=== PATIENT | female | born 1935 | race Caucasian/White ===

== ENCOUNTER 2016-10-21 12:40 | Emergency (ER) | payer MEDICARE, BC ==
--- NOTE | 2016-10-21 13:40 | EDM.PDOC ---
ED HPI GENERAL MEDICAL PROBLEM - General Chief Complaint: Back Pain or Injury Stated Complaint: BACK PAIN [phone] Time Seen by Provider: 10/21/16 13:25 Source of Information: Reports: Patient History Limitations: Reports: No Limitations - History of Present Illness INITIAL COMMENTS - FREE TEXT/NARRATIVE: This 81 yo female patient reports to the ED with back pain. The patient reports her pain started 2 days ago and has been getting worse. The patient reports she has been taking Tylenol for her pain, but did not take any today. The patient reports she contacted the [facility], but was advised to come to the ED for assessment and treatment due to no appointments available. Onset Date: 10/19/16 Duration: Constant Location: Reports: Back Quality: Reports: Ache, Dull Severity: Moderate Improves with: Reports: None Worsens with: Reports: None Associated Symptoms: Reports: Other (difficulties walking due to back pain.) Middle Back Pain Score (Numeric/FACES): 7 - Related Data Allergies Allergy/AdvReac Type Severity Reaction Status Date / Time amoxicillin [Amoxicillin] Allergy Nausea Verified 10/21/16 12:54 azithromycin Allergy Nausea Verified 10/21/16 12:54 cefazolin sodium [From Ancef] Allergy Vomiting Verified 10/21/16 12:54 latex Allergy Nausea Verified 10/21/16 12:54 Home Meds: Home Meds Acetylcysteine [W-Phhjnx-g-Cysteine] 600 mg PO ASDIRECTED 10/21/16 [History] Albuterol Sulfate 2.5 mg IH ASDIRECTED 10/21/16 [History] Albuterol [IJD: Ventolin HFA] 1 gm PO ASDIRECTED 10/21/16 [History] Alendronate [Fosamax] 70 mg PO Q7D@0600 10/21/16 [History] Aspirin 81 mg PO BRK 10/21/16 [History] Budesonide [Pulmicort] 0.5 mg IH ASDIRECTED 10/21/16 [History] Calcitriol [Rocaltrol] 0.25 mcg PO DAILY 10/21/16 [History] Calcium Carbonate/Vitamin D3 [Calcium 500 mg Chewable Tablet] 1 tab PO ASDIRECTED 10/21/16 [History] Formoterol Fumarate [Perforomist] 2 ml PO ASDIRECTED 10/21/16 [History] Furosemide [Lasix] 60 mg PO DAILY 10/21/16 [History] Levothyroxine [Synthroid] 50 mcg PO ACBREAKFAST 10/21/16 [History] Loratadine [Claritin] 10 mg PO ASDIRECTED 10/21/16 [History] Magnesium 400 mg PO DAILY 10/21/16 [History] Metoprolol Succinate [Toprol Xl] 50 mg PO DAILY 10/21/16 [History] Multivitamin/Iron/Folic Acid [Centrum Adults Tablet] 1 tab PO DAILY 10/21/16 [ History] Omeprazole Magnesium [Prilosec Otc] 20 mg PO ASDIRECTED 10/21/16 [History] Polyethylene Glycol 3350 [MiraLAX] 17 gm PO ASDIRECTED 10/21/16 [History] Potassium Chloride 20 meq PO ASDIRECTED 10/21/16 [History] Psyllium Husk (With Sugar) [Metamucil Powder] 861 gm PO ASDIRECTED 10/21/16 [ History] atorvaSTATin [Lipitor] 10 mg PO BEDTIME 10/21/16 [History] guaiFENesin [Mucinex] 1 tab PO ASDIRECTED 10/21/16 [History] guaiFENesin [Tussin] 5 ml PO ATDISCHARGE 10/21/16 [History] Past Medical History HEENT History: Reports: Other (See Below) Other HEENT History: Trouble swallowing Cardiovascular History: Reports: Heart Failure, High Cholesterol, Hypertension, SOB on Exertion Respiratory History: Reports: Asthma, COPD, Interstitial Lung Disease, Pneumonia , Recurrent, Pulmonary Fibrosis, SOB, Other (See Below) Other Respiratory History: chronic cough, lung surgery, emphysema Gastrointestinal History: Reports: Hiatal Hernia Genitourinary History: Reports: Chronic Renal Insuffiency Psychiatric History: Reports: Anxiety Endocrine/Metabolic History: Reports: Hyperthyroidism, Osteopenia Oncologic (Cancer) History: Reports: Basal Cell Carcinoma - Past Surgical History HEENT Surgical History: Reports: Cataract Surgery Cardiovascular Surgical History: Reports: Other (See Below) Female Surgical History: Reports: Breast Biopsy, Hysterectomy, Other (See Below) Other Female Surgeries/Procedures: bladder repair Social & Family History - Family History Family Medical History: Noncontributory HEENT: Reports: None Cardiac: Reports: None Respiratory: Reports: None GI: Reports: None : Reports: None - Tobacco Use Smoking Status *Q: Never Smoker Second Hand Smoke Exposure: No - Alcohol Use Days Per Week of Alcohol Use: 0 - Recreational Drug Use Recreational Drug Use: No ED ROS GENERAL - Review of Systems Review Of Systems: ROS reveals no pertinent complaints other than HPI. ED EXAM,LOWER BACK PAIN/INJURY - Physical Exam Exam: See Below Exam Limited By: No Limitations General Appearance: Alert, WD/WN, Moderate Distress Eye Exam: Bilateral Eye: EOMI, Normal Inspection, PERRL Ears: Normal External Exam, Normal Canal, Hearing Grossly Normal, Normal TMs Nose: Normal Inspection, Normal Mucosa, No Blood Throat/Mouth: Normal Inspection, Normal Lips, Normal Teeth, Normal Gums, Normal Oropharynx, Normal Voice, No Airway Compromise Head: Atraumatic, Normocephalic Neck: Normal Inspection, Supple, Non-Tender, Full Range of Motion Respiratory/Chest: No Respiratory Distress, Lungs Clear, Normal Breath Sounds, No Accessory Muscle Use, Chest Non-Tender Cardiovascular: Normal Peripheral Pulses, Regular Rate, Rhythm, No Edema, No Gallop, No JVD, No Murmur, No Rub GI/Abdominal: Normal Bowel Sounds, No Organomegaly, No Distention, No Abnormal Bruit, No Mass, Distended, Tender (epigastric area) (Female) Exam: Deferred Rectal (Female) Exam: Deferred Back Exam: Decreased Range of Motion, Paraspinal Tenderness (near the L1-L2 areas) Extremities: Normal Inspection, Normal Range of Motion, Non-Tender, No Pedal Edema, Normal Capillary Refill Neurological: Alert, Normal Mood/Affect, Oriented x 3, Difficulty Walking (due to lower back pain). No: Saddle Anesthesia Psychiatric: Normal Affect, Normal Mood Skin Exam: Warm, Dry, Intact, Normal Color, No Rash Lymphatic: No Adenopathy Course - Vital Signs Last Recorded V/S: Last Vital Signs Temp 36.4 C 10/21/16 15:32 Pulse 72 10/21/16 15:32 Resp 18 10/21/16 15:32 BP 129/61 10/21/16 15:32 Pulse Ox 98 10/21/16 12:52 - Orders/Labs/Meds Labs: Laboratory Tests 10/21/16 10/21/16 10/21/16 Range/Units 13:12 13:38 13:38 WBC 10.2 H (5.0-10.0) 10^3/uL RBC 3.71 L (4.2-5.4) 10^6/uL Hgb 11.2 L (12.0-16.0) g/dL Hct 35.0 L (37.0-47.0) % MCV 94.3 (80-100) fL MCH 30.2 (27.0-34.0) pg MCHC 32.0 L (33.0-35.0) g/dL Plt Count 206 (150-450) 10^3/uL Neut % (Auto) 72.0 (42.2-75.2) % Lymph % (Auto) 17.1 L (20.5-50.1) % Emery % (Auto) 5.5 (2-8) % Eos % (Auto) 4.8 H (1.0-3.0) % Baso % (Auto) 0.6 (0.0-1.0) % Sodium 143 (135-145) mmol/L Potassium 4.3 (3.6-5.0) mmol/L Chloride 100 L (101-111) mmol/L Carbon Dioxide 32.0 H (21.0-31.0) mmol/L Anion Gap 15.3 BUN 18 (7-18) mg/dL Creatinine 1.1 (0.6-1.3) mg/dL Est Cr Clr Drug Dosing 34.30 mL/min Estimated GFR (MDRD) 48 BUN/Creatinine Ratio 16.36 Glucose 119 H (74-105) mg/dL Calcium 9.2 (8.4-10.2) mg/dl Total Bilirubin 0.6 (0.2-1.0) mg/dL AST 24 (10-42) IU/L ALT 13 (10-60) IU/L Alkaline Phosphatase 87 (42-121) IU/L Total Protein 7.0 (6.7-8.2) g/dl Albumin 3.8 (3.2-5.5) g/dl Globulin 3.2 Albumin/Globulin Ratio 1.19 Urine Color Yellow (YELLOW) Urine Appearance Clear (CLEAR) Urine pH 7.0 (5.0-9.0) Ur Specific [place] 1.015 (1.005-1.030) Urine Protein Negative (NEGATIVE) Urine Glucose (UA) Negative (NEGATIVE) Urine Ketones Negative (NEGATIVE) Urine Occult Blood Negative (NEGATIVE) Urine Nitrite Negative (NEGATIVE) Urine Bilirubin Negative (NEGATIVE) Urine Urobilinogen 0.2 (0.2-1.0) mg/dL Ur Leukocyte Esterase Trace H (NEGATIVE) Urine RBC Not seen /HPF Urine WBC 0-5 (0-5/HPF) /HPF Ur Epithelial Cells Moderate H /HPF Urine Bacteria Not seen (0-FEW/HPF) /HPF Urine Mucus Not seen /LPF Meds: Medications Discontinued Medications Generic Name Dose Route Start Last Admin Trade Name Shaquille PRN Reason Stop Dose Admin Ketorolac Tromethamine 30 mg 10/21/16 15:30 Toradol IM 10/21/16 15:31 ONETIME ONE Departure - Departure Time of Disposition: 15:35 Disposition: Home, Self-Care 01 Condition: Fair Clinical Impression: Low back strain Qualifiers: Encounter type: initial encounter Qualified Code(s): S39.012A - Strain of muscle, fascia and tendon of lower back, initial encounter - Discharge Information Instructions: Muscle Strain, [id number], Back Pain, Adult, [id number] Forms: ED Department Discharge Care Plan Goals: The patient and spouse were advised of the examination, lab and CT results during the visit. The patient was given an injection of Toradol (30 mg) while in the ED. The patient was discharged with a script for Flexeril (5 mg) #10 to take 1 by mouth at bedtime as needed. The patient may take Tylenol (up to 3000 mg) daily for symptom relief. If the patient has any additional symptoms or concerns, the patient should follow-up with her primary care facility or return to the emergency department.
--- NOTE | 2016-10-21 15:02 | CT ---
Clinical history: A 81-year-old 178 pound female with unexplained back pain. Scan technique: Volume acquisition of data emergency unenhanced CT scan of the lumbar spine obtained with patient lying supine on the Siemens multi slice scanner [facility]. All data archived in the PACS system for storage, reformatting and study. Interpretation: 1. Dextrorotoscoliosis and exaggerated lumbar lordosis osteopenic patient. 2. Calcifications in the anterior and posterior longitudinal ligaments (associated mild hypertrophic marginal spondylosis). 3. Chronic, lower lumbar, L5-S1 disc disease i.e. interspace narrowing and gas in nucleus pulposus. 4. Prominent disc-osteophyte complex encroaching on the lower lumbar spinal canal at the L5-S1 level . 5. No sign of pathologic skeletal lesion, lumbar fracture or spondylolisthesis (extensive reactive s clerosis posterior articulating facets from L4 through S1). Symmetric spacing normal SI joints. 6. Calcifications tracing normal caliber abdominal aorta and branching common iliac arteries. CONCLUSION: Osteopenia. Chronic L5-S1 disc disease. Arthritis but no fractures or dislocation lumbar spine..
--- NOTE | 2016-10-21 15:20 | CT ---
Localized: 81-year-old 178 pound hypertensive female with history of COPD, interstitial lung disease , hysterectomy and colon surgery now experiencing back pain (lumbar spine CT confirms "rotoscoliosis , exaggerated lumbar lordosis and lower lumbar disc disease. No fractures.") Scan technique: Emergency volume acquisition of data from the abdomen and pelvis obtained without or al or IV contrast while patient was lying supine on the Siemens multi slice scanner [place], [place]. All data archived in the PAC system for storage, reformatting and s tudy. Interpretation: 1. Dependently located echodensity within the gallbladder lumen right upper quadrant suggesting tiny stones. Normal unenhanced liver without without associated signs of intra/extrahepatic biliary duct dilatation. 2. Atheromatous calcifications scattered along course of normal caliber aortoiliac vessels. No aneur ysm or dissection. 3. Multilevel lower lumbar disc disease with reactive arthritic changes osteopenic spine. No fractur es or dislocation. 4. Normal appendix lower mid abdomen. No pelvic/abdominal mass lesion and no inflammatory "dirty" pe ritoneal fat or lymphadenopathy. No signs of mechanical bowel obstruction, ascites or free intraperi toneal air. Diverticulosis left colon. 5. Normal cardiac silhouette. (Elevated left hemidiaphragm) Extensive severe interstitial fibrotic/c ystic changes lung bases. CONCLUSION: Probable tiny gallstones. Pulmonary fibrosis. Multilevel lumbar disc disease. Diverticul osis left colon.
[2016-10-21] MEDS ORDERED: Ketorolac 30 MG/ML SDV IM ONE (15:30)
[2016-10-21 15:33] VITALS: BP 129/61
== END 2016-10-21 15:45 | disposition home or self-care (01) ==
LOC: DL.ED 12:40
DX: S39.012A Strain of muscle, fascia and tendon of lower back, initial encounter (principal); I50.9 Heart failure, unspecified; E78.00 Pure hypercholesterolemia, unspecified; J45.909 Unspecified asthma, uncomplicated; J44.9 Chronic obstructive pulmonary disease, unspecified; I13.0 Hypertensive heart and chronic kidney disease with heart failure and stage 1 through stage 4 chronic kidney disease, or unspecified chronic kidney disease; N18.9 Chronic kidney disease, unspecified; F41.9 Anxiety disorder, unspecified; E05.90 Thyrotoxicosis, unspecified without thyrotoxic crisis or storm; Z88.1 Allergy status to other antibiotic agents; Z91.040 Latex allergy status; Z79.82 Long term (current) use of aspirin; Z79.899 Other long term (current) drug therapy; Z85.828 Personal history of other malignant neoplasm of skin; Z98.49 Cataract extraction status, unspecified eye; Z90.710 Acquired absence of both cervix and uterus; Z98.890 Other specified postprocedural states; X58.XXXA Exposure to other specified factors, initial encounter
CPT/HCPCS: 36415; 72131; 74176; 80053; 81001; 85025; 96372; 99284; J1885; 99283

== ENCOUNTER 2016-10-29 17:18 | Emergency (ER) | payer MEDICARE, BC ==
[2016-10-29 17:39] VITALS: BP 105/84
[2016-10-29] MEDS ORDERED: HYDROmorphone 1 MG/ML Syringe IM ONE (17:40)
[2016-10-29] MEDS ORDERED: Ondansetron 4 MG Tab.DIS PO ONE (17:41)
--- NOTE | 2016-10-29 18:59 | EDM.PDOC ---
Scribed by Cristina Hernandez 10/29/16 [id number] for Aleksey Grace MD ED HPI GENERAL MEDICAL PROBLEM - General Chief Complaint: Back Pain or Injury Stated Complaint: [id number] HARD TO BREATHE BACK PAIN CANT WALK Time Seen by Provider: 10/29/16 17:36 Source of Information: Reports: Patient, RN, RN Notes Reviewed History Limitations: Reports: No Limitations - History of Present Illness INITIAL COMMENTS - FREE TEXT/NARRATIVE: Patient arrives by POV with complaint of severe left lower rib pain. Patient denies any injury. Has history of "thin bones". Also has been having flare up of chronic back pain for the last 1 to 2 weeks, Location: Reports: Back Quality: Reports: Ache Severity: Severe Improves with: Reports: None Worsens with: Reports: None Associated Symptoms: Reports: No Other Symptoms Back Pain Score (Numeric/FACES): 9 - Related Data Allergies Allergy/AdvReac Type Severity Reaction Status Date / Time amoxicillin [Amoxicillin] Allergy Nausea Verified 10/21/16 12:54 azithromycin Allergy Nausea Verified 10/21/16 12:54 cefazolin sodium [From Ancef] Allergy Vomiting Verified 10/21/16 12:54 latex Allergy Nausea Verified 10/21/16 12:54 Home Meds: Home Meds Acetylcysteine [N-Ylzfdv-l-Cysteine] 600 mg PO ASDIRECTED 10/21/16 [History] Albuterol Sulfate 2.5 mg IH ASDIRECTED 10/21/16 [History] Albuterol [IJD: Ventolin HFA] 1 gm PO ASDIRECTED 10/21/16 [History] Alendronate [Fosamax] 70 mg PO Q7D@0600 10/21/16 [History] Aspirin 81 mg PO BRK 10/21/16 [History] Budesonide [Pulmicort] 0.5 mg IH ASDIRECTED 10/21/16 [History] Calcitriol [Rocaltrol] 0.25 mcg PO DAILY 10/21/16 [History] Calcium Carbonate/Vitamin D3 [Calcium 500 mg Chewable Tablet] 1 tab PO ASDIRECTED 10/21/16 [History] Formoterol Fumarate [Perforomist] 2 ml PO ASDIRECTED 10/21/16 [History] Furosemide [Lasix] 60 mg PO DAILY 10/21/16 [History] Levothyroxine [Synthroid] 50 mcg PO ACBREAKFAST 10/21/16 [History] Loratadine [Claritin] 10 mg PO ASDIRECTED 10/21/16 [History] Magnesium 400 mg PO DAILY 10/21/16 [History] Metoprolol Succinate [Toprol Xl] 50 mg PO DAILY 10/21/16 [History] Multivitamin/Iron/Folic Acid [Centrum Adults Tablet] 1 tab PO DAILY 10/21/16 [ History] Omeprazole Magnesium [Prilosec Otc] 20 mg PO ASDIRECTED 10/21/16 [History] Polyethylene Glycol 3350 [MiraLAX] 17 gm PO ASDIRECTED 10/21/16 [History] Potassium Chloride 20 meq PO ASDIRECTED 10/21/16 [History] Psyllium Husk (With Sugar) [Metamucil Powder] 861 gm PO ASDIRECTED 10/21/16 [ History] atorvaSTATin [Lipitor] 10 mg PO BEDTIME 10/21/16 [History] guaiFENesin [Mucinex] 1 tab PO ASDIRECTED 10/21/16 [History] guaiFENesin [Tussin] 5 ml PO ATDISCHARGE 10/21/16 [History] Past Medical History HEENT History: Reports: Other (See Below) Other HEENT History: Trouble swallowing Cardiovascular History: Reports: Heart Failure, High Cholesterol, Hypertension, SOB on Exertion Respiratory History: Reports: Asthma, COPD, Interstitial Lung Disease, Pneumonia , Recurrent, Pulmonary Fibrosis, SOB, Other (See Below) Other Respiratory History: chronic cough, lung surgery, emphysema Gastrointestinal History: Reports: Hiatal Hernia Genitourinary History: Reports: Chronic Renal Insuffiency Psychiatric History: Reports: Anxiety Endocrine/Metabolic History: Reports: Hyperthyroidism, Osteopenia Oncologic (Cancer) History: Reports: Basal Cell Carcinoma - Past Surgical History HEENT Surgical History: Reports: Cataract Surgery Cardiovascular Surgical History: Reports: Other (See Below) Female Surgical History: Reports: Breast Biopsy, Hysterectomy, Other (See Below) Other Female Surgeries/Procedures: bladder repair Social & Family History - Family History Family Medical History: Noncontributory HEENT: Reports: None Cardiac: Reports: None Respiratory: Reports: None GI: Reports: None : Reports: None - Tobacco Use Smoking Status *Q: Never Smoker Second Hand Smoke Exposure: No - Caffeine Use Caffeine Use: Reports: Tea - Alcohol Use Days Per Week of Alcohol Use: 0 - Recreational Drug Use Recreational Drug Use: No ED ROS GENERAL - Review of Systems Review Of Systems: ROS reveals no pertinent complaints other than HPI. ED EXAM,LOWER BACK PAIN/INJURY - Physical Exam Exam: See Below Exam Limited By: No Limitations General Appearance: Alert, Mild Distress (due to pain.), Other (frail elderly) Head: Atraumatic, Normocephalic Neck: Normal Inspection, Supple, Non-Tender, Full Range of Motion Respiratory/Chest: No Respiratory Distress, No Accessory Muscle Use, Decreased Breath Sounds, Other (course vesicular breath sounds. ) Cardiovascular: Regular Rate, Rhythm GI/Abdominal: Normal Bowel Sounds, Soft, Non-Tender, No Distention Back Exam: Decreased Range of Motion, Paraspinal Tenderness, Vertebral Tenderness, Other (acutely tender overlying left anterolateral lower ribs.) Extremities: Normal Inspection, Normal Range of Motion, Non-Tender, No Pedal Edema, Normal Capillary Refill Neurological: Alert, Normal Mood/Affect, No Motor/Sensory Deficits, Oriented x 3 Psychiatric: Normal Affect, Normal Mood Skin Exam: Warm, Dry, Intact, Normal Color, No Rash Course - Vital Signs Last Recorded V/S: Last Vital Signs Temp 36.6 C 10/29/16 17:38 Pulse 77 10/29/16 17:38 Resp 20 10/29/16 17:38 BP 105/84 10/29/16 17:38 Pulse Ox 100 10/29/16 17:38 - Orders/Labs/Meds Meds: Medications Discontinued Medications Generic Name Dose Route Start Last Admin Trade Name Freq PRN Reason Stop Dose Admin Hydromorphone HCl 1 mg 10/29/16 17:40 10/29/16 17:54 Dilaudid IM 10/29/16 17:41 1 mg ONETIME ONE Administration Ondansetron HCl 4 mg 10/29/16 17:41 10/29/16 17:53 Zofran Odt PO 10/29/16 17:42 4 mg ONETIME ONE Administration - Radiology Interpretation Free Text/Narrative:: Rib x-ray: left anterior 5th or 6th rib fracture, see Rad. report. Departure - Departure Time of Disposition: 18:55 Disposition: Home, Self-Care 01 Condition: Good Clinical Impression: Left rib fracture Qualifiers: Encounter type: initial encounter Rib fracture type: single rib Fracture type: closed Qualified Code(s): S22.32XA - Fracture of one rib, left side, initial encounter for closed fracture - Discharge Information Instructions: Rib Fracture, [id number], Osteoporosis, [id number] Referrals: Pia Hernandez MD [Primary Care Provider] - Forms: ED Department Discharge Additional Instructions: RX: hydrocodone APAP 5mg/325mg. Follow up in clinic for recheck in the next 3 days if not improving. Follow up in clinic for evaluation of your thin bones to determine if you have osteopenia, or osteoporosis. Eat prunes or use a stool softener if the pain medication causes constipation. I have read and agree with the documentation that has been completed regarding this visit. By signing this record, I attest that the documentation was completed in my physical presence and is an accurate record of the encounter.
== END 2016-10-29 19:17 | disposition home or self-care (01) ==
LOC: DL.ED 17:18
DX: S22.32XA Fracture of one rib, left side, initial encounter for closed fracture (principal); I13.0 Hypertensive heart and chronic kidney disease with heart failure and stage 1 through stage 4 chronic kidney disease, or unspecified chronic kidney disease; I50.9 Heart failure, unspecified; N18.9 Chronic kidney disease, unspecified; E78.00 Pure hypercholesterolemia, unspecified; E05.90 Thyrotoxicosis, unspecified without thyrotoxic crisis or storm; J44.9 Chronic obstructive pulmonary disease, unspecified; Z88.1 Allergy status to other antibiotic agents; Z88.8 Allergy status to other drugs, medicaments and biological substances; Z91.040 Latex allergy status; Z79.899 Other long term (current) drug therapy; Z90.710 Acquired absence of both cervix and uterus; Z87.01 Personal history of pneumonia (recurrent); X58.XXXA Exposure to other specified factors, initial encounter
CPT/HCPCS: 71100; 96372; 99283; A9270; J1170

== ENCOUNTER 2016-11-03 06:37 | Emergency (ER) | payer MEDICARE, BC ==
--- NOTE | 2016-11-03 07:10 | EDM.PDOC ---
ED HPI GENERAL MEDICAL PROBLEM - General Chief Complaint: Gastrointestinal Problem Stated Complaint: HAVENT HAD BOWEL MOVEMENT IN A WEEK Time Seen by Provider: 11/03/16 07:05 Source of Information: Reports: Patient, Family ( and children) History Limitations: Reports: No Limitations - History of Present Illness INITIAL COMMENTS - FREE TEXT/NARRATIVE: 81 yo white female c/o no BM X 1 week and no results after taking enema last night and taking miralax. Pt. c/o of abdomen cramps and has been taking Hydrocodone since Oct.29 after dx. with left rib fracture. Onset Date: 10/27/16 Onset Time: 12:00 Duration: Week(s): (one) Location: Reports: Abdomen Quality: Reports: Ache, Pressure Severity: Moderate Improves with: Reports: None Context: Reports: Other (Patient started Hydrocodone on Oct.29) Treatments [employer]: Reports: Other (see below) (fleet enema and miralax) Left Throat Pain Score (Numeric/FACES): 8 - Related Data Allergies Allergy/AdvReac Type Severity Reaction Status Date / Time amoxicillin [Amoxicillin] Allergy Nausea Verified 11/03/16 06:47 azithromycin Allergy Nausea Verified 11/03/16 06:47 cefazolin sodium [From Ancef] Allergy Vomiting Verified 11/03/16 06:47 latex Allergy Nausea Verified 11/03/16 06:47 Home Meds: Home Meds Acetylcysteine [P-Bhrgjn-h-Cysteine] 600 mg PO ASDIRECTED 10/21/16 [History] Albuterol Sulfate 2.5 mg IH ASDIRECTED 10/21/16 [History] Albuterol [IJD: Ventolin HFA] 1 gm PO ASDIRECTED 10/21/16 [History] Alendronate [Fosamax] 70 mg PO Q7D@0600 10/21/16 [History] Aspirin 81 mg PO BRK 10/21/16 [History] Budesonide [Pulmicort] 0.5 mg IH ASDIRECTED 10/21/16 [History] Calcitriol [Rocaltrol] 0.25 mcg PO DAILY 10/21/16 [History] Calcium Carbonate/Vitamin D3 [Calcium 500 mg Chewable Tablet] 1 tab PO ASDIRECTED 10/21/16 [History] Formoterol Fumarate [Perforomist] 2 ml PO ASDIRECTED 10/21/16 [History] Furosemide [Lasix] 60 mg PO DAILY 10/21/16 [History] Levothyroxine [Synthroid] 50 mcg PO ACBREAKFAST 10/21/16 [History] Loratadine [Claritin] 10 mg PO ASDIRECTED 10/21/16 [History] Magnesium 400 mg PO DAILY 10/21/16 [History] Metoprolol Succinate [Toprol Xl] 50 mg PO DAILY 10/21/16 [History] Multivitamin/Iron/Folic Acid [Centrum Adults Tablet] 1 tab PO DAILY 10/21/16 [ History] Omeprazole Magnesium [Prilosec Otc] 20 mg PO ASDIRECTED 10/21/16 [History] Polyethylene Glycol 3350 [MiraLAX] 17 gm PO ASDIRECTED 10/21/16 [History] Potassium Chloride 20 meq PO ASDIRECTED 10/21/16 [History] Psyllium Husk (With Sugar) [Metamucil Powder] 861 gm PO ASDIRECTED 10/21/16 [ History] atorvaSTATin [Lipitor] 10 mg PO BEDTIME 10/21/16 [History] guaiFENesin [Mucinex] 1 tab PO ASDIRECTED 10/21/16 [History] guaiFENesin [Tussin] 5 ml PO ATDISCHARGE 10/21/16 [History] Past Medical History HEENT History: Reports: Other (See Below) Other HEENT History: Trouble swallowing Cardiovascular History: Reports: Heart Failure, High Cholesterol, Hypertension, SOB on Exertion Respiratory History: Reports: Asthma, COPD, Interstitial Lung Disease, Pneumonia , Recurrent, Pulmonary Fibrosis, SOB, Other (See Below) Other Respiratory History: chronic cough, lung surgery, emphysema Gastrointestinal History: Reports: Hiatal Hernia Genitourinary History: Reports: Chronic Renal Insuffiency Other Genitourinary History: bladder repair, bowel repair Musculoskeletal History: Reports: Back Pain, Chronic, Fracture Psychiatric History: Reports: Anxiety Endocrine/Metabolic History: Reports: Hyperthyroidism, Osteopenia Oncologic (Cancer) History: Reports: Basal Cell Carcinoma - Infectious Disease History Infectious Disease History: Reports: Measles - Past Surgical History HEENT Surgical History: Reports: Cataract Surgery Cardiovascular Surgical History: Reports: Other (See Below) Female Surgical History: Reports: Breast Biopsy, Hysterectomy, Other (See Below) Other Female Surgeries/Procedures: bladder repair Social & Family History - Family History Family Medical History: Noncontributory HEENT: Reports: None Cardiac: Reports: None Respiratory: Reports: None GI: Reports: None : Reports: None - Tobacco Use Smoking Status *Q: Never Smoker Second Hand Smoke Exposure: No - Caffeine Use Caffeine Use: Reports: Tea - Alcohol Use Days Per Week of Alcohol Use: 0 - Recreational Drug Use Recreational Drug Use: No ED ROS GENERAL - Review of Systems Review Of Systems: See Below Constitutional: Reports: No Symptoms HEENT: Reports: No Symptoms Respiratory: Reports: No Symptoms Cardiovascular: Reports: No Symptoms Endocrine: Reports: No Symptoms GI/Abdominal: Reports: Abdominal Pain, Constipation : Reports: No Symptoms Musculoskeletal: Reports: No Symptoms Skin: Reports: No Symptoms Neurological: Reports: No Symptoms Psychiatric: Reports: No Symptoms Hematologic/Lymphatic: Reports: No Symptoms Immunologic: Reports: No Symptoms ED EXAM, GI/ABD - Physical Exam Exam: See Below Exam Limited By: No Limitations General Appearance: Alert, WD/WN, No Apparent Distress Eyes: Bilateral: Normal Appearance, EOMI Ears: Normal External Exam Nose: Normal Inspection Throat/Mouth: Normal Inspection Head: Atraumatic Neck: Normal Inspection Respiratory/Chest: No Respiratory Distress Cardiovascular: Normal Peripheral Pulses, Regular Rate, Rhythm GI/Abdominal Exam: Soft, No Mass, Tender Extremities: Normal Inspection Neurological: Alert, Oriented, CN II-XII Intact Psychiatric: Normal Affect Skin Exam: Warm Lymphatic: No Adenopathy Course - Vital Signs Last Recorded V/S: Last Vital Signs Temp 36.6 C 11/03/16 08:54 Pulse 79 11/03/16 08:54 Resp 20 11/03/16 08:54 BP 117/74 11/03/16 08:54 Pulse Ox 97 11/03/16 08:54 - Orders/Labs/Meds Orders: Active Orders 24 hr Category Date Time Status Enema [RC] ASDIRECTED Care 11/03/16 07:35 Active Meds: Medications Discontinued Medications Generic Name Dose Route Start Last Admin Trade Name Shaquille PRN Reason Stop Dose Admin Magnesium Citrate 296 ml 11/03/16 07:35 11/03/16 07:42 Citrate Of Magnesia PO 11/03/16 07:36 296 ml ONETIME ONE Administration - Re-Assessments/Exams Free Text/Narrative Re-Assessment/Exam: 11/03/16 10:54 Patient was sent to medical surgery floor and had soap suds enema w/ some results Departure - Departure Time of Disposition: 10:55 Disposition: Home, Self-Care 01 Condition: Good Clinical Impression: Constipation - Discharge Information Instructions: Constipation, Adult, [id number] Forms: ED Department Discharge Additional Instructions: Increase intake of fluids ( water/ juice) approx. 6-8 glasses each day Increase fiber in diet ( Fruits / Vegetables) F/U w/ PCP - My Orders Last 24 Hours: My Active Orders 11/03/16 07:35 Enema [RC] ASDIRECTED - Assessment/Plan Last 24 Hours: My Active Orders 11/03/16 07:35 Enema [RC] ASDIRECTED
[2016-11-03] MEDS ORDERED: Magnesium Citrate Solution 296 ML Bottle PO ONE (07:35)
[2016-11-03 08:55] VITALS: BP 117/74
== END 2016-11-03 11:05 | disposition home or self-care (01) ==
LOC: DL.ED 06:37
DX: K59.00 Constipation, unspecified (principal); J45.909 Unspecified asthma, uncomplicated; I13.0 Hypertensive heart and chronic kidney disease with heart failure and stage 1 through stage 4 chronic kidney disease, or unspecified chronic kidney disease; I50.9 Heart failure, unspecified; N18.9 Chronic kidney disease, unspecified; E03.9 Hypothyroidism, unspecified; Z98.49 Cataract extraction status, unspecified eye; Z90.710 Acquired absence of both cervix and uterus; Z98.890 Other specified postprocedural states; Z88.1 Allergy status to other antibiotic agents; Z88.8 Allergy status to other drugs, medicaments and biological substances; Z91.040 Latex allergy status; Z79.82 Long term (current) use of aspirin; Z79.899 Other long term (current) drug therapy
CPT/HCPCS: 74020; 99283; 99284; A9270

== ENCOUNTER 2017-04-16 02:00 | Inpatient (IN) | payer MEDICARE, BC ==
[2017-04-16] MEDS ORDERED: Aspirin 81 MG Tab.Chew PO ONE (03:17)
[2017-04-16] MEDS ORDERED: Azithromycin 500 MG in Sodium Chloride 0.9% 250 ML IV ONE (03:17)
[2017-04-16] MEDS ORDERED: Aspirin 81 MG Tab.Chew ONE (03:23)
[2017-04-16] MEDS ORDERED: Azithromycin 500 MG AdvVial IV ONE (04:58)
[2017-04-16] MEDS ORDERED: Sodium Chloride 0.9% 250 ML ONE (04:59)
[2017-04-16 06:28] LABS: ANION GAP 8.4; CHLORIDE,CL 101 mmol/L (101-111); SODIUM,NA 141 mmol/L (135-145)
[2017-04-16] MEDS ORDERED: Morphine 2 MG/ML Syringe IV PRN (06:33)
[2017-04-16] MEDS ORDERED: Acetaminophen 325 MG Tab PO PRN (06:34)
[2017-04-16] MEDS ORDERED: Albuterol 0.083% 2.5 MG/3 ML Neb Soln INH PRN (06:35)
[2017-04-16] MEDS ORDERED: Ondansetron 4 MG/2 ML SDV IVPUSH PRN (06:36)
[2017-04-16] MEDS: Albuterol/Ipratropium 3.0-0.5 MG/3 ML Neb Soln INH SCH ×4 (08:45→20:48)
[2017-04-16] MEDS ORDERED: Aspirin 325 MG Tab.EC PO SCH (09:00)
--- NOTE | 2017-04-16 13:19 | PCM.HP ---
H&P History of Present Illness - General Date of Service: 04/16/17 Source of Information: Patient History Limitations: Reports: No Limitations - History of Present Illness Initial Comments - Free Text/Narative: Chest pain and some shortness of breath Onset of Symptoms: Reports: Other (2 days) Duration of Symptoms: Reports: Intermittent Location: Reports: Chest Quality: Reports: Pressure Improves with: Reports: Other (No known aggravating factors or relieving factors ) Associated Symptoms: Reports: Shortness of Breath, Weakness - Related Data Allergies/Adverse Reactions: Allergies Allergy/AdvReac Type Severity Reaction Status Date / Time amoxicillin [Amoxicillin] Allergy Nausea Verified 11/03/16 06:47 azithromycin Allergy Nausea Verified 11/03/16 06:47 cefazolin sodium [From Ancef] Allergy Vomiting Verified 11/03/16 06:47 latex Allergy Nausea Verified 11/03/16 06:47 Home Medications: Home Meds Acetylcysteine [T-Gcssoz-h-Cysteine] 600 mg PO ASDIRECTED 10/21/16 [History] Albuterol Sulfate 2.5 mg IH ASDIRECTED 10/21/16 [History] Albuterol [IJD: Ventolin HFA] 1 gm PO ASDIRECTED 10/21/16 [History] Alendronate [Fosamax] 70 mg PO Q7D@0600 10/21/16 [History] Aspirin 81 mg PO BRK 10/21/16 [History] Budesonide [Pulmicort] 0.5 mg IH ASDIRECTED 10/21/16 [History] Calcitriol [Rocaltrol] 0.25 mcg PO DAILY 10/21/16 [History] Calcium Carbonate/Vitamin D3 [Calcium 500 mg Chewable Tablet] 1 tab PO ASDIRECTED 10/21/16 [History] Formoterol Fumarate [Perforomist] 2 ml PO ASDIRECTED 10/21/16 [History] Furosemide [Lasix] 60 mg PO DAILY 10/21/16 [History] Levothyroxine [Synthroid] 50 mcg PO ACBREAKFAST 10/21/16 [History] Loratadine [Claritin] 10 mg PO ASDIRECTED 10/21/16 [History] Magnesium 400 mg PO DAILY 10/21/16 [History] Metoprolol Succinate [Toprol Xl] 50 mg PO DAILY 10/21/16 [History] Multivitamin/Iron/Folic Acid [Centrum Adults Tablet] 1 tab PO DAILY 10/21/16 [ History] Omeprazole Magnesium [Prilosec Otc] 20 mg PO ASDIRECTED 10/21/16 [History] Polyethylene Glycol 3350 [MiraLAX] 17 gm PO ASDIRECTED 10/21/16 [History] Potassium Chloride 20 meq PO ASDIRECTED 10/21/16 [History] Psyllium Husk (With Sugar) [Metamucil Powder] 861 gm PO ASDIRECTED 10/21/16 [ History] atorvaSTATin [Lipitor] 10 mg PO BEDTIME 10/21/16 [History] guaiFENesin [Mucinex] 1 tab PO ASDIRECTED 10/21/16 [History] guaiFENesin [Tussin] 5 ml PO ATDISCHARGE 10/21/16 [History] Past Medical History - Past Health History Medical/Surgical History: Denies Medical/Surgical History (COPD Hypertension Gastroesophageal reflux disease Allergy) HEENT History: Reports: Other (See Below) Other HEENT History: Trouble swallowing Cardiovascular History: Reports: Heart Failure, High Cholesterol, Hypertension, SOB on Exertion Respiratory History: Reports: Asthma, COPD, Interstitial Lung Disease, Pneumonia , Recurrent, Pulmonary Fibrosis, SOB, Other (See Below) Other Respiratory History: chronic cough, lung surgery, emphysema Gastrointestinal History: Reports: Hiatal Hernia Genitourinary History: Reports: Chronic Renal Insuffiency Other Genitourinary History: bladder repair, bowel repair Musculoskeletal History: Reports: Back Pain, Chronic, Fracture Psychiatric History: Reports: Anxiety Endocrine/Metabolic History: Reports: Hyperthyroidism, Osteopenia Oncologic (Cancer) History: Reports: Basal Cell Carcinoma - Infectious Disease History Infectious Disease History: Reports: Measles - Past Surgical History HEENT Surgical History: Reports: Cataract Surgery Cardiovascular Surgical History: Reports: Other (See Below) Female Surgical History: Reports: Breast Biopsy, Hysterectomy, Other (See Below) Other Female Surgeries/Procedures: bladder repair Social & Family History - Family History Family Medical History: Noncontributory HEENT: Reports: None Cardiac: Reports: None Respiratory: Reports: None GI: Reports: None : Reports: None - Tobacco Use Smoking Status *Q: Never Smoker Second Hand Smoke Exposure: No - Caffeine Use Caffeine Use: Reports: Tea - Alcohol Use Days Per Week of Alcohol Use: 0 - Recreational Drug Use Recreational Drug Use: No H&P Review of Systems - Review of Systems: Review Of Systems: See Below (Has associated shortness of breath) General: Reports: No Symptoms HEENT: Reports: No Symptoms Pulmonary: Reports: Shortness of Breath Cardiovascular: Reports: Chest Pain Gastrointestinal: Reports: No Symptoms Genitourinary: Reports: No Symptoms Musculoskeletal: Reports: No Symptoms Psychiatric: Reports: No Symptoms Neurological: Reports: No Symptoms Exam - Exam Exam: See Below (Has associated shortness of breath) - Vital Signs Vital Signs: Last Vital Signs Temp 36.4 C 04/16/17 11:24 Pulse 98 04/16/17 11:24 Resp 20 04/16/17 11:24 BP 104/55 L 04/16/17 11:24 Pulse Ox 91 L 04/16/17 11:24 - Exam Quality Assessment: Supplemental Oxygen General: Oriented Neck: Supple Lungs: Rales Cardiovascular: Regular Rate GI/Abdominal Exam: Soft Extremities: Normal Inspection, No Pedal Edema Neurological: Cranial Nerves Intact Psychiatric: Alert, Normal Affect - Patient Data Lab Results Last 24 hrs: Laboratory Results - last 24 hr 04/16/17 Range/Units 07:33 Troponin I < 0.02 (0.00-0.02) ng/ml Result Diagrams: 04/16/17 02:18 04/16/17 02:18 EKG INTERPRETATION EKG Date: 04/16/17 Rhythm: NSR (No significant abnormality) *Q Meaningful Use (ADM) - VTE *Q VTE Criteria *Q: - Stroke *Q Stroke Criteria *Q: - AMI *Q AMI Criteria *Q: Problem List Initiated/Reviewed/Updated: Yes Orders Last 24hrs: Active Orders 24 hr Category Date Time Status Chest PE [Ang Chest] [CT] Routine Exams 04/16/17 13:11 Ordered CULTURE BLOOD [BC] Routine Lab 04/16/17 05:05 Received TROPONIN I [CHEM] Timed Lab 04/16/17 13:30 Ordered Acetaminophen [Tylenol] Med 04/16/17 06:34 Active 650 mg PO Q6H PRN Albuterol [Proventil Neb Soln] Med 04/16/17 06:35 Active 2.5 mg INH Q4H PRN Albuterol/Ipratropium [DuoNeb 3.0-0.5 MG/3 ML] Med 04/16/17 07:00 Active 3 ml INH QIDRT Aspirin [Ecotrin] Med 04/16/17 09:00 Active 325 mg PO DAILY Azithromycin [Zithromax] 500 mg Med 04/17/17 06:00 Active Sodium Chloride 0.9% [Normal Saline] 250 ml IV Q24H Morphine Med 04/16/17 06:33 Active 2 mg IV Q4H PRN Ondansetron [Zofran] Med 04/16/17 06:36 Active 4 mg IVPUSH Q6H PRN Medication Orders Acetaminophen (Tylenol) 650 mg PO Q6H PRN PRN Reason: Pain/Fever Albuterol (Proventil Neb Soln) 2.5 mg INH Q4H PRN PRN Reason: Shortness of Breath Albuterol/Ipratropium (Duoneb 3.0-0.5 Mg/3 Ml) 3 ml INH QIDRT [facility] Last Admin: 04/16/17 12:24 Dose: 3 ml Admin: 04/16/17 08:45 Dose: 3 ml Aspirin (Ecotrin) 325 mg PO DAILY [facility] Last Admin: 04/16/17 08:45 Dose: 325 mg Azithromycin 500 mg/ Sodium (Chloride) 250 mls @ 250 mls/hr IV Q24H AIYANA Morphine Sulfate (Morphine) 2 mg IV Q4H PRN PRN Reason: Pain Ondansetron HCl (Zofran) 4 mg IVPUSH Q6H PRN PRN Reason: Nausea/Vomiting Assessment/Plan Comment:: #. Chest pain The quality of the chest pain is not classic for cardiac disease It has been intermittent He could be due to musculoskeletal factors #. COPD Patient has long-standing history of COPD #. Chronic hypoxemic respiratory failure On supplemental oxygen chronically #Pulmonary fibrosis Previously documented #. Hypothyroidism On hormone replacement therapy #. Gastroesophageal reflux disease Has been on proton pump inhibitor Plan Admit patient to rule out acute coronary syndrome Obtain troponin every 6 hours Nebulizer with DuoNeb Obtain CT scan of the chest to rule out active pulmonary embolism Start empiric antibiotics with intravenous is a gentamicin Start empiric antibiotics with intravenous ceftriaxone Continue proton pump inhibitor Monitor vital signs every 4 hours
[2017-04-16] MEDS ORDERED: Iopamidol 755 Mg/ML 100 ML Bottle IVPUSH ONE (13:24)
[2017-04-16] MEDS ORDERED: [UNRECOGNIZED DRUG - OTHER] PO SCH (14:00)
[2017-04-16] MEDS ORDERED: PSYLLIUM HUSK PO SCH (14:00)
[2017-04-16] MEDS ORDERED: cefTRIAXone 1,000 MG in Sodium Chloride 0.9% 50 ML IV SCH (14:00)
[2017-04-16] MEDS ORDERED: FORMOTEROL FUMARATE 20 MCG/2 ML INH PRN (14:00)
--- NOTE | 2017-04-16 14:24 | CT ---
Clinical history: 82-year-old 167 pound female with cough and shortness of breath reported to have "b ilateral upper lobe infiltrates, chronic interstitial thickening bilaterally, and left basilar infilt rate" on recent chest radiograph. Scan technique: Volume acquisition of data from the chest (bony thorax, lungs and mediastinum) obtain ed during intravenous ministration 64 cc nonionic Isovue 370 contrast (via injector) while patient wa s lying supine on the Siemens multi slice scanner [place], [place]. Al l data archived in the PACS system for storage, reformatting and study (lung/mediastinal windows). Interpretation: Abnormal. 1. Prominent proximal pulmonary artery segments bilaterally, generalized cystic/bullous disease/fibro sis and multilobar infiltrates. 2. *No sign of intraluminal filling defect or pulmonary artery thrombus i.e. low probability pulmonar y embolism. No peripheral pleural-based wedge shaped infarcts, abnormal areas of focal lobar oligemia , or associated pleural effusion. 3. Alveolar consolidation both upper lobes (superior segment on the right and axillary segment of the left), and posterior segments both lower lobes (left greater than right) i.e. multilobar pneumonia. Generalized abnormal interstitial process. 4. Large heart. No pericardial effusion and no current signs of alveolar edema or dependent pleural f luid accumulation. 5. Normal caliber ectatic aorta. 6. Insufficiency fracture (vertebral plana) osteoporotic lower thoracic vertebral body. 7. No lung mass or hilar/mediastinal lymphadenopathy. Upper abdominal viscera unremarkable. CONCLUSION: Abnormal interstitial lung disease and multilobar pneumonia. No current evidence pulmonar y embolism or infarct.
--- NOTE | 2017-04-16 14:35 | EKG ---
04/16/2017 - DARYL MCLEOD - TIME: 2:04 a.m. FINDINGS: EKG shows a normal sinus rhythm. There is left axis deviation. [facility] /[id number]
[2017-04-16] MEDS: Omeprazole 20 MG Cap.CR PO SCH (18:20)
[2017-04-16] MEDS: Loratadine 10 MG Tab PO SCH (18:28)
[2017-04-16] MEDS: Calcium Carbonate/Vitamin D3 1250 MG-200 Unit Tab PO SCH (18:28)
[2017-04-16] MEDS: cefTRIAXone 1 GM Vial IV SCH (18:28)
[2017-04-16] MEDS: atorvaSTATin 10 MG Tab PO SCH (20:47)
[2017-04-16] MEDS: Potassium Chloride 10 MEQ Tab.ER PO SCH (20:48)
[2017-04-16] MEDS: guaiFENesin/Dextromethorphan 100-10 MG/5 ML Soln 5 ML Cup PO PRN (20:49)
[2017-04-17] MEDS: guaiFENesin/Dextromethorphan 100-10 MG/5 ML Soln 5 ML Cup PO PRN ×3 (03:13→19:40)
[2017-04-17] MEDS: Omeprazole 20 MG Cap.CR PO SCH (05:16)
[2017-04-17] MEDS: Levothyroxine 50 MCG Tab PO SCH (05:16)
[2017-04-17] MEDS ORDERED: Azithromycin 500 MG in Sodium Chloride 0.9% 250 ML IV SCH (06:00)
[2017-04-17] MEDS: Albuterol/Ipratropium 3.0-0.5 MG/3 ML Neb Soln INH SCH ×4 (07:14→21:00)
[2017-04-17] MEDS ORDERED: Metoprolol Succinate 50 MG Tab.ER PO SCH (08:00)
[2017-04-17] MEDS: Polyethylene Glycol 3350 Powder 17 GM Packet PO PRN (08:14)
[2017-04-17] MEDS: Furosemide 20 MG Tab PO SCH (08:15)
[2017-04-17] MEDS: Loratadine 10 MG Tab PO SCH (08:15)
[2017-04-17] MEDS: Aspirin 81 MG Tab.Chew PO SCH (08:16)
[2017-04-17] MEDS: Calcitriol 0.25 MCG Cap PO SCH (08:16)
[2017-04-17] MEDS: Multivitamins,Therapeutic Tab PO SCH (08:16)
[2017-04-17] MEDS: Calcium Carbonate/Vitamin D3 1250 MG-200 Unit Tab PO SCH (08:17)
[2017-04-17] MEDS: Potassium Chloride 10 MEQ Tab.ER PO SCH ×2 (08:26→20:59)
[2017-04-17] MEDS ORDERED: guaiFENesin 100 MG/5 ML Soln 5 ML UD Cup PO PRN (08:56)
[2017-04-17] MEDS ORDERED: Albuterol 6.7 GM Inhaler INH PRN (08:59)
--- NOTE | 2017-04-17 10:33 | PN ---
DATE: 04/17/2017 The patient is an 82-year-old lady admitted with chest pain and shortness of breath. CAT scan of the chest showed interstitial lung disease and pneumonia, but no evidence of pulmonary embolism. She was started on Rocephin and Zithromax. This morning, she is feeling a little bit better with her shortness of breath and she denies any more chest pain and she denies any other ongoing complaints. No headache, abdominal pain, nausea, vomiting. LABORATORY DATA: This morning; lactic acid is 0.7 and troponin is 0.02. All 3 sets are negative. OBJECTIVE: Vital Signs: Blood pressure is 116/56, pulse 91, respirations 20, and temperature of 99.5. Heart: Regular rate and rhythm. Normal S1 and S2. No gallops. No rubs. Lungs: Coarse breath sounds bilaterally with some faint crackles on the left lung field, but no significant wheezing. Abdomen: Soft, nontender. Extremities: Negative for any pedal edema. No calf tenderness. MEDICATIONS: Reviewed. We will continue with her present management and we will also resume her home medication. [facility] /[id number]
[2017-04-17] MEDS: Sodium Chloride 0.9% 10 ML Syringe FLUSH PRN ×2 (17:46→21:01)
[2017-04-17] MEDS: cefTRIAXone 1 GM Vial IV SCH (17:46)
[2017-04-17] MEDS: Albuterol 0.083% 2.5 MG/3 ML Neb Soln NEB SCH (18:29)
[2017-04-17] MEDS: Budesonide 0.5 MG/2 ML Neb Susp NEB SCH (18:29)
[2017-04-17] MEDS: atorvaSTATin 10 MG Tab PO SCH (20:59)
[2017-04-17] MEDS ORDERED: guaiFENesin 600 MG Tab.ER PO PRN (21:00)
[2017-04-18] MEDS: Sodium Chloride 0.9% 10 ML Syringe FLUSH PRN ×2 (05:10→17:42)
[2017-04-18] MEDS: Azithromycin 500 MG in Sodium Chloride 0.9% 250 ML IV SCH (05:11)
[2017-04-18] MEDS: Omeprazole 20 MG Cap.CR PO SCH (05:21)
[2017-04-18] MEDS: Levothyroxine 50 MCG Tab PO SCH (05:21)
[2017-04-18] MEDS: guaiFENesin/Dextromethorphan 100-10 MG/5 ML Soln 5 ML Cup PO PRN ×2 (05:28→21:48)
[2017-04-18 06:56] LABS: ANION GAP 13.1; CHLORIDE,CL 100 mmol/L (101-111); SODIUM,NA 140 mmol/L (135-145)
[2017-04-18] MEDS: Albuterol 0.083% 2.5 MG/3 ML Neb Soln NEB SCH (07:35)
[2017-04-18] MEDS: Albuterol/Ipratropium 3.0-0.5 MG/3 ML Neb Soln INH SCH ×4 (07:35→21:30)
[2017-04-18] MEDS: Budesonide 0.5 MG/2 ML Neb Susp NEB SCH ×2 (07:35→18:05)
[2017-04-18] MEDS: Polyethylene Glycol 3350 Powder 17 GM Packet PO PRN (08:31)
[2017-04-18] MEDS: Calcitriol 0.25 MCG Cap PO SCH (08:33)
[2017-04-18] MEDS: Aspirin 81 MG Tab.Chew PO SCH (08:33)
[2017-04-18] MEDS: Furosemide 20 MG Tab PO SCH (08:33)
[2017-04-18] MEDS: Loratadine 10 MG Tab PO SCH (08:33)
[2017-04-18] MEDS: Calcium Carbonate/Vitamin D3 1250 MG-200 Unit Tab PO SCH (08:36)
[2017-04-18] MEDS: Multivitamins,Therapeutic Tab PO SCH (08:37)
[2017-04-18] MEDS: Potassium Chloride 10 MEQ Tab.ER PO SCH ×2 (08:45→21:41)
--- NOTE | 2017-04-18 11:10 | PN ---
DATE: 04/18/2017 SUBJECTIVE: The patient is still complaining of coughing spells and this morning, patient's chest is a little bit tight with breathing, but overall, she has been slowly improving. She denies any orthopnea, PND, abdominal pain, nausea, vomiting, or any other complaints. LABORATORY DATA: Lab workup this morning, CBC; WBC 6.7, hemoglobin is 9, hematocrit 28.9, and platelets 171. Chem-6; chloride is 100, glucose is 109. The rest of the panel is unremarkable. OBJECTIVE: Vital Signs: Blood pressure is 128/78, pulse of 98, respirations 21, and temperature of 98. Heart: Regular rate and rhythm. Normal S1 and S2. No gallops. No rubs. Lungs: Still remarkable for some faint crackles on the right lung field and mild expiratory wheeze. Breath sounds equal bilaterally though. Abdomen: Soft, nontender. Bowel sounds positive. Extremities: Negative for any significant pedal edema. No calf tenderness. IMPRESSION: Pneumonia. We will continue with her present management and continue with IV antibiotics, that is Rocephin and azithromycin. [facility] /[id number]
[2017-04-18] MEDS ORDERED: FORMOTEROL FUMARATE 20 MCG/2 ML INH PRN (11:17)
[2017-04-18] MEDS: ACETYLCYSTEINE 600 MG PO SCH (12:13)
[2017-04-18] MEDS ORDERED: Carboxymethylcellulose Sodium 1% Ophth Gel 0.4 ML UD EYEBOTH PRN (15:30)
[2017-04-18] MEDS: Enoxaparin 30 MG/0.3 ML Syringe SUBCUT SCH (16:42)
[2017-04-18] MEDS: cefTRIAXone 1 GM Vial IV SCH (17:42)
[2017-04-18] MEDS: atorvaSTATin 10 MG Tab PO SCH (21:40)
[2017-04-19] MEDS: Azithromycin 500 MG in Sodium Chloride 0.9% 250 ML IV SCH (05:55)
[2017-04-19] MEDS: Omeprazole 20 MG Cap.CR PO SCH (05:56)
[2017-04-19] MEDS: Levothyroxine 50 MCG Tab PO SCH (05:56)
[2017-04-19] MEDS: Albuterol/Ipratropium 3.0-0.5 MG/3 ML Neb Soln INH SCH ×2 (06:52→11:23)
[2017-04-19] MEDS: Budesonide 0.5 MG/2 ML Neb Susp NEB SCH (06:52)
[2017-04-19] MEDS: Calcitriol 0.25 MCG Cap PO SCH (08:43)
[2017-04-19] MEDS: Aspirin 81 MG Tab.Chew PO SCH (08:43)
[2017-04-19] MEDS: Furosemide 20 MG Tab PO SCH (08:43)
[2017-04-19] MEDS: Enoxaparin 30 MG/0.3 ML Syringe SUBCUT SCH (08:44)
[2017-04-19] MEDS: ACETYLCYSTEINE 600 MG PO SCH (08:44)
[2017-04-19] MEDS: Calcium Carbonate/Vitamin D3 1250 MG-200 Unit Tab PO SCH (08:44)
[2017-04-19] MEDS: Loratadine 10 MG Tab PO SCH (08:44)
[2017-04-19] MEDS: Potassium Chloride 10 MEQ Tab.ER PO SCH (08:44)
[2017-04-19] MEDS: Multivitamins,Therapeutic Tab PO SCH (08:44)
--- NOTE | 2017-04-19 08:59 | PCM.PN ---
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 CKD stage III, baseline serum creatinine now more of 1.2 to 1.4 mg/dl, admitted with Shortness of breath and chest pain. - Patient Data Vitals - Most Recent: Last Vital Signs Temp 37.4 C 04/19/17 07:56 Pulse 93 04/19/17 07:56 Resp 20 04/19/17 07:56 BP 104/65 04/19/17 07:56 Pulse Ox 98 04/19/17 07:56 Weight - Most Recent: 76.929 kg I&O - Last 24 Hours: Intake & Output 04/18/17 04/19/17 04/19/17 22:59 06:59 14:59 Intake Total 180 249 Output Total 200 Balance -20 249 Med Orders - Current: Current Medications Acetaminophen (Tylenol) 650 mg PO Q6H PRN PRN Reason: Pain/Fever Albuterol (Proventil Neb Soln) 2.5 mg INH Q4H PRN PRN Reason: Shortness of Breath Albuterol (Proventil Hfa) 0 gm INH Q4H PRN PRN Reason: Dyspnea Albuterol/Ipratropium (Duoneb 3.0-0.5 Mg/3 Ml) 3 ml INH QIDRT [facility] Last Admin: 04/19/17 06:52 Dose: 3 ml Alendronate Sodium (Fosamax) 70 mg PO Q7D@0600 [facility] Artificial Tears (Refresh Celluvisc) 1 each EYEBOTH QID PRN PRN Reason: Dry Eyes Last Admin: 04/18/17 16:37 Dose: 1 each Aspirin (Aspirin) 81 mg PO BRK [facility] Last Admin: 04/19/17 08:43 Dose: 81 mg Atorvastatin Calcium (Lipitor) 10 mg PO BEDTIME [facility] Last Admin: 04/18/17 21:40 Dose: 10 mg Budesonide (Pulmicort) 0.5 mg NEB BIDRT [facility] Last Admin: 04/19/17 06:52 Dose: 0.5 mg Calcitriol (Rocaltrol) 0.25 mcg PO DAILY@0800 [facility] Last Admin: 04/19/17 08:43 Dose: 0.25 mcg Calcium Carbonate (Calcium Carbonate/Vitamin D 1250 Mg-200 Unit) 1 tab PO DAILY [facility] Last Admin: 04/19/17 08:44 Dose: 1 tab Ceftriaxone Sodium (Rocephin) 1 gm IV Q24H [facility] Last Admin: 04/18/17 17:42 Dose: 1 gm Enoxaparin Sodium (Lovenox) 30 mg SUBCUT DAILY [facility] Last Admin: 04/19/17 08:44 Dose: 30 mg Furosemide (Lasix) 60 mg PO DAILY@0800 [facility] Last Admin: 04/19/17 08:43 Dose: 60 mg Guaifenesin (Mucinex) 600 mg PO BID PRN PRN Reason: COUGH Guaifenesin (Robitussin) 100 mg PO Q6H PRN PRN Reason: Cough Guaifenesin/Phenylephrine HCl (Robitussin Dm) 10 ml PO Q6H PRN PRN Reason: Cough Last Admin: 04/18/17 21:48 Dose: 10 ml Azithromycin 500 mg/ Sodium (Chloride) 250 mls @ 250 mls/hr IV Q24H [facility] Last Admin: 04/19/17 05:55 Dose: 250 mls/hr Levothyroxine Sodium (Synthroid) 50 mcg PO ACBREAKFAST [facility] Last Admin: 04/19/17 05:56 Dose: 50 mcg Loratadine (Claritin) 10 mg PO DAILY [facility] Last Admin: 04/19/17 08:44 Dose: 10 mg Magnesium Oxide (Magnesium Oxide) 500 mg PO DAILY [facility] Last Admin: 04/19/17 08:44 Dose: 500 mg Morphine Sulfate (Morphine) 2 mg IV Q4H PRN PRN Reason: Pain Multivitamins (Thera) 1 each PO DAILY@0800 [facility] Last Admin: 04/19/17 08:44 Dose: 1 each Omeprazole (Omeprazole) 20 mg PO ACBREAKFAST [facility] Last Admin: 04/19/17 05:56 Dose: 20 mg Ondansetron HCl (Zofran) 4 mg IVPUSH Q6H PRN PRN Reason: Nausea/Vomiting Acetylcysteine [N- [id number]] 600 MgPt's Own Med 0 each PO DAILY [facility] Last Admin: 01/26/18 12:13 Dose: 1 each Formoterol Fumarate [Perforomist] 20mcg/2 Ml Pt Own Med* 0 each INH BID PRN PRN Reason: Shortness of Breath Polyethylene Glycol (Miralax) 17 gm PO DAILY PRN PRN Reason: Constipation Last Admin: 04/18/17 08:31 Dose: 17 gm Potassium Chloride (Klor-Con 10) 20 meq PO BID [facility] Last Admin: 04/19/17 08:44 Dose: 20 meq Sodium Chloride (Saline Flush) 10 ml FLUSH ASDIRECTED PRN PRN Reason: IV Use Last Admin: 04/18/17 17:42 Dose: 10 ml Discontinued Medications Albuterol (Proventil Neb Soln) 2.5 mg NEB BIDRT [facility] Last Admin: 04/18/17 07:35 Dose: Not Given Aspirin (Aspirin) Confirm Administered Dose 324 mg .ROUTE .STK-MED ONE Stop: 04/16/17 03:24 Last Admin: 04/16/17 08:35 Dose: Not Given Aspirin (Ecotrin) 325 mg PO DAILY [facility] Last Admin: 04/16/17 08:45 Dose: 325 mg Aspirin (Aspirin) 324 mg PO .STK-MED ONE Stop: 04/16/17 03:18 Azithromycin (Zithromax) Confirm Administered Dose 500 mg IV .STK-MED ONE Stop: 04/16/17 04:59 Last Admin: 04/16/17 05:09 Dose: 500 mg Sodium Chloride (Normal Saline) Confirm Administered Dose 250 mls @ as directed .ROUTE .STK-MED ONE Stop: 04/16/17 05:00 Last Admin: 04/16/17 08:35 Dose: Not Given Azithromycin 500 mg/ Sodium (Chloride) 250 mls @ 250 mls/hr IV Q24H [facility] Last Admin: 04/17/17 05:08 Dose: 250 mls/hr Azithromycin 500 mg/ Sodium (Chloride) 250 mls @ as directed IV .STK-MED ONE Stop: 04/16/17 03:18 Iopamidol (Isovue-370 (76%)) 100 ml IVPUSH ONETIME ONE Stop: 04/16/17 13:25 Last Admin: 04/16/17 13:56 Dose: 64 ml Metoprolol Succinate (Toprol Xl) 50 mg PO DAILY@0800 [facility] Nf(Formoterol Fumarate [ Perforomist] 20mcg/2 Ml)*Own Med* 0 ml INH BID PRN PRN Reason: Shortness of Breath Last Admin: 04/18/17 07:58 Dose: 2 ml Non-Formulary Medication (Psyllium Husk (With Sugar) [Metamucil Powder]) 861 gm PO ASDIRECTED AIYANA - Plan Plan:: #. Chest pain The quality of the chest pain is not classic for cardiac disease It has been intermittent He could be due to musculoskeletal factors #. COPD Patient has long-standing history of COPD #. Chronic hypoxemic respiratory failure On supplemental oxygen chronically #Pulmonary fibrosis Previously documented #. Hypothyroidism On hormone replacement therapy #. Gastroesophageal reflux disease Has been on proton pump inhibitor Plan Admit patient to rule out acute coronary syndrome Obtain troponin every 6 hours Nebulizer with DuoNeb Obtain CT scan of the chest to rule out active pulmonary embolism Start empiric antibiotics with intravenous is a gentamicin Start empiric antibiotics with intravenous ceftriaxone Continue proton pump inhibitor Monitor vital signs every 4 hours
[2017-04-19] MEDS: guaiFENesin/Dextromethorphan 100-10 MG/5 ML Soln 5 ML Cup PO PRN (09:27)
--- NOTE | 2017-04-19 10:35 | PCM.DCSUM1 ---
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 CKD stage III, baseline serum creatinine now more of 1.2 to 1.4 mg/dl, admitted with Shortness of breath and chest pain. She had Chest CT and that showed no PE , has extensive pulmonary Fibrosis. she was treated with IV ceftriaxone and Azithromycin and she is doing well. She will go home today with oral Cefpodoxime and follow with PMD within a week. 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 CKD stage III, baseline serum creatinine now more of 1.2 to 1.4 mg/dl, admitted with Shortness of breath and chest pain. She had Chest CT and that showed no PE, has extensive pulmonary Fibrosis. she was treated with IV ceftriaxone and Azithromycin and she is doing well. She will go home today with oral Cefpodoxime for 10 days course and follow with PMD within a week. - Discharge Plan Prescriptions/Med Rec: Cefpodoxime [Vantin 100 MG/5 ML Susp] 100 mg PO Q12HR 10 Days #20 bottle Home Medications: Home Meds Albuterol Sulfate 2.5 mg IH BID 10/21/16 [History] Alendronate [Fosamax] 70 mg PO Q7D@0600 10/21/16 [History] Aspirin 81 mg PO BRK 10/21/16 [History] Budesonide [Pulmicort] 0.5 mg IH BID 10/21/16 [History] Calcitriol [Rocaltrol] 0.25 mcg PO DAILY 10/21/16 [History] Calcium Carbonate/Vitamin D3 [Calcium 500 mg Chewable Tablet] 1 tab PO DAILY [History] Formoterol Fumarate [Perforomist] 2 ml PO BID PRN 10/21/16 [History] Furosemide [Lasix] 60 mg PO DAILY 10/21/16 [History] Levothyroxine [Synthroid] 50 mcg PO ACBREAKFAST 10/21/16 [History] Loratadine [Claritin] 10 mg PO DAILY 10/21/16 [History] Magnesium 400 mg PO DAILY 10/21/16 [History] Metoprolol Succinate [Toprol Xl] 50 mg PO DAILY 10/21/16 [History] Multivitamin/Iron/Folic Acid [Centrum Adults Tablet] 1 tab PO DAILY 10/21/16 [ History] Omeprazole Magnesium [Prilosec Otc] 20 mg PO DAILY 10/21/16 [History] Polyethylene Glycol 3350 [MiraLAX] 17 gm PO DAILY PRN 10/21/16 [History] Potassium Chloride 20 meq PO BID 10/21/16 [History] atorvaSTATin [Lipitor] 10 mg PO DAILY 10/21/16 [History] guaiFENesin [Mucinex] 0.5 tab PO BID PRN 10/21/16 [History] guaiFENesin [Tussin] 5 ml PO Q6H PRN 10/21/16 [History] Albuterol [IJD: Albuterol] 2.5 mg INH Q4H PRN nebule 04/19/17 [Rx] Albuterol [Proventil HFA] 0 gm INH Q4H PRN inhaler 04/19/17 [Rx] Albuterol/Ipratropium [DuoNeb 3.0-0.5 MG/3 ML] 3 ml INH QIDRT neb 04/19/17 [Rx] Carboxymethylcellulose Sodium [Refresh Celluvisc] 1 each EYEBOTH QID PRN cont 04/19/17 [Rx] Cefpodoxime [Vantin 100 MG/5 ML Susp] 100 mg PO Q12HR 10 Days #20 bottle [Rx] Patient's Own Medication [Ptom] 0 each PO DAILY each 04/19/17 [Rx] Patient Handouts: Shortness of Breath, [id number], Community-Acquired Pneumonia, Adult, [id number] Forms: ED Department Discharge Referrals: PCP,Unobtain [Ordering Only Provider] - - Discharge Summary/Plan Comment DC Time >30 min.: Yes Discharge Summary/Plan Comment: Jacob Ventura is 82 y.o Female with history of 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 CKD stage III, baseline serum creatinine now more of 1.2 to 1.4 mg/dl, admitted with Shortness of breath and chest pain. She had Chest CT and that showed no PE , has extensive pulmonary Fibrosis. she was treated with IV ceftriaxone and Azithromycin and she is doing well. She will go home today with oral Cefpodoxime and follow with PMD within a weeK Assessment and Plan #. Chest pain The quality of the chest pain is not classic for cardiac disease It has been intermittent He could be due to musculoskeletal factors -Cardiac enzymes were negative and CT chest for PE was negative #. COPD likely from Pneumonia Patient has long-standing history of COPD and was treated with INV Azithromycin and Ceftriaxone -Will go gome on Cefpodoxime 10 days course #. Chronic hypoxemic respiratory failure On supplemental oxygen chronically and will continue 2-4 L/24 hrs of supplemental oxygen #Pulmonary fibrosis Previously documented #. Hypothyroidism On hormone replacement therapy #. 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 CKD stage III, baseline serum creatinine now more of 1.2 to 1.4 mg/dl, admitted with Shortness of breath and chest pain. She had Chest CT and that showed no PE , has extensive pulmonary Fibrosis. she was treated with IV ceftriaxone and Azithromycin and she is doing well. She will go home today with oral Cefpodoxime and follow with PMD within a week Subjective Update: Today she is doing well and has no more chest pain, No increased shortness of breath and walked well in he peck way without any exertional dyspnea Functional Status: Reports: Tolerating Diet, Ambulating, Urinating - Review of Systems General: Reports: Appetite (good). Denies: Fever, Chills HEENT: Denies: Ear Pain, Eye Pain, Headaches, Sinus Congestion, Sore Throat Pulmonary: Denies: Cough, Sputum, Wheezing Cardiovascular: Denies: Chest Pain, Lightheadedness Gastrointestinal: Denies: Abdominal Pain, Melena, Nausea, Vomiting Genitourinary: Denies: Dysuria, Urgency, Incontinence, Flank Pain Musculoskeletal: Denies: Neck Pain, Arm Pain, Foot Pain Skin: Denies: Cyanosis, Jaundice, Bruising, Pruritis, Rash Neurological: Denies: Confusion, Numbness, Tremors, Trouble Speaking Psychiatric: Denies: Confusion, Depression - Patient Data Vitals - Most Recent: Last Vital Signs Temp 37.4 C 04/19/17 07:56 Pulse 93 04/19/17 07:56 Resp 20 04/19/17 07:56 BP 104/65 04/19/17 07:56 Pulse Ox 98 04/19/17 07:56 Weight - Most Recent: 76.929 kg I&O - Last 24 hours: Intake & Output 04/18/17 04/19/17 04/19/17 22:59 06:59 14:59 Intake Total 180 249 Output Total 200 Balance -20 249 Med Orders - Current: Current Medications Acetaminophen (Tylenol) 650 mg PO Q6H PRN PRN Reason: Pain/Fever Albuterol (Proventil Neb Soln) 2.5 mg INH Q4H PRN PRN Reason: Shortness of Breath Albuterol (Proventil Hfa) 0 gm INH Q4H PRN PRN Reason: Dyspnea Albuterol/Ipratropium (Duoneb 3.0-0.5 Mg/3 Ml) 3 ml INH QIDRT [facility] Last Admin: 04/19/17 06:52 Dose: 3 ml Alendronate Sodium (Fosamax) 70 mg PO Q7D@0600 [facility] Artificial Tears (Refresh Celluvisc) 1 each EYEBOTH QID PRN PRN Reason: Dry Eyes Last Admin: 04/18/17 16:37 Dose: 1 each Aspirin (Aspirin) 81 mg PO BRK [facility] Last Admin: 04/19/17 08:43 Dose: 81 mg Atorvastatin Calcium (Lipitor) 10 mg PO BEDTIME [facility] Last Admin: 04/18/17 21:40 Dose: 10 mg Budesonide (Pulmicort) 0.5 mg NEB BIDRT [facility] Last Admin: 04/19/17 06:52 Dose: 0.5 mg Calcitriol (Rocaltrol) 0.25 mcg PO DAILY@0800 [facility] Last Admin: 04/19/17 08:43 Dose: 0.25 mcg Calcium Carbonate (Calcium Carbonate/Vitamin D 1250 Mg-200 Unit) 1 tab PO DAILY [facility] Last Admin: 04/19/17 08:44 Dose: 1 tab Ceftriaxone Sodium (Rocephin) 1 gm IV Q24H [facility] Last Admin: 04/18/17 17:42 Dose: 1 gm Enoxaparin Sodium (Lovenox) 30 mg SUBCUT DAILY [facility] Last Admin: 04/19/17 08:44 Dose: 30 mg Furosemide (Lasix) 60 mg PO DAILY@0800 [facility] Last Admin: 04/19/17 08:43 Dose: 60 mg Guaifenesin (Mucinex) 600 mg PO BID PRN PRN Reason: COUGH Guaifenesin (Robitussin) 100 mg PO Q6H PRN PRN Reason: Cough Guaifenesin/Phenylephrine HCl (Robitussin Dm) 10 ml PO Q6H PRN PRN Reason: Cough Last Admin: 04/19/17 09:27 Dose: 10 ml Azithromycin 500 mg/ Sodium (Chloride) 250 mls @ 250 mls/hr IV Q24H [facility] Last Admin: 04/19/17 05:55 Dose: 250 mls/hr Levothyroxine Sodium (Synthroid) 50 mcg PO ACBREAKFAST [facility] Last Admin: 04/19/17 05:56 Dose: 50 mcg Loratadine (Claritin) 10 mg PO DAILY [facility] Last Admin: 04/19/17 08:44 Dose: 10 mg Magnesium Oxide (Magnesium Oxide) 500 mg PO DAILY [facility] Last Admin: 04/19/17 08:44 Dose: 500 mg Morphine Sulfate (Morphine) 2 mg IV Q4H PRN PRN Reason: Pain Multivitamins (Thera) 1 each PO DAILY@0800 [facility] Last Admin: 04/19/17 08:44 Dose: 1 each Omeprazole (Omeprazole) 20 mg PO ACBREAKFAST [facility] Last Admin: 04/19/17 05:56 Dose: 20 mg Ondansetron HCl (Zofran) 4 mg IVPUSH Q6H PRN PRN Reason: Nausea/Vomiting Acetylcysteine [N- [id number]] 600 MgPt's Own Med 0 each PO DAILY [facility] Last Admin: 04/18/17 12:13 Dose: 1 each Formoterol Fumarate [Perforomist] 20mcg/2 Ml Pt Own Med* 0 each INH BID PRN PRN Reason: Shortness of Breath Polyethylene Glycol (Miralax) 17 gm PO DAILY PRN PRN Reason: Constipation Last Admin: 04/18/17 08:31 Dose: 17 gm Potassium Chloride (Klor-Con 10) 20 meq PO BID [facility] Last Admin: 04/19/17 08:44 Dose: 20 meq Sodium Chloride (Saline Flush) 10 ml FLUSH ASDIRECTED PRN PRN Reason: IV Use Last Admin: 04/18/17 17:42 Dose: 10 ml Discontinued Medications Albuterol (Proventil Neb Soln) 2.5 mg NEB BIDRT [facility] Last Admin: 04/18/17 07:35 Dose: Not Given Aspirin (Aspirin) Confirm Administered Dose 324 mg .ROUTE .STK-MED ONE Stop: 04/16/17 03:24 Last Admin: 04/16/17 08:35 Dose: Not Given Aspirin (Ecotrin) 325 mg PO DAILY [facility] Last Admin: 04/16/17 08:45 Dose: 325 mg Aspirin (Aspirin) 324 mg PO .STK-MED ONE Stop: 04/16/17 03:18 Azithromycin (Zithromax) Confirm Administered Dose 500 mg IV .STK-MED ONE Stop: 04/16/17 04:59 Last Admin: 04/16/17 05:09 Dose: 500 mg Sodium Chloride (Normal Saline) Confirm Administered Dose 250 mls @ as directed .ROUTE .STK-MED ONE Stop: 04/16/17 05:00 Last Admin: 04/16/17 08:35 Dose: Not Given Azithromycin 500 mg/ Sodium (Chloride) 250 mls @ 250 mls/hr IV Q24H [facility] Last Admin: 04/17/17 05:08 Dose: 250 mls/hr Azithromycin 500 mg/ Sodium (Chloride) 250 mls @ as directed IV .STK-MED ONE Stop: 04/16/17 03:18 Iopamidol (Isovue-370 (76%)) 100 ml IVPUSH ONETIME ONE Stop: 04/16/17 13:25 Last Admin: 04/16/17 13:56 Dose: 64 ml Metoprolol Succinate (Toprol Xl) 50 mg PO DAILY@0800 [facility] Nf(Formoterol Fumarate [ Perforomist] 20mcg/2 Ml)*Own Med* 0 ml INH BID PRN PRN Reason: Shortness of Breath Last Admin: 04/18/17 07:58 Dose: 2 ml Non-Formulary Medication (Psyllium Husk (With Sugar) [Metamucil Powder]) 861 gm PO ASDIRECTED AIYANA - Exam Quality Assessment: Reports: Supplemental Oxygen General: Reports: Alert, Oriented, Cooperative, No Acute Distress HEENT: Reports: Pupils Equal, EOMI, Mucous Membr. Moist/Altha Neck: Reports: Supple, No JVD, No Thyromegaly Lungs: Reports: Clear to Auscultation, Normal Respiratory Effort, Crackles Cardiovascular: Reports: Regular Rate, Regular Rhythm, Murmurs GI/Abdominal Exam: Normal Bowel Sounds, Soft, Non-Tender. No: Guarding, Rigid, Rebound (Female) Exam: Deferred Rectal (Female) Exam: Deferred Back Exam: Reports: Normal Inspection, Full Range of Motion Extremities: Normal Inspection, No Pedal Edema Skin: Reports: Warm, Dry, Intact Neurological: Reports: No New Focal Deficit Psy/Mental Status: Reports: Alert, Normal Affect, Normal Mood *Q Meaningful Use (DIS) - VTE *Q VTE Criteria *Q: - Stroke *Q Stroke Criteria *Q: - AMI *Q AMI Criteria *Q:
[2017-04-19 12:54] VITALS: BP 110/67
== END 2017-04-19 13:10 | disposition home or self-care (01) | DRG 194 ==
LOC: DL.ED 02:00 → DL.MS 03:16 → UNDOADMOB 05:40 → DL.MS 05:40 → OBSVTOIN 04-17 09:13
PROVIDERS: ADMIT Hospitalist; ATTEND Hospitalist
DX: J18.9 Pneumonia, unspecified organism (principal); J96.11 Chronic respiratory failure with hypoxia; I13.0 Hypertensive heart and chronic kidney disease with heart failure and stage 1 through stage 4 chronic kidney disease, or unspecified chronic kidney disease; J44.9 Chronic obstructive pulmonary disease, unspecified; E03.9 Hypothyroidism, unspecified; K21.9 Gastro-esophageal reflux disease without esophagitis; I50.9 Heart failure, unspecified; N18.3 Chronic kidney disease, stage 3 (moderate); I25.10 Atherosclerotic heart disease of native coronary artery without angina pectoris; E78.00 Pure hypercholesterolemia, unspecified; K44.9 Diaphragmatic hernia without obstruction or gangrene; G89.29 Other chronic pain; M54.9 Dorsalgia, unspecified; M85.80 Other specified disorders of bone density and structure, unspecified site; R07.9 Chest pain, unspecified; Z88.1 Allergy status to other antibiotic agents; Z91.040 Latex allergy status; Z79.82 Long term (current) use of aspirin; Z99.81 Dependence on supplemental oxygen; Z79.899 Other long term (current) drug therapy
CPT/HCPCS: 36415; 71045; 71260; 80053; 82150; 82553; 83605; 83690; 84484 ×3; 85025; 85610; 87040; 94640 ×3; 96365; 99285; A9270 ×18; J0456 ×3; J0696; J7050 ×2; Q9967 ×2; 80048; 94010; 96366; 96375; 99284; G0378; J1650

== ENCOUNTER 2017-11-12 10:58 | Observation (INO) | payer MEDICARE, BC ==
--- NOTE | 2017-11-12 11:35 | EDM.PDOC ---
ED HPI GENERAL MEDICAL PROBLEM - General Chief Complaint: Respiratory Problem Stated Complaint: FROM CLINIC RESP PROBLEMS Time Seen by Provider: 11/12/17 11:20 Source of Information: Reports: Patient History Limitations: Reports: No Limitations - History of Present Illness INITIAL COMMENTS - FREE TEXT/NARRATIVE: This 82 yo female patient reports to the ED from the [facility]. The patient reports that she has had increased shortness of breath over the past 2 days. The patient did get into the [facility] to see Dr. Swann and was sent to the ED (Dr. Swann told the patient that she needs some inpatient therapy). No report was received from Dr. Swann. The patient reports that she has been having some chest pressure today as well as the shortness of breath. The patient reports some pain in the left side of her chest with deep breaths. The patient reports she has been using her inhaler and her nebulizer, but continues to be short of breath. Onset: Gradual Duration: Day(s): (2), Constant, Getting Worse Location: Reports: Chest Quality: Reports: Dull Severity: Moderate Improves with: Reports: None Worsens with: Reports: None Context: Reports: Other Associated Symptoms: Reports: Chest Pain, Shortness of Breath Left Leg Pain Score (Numeric/FACES): 4 - Related Data Allergies Allergy/AdvReac Type Severity Reaction Status Date / Time amoxicillin [Amoxicillin] Allergy Nausea Verified 11/12/17 11:13 azithromycin Allergy Nausea Verified 11/12/17 11:13 cefazolin sodium [From Ancef] Allergy Vomiting Verified 11/12/17 11:13 latex Allergy Nausea Verified 11/12/17 11:13 Home Meds: Home Meds Albuterol Sulfate 2.5 mg IH BID 10/21/16 [History] Alendronate [Fosamax] 70 mg PO Q7D@0600 10/21/16 [History] Aspirin 81 mg PO BRK 10/21/16 [History] Budesonide [Pulmicort] 0.5 mg IH BID 10/21/16 [History] Calcitriol [Rocaltrol] 0.25 mcg PO DAILY 10/21/16 [History] Calcium Carbonate/Vitamin D3 [Calcium 500 mg Chewable Tablet] 1 tab PO DAILY [History] Formoterol Fumarate [Perforomist] 2 ml PO BID PRN 10/21/16 [History] Furosemide [Lasix] 60 mg PO DAILY 10/21/16 [History] Levothyroxine [Synthroid] 50 mcg PO ACBREAKFAST 10/21/16 [History] Loratadine [Claritin] 10 mg PO DAILY 10/21/16 [History] Magnesium 400 mg PO DAILY 10/21/16 [History] Metoprolol Succinate [Toprol Xl] 50 mg PO DAILY 10/21/16 [History] Multivitamin/Iron/Folic Acid [Centrum Adults Tablet] 1 tab PO DAILY 10/21/16 [ History] Omeprazole Magnesium [Prilosec Otc] 20 mg PO DAILY 10/21/16 [History] Polyethylene Glycol 3350 [MiraLAX] 17 gm PO DAILY PRN 10/21/16 [History] Potassium Chloride 20 meq PO BID 10/21/16 [History] atorvaSTATin [Lipitor] 10 mg PO DAILY 10/21/16 [History] guaiFENesin [Mucinex] 0.5 tab PO BID PRN 10/21/16 [History] guaiFENesin [Tussin] 5 ml PO Q6H PRN 10/21/16 [History] Albuterol [IJD: Albuterol] 2.5 mg INH Q4H PRN nebule 04/19/17 [Rx] Albuterol [Proventil HFA] 0 gm INH Q4H PRN inhaler 04/19/17 [Rx] Albuterol/Ipratropium [DuoNeb 3.0-0.5 MG/3 ML] 3 ml INH QIDRT neb 04/19/17 [Rx] Carboxymethylcellulose Sodium [Refresh Celluvisc] 1 each EYEBOTH QID PRN cont 04/19/17 [Rx] Cefpodoxime [Vantin 100 MG/5 ML Susp] 100 mg PO Q12HR 10 Days #20 bottle [Rx] Patient's Own Medication [Ptom] 0 each PO DAILY each 04/19/17 [Rx] Past Medical History - Past Health History Medical/Surgical History: Denies Medical/Surgical History HEENT History: Reports: Impaired Vision, Other (See Below) Other HEENT History: Trouble swallowing, wears glasses Cardiovascular History: Reports: Heart Failure, High Cholesterol, Hypertension, SOB on Exertion Respiratory History: Reports: Asthma, COPD, Interstitial Lung Disease, Pneumonia , Recurrent, Pulmonary Fibrosis, SOB, Other (See Below) Other Respiratory History: chronic cough, lung surgery, emphysema Gastrointestinal History: Reports: Hiatal Hernia Genitourinary History: Reports: Chronic Renal Insuffiency Other Genitourinary History: bladder repair, bowel repair DRAW HAND History: Reports: None Musculoskeletal History: Reports: Back Pain, Chronic, Fracture Neurological History: Reports: None Psychiatric History: Reports: Anxiety Endocrine/Metabolic History: Reports: Hyperthyroidism, Osteopenia Hematologic History: Reports: None Immunologic History: Reports: None Oncologic (Cancer) History: Reports: Basal Cell Carcinoma Dermatologic History: Reports: Other (See Below) Other Dermatologic History: has bandage to left chin, , biopsy done, no results yet - Infectious Disease History Infectious Disease History: Reports: Measles - Past Surgical History Head Surgeries/Procedures: Reports: None HEENT Surgical History: Reports: Cataract Surgery Cardiovascular Surgical History: Reports: Other (See Below) Female Surgical History: Reports: Breast Biopsy, Hysterectomy, Other (See Below) Other Female Surgeries/Procedures: bladder repair Social & Family History - Family History Family Medical History: Noncontributory HEENT: Reports: None Cardiac: Reports: None Respiratory: Reports: None GI: Reports: None : Reports: None - Tobacco Use Smoking Status *Q: Never Smoker Second Hand Smoke Exposure: No - Caffeine Use Caffeine Use: Reports: Coffee, Tea - Recreational Drug Use Recreational Drug Use: No ED ROS GENERAL - Review of Systems Review Of Systems: ROS reveals no pertinent complaints other than HPI. ED EXAM, GENERAL - Physical Exam Exam: See Below Exam Limited By: No Limitations General Appearance: Alert, Moderate Distress Eye Exam: Bilateral Eye: EOMI, Normal Inspection, PERRL Ears: Normal External Exam, Normal Canal, Hearing Grossly Normal, Normal TMs Nose: Normal Inspection, Normal Mucosa, No Blood Throat/Mouth: Normal Inspection, Normal Lips, Normal Teeth, Normal Gums, Normal Oropharynx, Normal Voice, No Airway Compromise Head: Atraumatic, Normocephalic Neck: Normal Inspection, Supple, Non-Tender, Full Range of Motion Respiratory/Chest: Decreased Breath Sounds (bilateral lower lobes) Cardiovascular: Normal Peripheral Pulses, Regular Rate, Rhythm, No Gallop, No JVD, No Murmur, No Rub GI/Abdominal: Normal Bowel Sounds, Soft, Non-Tender, No Organomegaly, No Distention, No Abnormal Bruit, No Mass (Female) Exam: Deferred Rectal (Female) Exam: Deferred Back Exam: Normal Inspection, Full Range of Motion, NT Extremities: Pedal Edema (3+ bilateral ) Neurological: Alert, Oriented, CN II-XII Intact, Normal Cognition Psychiatric: Normal Affect, Normal Mood Skin Exam: Warm, Dry, Intact, Normal Color, No Rash Lymphatic: No Adenopathy Course - Vital Signs Last Recorded V/S: Last Vital Signs Temp 36.4 C 11/12/17 12:24 Pulse 65 11/12/17 12:24 Resp 17 11/12/17 12:24 BP 130/68 11/12/17 12:24 Pulse Ox 100 11/12/17 12:24 - Orders/Labs/Meds Orders: Active Orders 24 hr Category Date Time Status EKG Documentation Completion [RC] URGENT Care 11/12/17 11:25 Active Labs: Laboratory Tests 11/12/17 11/12/17 11/12/17 Range/Units 11:37 11:37 11:37 WBC 6.8 (5.0-10.0) 10^3/uL RBC 3.59 L (4.2-5.4) 10^6/uL Hgb 10.3 L (12.0-16.0) g/dL Hct 33.3 L (37.0-47.0) % MCV 92.8 (80-100) fL MCH 28.7 (27.0-34.0) pg MCHC 30.9 L (33.0-35.0) g/dL Plt Count 197 (150-450) 10^3/uL Neut % (Auto) 60.8 (42.2-75.2) % Lymph % (Auto) 25.1 (20.5-50.1) % [place] % (Auto) 6.5 (2-8) % Eos % (Auto) 6.9 H (1.0-3.0) % Baso % (Auto) 0.7 (0.0-1.0) % Sodium 139 (135-145) mmol/L Potassium 4.2 (3.6-5.0) mmol/L Chloride 98 L (101-111) mmol/L Carbon Dioxide 35.0 H (21.0-31.0) mmol/L Anion Gap 10.2 BUN 14 (7-18) mg/dL Creatinine 0.9 (0.6-1.3) mg/dL Est Cr Clr Drug Dosing 41.24 mL/min Estimated GFR (MDRD) > 60 BUN/Creatinine Ratio 15.55 Glucose 95 (74-105) mg/dL Calcium 9.0 (8.4-10.2) mg/dl Total Bilirubin 0.7 (0.2-1.0) mg/dL AST 23 (10-42) IU/L ALT 11 (10-60) IU/L Alkaline Phosphatase 73 (42-121) IU/L Troponin I < 0.02 (0.00-0.02) ng/ml B-Natriuretic Peptide 92 (0-100) pg/ml Total Protein 6.9 (6.7-8.2) g/dl Albumin 3.7 (3.2-5.5) g/dl Globulin 3.2 Albumin/Globulin Ratio 1.16 Departure - Departure Time of Disposition: 12:55 Disposition: Admitted As Inpatient 68 Condition: Fair Clinical Impression: COPD with exacerbation - Discharge Information *PRESCRIPTION DRUG MONITORING PROGRAM REVIEWED*: Not Applicable *COPY OF PRESCRIPTION DRUG MONITORING REPORT IN PATIENT YVETTE: Not Applicable Referrals: Dahiana James PA [Primary Care Provider] - Care Plan Goals: Discussed the examination, lab, EKG and x-ray results with Dr. Vega. Dr. Vega accepted the patient for observation for continued evaluation and management. - My Orders Last 24 Hours: My Active Orders 11/12/17 11:25 EKG Documentation Completion [RC] URGENT - Assessment/Plan Last 24 Hours: My Active Orders 11/12/17 11:25 EKG Documentation Completion [RC] URGENT
[2017-11-12 12:03] LABS: ANION GAP 10.2; CHLORIDE,CL 98 mmol/L (101-111); SODIUM,NA 139 mmol/L (135-145)
--- NOTE | 2017-11-12 12:24 | CR ---
CLINICAL HISTORY: 82-year-old female with chest pain and shortness of breath. INTERPRETATION: Upright AP portable chest film abnormal but unchanged except for technique and interv al since 16 April 2017. 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 Normal cardiac silhouette without new signs of alveolar edema or dependent pleural fluid accumulation . No new lung mass or focal lobar pneumonia. No atelectasis/collapse. No pneumothorax.
[2017-11-12] MEDS ORDERED: Iopamidol 755 Mg/ML 100 ML Bottle IVPUSH ONE (13:15)
[2017-11-12] MEDS ORDERED: Ondansetron 4 MG/2 ML SDV IVPUSH PRN (14:39)
[2017-11-12] MEDS ORDERED: Albuterol 0.083% 2.5 MG/3 ML Neb Soln NEB PRN (14:39)
[2017-11-12] MEDS ORDERED: Acetaminophen 325 MG Tab PO PRN (14:39)
[2017-11-12] MEDS ORDERED: Carboxymethylcellulose Sodium 1% Ophth Gel 0.4 ML UD EYEBOTH PRN (14:46)
[2017-11-12] MEDS ORDERED: Albuterol 0.083% 2.5 MG/3 ML Neb Soln INH PRN (14:46)
[2017-11-12] MEDS ORDERED: Non-Formulary Medication 1 Each (Formoterol Fumarate [Perforomist] 2 ML) PO PRN (14:46)
--- NOTE | 2017-11-12 14:47 | CT ---
CLINICAL HISTORY: 82-year-old hypertensive 173 pound female with chest "pressure" reported on previou s CT scan 16 April 2017 for cough/shortness of breath to have "generalized cystic/bullous disease a nd fibrosis with multilobar infiltrates and a large heart". SCAN TECHNIQUE: Volume acquisition of data from the chest (bony thorax, lungs and mediastinum) obtain ed using pulmonary embolism protocol, i.e., during the intravenous infusion 66 cc nonionic Isovue 370 contrast (5 cc/s via injector) while lying supine on the Siemens multislice scanner [place], [place]. All data archived in the PACS system for storage, reformatting axial /sagittal/coronal planes and study. INTERPRETATION: Abnormal. 1. Osteoporosis dorsal spine, vertebra plana (compression fracture) mid thoracic vertebral body, an a ssociated severe kyphosis. 2. *Markedly abnormal lung sharpe, i.e., parenchymal fibrosis with extensive bullous disease and chronometer tester narcisa multilobar infiltrates as noted on previous exam 16 April 2017. No new focal lobar consolidatio n. No new lung mass or hilar/mediastinal lymphadenopathy. 3. Ectatic normal caliber thoracic aorta. Chronic mild cardiomegaly. No pericardial effusion, alveola r edema or pleural effusion. 4. Specifically, *no sign of intraluminal filling defect or thrombus pulmonary artery circulation. No peripheral wedge-shaped infarcts. 5. Solitary 16 mm cyst left lobe of the liver present on earlier exam. Stomach, spleen, adrenal gland s and pancreas unremarkable. CONCLUSION: Chronic extensive lung scarring. No new signs of heart failure, neoplasm, lobar pneumonia, or pulmonary embolism/infarct since CT exam 16 April 2017.
--- NOTE | 2017-11-12 15:00 | PCM.HP ---
H&P History of Present Illness - General Date of Service: 11/12/17 Admit Problem/Dx: Admission Diagnosis/Problem Admission Diagnosis/Problem Shortness of breath at rest Source of Information: Patient - History of Present Illness Initial Comments - Free Text/Narative: The patient is an 82 year old female with medical history of COPD, pulmonary fibrosis, hypertension, dyslipidemia, hypothyroidism. The patient presented to the emergency room with complaint of shortness of breath which has been going on for the past 2 days. She does have chronic shortness of breath but in the past 2 days he has been quite severe. She rates intensity is 8 and scale of 0 to 10. It is present at rest but was with activity. Her exercise tolerance has been markedly limited because of the problem. She does admit to having associated chest tightness especially when she ambulates. No nausea and no vomiting. No dysuria no frequency or micturition. Denies having fever chills right gauze. No significant cough. Patient indicates that she has experienced intermittent pain at the left lower extremity. This has been going on for about 5 weeks. There was no trauma prior to answered of this pain. Left Leg Pain Score (Numeric/FACES): 4 - Related Data Allergies/Adverse Reactions: Allergies Allergy/AdvReac Type Severity Reaction Status Date / Time amoxicillin [Amoxicillin] Allergy Nausea Verified 11/12/17 14:40 azithromycin Allergy Nausea Verified 11/12/17 14:40 cefazolin sodium [From Ancef] Allergy Vomiting Verified 11/12/17 14:40 latex Allergy Nausea Verified 11/12/17 14:40 Home Medications: Home Meds Albuterol Sulfate 2.5 mg IH BID 10/21/16 [History] Alendronate [Fosamax] 70 mg PO Q7D@0600 10/21/16 [History] Aspirin 81 mg PO BRK 10/21/16 [History] Budesonide [Pulmicort] 0.5 mg IH BID 10/21/16 [History] Calcitriol [Rocaltrol] 0.25 mcg PO DAILY 10/21/16 [History] Calcium Carbonate/Vitamin D3 [Calcium 500 mg Chewable Tablet] 1 tab PO DAILY [History] Formoterol Fumarate [Perforomist] 2 ml PO BID PRN 10/21/16 [History] Furosemide [Lasix] 60 mg PO DAILY 10/21/16 [History] Levothyroxine [Synthroid] 50 mcg PO ACBREAKFAST 10/21/16 [History] Loratadine [Claritin] 10 mg PO DAILY 10/21/16 [History] Magnesium 400 mg PO DAILY 10/21/16 [History] Metoprolol Succinate [Toprol Xl] 50 mg PO DAILY 10/21/16 [History] Multivitamin/Iron/Folic Acid [Centrum Adults Tablet] 1 tab PO DAILY 10/21/16 [ History] Omeprazole Magnesium [Prilosec Otc] 20 mg PO DAILY 10/21/16 [History] Polyethylene Glycol 3350 [MiraLAX] 17 gm PO DAILY PRN 10/21/16 [History] Potassium Chloride 20 meq PO BID 10/21/16 [History] atorvaSTATin [Lipitor] 10 mg PO DAILY 10/21/16 [History] guaiFENesin [Mucinex] 0.5 tab PO BID PRN 10/21/16 [History] guaiFENesin [Tussin] 5 ml PO Q6H PRN 10/21/16 [History] Albuterol [IJD: Albuterol] 2.5 mg INH Q4H PRN nebule 04/19/17 [Rx] Albuterol [Proventil HFA] 0 gm INH Q4H PRN inhaler 04/19/17 [Rx] Albuterol/Ipratropium [DuoNeb 3.0-0.5 MG/3 ML] 3 ml INH QIDRT neb 04/19/17 [Rx] Carboxymethylcellulose Sodium [Refresh Celluvisc] 1 each EYEBOTH QID PRN cont 04/19/17 [Rx] Cefpodoxime [Vantin 100 MG/5 ML Susp] 100 mg PO Q12HR 10 Days #20 bottle [Rx] Patient's Own Medication [Ptom] 0 each PO DAILY each 04/19/17 [Rx] Past Medical History - Past Health History Medical/Surgical History: Denies Medical/Surgical History HEENT History: Reports: Impaired Vision, Other (See Below) Other HEENT History: Trouble swallowing, wears glasses Cardiovascular History: Reports: Heart Failure, High Cholesterol, Hypertension, SOB on Exertion Respiratory History: Reports: Asthma, COPD, Interstitial Lung Disease, Pneumonia , Recurrent, Pulmonary Fibrosis, SOB, Other (See Below) Other Respiratory History: chronic cough, lung surgery, emphysema Gastrointestinal History: Reports: Hiatal Hernia Genitourinary History: Reports: Chronic Renal Insuffiency Other Genitourinary History: bladder repair, bowel repair STICK ROLLER History: Reports: None Musculoskeletal History: Reports: Back Pain, Chronic, Fracture Neurological History: Reports: None Psychiatric History: Reports: Anxiety Endocrine/Metabolic History: Reports: Hyperthyroidism, Osteopenia Hematologic History: Reports: Anemia Immunologic History: Reports: None Oncologic (Cancer) History: Reports: Basal Cell Carcinoma, Other (See Below) Other Oncologic History: face Dermatologic History: Reports: Other (See Below) Other Dermatologic History: has bandage to left chin, , biopsy done, no results yet - Infectious Disease History Infectious Disease History: Reports: Measles - Past Surgical History Head Surgeries/Procedures: Reports: None HEENT Surgical History: Reports: Cataract Surgery Cardiovascular Surgical History: Reports: Other (See Below) Respiratory Surgical History: Reports: Lung Biopsies Female Surgical History: Reports: Breast Biopsy, Hysterectomy, Other (See Below) Other Female Surgeries/Procedures: bladder repair Social & Family History - Family History Family Medical History: Noncontributory HEENT: Reports: None Cardiac: Reports: None Respiratory: Reports: None GI: Reports: None : Reports: None - Tobacco Use Smoking Status *Q: Never Smoker Second Hand Smoke Exposure: No - Caffeine Use Caffeine Use: Reports: Tea - Recreational Drug Use Recreational Drug Use: No H&P Review of Systems - Review of Systems: Review Of Systems: See Below General: Reports: Malaise, Fatigue HEENT: Reports: No Symptoms Pulmonary: Reports: Shortness of Breath Gastrointestinal: Reports: No Symptoms Genitourinary: Reports: No Symptoms Psychiatric: Reports: No Symptoms Exam - Exam Exam: See Below - Vital Signs Vital Signs: Last Vital Signs Temp 36.4 C 11/12/17 12:24 Pulse 69 11/12/17 13:33 Resp 16 11/12/17 13:33 BP 129/69 11/12/17 13:33 Pulse Ox 99 11/12/17 13:33 Weight: 78.471 kg - Exam General: Alert, Oriented, Cooperative HEENT: PERRLA, Hearing Intact, Mucosa Moist & [place], Nares Patent, Normal Nasal Septum, Posterior Pharynx Clear, Conjunctiva Clear, EOMI, EACs Clear, TMs Clear Neck: Supple Lungs: Decreased Breath Sounds, Crackles Extremities: Normal Inspection Psychiatric: Alert, Normal Affect - Patient Data Lab Results Last 24 hrs: Laboratory Results - last 24 hr 11/12/17 11/12/17 11/12/17 Range/Units 11:37 11:37 11:37 WBC 6.8 (5.0-10.0) 10^3/uL RBC 3.59 L (4.2-5.4) 10^6/uL Hgb 10.3 L (12.0-16.0) g/dL Hct 33.3 L (37.0-47.0) % MCV 92.8 (80-100) fL MCH 28.7 (27.0-34.0) pg MCHC 30.9 L (33.0-35.0) g/dL Plt Count 197 (150-450) 10^3/uL Neut % (Auto) 60.8 (42.2-75.2) % Lymph % (Auto) 25.1 (20.5-50.1) % [place] % (Auto) 6.5 (2-8) % Eos % (Auto) 6.9 H (1.0-3.0) % Baso % (Auto) 0.7 (0.0-1.0) % Sodium 139 (135-145) mmol/L Potassium 4.2 (3.6-5.0) mmol/L Chloride 98 L (101-111) mmol/L Carbon Dioxide 35.0 H (21.0-31.0) mmol/L Anion Gap 10.2 BUN 14 (7-18) mg/dL Creatinine 0.9 (0.6-1.3) mg/dL Est Cr Clr Drug Dosing 41.24 mL/min Estimated GFR (MDRD) > 60 BUN/Creatinine Ratio 15.55 Glucose 95 (74-105) mg/dL Calcium 9.0 (8.4-10.2) mg/dl Total Bilirubin 0.7 (0.2-1.0) mg/dL AST 23 (10-42) IU/L ALT 11 (10-60) IU/L Alkaline Phosphatase 73 (42-121) IU/L Troponin I < 0.02 (0.00-0.02) ng/ml B-Natriuretic Peptide 92 (0-100) pg/ml Total Protein 6.9 (6.7-8.2) g/dl Albumin 3.7 (3.2-5.5) g/dl Globulin 3.2 Albumin/Globulin Ratio 1.16 Result Diagrams: 11/12/17 11:37 11/12/17 11:37 Problem List Initiated/Reviewed/Updated: Yes Orders Last 24hrs: Active Orders 24 hr Category Date Time Status Patient Status [ADT] Routine ADT 11/12/17 14:39 Ordered Cardiac Monitoring [RC] CONTINUOUS Care 11/12/17 14:40 Ordered EKG Documentation Completion [RC] URGENT Care 11/12/17 11:25 Active Oxygen Therapy [RC] PRN Care 11/12/17 14:39 Ordered RT Aerosol Therapy [RC] ASDIRECTED Care 11/12/17 14:42 Ordered Up ad Britney [RC] ASDIRECTED Care 11/12/17 14:39 Ordered VTE/DVT Education [RC] PER UNIT ROUTINE Care 11/12/17 14:39 Ordered Vital Signs [RC] Q4H Care 11/12/17 14:39 Ordered Regular Diet [DIET] Diet 11/12/17 Lunch Ordered TROPONIN I [CHEM] Q6H Lab 11/12/17 18:00 Ordered TROPONIN I [CHEM] Q6H Lab 11/13/17 00:00 Ordered Acetaminophen [Tylenol] Med 11/12/17 14:39 Ordered 650 mg PO Q4H PRN Albuterol [Proventil Neb Soln] Med 11/12/17 14:46 Ordered 2.5 mg INH Q4H PRN Albuterol [Proventil Neb Soln] Med 11/12/17 14:39 Ordered 2.5 mg NEB Q2H PRN Albuterol/Ipratropium [DuoNeb 3.0-0.5 MG/3 ML] Med 11/12/17 17:00 Ordered 3 ml INH QIDRT Albuterol/Ipratropium [DuoNeb 3.0-0.5 MG/3 ML] Med 11/12/17 17:00 Ordered 3 ml NEB QID Aspirin Med 11/13/17 08:00 Ordered 81 mg PO BRK Budesonide [Pulmicort] Med 11/12/17 21:00 Ordered 0.5 mg NEB BID Calcitriol [Rocaltrol] Med 11/13/17 09:00 Ordered 0.25 mcg PO DAILY Carboxymethylcellulose Sodium [Refresh Celluvisc] Med 11/12/17 14:46 Ordered 1 each EYEBOTH QID PRN Doxycycline [Vibramycin] 100 mg Med 11/12/17 21:00 Ordered Sodium Chloride 0.9% [Normal Saline] 100 ml IV Q12HR Enoxaparin [Lovenox] Med 11/13/17 09:00 Ordered 40 mg SUBCUT DAILY Formoterol Fumarate [Perforomist] Med 11/12/17 14:46 Ordered 2 ml PO BID PRN Furosemide [Lasix] Med 11/13/17 09:00 Ordered 60 mg PO DAILY Levothyroxine [Synthroid] Med 11/13/17 06:00 Ordered 50 mcg PO ACBREAKFAST Metoprolol Succinate [Toprol XL] Med 11/13/17 09:00 Ordered 50 mg PO DAILY Omeprazole Magnesium [Prilosec Otc] Med 11/13/17 09:00 Ordered 20 mg PO DAILY Ondansetron [Zofran] Med 11/12/17 14:39 Ordered 4 mg IVPUSH Q6H PRN Potassium Chloride [Potassium Chloride] Med 11/12/17 21:00 Ordered 20 meq PO BID Sodium Chloride 0.9% [Saline Flush] Med 11/12/17 14:39 Ordered 10 ml FLUSH ASDIRECTED PRN atorvaSTATin [Lipitor] Med 11/13/17 09:00 Ordered 10 mg PO DAILY methylPREDNISolone Sod Succ [Solu-MEDROL] Med 11/12/17 14:45 Ordered 40 mg IVPUSH Q8H Saline Lock Insert [OM.PC] Routine Oth 11/12/17 14:39 Ordered Resuscitation Status Routine Resus Stat 11/12/17 14:39 Ordered Medication Orders Acetaminophen (Tylenol) 650 mg PO Q4H PRN PRN Reason: Pain (Mild 1-3)/fever Albuterol (Proventil Neb Soln) 2.5 mg NEB Q2H PRN PRN Reason: shortness of breath/wheezing Albuterol (Proventil Neb Soln) 2.5 mg INH Q4H PRN PRN Reason: Shortness of Breath Albuterol/Ipratropium (Duoneb 3.0-0.5 Mg/3 Ml) 3 ml NEB QIDRT AIYANA Albuterol/Ipratropium (Duoneb 3.0-0.5 Mg/3 Ml) 3 ml INH QIDRT AIYANA Artificial Tears (Refresh Celluvisc) 1 each EYEBOTH QID PRN PRN Reason: Dry Eyes Aspirin (Aspirin) 81 mg PO BRK AIYANA Atorvastatin Calcium (Lipitor) 10 mg PO DAILY AIYANA Budesonide (Pulmicort) 0.5 mg NEB BID [facility] Calcitriol (Rocaltrol) 0.25 mcg PO DAILY AIYANA Enoxaparin Sodium (Lovenox) 40 mg SUBCUT DAILY [facility] Furosemide (Lasix) 60 mg PO DAILY [facility] Doxycycline Hyclate 100 mg/ (Sodium Chloride) 100 mls @ 100 mls/hr IV Q12HR AIYANA Levothyroxine Sodium (Synthroid) 50 mcg PO ACBREAKFAST [facility] Methylprednisolone Sodium Succinate (Solu-Medrol) 40 mg IVPUSH Q8H AIYANA Metoprolol Succinate (Toprol Xl) 50 mg PO DAILY AIYANA Non-Formulary Medication (Formoterol Fumarate [Perforomist]) 2 ml PO BID PRN PRN Reason: Dyspnea Non-Formulary Medication (Omeprazole Magnesium [Prilosec Otc]) 20 mg PO DAILY AIYANA Non-Formulary Medication (Potassium Chloride [Potassium Chloride]) 20 meq PO BID AIYANA Ondansetron HCl (Zofran) 4 mg IVPUSH Q6H PRN PRN Reason: Nausea/Vomiting Sodium Chloride (Saline Flush) 10 ml FLUSH ASDIRECTED PRN PRN Reason: Keep Vein Open Assessment/Plan Comment:: #. Probable acute exacerbation of COPD Patie presented with complaint of shortness of breath which has markedly increased over the past 2 days Her exercise tolerance has been limited. #. Probable acute flareup of interstitial lung disease I obtained a CT scan of the chest and it showed significant pulmonary fibrosis. Anemia Hemoglobin is mildly low at 10.3 #. Anemia No evidence of blood loss anemia. #. Dyslipidemia The patient is normally on Lipitor This will be continued #. Hypertension Blood pressure is mostly within acceptable limits Continue metoprolol #. Hypothyroidism Has been on levothyroxine Will continue with this medication. Plan: Admit patient to medical floor I did proceed to obtain a CT scan of the chest. It ruled out pulmonary embolism Obtain ultrasound of the left lower extremity Comments nebulization with DuoNeb every 4 times a day Albuterol every 4 hours when necessary Intravenous doxycycline Send sputum for Gram stain and cultures Intravenous Solu Medrol 40 mg every 8 hours.
[2017-11-12] MEDS: methylPREDNISolone Sodium Succinate 40 MG/1 ML SDV IVPUSH SCH ×2 (15:51→21:50)
[2017-11-12] MEDS: Sodium Chloride 0.9% 10 ML Syringe FLUSH PRN (15:52)
[2017-11-12] MEDS ORDERED: Albuterol/Ipratropium 3.0-0.5 MG/3 ML Neb Soln INH SCH (17:00)
[2017-11-12] MEDS: Budesonide 0.5 MG/2 ML Neb Susp NEB SCH (17:06)
[2017-11-12] MEDS: Albuterol/Ipratropium 3.0-0.5 MG/3 ML Neb Soln NEB SCH ×2 (17:06→21:48)
[2017-11-12] MEDS: Doxycycline 100 MG in Sodium Chloride 0.9% 100 ML IV SCH (21:48)
[2017-11-12] MEDS ORDERED: GUAIFENESIN PO PRN (22:15)
[2017-11-12] MEDS ORDERED: DEXTROMETHORPHAN PO PRN (22:15)
[2017-11-12] MEDS ORDERED: ACETAMINOPHEN 500 MG PO PRN (23:00)
[2017-11-13] MEDS: Potassium Chloride 10 MEQ Tab.ER**PT OWN PO SCH ×2 (00:20→08:30)
[2017-11-13] MEDS: PERFOROMIST 20 MCG/2 ML INH SCH ×2 (00:45→08:34)
[2017-11-13] MEDS ORDERED: OMEPRAZOLE 20 MG PO SCH (06:00)
[2017-11-13] MEDS ORDERED: Levothyroxine 50 MCG Tab PO SCH (06:00)
[2017-11-13] MEDS ORDERED: LEVOTHYROXINE 75 MCG PO SCH (06:00)
[2017-11-13] MEDS: Sodium Chloride 0.9% 10 ML Syringe FLUSH PRN ×2 (06:10→06:17)
[2017-11-13] MEDS: methylPREDNISolone Sodium Succinate 40 MG/1 ML SDV IVPUSH SCH (06:10)
[2017-11-13] MEDS: Budesonide 0.5 MG/2 ML Neb Susp NEB SCH (07:19)
[2017-11-13] MEDS: Albuterol/Ipratropium 3.0-0.5 MG/3 ML Neb Soln NEB SCH ×2 (07:19→11:23)
[2017-11-13] MEDS ORDERED: ASPIRIN 81 MG PO SCH (08:00)
[2017-11-13] MEDS: Doxycycline 100 MG in Sodium Chloride 0.9% 100 ML IV SCH (08:23)
--- NOTE | 2017-11-13 08:41 | US ---
Clinical history: 82-year-old female with chest/leg pain and "chronic lung scarring" (CT scan chest). Rule out DVT. 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 No current evidence deep vein thrombosis left lower extremity. No sign of intraluminal echogenic thrombus and normal compressibility deep veins of the left groin, t high, knee and proximal calf (satisfactory augmentation and venous waveforms respectively in the post erior tibial vein left calf, popliteal vein left the, and proximally in the femoral veins of the left thigh. CONCLUSION: Farooq's cyst. No DVT left lower extremity.
[2017-11-13] MEDS ORDERED: MAGNESIUM OXIDE 400 MG PO SCH (09:00)
[2017-11-13] MEDS ORDERED: CALCIUM 500 MG PO SCH (09:00)
[2017-11-13] MEDS ORDERED: Enoxaparin 40 MG/0.4 ML Syringe SUBCUT SCH (09:00)
[2017-11-13] MEDS ORDERED: METOPROLOL TARTRATE 50 MG PO SCH (09:00)
[2017-11-13] MEDS ORDERED: Metoprolol Succinate 50 MG Tab.ER PO SCH (09:00)
[2017-11-13] MEDS ORDERED: LORATADINE 10 MG PO SCH (09:00)
[2017-11-13] MEDS ORDERED: POLYETHYLENE GLYCOL PO SCH (09:00)
[2017-11-13] MEDS ORDERED: ATORVASTATIN 10 MG PO SCH (09:00)
[2017-11-13] MEDS ORDERED: [UNRECOGNIZED DRUG - OTHER] PO SCH (09:00)
[2017-11-13 11:59] VITALS: BP 121/76
--- NOTE | 2017-11-13 12:42 | PCM.DCSUM1 ---
Discharge Summary - Hospital Course Free Text/Narrative:: SOB HPI Initial Comments: The patient is an 82 year old female with medical history of COPD, pulmonary fibrosis, hypertension, dyslipidemia, hypothyroidism. The patient presented to the emergency room with complaint of shortness of breath which has been going on for the past 2 days. She does have chronic shortness of breath but in the past 2 days he has been quite severe. CT scan of the chest done showed significant pulmonary fibrosis without any acute findings. Patient was admitted for acute on chronic respiratory failure with hypoxia due to COPD vs flare of pulmonary fibrosis. Venous US of LE was negative for DVT. She was managed with IV steroids, nebulizers, abx with significant improvement in her symptoms. She was sen today on rounds and reports feeling well. Patient wants to go home. She denies SOB, chest pian. Lung auscultation showed dry crackles posteriorly. No wheezing. She is being discharge home. She will follow with Primary care doctor and pulmonary. She has pulmonary appointment coming up. Diagnosis: Stroke: No - Discharge Data Discharge Date: 11/13/17 Discharge Disposition: Home, Self-Care 01 Condition: Good - Discharge Plan *PRESCRIPTION DRUG MONITORING PROGRAM REVIEWED*: Not Applicable *COPY OF PRESCRIPTION DRUG MONITORING REPORT IN PATIENT YVETTE: Not Applicable Home Medications: Home Meds Albuterol Sulfate 2.5 mg IH BID 10/21/16 [History] Alendronate [Fosamax] 70 mg PO Q7D@0600 10/21/16 [History] Aspirin 81 mg PO BRK 10/21/16 [History] Budesonide [Pulmicort] 0.5 mg IH BID 10/21/16 [History] Calcitriol [Rocaltrol] 0.25 mcg PO ASDIRECTED 10/21/16 [History] Calcium Carbonate/Vitamin D3 [Calcium 500 mg Chewable Tablet] 1 tab PO DAILY [History] Formoterol Fumarate [Perforomist] 2 ml PO BID PRN 10/21/16 [History] Furosemide [Lasix] 60 mg PO DAILY 10/21/16 [History] Levothyroxine [Synthroid] 75 mcg PO ACBREAKFAST 10/21/16 [History] Loratadine [Claritin] 10 mg PO DAILY 10/21/16 [History] Magnesium 400 mg PO DAILY 10/21/16 [History] Multivitamin/Iron/Folic Acid [Centrum Adults Tablet] 1 tab PO DAILY 10/21/16 [ History] Omeprazole Magnesium [Prilosec Otc] 20 mg PO DAILY 10/21/16 [History] Polyethylene Glycol 3350 [MiraLAX] 17 gm PO DAILY PRN 10/21/16 [History] Potassium Chloride 20 meq PO BID 10/21/16 [History] atorvaSTATin [Lipitor] 10 mg PO DAILY 10/21/16 [History] guaiFENesin [Mucinex] 0.5 tab PO BID PRN 10/21/16 [History] guaiFENesin [Tussin] 5 ml PO Q6H PRN 10/21/16 [History] Albuterol [IJD: Albuterol] 2.5 mg INH Q4H PRN nebule 04/19/17 [Rx] Albuterol [Proventil HFA] 0 gm INH Q4H PRN inhaler 04/19/17 [Rx] Albuterol/Ipratropium [DuoNeb 3.0-0.5 MG/3 ML] 3 ml INH QIDRT neb 04/19/17 [Rx] Carboxymethylcellulose Sodium [Refresh Celluvisc] 1 each EYEBOTH QID PRN cont 04/19/17 [Rx] Cefpodoxime [Vantin 100 MG/5 ML Susp] 100 mg PO Q12HR 10 Days #20 bottle [Rx] Patient's Own Medication [Ptom] 0 each PO DAILY each 04/19/17 [Rx] Acetaminophen [Tylenol] 500 mg PO Q6H PRN 11/12/17 [History] Metoprolol Tartrate 25 mg PO BID 11/12/17 [History] Dextromethorphan/guaiFENesin [Robitussin DM] 5 ml PO Q4H PRN bottle 11/13/17 [ Rx] Patient Handouts: Chronic Obstructive Pulmonary Disease Exacerbation, Easy-to- Read Referrals: Dahiana James PA [Primary Care Provider] - - Patient Data Vitals - Most Recent: Last Vital Signs Temp 97.8 F 11/13/17 11:58 Pulse 91 11/13/17 11:58 Resp 20 11/13/17 11:58 BP 121/76 11/13/17 11:58 Pulse Ox 93 L 11/13/17 11:58 Weight - Most Recent: 171 lb 6.4 oz I&O - Last 24 hours: Intake & Output 11/12/17 11/13/17 11/13/17 22:59 06:59 14:59 Intake Total 200 1000 528 Output Total 1300 200 Balance 200 -300 328 Lab Results - Last 24 hrs: Laboratory Results - last 24 hr 11/12/17 11/13/17 Range/Units 17:55 02:40 Troponin I < 0.02 < 0.02 (0.00-0.02) ng/ml Med Orders - Current: Current Medications Albuterol (Proventil Neb Soln) 2.5 mg INH Q4H PRN PRN Reason: Shortness of Breath Last Admin: 11/13/17 04:34 Dose: 2.5 mg Albuterol/Ipratropium (Duoneb 3.0-0.5 Mg/3 Ml) 3 ml NEB QIDRT [facility] Last Admin: 11/13/17 11:23 Dose: 3 ml Artificial Tears (Refresh Celluvisc) 1 each EYEBOTH QID PRN PRN Reason: Dry Eyes Aspirin (Aspirin) 81 mg PO BRK [facility] Last Admin: 11/13/17 08:31 Dose: 81 mg Atorvastatin Calcium (Lipitor) 10 mg PO DAILY [facility] Last Admin: 11/13/17 08:31 Dose: 10 mg Budesonide (Pulmicort) 0.5 mg NEB BIDRT [facility] Last Admin: 11/13/17 07:19 Dose: 0.5 mg Calcitriol (Rocaltrol) 0.25 mcg PO SuSa@0900 [facility] Enoxaparin Sodium (Lovenox) 40 mg SUBCUT DAILY [facility] Last Admin: 11/13/17 08:34 Dose: 40 mg Furosemide (Lasix) 60 mg PO DAILY [facility] Last Admin: 11/13/17 08:32 Dose: 60 mg Guaifenesin/Phenylephrine HCl (Robitussin Dm) 5 ml PO Q4H PRN PRN Reason: Cough Doxycycline Hyclate 100 mg/ (Sodium Chloride) 100 mls @ 100 mls/hr IV Q12HR [facility] Last Admin: 11/13/17 08:23 Dose: 100 mls/hr Levothyroxine Sodium (Levothyroxine) 75 mcg PO ACBREAKFAST [facility] Last Admin: 11/13/17 05:42 Dose: 75 mcg Loratadine (Claritin) 10 mg PO DAILY [facility] Last Admin: 11/13/17 08:31 Dose: 10 mg Methylprednisolone Sodium Succinate (Solu-Medrol) 40 mg IVPUSH Q8H [facility] Last Admin: 11/13/17 06:10 Dose: 40 mg Metoprolol Tartrate (Lopressor) 25 mg PO BID [facility] Last Admin: 11/13/17 08:33 Dose: 25 mg Perforomist 20mcg/ (2ml Pt Own) 1 each INH BID [facility] Last Admin: 11/13/17 08:34 Dose: 1 each Acetaminophen 500mg (Pt Own) 1 each PO Q6H PRN PRN Reason: Pain (Mild 1-3)/fever Omeprazole (Omeprazole) 20 mg PO ACBREAKFAST [facility] Last Admin: 11/13/17 05:42 Dose: Not Given Ondansetron HCl (Zofran) 4 mg IVPUSH Q6H PRN PRN Reason: Nausea/Vomiting Calcium 500mg (Gummies Ptom) 2 each PO DAILY [facility] Last Admin: 11/13/17 11:57 Dose: 2 each Magnesium Oxide 400 Mg Tab Pt's Own Med 0 each PO DAILY [facility] Last Admin: 11/13/17 11:58 Dose: 1 each Women's Adult Gummy Multivitamin Pt's Own Med 2 each PO DAILY [facility] Last Admin: 11/13/17 11:57 Dose: 2 each Polyethylene Glycol (Miralax) 0 gm PO DAILY [facility] Last Admin: 11/13/17 12:03 Dose: Not Given Potassium Chloride (Klor-Con 10) 20 meq PO BID [facility] Last Admin: 11/13/17 08:30 Dose: 20 meq Sodium Chloride (Saline Flush) 10 ml FLUSH ASDIRECTED PRN PRN Reason: Keep Vein Open Last Admin: 11/13/17 06:17 Dose: 10 ml Discontinued Medications Acetaminophen (Tylenol) 650 mg PO Q4H PRN PRN Reason: Pain (Mild 1-3)/fever Last Admin: 11/12/17 21:48 Dose: 650 mg Albuterol (Proventil Neb Soln) 2.5 mg NEB Q2H PRN PRN Reason: shortness of breath/wheezing Albuterol/Ipratropium (Duoneb 3.0-0.5 Mg/3 Ml) 3 ml INH QIDRT [facility] Iopamidol (Isovue-370 (76%)) 100 ml IVPUSH ONETIME ONE Stop: 11/12/17 13:16 Last Admin: 11/12/17 13:47 Dose: 66 ml Levothyroxine Sodium (Synthroid) 50 mcg PO ACBREAKFAST [facility] Metoprolol Succinate (Toprol Xl) 50 mg PO DAILY [facility] Non-Formulary Medication (Formoterol Fumarate [Perforomist]) 2 ml PO BID PRN PRN Reason: Dyspnea
[2017-11-14] MEDS ORDERED: predniSONE 20 MG Tab PO SCH (08:00)
[2017-11-15] MEDS ORDERED: CALCITRIOL 0.25 MCG PO SCH (09:00)
== END 2017-11-13 13:38 | disposition home or self-care (01) ==
LOC: DL.ED 10:58 → DL.MS 14:02 → UNDOADMOB 14:02 → DL.MS 14:39
PROVIDERS: ADMIT Hospitalist; ATTEND Hospitalist
DX: J44.9 Chronic obstructive pulmonary disease, unspecified (principal); J84.10 Pulmonary fibrosis, unspecified; J84.9 Interstitial pulmonary disease, unspecified; I13.0 Hypertensive heart and chronic kidney disease with heart failure and stage 1 through stage 4 chronic kidney disease, or unspecified chronic kidney disease; N18.9 Chronic kidney disease, unspecified; I50.9 Heart failure, unspecified; E78.5 Hyperlipidemia, unspecified; D64.9 Anemia, unspecified; E03.9 Hypothyroidism, unspecified; F41.9 Anxiety disorder, unspecified; Z79.82 Long term (current) use of aspirin; Z79.899 Other long term (current) drug therapy; Z88.1 Allergy status to other antibiotic agents; Z88.0 Allergy status to penicillin; Z91.040 Latex allergy status
CPT/HCPCS: 36415; 71045; 71260; 80053; 83880; 84484; 85025; 93005; 93010; 93971; 94640; 96365; 96372; 96375; 96376; 99217; 99283; 99285; A9270-GY; G0378; J1650; J2920; J3490; J7050; J7620-GY; Q9967

== ENCOUNTER 2017-12-23 09:42 | Emergency (ER) | payer MEDICARE, BC ==
--- NOTE | 2017-12-23 09:52 | EDM.PDOC ---
ED HPI GENERAL MEDICAL PROBLEM - General Chief Complaint: Cardiovascular Problem Stated Complaint: [id number] BLOOD PRESSURE REALLY HIGH Time Seen by Provider: 12/23/17 09:51 Source of Information: Reports: Patient, Family, Old Records, RN, RN Notes Reviewed History Limitations: Reports: No Limitations - History of Present Illness INITIAL COMMENTS - FREE TEXT/NARRATIVE: Pt presents to ER from home by POV very anxious about "very high blood pressure " of 155/89. Pt then states that a day or so ago she coughed hard and hurt her left rib just under the left breast. About 5 weeks ago she fractured a rib in that area and the pain was finally improving until she coughed. She reports Hx of osteoporosis with multiple past fractures, CHF, and COPD. Pt is dependent on supplemental home oxygen. She denies fever, chills, or sputum production. Onset: Sudden Duration: Day(s): (2-3), Constant Location: Reports: Chest Quality: Reports: Ache Severity: Severe Improves with: Reports: None Worsens with: Reports: None Associated Symptoms: Reports: No Other Symptoms Treatments PAPER BAG [employer]KER: Reports: Breathing Treatments Chest Pain Score (Numeric/FACES): 4 - Related Data Allergies Allergy/AdvReac Type Severity Reaction Status Date / Time amoxicillin [Amoxicillin] Allergy Nausea Verified 11/12/17 14:40 azithromycin Allergy Nausea Verified 11/12/17 14:40 cefazolin sodium [From Ancef] Allergy Vomiting Verified 11/12/17 14:40 latex Allergy Nausea Verified 11/12/17 14:40 Home Meds: Home Meds Albuterol Sulfate 2.5 mg IH BID 10/21/16 [History] Alendronate [Fosamax] 70 mg PO Q7D@0600 10/21/16 [History] Aspirin 81 mg PO BRK 10/21/16 [History] Budesonide [Pulmicort] 0.5 mg IH BID 10/21/16 [History] Calcitriol [Rocaltrol] 0.25 mcg PO ASDIRECTED 10/21/16 [History] Calcium Carbonate/Vitamin D3 [Calcium 500 mg Chewable Tablet] 1 tab PO DAILY [History] Formoterol Fumarate [Perforomist] 2 ml PO BID PRN 10/21/16 [History] Furosemide [Lasix] 60 mg PO DAILY 10/21/16 [History] Levothyroxine [Synthroid] 75 mcg PO ACBREAKFAST 10/21/16 [History] Loratadine [Claritin] 10 mg PO DAILY 10/21/16 [History] Magnesium 400 mg PO DAILY 10/21/16 [History] Multivitamin/Iron/Folic Acid [Centrum Adults Tablet] 1 tab PO DAILY 10/21/16 [ History] Omeprazole Magnesium [Prilosec Otc] 20 mg PO DAILY 10/21/16 [History] Polyethylene Glycol 3350 [MiraLAX] 17 gm PO DAILY PRN 10/21/16 [History] Potassium Chloride 20 meq PO BID 10/21/16 [History] atorvaSTATin [Lipitor] 10 mg PO DAILY 10/21/16 [History] guaiFENesin [Mucinex] 0.5 tab PO BID PRN 10/21/16 [History] guaiFENesin [Tussin] 5 ml PO Q6H PRN 10/21/16 [History] Albuterol [IJD: Albuterol] 2.5 mg INH Q4H PRN nebule 04/19/17 [Rx] Albuterol [Proventil HFA] 0 gm INH Q4H PRN inhaler 04/19/17 [Rx] Albuterol/Ipratropium [DuoNeb 3.0-0.5 MG/3 ML] 3 ml INH QIDRT neb 04/19/17 [Rx] Carboxymethylcellulose Sodium [Refresh Celluvisc] 1 each EYEBOTH QID PRN cont 04/19/17 [Rx] Cefpodoxime [Vantin 100 MG/5 ML Susp] 100 mg PO Q12HR 10 Days #20 bottle [Rx] Patient's Own Medication [Ptom] 0 each PO DAILY each 04/19/17 [Rx] Acetaminophen [Tylenol] 500 mg PO Q6H PRN 11/12/17 [History] Metoprolol Tartrate 25 mg PO BID 11/12/17 [History] Dextromethorphan/guaiFENesin [Robitussin DM] 5 ml PO Q4H PRN bottle 11/13/17 [ Rx] predniSONE 40 mg PO WITHBREAKFAST 5 Days #5 tablet 11/13/17 [Rx] Past Medical History - Past Health History Medical/Surgical History: Denies Medical/Surgical History HEENT History: Reports: Impaired Vision, Other (See Below) Other HEENT History: Trouble swallowing, wears glasses Cardiovascular History: Reports: Heart Failure, High Cholesterol, Hypertension, SOB on Exertion Respiratory History: Reports: Asthma, COPD, Interstitial Lung Disease, Pneumonia , Recurrent, Pulmonary Fibrosis, SOB, Other (See Below) Other Respiratory History: chronic cough, lung surgery, emphysema Gastrointestinal History: Reports: Hiatal Hernia Genitourinary History: Reports: Chronic Renal Insuffiency Other Genitourinary History: bladder repair, bowel repair [employer]IC FIBRE DRAWER History: Reports: None Musculoskeletal History: Reports: Back Pain, Chronic, Fracture, Osteoporosis Neurological History: Reports: None Psychiatric History: Reports: Anxiety Endocrine/Metabolic History: Reports: Hyperthyroidism, Osteopenia Hematologic History: Reports: Anemia Immunologic History: Reports: None Oncologic (Cancer) History: Reports: Basal Cell Carcinoma, Other (See Below) Other Oncologic History: face Dermatologic History: Reports: Other (See Below) Other Dermatologic History: has bandage to left chin, , biopsy done, no results yet - Infectious Disease History Infectious Disease History: Reports: Measles - Past Surgical History Head Surgeries/Procedures: Reports: None HEENT Surgical History: Reports: Cataract Surgery Cardiovascular Surgical History: Reports: Other (See Below) Respiratory Surgical History: Reports: Lung Biopsies Female Surgical History: Reports: Breast Biopsy, Hysterectomy, Other (See Below) Other Female Surgeries/Procedures: bladder repair Social & Family History - Family History Family Medical History: Noncontributory HEENT: Reports: None Cardiac: Reports: None Respiratory: Reports: None GI: Reports: None : Reports: None - Caffeine Use Caffeine Use: Reports: Tea - Living Situation & Occupation Living situation: Reports: , with Spouse Occupation: Retired ED ROS GENERAL - Review of Systems Review Of Systems: ROS reveals no pertinent complaints other than HPI. ED EXAM, GENERAL - Physical Exam Exam: See Below Exam Limited By: No Limitations General Appearance: Alert, WD/WN, No Apparent Distress, Anxious Eye Exam: Bilateral Eye: Normal Inspection Ears: Hearing Grossly Normal Nose: Normal Inspection Throat/Mouth: Normal Inspection, Normal Lips, Normal Oropharynx, Normal Voice, No Airway Compromise Head: Atraumatic, Normocephalic Neck: Normal Inspection, Supple, Non-Tender, Full Range of Motion Respiratory/Chest: No Respiratory Distress, No Accessory Muscle Use, Decreased Breath Sounds, Wheezing, Splinting (due to left chest wall pain), Prolonged Expiration, Other (Left anterior mid-chest wall tender to palpation just below the breast with no visible bruising, swelling, defomity, crepitus, or erythema.) . No: Crackles, Rales, Rhonchi, Stridor, Pleural Rub Cardiovascular: Normal Peripheral Pulses, Regular Rate, Rhythm, No Edema, No Gallop, No JVD, No Murmur, No Rub GI/Abdominal: Normal Bowel Sounds, Soft, Non-Tender, No Distention, No Abnormal Bruit. No: Guarding, Rigid, Rebound (Female) Exam: Deferred Rectal (Female) Exam: Deferred Back Exam: Normal Inspection Extremities: Normal Range of Motion, Normal Capillary Refill, Pedal Edema (+2 pitting edema to knees B/L (chronic/stable per pt)). No: Sharon's Sign Neurological: Alert, Oriented, CN II-XII Intact, Normal Cognition, Normal Gait, No Motor/Sensory Deficits Psychiatric: Normal Affect, Anxious Skin Exam: Warm, Dry, Intact, Normal Color, No Rash EKG INTERPRETATION EKG Date: 12/23/17 Time: 09:48 Rhythm: Other (SR) Rate (Beats/Min): 96 [place]: LAD-Left [place] Deviation P-Wave: Present (probable left atrial abnormality) QRS: Other (Borderline R wave progression in Anterior leads) ST-T: Normal QT: Normal Comparison: No Change EKG Interpretation Comments: No acute ischemic changes. Course - Vital Signs Last Recorded V/S: Last Vital Signs Temp 36.1 C 12/23/17 10:34 Pulse 109 H 12/23/17 10:34 Resp 24 H 12/23/17 10:34 BP 138/78 12/23/17 10:34 Pulse Ox 87 L 12/23/17 10:34 - Orders/Labs/Meds Orders: Active Orders 24 hr Category Date Time Status EKG 12 Lead [EKG Documentation Completion] [RC] STAT Care 12/23/17 10:07 Active Peripheral IV Care [RC] . DIRECTED Care 12/23/17 10:09 Active RT Aerosol Therapy [RC] ASDIRECTED Care 12/23/17 10:10 Active Chest 2V [CR] Stat Exams 12/23/17 10:07 Taken Ribs 2V wo Chest Lt [CR] Stat Exams 10/02/18 10:08 Taken Sodium Chloride 0.9% [Saline Flush] Med 12/23/17 10:08 Active 10 ml FLUSH ASDIRECTED PRN Peripheral IV Insertion Adult [OM.PC] Stat Oth 12/23/17 10:07 Ordered Medication Orders Sodium Chloride (Saline Flush) 10 ml FLUSH ASDIRECTED PRN PRN Reason: Keep Vein Open Last Admin: 12/23/17 10:34 Dose: 10 ml Labs: Laboratory Tests 12/23/17 12/23/17 Range/Units 10:14 10:14 WBC 7.2 (5.0-10.0) 10^3/uL RBC 3.67 L (4.2-5.4) 10^6/uL Hgb 10.5 L (12.0-16.0) g/dL Hct 33.8 L (37.0-47.0) % MCV 92.1 (80-100) fL MCH 28.6 (27.0-34.0) pg MCHC 31.1 L (33.0-35.0) g/dL Plt Count 216 (150-450) 10^3/uL Neut % (Auto) 62.4 (42.2-75.2) % Lymph % (Auto) 20.4 L (20.5-50.1) % [place] % (Auto) 8.1 H (2-8) % Eos % (Auto) 8.5 H (1.0-3.0) % Baso % (Auto) 0.6 (0.0-1.0) % Sodium 140 (135-145) mmol/L Potassium 3.9 (3.6-5.0) mmol/L Chloride 95 L (101-111) mmol/L Carbon Dioxide 34.0 H (21.0-31.0) mmol/L Anion Gap 14.9 BUN 14 (7-18) mg/dL Creatinine 0.9 (0.6-1.3) mg/dL Est Cr Clr Drug Dosing TNP Estimated GFR (MDRD) > 60 BUN/Creatinine Ratio 15.55 Glucose 109 H (74-105) mg/dL Calcium 9.1 (8.4-10.2) mg/dl Total Bilirubin 0.5 (0.2-1.0) mg/dL AST 31 (10-42) IU/L ALT 14 (10-60) IU/L Alkaline Phosphatase 112 (42-121) IU/L Troponin I < 0.02 (0.00-0.02) ng/ml B-Natriuretic Peptide 79 (0-100) pg/ml Total Protein 7.0 (6.7-8.2) g/dl Albumin 3.8 (3.2-5.5) g/dl Globulin 3.2 Albumin/Globulin Ratio 1.19 Meds: Medications Generic Name Dose Route Start Last Admin Trade Name Freq PRN Reason Stop Dose Admin Sodium Chloride 10 ml 12/23/17 10:08 12/23/17 10:34 Saline Flush FLUSH 10 ml ASDIRECTED PRN Administration Keep Vein Open Discontinued Medications Generic Name Dose Route Start Last Admin Trade Name Freq PRN Reason Stop Dose Admin Albuterol/Ipratropium 3 ml 12/23/17 10:09 12/23/17 10:28 Duoneb 3.0-0.5 Mg/3 Ml NEB 12/23/17 10:10 3 ml ONETIME ONE Administration Hydromorphone HCl 0.5 mg 12/23/17 10:10 12/23/17 10:34 Dilaudid IVPUSH 12/23/17 10:11 0.5 mg ONETIME ONE Administration Methylprednisolone Sodium Succinate 62.5 mg 12/23/17 10:09 12/23/17 10:33 Solu-Medrol IVPUSH 12/23/17 10:10 62.5 mg ONETIME ONE Administration - Radiology Interpretation Free Text/Narrative:: Chest & left rib XR: chronic fibrotic scarring, no acute changes, see Rad. report. Departure - Departure Time of Disposition: 11:47 Disposition: Home, Self-Care 01 Condition: Fair Clinical Impression: COLD, Chronic obstructive lung disease, Left-sided chest wall pain Left rib fracture Qualifiers: Encounter type: subsequent encounter Rib fracture type: single rib Fracture type: closed Fracture healing: with delayed healing Qualified Code(s): S22.32XG - Fracture of one rib, left side, subsequent encounter for fracture with delayed healing - Discharge Information *PRESCRIPTION DRUG MONITORING PROGRAM REVIEWED*: Not Applicable *COPY OF PRESCRIPTION DRUG MONITORING REPORT IN PATIENT YVETTE: Not Applicable Instructions: Rib Fracture, [id number], Chest Wall Pain, [id number] Forms: ED Department Discharge Additional Instructions: Rx: Tylenol Codeine No. 3 Take deep breaths several times a day. Follow up in clinic this week with Dahiana James for recheck. Return to ER if you develop severe pain, fever, productive cough, or difficulty breathing. - My Orders Last 24 Hours: My Active Orders 12/23/17 10:07 EKG 12 Lead [EKG Documentation Completion] [RC] STAT Chest 2V [CR] Stat Peripheral IV Insertion Adult [OM.PC] Stat 12/23/17 10:08 Ribs 2V wo Chest Lt [CR] Stat Sodium Chloride 0.9% [Saline Flush] 10 ml FLUSH ASDIRECTED PRN 12/23/17 10:09 Peripheral IV Care [RC] . DIRECTED 12/23/17 10:10 RT Aerosol Therapy [RC] ASDIRECTED - Assessment/Plan Last 24 Hours: My Active Orders 12/23/17 10:07 EKG 12 Lead [EKG Documentation Completion] [RC] STAT Chest 2V [CR] Stat Peripheral IV Insertion Adult [OM.PC] Stat 12/23/17 10:08 Ribs 2V wo Chest Lt [CR] Stat Sodium Chloride 0.9% [Saline Flush] 10 ml FLUSH ASDIRECTED PRN 12/23/17 10:09 Peripheral IV Care [RC] . DIRECTED 12/23/17 10:10 RT Aerosol Therapy [RC] ASDIRECTED
[2017-12-23] MEDS ORDERED: Sodium Chloride 0.9% 10 ML Syringe FLUSH PRN (10:08)
[2017-12-23] MEDS ORDERED: methylPREDNISolone Sodium Succinate 125 MG/2 ML SDV IVPUSH ONE (10:09)
[2017-12-23] MEDS ORDERED: Albuterol/Ipratropium 3.0-0.5 MG/3 ML Neb Soln NEB ONE (10:09)
[2017-12-23] MEDS ORDERED: HYDROmorphone 0.5 MG/0.5 ML Syringe IVPUSH ONE (10:10)
[2017-12-23 10:38] VITALS: BP 138/78
[2017-12-23 10:40] LABS: ANION GAP 14.9; CHLORIDE,CL 95 mmol/L (101-111); SODIUM,NA 140 mmol/L (135-145)
--- NOTE | 2017-12-23 12:06 | CR ---
Clinical history: 82-year-old afebrile female with chest pain and dyspnea. Interpretation: Upright PA and lateral chest films confirm extensive interstitial fibrosis and bullou s emphysematous changes and appear unchanged except for technique when compared to previous CT scan o f the chest to October 2017. 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 Normal cardiac silhouette without alveolar edema or dependent effusion. No lung mass or focal lobar pneumonia.
--- NOTE | 2017-12-23 12:08 | CR ---
Clinical history: 82-year-old female with extensive pulmonary fibrosis, insufficiency fractures mid d orsal spine and severe kyphosis complaining of left rib pain". Interpretation: No obvious left rib fracture appreciated this osteoporotic patient. No new signs of pleural effusion or pneumothorax.
== END 2017-12-23 11:56 | disposition home or self-care (01) ==
LOC: DL.ED 09:42
DX: S22.32XG Fracture of one rib, left side, subsequent encounter for fracture with delayed healing (principal); J44.9 Chronic obstructive pulmonary disease, unspecified; I13.0 Hypertensive heart and chronic kidney disease with heart failure and stage 1 through stage 4 chronic kidney disease, or unspecified chronic kidney disease; I50.9 Heart failure, unspecified; N18.9 Chronic kidney disease, unspecified; Z79.82 Long term (current) use of aspirin; Z79.899 Other long term (current) drug therapy; Z88.1 Allergy status to other antibiotic agents; Z91.040 Latex allergy status
CPT/HCPCS: 36415; 71046; 71100; 80053; 83880; 84484; 85025; 93005; 94640; 96374; 96375; 99285; J1170; J2930; J7050; J7620-GY

== ENCOUNTER 2019-12-09 18:16 | Emergency (ER) | payer MEDICARE, BC ==
[2019-12-09 18:37] VITALS: BP 129/75; PULSE 83
[2019-12-09] MEDS ORDERED: GI Cocktail Oral Solution 30 ML PO ONE (18:57)
--- NOTE | 2019-12-09 19:02 | EDM.PDOC ---
ED HPI GENERAL MEDICAL PROBLEM - General Chief Complaint: ENT Problem Stated Complaint: PT SAYS SOMETHING STUCK IN THROAT Time Seen by Provider: 12/09/19 18:59 Source of Information: Reports: Patient History Limitations: Reports: No Limitations - History of Present Illness INITIAL COMMENTS - FREE TEXT/NARRATIVE: states ate BLT and afterwards felt something stuck in throat. did tried Mac & cheese and able to swallow it but still feels like there is something. also taking ABX for throat infection. - Related Data Allergies Allergy/AdvReac Type Severity Reaction Status Date / Time amoxicillin [Amoxicillin] Allergy Nausea Verified 12/09/19 18:34 cefazolin sodium [From Ancef] Allergy Vomiting Verified 12/09/19 18:34 doxycycline Allergy Nausea Verified 12/09/19 18:34 latex Allergy Nausea Verified 12/09/19 18:34 Home Meds: Home Meds Alendronate [Fosamax] 70 mg PO Q7D@0600 10/21/16 [History] Aspirin 81 mg PO BRK 10/21/16 [History] Budesonide [Pulmicort] 0.5 mg IH BID 10/21/16 [History] Calcitriol [Rocaltrol] 0.25 mcg PO .SUNWEDFRI 10/21/16 [History] Calcium Carbonate/Vitamin D3 [Calcium 500 mg Chewable Tablet] 1 tab PO DAILY 10/21/16 [History] Formoterol Fumarate [Perforomist] 2 ml PO BID PRN 10/21/16 [History] Furosemide [Lasix] 30 mg PO BID 10/21/16 [History] Levothyroxine [Synthroid] 75 mcg PO ACBREAKFAST 10/21/16 [History] Loratadine [Claritin] 10 mg PO DAILY 10/21/16 [History] Magnesium 400 mg PO DAILY 10/21/16 [History] Omeprazole Magnesium [Prilosec Otc] 20 mg PO DAILY 10/21/16 [History] Polyethylene Glycol 3350 [MiraLAX] 17 gm PO DAILY PRN 10/21/16 [History] Potassium Chloride 20 meq PO BID 10/21/16 [History] atorvaSTATin [Lipitor] 10 mg PO DAILY 10/21/16 [History] guaiFENesin [Tussin] 5 ml PO Q6H PRN 10/21/16 [History] Albuterol [IJD: Albuterol] 2.5 mg INH Q4H PRN nebule 04/19/17 [Rx] Albuterol [Proventil HFA] 0 gm INH Q4H PRN inhaler 04/19/17 [Rx] Albuterol/Ipratropium [DuoNeb 3.0-0.5 MG/3 ML] 3 ml INH QIDRT neb 04/19/17 [Rx] Carboxymethylcellulose Sodium [Refresh Celluvisc] 1 each EYEBOTH QID PRN cont 04/19/17 [Rx] Acetaminophen [Tylenol] 500 mg PO Q6H PRN 11/12/17 [History] Metoprolol Tartrate 25 mg PO BID 11/12/17 [History] Dextromethorphan/guaiFENesin [Robitussin DM] 5 ml PO Q4H PRN bottle 11/13/17 [Rx] Azithromycin [Zithromax] 250 mg PO DAILY #3 tablet 02/05/19 [Rx] predniSONE 40 mg PO DAILY #6 tablet 02/05/19 [Rx] Past Medical History - Past Health History Medical/Surgical History: Denies Medical/Surgical History HEENT History: Reports: Impaired Vision, Other (See Below) Other HEENT History: Trouble swallowing, wears glasses Cardiovascular History: Reports: Heart Failure, High Cholesterol, Hypertension, SOB on Exertion Respiratory History: Reports: Asthma, COPD, Interstitial Lung Disease, Pneumonia, Recurrent, Pulmonary Fibrosis, SOB, Other (See Below) Other Respiratory History: chronic cough, lung surgery, emphysema Gastrointestinal History: Reports: Hiatal Hernia Genitourinary History: Reports: Chronic Renal Insuffiency Other Genitourinary History: bladder repair, bowel repair [employer]ST[employer]ER History: Reports: None Musculoskeletal History: Reports: Back Pain, Chronic, Fracture, Osteoporosis Neurological History: Reports: None Psychiatric History: Reports: Anxiety Endocrine/Metabolic History: Reports: Hyperthyroidism, Osteopenia Hematologic History: Reports: Anemia Immunologic History: Reports: None Oncologic (Cancer) History: Reports: Basal Cell Carcinoma, Other (See Below) Other Oncologic History: face Dermatologic History: Reports: Other (See Below) Other Dermatologic History: has bandage to left chin, , biopsy done, no results yet - Infectious Disease History Infectious Disease History: Reports: Measles - Past Surgical History Head Surgeries/Procedures: Reports: None HEENT Surgical History: Reports: Cataract Surgery Cardiovascular Surgical History: Reports: Other (See Below) Respiratory Surgical History: Reports: Lung Biopsies GI Surgical History: Reports: Colonoscopy Female Surgical History: Reports: Breast Biopsy, Hysterectomy, Other (See Below) Other Female Surgeries/Procedures: bladder repair Social & Family History - Family History Family Medical History: Noncontributory HEENT: Reports: None Cardiac: Reports: None Respiratory: Reports: None GI: Reports: None : Reports: None - Tobacco Use Smoking Status *Q: Never Smoker Second Hand Smoke Exposure: No - Caffeine Use Caffeine Use: Reports: Tea - Recreational Drug Use Recreational Drug Use: No - Living Situation & Occupation Living situation: Reports: , with Spouse Occupation: Retired ED ROS ENT - Review of Systems Review Of Systems: Comprehensive ROS is negative, except as noted in HPI. ED EXAM, ENT - Physical Exam Exam: See Below Exam Limited By: No Limitations General Appearance: Alert, WD/WN, Anxious, Mild Distress Ears: Hearing Grossly Normal Mouth/Throat: Pharyngeal Erythema, Other (no F/B noted). No: Drooling, Peritonsillar Mass, Throat Swelling, Tongue Swelling Head: Atraumatic Neck: Non-Tender, Full Range of Motion Respiratory/Chest: No Respiratory Distress Cardiovascular: Regular Rate, Rhythm GI/Abdominal: Soft, Non-Tender Neurological: Alert, Oriented, Normal Cognition, No Motor/Sensory Deficits Psychiatric: Anxious Skin: Warm, Dry, Normal Color Lymphatic: No Adenopathy Course - Vital Signs Last Recorded V/S: Last Vital Signs Temp 36.6 C 12/09/19 18:34 Pulse 83 12/09/19 18:34 Resp 18 12/09/19 18:34 BP 129/75 12/09/19 18:34 Pulse Ox 99 12/09/19 18:34 - Orders/Labs/Meds Meds: Medications Discontinued Medications Generic Name Dose Route Start Last Admin Trade Name Freq PRN Reason Stop Dose Admin Al Hydroxide/Mg Hydroxide 30 ml 12/09/19 18:57 12/09/19 19:11 Gi Cocktail PO 12/09/19 18:58 30 ml ONETIME ONE Administration - Re-Assessments/Exams Free Text/Narrative Re-Assessment/Exam: 12/09/19 19:41 results discussed with pt who is feeling normal now. no further sensation of something in throat. Departure - Departure Time of Disposition: 19:41 Disposition: Home, Self-Care 01 Condition: Good Clinical Impression: Abrasion of pharynx Qualifiers: Encounter type: initial encounter Qualified Code(s): S10.11XA - Abrasion of throat, initial encounter - Discharge Information Forms: ED Department Discharge Additional Instructions: 1) no solid foods next 48 hours 2) recheck if there is any change or concern Sepsis Event Note (ED) - Evaluation Sepsis Screening Result: No Definite Risk - Focused Exam Vital Signs: Vital Signs Temp Pulse Resp BP Pulse Ox 12/09/19 18:34 36.6 C 83 18 129/75 99
--- NOTE | 2019-12-09 19:25 | CR ---
PROCEDURE INFORMATION: Exam: XR Soft Tissue Neck Exam date and time: 12/09/2019 7:14 PM Age: 84 years old Clinical indication: Other: [place] like something stuck in throat earlier--feels better now TECHNIQUE: Imaging protocol: XR of the soft tissues of the neck. COMPARISON: No relevant prior studies available. FINDINGS: Airway: The visualized portions of the trachea are unremarkable.The bone density is moderately decreased. Soft tissues: The epiglottis is normal. There is no evidence of a radio-opaque foreign body. Bones/joints: Marginal osteophytes are noted at multiple levels in the spine. The facet joints demonstrate moderate degenerative narrowing and sclerosis. IMPRESSION: No acute abnormality.
== END 2019-12-09 19:47 | disposition home or self-care (01) ==
LOC: DL.ED 18:16
DX: S10.11XA Abrasion of throat, initial encounter (principal); I13.0 Hypertensive heart and chronic kidney disease with heart failure and stage 1 through stage 4 chronic kidney disease, or unspecified chronic kidney disease; I50.9 Heart failure, unspecified; N18.9 Chronic kidney disease, unspecified; E78.00 Pure hypercholesterolemia, unspecified; J44.9 Chronic obstructive pulmonary disease, unspecified; Z88.1 Allergy status to other antibiotic agents; Z91.040 Latex allergy status; Z79.899 Other long term (current) drug therapy; Z90.710 Acquired absence of both cervix and uterus; X58.XXXA Exposure to other specified factors, initial encounter
CPT/HCPCS: 70360; 99282; 99284-25; A9270-GY

== ENCOUNTER 2020-03-24 16:50 | Emergency (ER) | payer MEDICARE, BC ==
--- NOTE | 2020-03-24 18:54 | EDM.PDOC ---
ED HPI GENERAL MEDICAL PROBLEM - General Stated Complaint: CONSTIPATED POSSIBLE RUPTURED BOWEL. Time Seen by Provider: 03/24/20 18:51 Source of Information: Reports: Patient History Limitations: Reports: No Limitations - History of Present Illness INITIAL COMMENTS - FREE TEXT/NARRATIVE: states no BM since Friday and been taking miralax but nothing. tonight worried she might have ruptured something because a small piece of something red has popped out of butt. - Related Data Allergies Allergy/AdvReac Type Severity Reaction Status Date / Time amoxicillin [Amoxicillin] Allergy Nausea Verified 03/24/20 18:59 cefazolin sodium [From Ancef] Allergy Vomiting Verified 03/24/20 18:59 doxycycline Allergy Nausea Verified 03/24/20 18:59 latex Allergy Nausea Verified 03/24/20 18:59 Home Meds: Home Meds Alendronate [Fosamax] 70 mg PO Q7D@0600 10/21/16 [History] Aspirin 81 mg PO BRK 10/21/16 [History] Budesonide [Pulmicort] 0.5 mg IH BID 10/21/16 [History] Calcitriol [Rocaltrol] 0.25 mcg PO .SUNWEDFRI 10/21/16 [History] Calcium Carbonate/Vitamin D3 [Calcium 500 mg Chewable Tablet] 1 tab PO DAILY 10/21/16 [History] Formoterol Fumarate [Perforomist] 2 ml PO BID PRN 10/21/16 [History] Furosemide [Lasix] 30 mg PO BID 10/21/16 [History] Levothyroxine [Synthroid] 75 mcg PO ACBREAKFAST 10/21/16 [History] Loratadine [Claritin] 10 mg PO DAILY 10/21/16 [History] Magnesium 400 mg PO DAILY 10/21/16 [History] Omeprazole Magnesium [Prilosec Otc] 20 mg PO DAILY 10/21/16 [History] Polyethylene Glycol 3350 [MiraLAX] 17 gm PO DAILY PRN 10/21/16 [History] Potassium Chloride 20 meq PO BID 10/21/16 [History] atorvaSTATin [Lipitor] 10 mg PO DAILY 10/21/16 [History] guaiFENesin [Tussin] 5 ml PO Q6H PRN 10/21/16 [History] Albuterol [IJD: Albuterol] 2.5 mg INH Q4H PRN nebule 04/19/17 [Rx] Albuterol [Proventil HFA] 0 gm INH Q4H PRN inhaler 04/19/17 [Rx] Albuterol/Ipratropium [DuoNeb 3.0-0.5 MG/3 ML] 3 ml INH QIDRT neb 04/19/17 [Rx] Carboxymethylcellulose Sodium [Refresh Celluvisc] 1 each EYEBOTH QID PRN cont 04/19/17 [Rx] Acetaminophen [Tylenol] 500 mg PO Q6H PRN 11/12/17 [History] Metoprolol Tartrate 25 mg PO BID 11/12/17 [History] Dextromethorphan/guaiFENesin [Robitussin DM] 5 ml PO Q4H PRN bottle 11/13/17 [Rx] Azithromycin [Zithromax] 250 mg PO DAILY #3 tablet 02/05/19 [Rx] predniSONE 40 mg PO DAILY #6 tablet 02/05/19 [Rx] Past Medical History - Past Health History Medical/Surgical History: Denies Medical/Surgical History HEENT History: Reports: Impaired Vision, Other (See Below) Other HEENT History: Trouble swallowing, wears glasses Cardiovascular History: Reports: Heart Failure, High Cholesterol, Hypertension, SOB on Exertion Respiratory History: Reports: Asthma, COPD, Interstitial Lung Disease, Pneumonia, Recurrent, Pulmonary Fibrosis, SOB, Other (See Below) Other Respiratory History: chronic cough, lung surgery, emphysema Gastrointestinal History: Reports: Hiatal Hernia Genitourinary History: Reports: Chronic Renal Insuffiency Other Genitourinary History: bladder repair, bowel repair [employer] TENDER History: Reports: None Musculoskeletal History: Reports: Back Pain, Chronic, Fracture, Osteoporosis Neurological History: Reports: None Psychiatric History: Reports: Anxiety Endocrine/Metabolic History: Reports: Hyperthyroidism, Osteopenia Hematologic History: Reports: Anemia Immunologic History: Reports: None Oncologic (Cancer) History: Reports: Basal Cell Carcinoma, Other (See Below) Other Oncologic History: face Dermatologic History: Reports: Other (See Below) Other Dermatologic History: has bandage to left chin, , biopsy done, no results yet - Infectious Disease History Infectious Disease History: Reports: Measles - Past Surgical History Head Surgeries/Procedures: Reports: None HEENT Surgical History: Reports: Cataract Surgery Cardiovascular Surgical History: Reports: Other (See Below) Respiratory Surgical History: Reports: Lung Biopsies GI Surgical History: Reports: Colonoscopy Female Surgical History: Reports: Breast Biopsy, Hysterectomy, Other (See Below) Other Female Surgeries/Procedures: bladder repair Social & Family History - Family History Family Medical History: No Pertinent Family History HEENT: Reports: None Cardiac: Reports: None Respiratory: Reports: None GI: Reports: None : Reports: None - Caffeine Use Caffeine Use: Reports: Tea - Living Situation & Occupation Living situation: Reports: , with Spouse Occupation: Retired ED ROS GENERAL - Review of Systems Review Of Systems: Comprehensive ROS is negative, except as noted in HPI. ED EXAM, GI/ABD - Physical Exam Exam: See Below Exam Limited By: No Limitations General Appearance: Alert, WD/WN, Mild Distress, Other (discomfort). No: Active Emesis Ears: Hearing Grossly Normal Throat/Mouth: Normal Voice, No Airway Compromise Head: Atraumatic Neck: Non-Tender, Full Range of Motion Respiratory/Chest: No Respiratory Distress Cardiovascular: Regular Rate, Rhythm GI/Abdominal Exam: Soft (general discomfort hyper BS), Other (Female) Exam: Deferred Rectal (Female) Exam: Deferred Neurological: Alert, Oriented, Normal Cognition, Normal Gait, No Motor/Sensory Deficits Psychiatric: Normal Affect, Normal Mood Skin Exam: Warm, Dry, Normal Color Lymphatic: No Adenopathy Course - Vital Signs Last Recorded V/S: Last Vital Signs Temp 36.3 C 03/24/20 19:10 Pulse 79 03/24/20 19:10 Resp 19 03/24/20 19:10 BP 115/67 03/24/20 19:10 Pulse Ox 100 03/24/20 19:10 - Re-Assessments/Exams Free Text/Narrative Re-Assessment/Exam: 03/24/20 19:42 results discussed with pt who is feeling fine now. re-exam; no discernable rectal prolapse and pt states doesn't feel anything there anymore. and wants to go home. Departure - Departure Time of Disposition: 19:43 Disposition: Home, Self-Care 01 Condition: Good Clinical Impression: Constipation by delayed colonic transit, Partial rectal prolapse - Discharge Information Instructions: Rectal Prolapse, Adult Forms: ED Department Discharge Additional Instructions: 1) rest 2) avoid solid foods next 48 hours may have toast with honey 3) follow up at clinic Sepsis Event Note (ED) - Focused Exam Vital Signs: Vital Signs Temp Pulse Resp BP Pulse Ox 03/24/20 19:10 36.3 C 79 19 115/67 100
[2020-03-24 19:11] VITALS: BP 115/67; PULSE 79
--- NOTE | 2020-03-24 19:29 | CR ---
PROCEDURE INFORMATION: Exam: XR Abdomen, 1 View Exam date and time: 03/24/2020 7:13 PM Age: 84 years old Clinical indication: Other: Pain; Additional info: Constipated TECHNIQUE: Imaging protocol: XR of the abdomen. Views: Frontal supine view of the abdomen. 1 View. COMPARISON: No relevant prior studies available. FINDINGS: Lungs: Ill-defined parenchymal abnormality suspect right lower lung. Diaphragm: Elevation left hemidiaphragm. Gastrointestinal tract: Non-specific/nonobstructive intestinal gas pattern. Vasculature: Ring-like calcification left upper abdomen could reflect splenic artery aneurysm. This measures up to 18 mm. There is not definite. Bones/joints: Moderate right lumbar scoliosis. Moderate degenerative change lumbar spine. Soft tissues: There is no soft tissue abnormality seen. IMPRESSION: 1. No acute abdominal findings. 2. Right lower lung infiltrate cannot be excluded.
== END 2020-03-24 19:55 | disposition home or self-care (01) ==
LOC: DL.ED 16:50
DX: K59.01 Slow transit constipation (principal); K62.3 Rectal prolapse; I13.0 Hypertensive heart and chronic kidney disease with heart failure and stage 1 through stage 4 chronic kidney disease, or unspecified chronic kidney disease; N18.9 Chronic kidney disease, unspecified; I50.9 Heart failure, unspecified; E78.00 Pure hypercholesterolemia, unspecified; E05.90 Thyrotoxicosis, unspecified without thyrotoxic crisis or storm; Z88.0 Allergy status to penicillin; Z88.8 Allergy status to other drugs, medicaments and biological substances; Z88.1 Allergy status to other antibiotic agents; Z91.040 Latex allergy status; Z79.82 Long term (current) use of aspirin; Z79.899 Other long term (current) drug therapy
CPT/HCPCS: 74018; 99283

== ENCOUNTER 2020-07-04 12:42 | Emergency (ER) | payer MEDICARE, BC ==
[2020-07-04 13:19] VITALS: BP 137/79
[2020-07-04 13:41] LABS: BASE EXCESS ARTERIAL 14 mmol/L ((-2)-(+3)); BICARBONATE,ARTERIAL 41.2 mmol/L (22-26); O2 DELIVERY DEVICE NASAL CANNULA; O2 SATURATION ARTERIAL 98 % (95-100); PCO2 ARTERIAL 65 mmHg (35-45); PO2 ARTERIAL 88 mmHg (70-100)
[2020-07-04 13:43] LABS: ALLEN TEST PERFORMED
--- NOTE | 2020-07-04 13:43 | CR ---
EXAMINATION: Chest 1V Frontal SEX: Female AGE: 85 years CLINICAL HISTORY: 85-year-old hypertensive female with chest pain. History "interstitial lung disease; emphysematous disease; chronic asymmetric elevation left hemidiaphragm". Comparison CT chest March 2020; CXR January 2019. INTERPRETATION: Abnormal. 1. Chronic asymmetric elevation left hemidiaphragm and generalized abnormal interstitial fibrosis. 2. *Round right perihilar masslike fullness head appears to be increased (new) since comparison exam 03 February 2019, however, scoliosis and patient rotation artifact possible explanation. Follow-up PA/lateral chest or unenhanced CT scan chest suggested. 3. Bronchovascular markings less prominent today and no new signs of focal lobar infiltrate or atelectasis. 4. Extensive (chronic) interstitial fibrosis/scarring and underlying cystic/bullous lesions. Normal cardiac silhouette. No new signs of alveolar edema or dependent pleural effusion.
[2020-07-04] MEDS ORDERED: Albuterol/Ipratropium 3.0-0.5 MG/3 ML Neb Soln NEB ONE ×2 (13:51→16:53)
[2020-07-04 13:59] LABS: ANION GAP 3.6 mEq/L (7-13); CHLORIDE,CL 100 mmol/L (98-107); SODIUM,NA 144 mmol/L (136-145)
--- NOTE | 2020-07-04 14:09 | EDM.PDOC ---
ED HPI GENERAL MEDICAL PROBLEM - General Chief Complaint: Respiratory Problem Time Seen by Provider: 07/04/20 13:45 Source of Information: Reports: Patient, Provider (Dr. Lo), RN, RN Notes Reviewed History Limitations: Reports: No Limitations - History of Present Illness INITIAL COMMENTS - FREE TEXT/NARRATIVE: Patient is an 85-year-old female who presents to ER from [facility] where she had a telemedicine appointment with Dr. Lo. During appointment patient was found to have increased shortness of breath, increased pedal and lower extremity edema. Patient states she has been very tired for the last few days, states approximately 3 days she has been very sleepy. States she sleeps about 18/24 hours. Patient states she can be having a conversation with someone and fall asleep. Upon telemedicine provider felt patient was using neck accessory muscles with breathing. Patient admits to chills, and abdominal pain from time to time. Patient states she has had looser stools than normal, more frequently. Patient complains of chest pains from time to time, but states it is usually right after she had taken her cough syrup. Otherwise patient denies any nausea or vomiting, is unsure about fever, admits to chills. Onset: Gradual - Related Data Allergies Allergy/AdvReac Type Severity Reaction Status Date / Time amoxicillin [Amoxicillin] Allergy Nausea Verified 03/24/20 18:59 cefazolin sodium [From Ancef] Allergy Vomiting Verified 03/24/20 18:59 doxycycline Allergy Nausea Verified 03/24/20 18:59 latex Allergy Nausea Verified 03/24/20 18:59 Home Meds: Home Meds Alendronate [Fosamax] 70 mg PO Q7D@0600 10/21/16 [History] Aspirin 81 mg PO BEDTIME 10/21/16 [History] Budesonide [Pulmicort] 0.5 mg IH BID 10/21/16 [History] Calcitriol [Rocaltrol] 0.25 mcg PO .[id number].[id number].FRI.Fri10/21/16 [History] Calcium Carbonate/Vitamin D3 [Calcium 500 mg Chewable Tablet] 1 tab PO DAILY 10/21/16 [History] Formoterol Fumarate [Perforomist] 2 ml PO BID PRN 10/21/16 [History] Furosemide [Lasix] 60 mg PO BID 10/21/16 [History] Levothyroxine [Synthroid] 75 mcg PO ACBREAKFAST 10/21/16 [History] Loratadine [Claritin] 10 mg PO DAILY 10/21/16 [History] Magnesium 400 mg PO DAILY 10/21/16 [History] Omeprazole Magnesium [Prilosec Otc] 20 mg PO DAILY 10/21/16 [History] Polyethylene Glycol 3350 [MiraLAX] 17 gm PO DAILY PRN 10/21/16 [History] Potassium Chloride 20 meq PO BID 10/21/16 [History] atorvaSTATin [Lipitor] 10 mg PO DAILY 10/21/16 [History] guaiFENesin [Tussin] 5 ml PO Q6H PRN 10/21/16 [History] Acetaminophen [Tylenol] 500 mg PO Q6H PRN 11/12/17 [History] Metoprolol Tartrate 25 mg PO BID 11/12/17 [History] Albuterol [IJD: Albuterol] 2.5 mg INH Q6H PRN 07/04/20 [History] Gabapentin [Neurontin] 100 mg PO DAILY 07/04/20 [History] predniSONE [Prednisone] 10 mg PO DAILY 07/04/20 [History] Past Medical History - Past Health History Medical/Surgical History: Denies Medical/Surgical History HEENT History: Reports: Impaired Vision, Other (See Below) Other HEENT History: Trouble swallowing, wears glasses Cardiovascular History: Reports: Heart Failure, High Cholesterol, Hypertension, SOB on Exertion Respiratory History: Reports: Asthma, COPD, Interstitial Lung Disease, Pneumonia, Recurrent, Pulmonary Fibrosis, SOB, Other (See Below) Other Respiratory History: chronic cough, lung surgery, emphysema Gastrointestinal History: Reports: Hiatal Hernia Genitourinary History: Reports: Chronic Renal Insuffiency Other Genitourinary History: bladder repair, bowel repair [employer] History: Reports: None Musculoskeletal History: Reports: Back Pain, Chronic, Fracture, Osteoporosis Neurological History: Reports: None Psychiatric History: Reports: Anxiety Endocrine/Metabolic History: Reports: Hyperthyroidism, Osteopenia Hematologic History: Reports: Anemia Immunologic History: Reports: None Oncologic (Cancer) History: Reports: Basal Cell Carcinoma, Other (See Below) Other Oncologic History: face Dermatologic History: Reports: Other (See Below) Other Dermatologic History: has bandage to left chin, , biopsy done, no results yet - Infectious Disease History Infectious Disease History: Reports: Measles - Past Surgical History Head Surgeries/Procedures: Reports: None HEENT Surgical History: Reports: Cataract Surgery Cardiovascular Surgical History: Reports: Other (See Below) Other Cardiovascular Surgeries/Procedures: cardiac cath Respiratory Surgical History: Reports: Lung Biopsies GI Surgical History: Reports: Colonoscopy Female Surgical History: Reports: Breast Biopsy, Hysterectomy, Other (See Below) Other Female Surgeries/Procedures: bladder repair Oncologic Surgical History: Reports: Mastectomy Social & Family History - Family History Family Medical History: No Pertinent Family History HEENT: Reports: None Cardiac: Reports: None Respiratory: Reports: None GI: Reports: None : Reports: None - Caffeine Use Caffeine Use: Reports: Tea - Recreational Drug Use Recreational Drug Use: No - Living Situation & Occupation Living situation: Reports: , with Spouse Occupation: Retired ED ROS GENERAL - Review of Systems Review Of Systems: Comprehensive ROS is negative, except as noted in HPI. ED EXAM, GENERAL - Physical Exam Exam: See Below Exam Limited By: No Limitations General Appearance: Alert, WD/WN, Mild Distress Eye Exam: Bilateral Eye: EOMI, Normal Inspection Ears: Normal External Exam, Hearing Grossly Normal Nose: Normal Inspection Throat/Mouth: Normal Inspection, Normal Voice, No Airway Compromise Head: Atraumatic, Normocephalic Neck: Normal Inspection, Supple, Non-Tender, Full Range of Motion Respiratory/Chest: No Accessory Muscle Use, Chest Non-Tender, Decreased Breath Sounds, Crackles (Throughout), Wheezing (Inspiratory) Cardiovascular: Normal Peripheral Pulses, Regular Rate, Rhythm, No Gallop, No JVD, No Murmur, No Rub Peripheral Pulses: 1+: Dorsalis Pedis (L), Dorsalis Pedis (R), 2+: Radial (L), Radial (R) GI/Abdominal: Normal Bowel Sounds, Soft, Non-Tender (Female) Exam: Deferred Rectal (Female) Exam: Deferred Back Exam: Normal Inspection, Decreased Range of Motion Extremities: Pedal Edema (+1-2 bilaterally), Limited Range of Motion Neurological: Alert, Oriented, CN II-XII Intact, Normal Cognition, Other (Patient sitting in wheelchair) Psychiatric: Normal Affect, Normal Mood Skin Exam: Warm, Dry, Intact, Normal Color, No Rash Lymphatic: No Adenopathy Course - Vital Signs Last Recorded V/S: Last Vital Signs Temp 97.1 F 07/04/20 13:17 Pulse 78 07/04/20 16:53 Resp 16 07/04/20 13:17 BP 137/79 07/04/20 13:17 Pulse Ox 98 07/04/20 16:53 - Orders/Labs/Meds Orders: Active Orders 24 hr Category Date Time Status EKG Documentation Completion [RC] STAT Care 07/04/20 13:10 Active Oxygen Therapy, ED [RC] ASDIRECTED Care 07/04/20 13:10 Active RT Aerosol Therapy [RC] ASDIRECTED Care 07/04/20 13:51 Active RT Aerosol Therapy [RC] ASDIRECTED Care 07/04/20 16:53 Active Late Tray [DIET] Routine Diet 07/04/20 15:09 Active UA W/KIANA RFLX IF INDICATED [URIN] Stat Lab 07/04/20 13:11 Ordered Sodium Chloride 0.9% [Normal Saline] 1,000 ml Med 07/04/20 14:49 Active IV CONTINUOUS Medication Orders Sodium Chloride (Normal Saline) 1,000 mls @ 125 mls/hr IV CONTINUOUS ONE Stop: 07/04/20 22:48 Last Admin: 07/04/20 15:05 Dose: 125 mls/hr Documented by: DUSTY Labs: Laboratory Tests 07/04/20 07/04/20 07/04/20 Range/Units 13:22 13:22 13:22 WBC 9.5 (5.0-10.0) 10^3/uL RBC 3.73 L (4.2-5.4) 10^6/uL Hgb 11.2 L (12.0-16.0) g/dL Hct 37.4 (37.0-47.0) % MCV 100.3 H D (80-100) fL MCH 30.0 (27.0-34.0) pg MCHC 29.9 L (33.0-35.0) g/dL Plt Count 211 (150-450) 10^3/uL Neut % (Auto) 74.7 (42.2-75.2) % Lymph % (Auto) 14.3 L (20.5-50.1) % [place] % (Auto) 6.3 (2-8) % Eos % (Auto) 4.4 H (1.0-3.0) % Baso % (Auto) 0.3 (0.0-1.0) % PT 9.9 (9.0-12.0) SEC INR 1.0 (0.9-1.2) D-Dimer, Quantitative (0-400) ng/mL ABG pH (7.35-7.45) ABG pCO2 (35-45) mmHg ABG pO2 (70-100) mmHg ABG HCO3 (22-26) mmol/L ABG O2 Saturation (95-100) % ABG Base Excess ((-2)-(+3)) mmol/L Jaylan Test O2 Delivery Device Sodium 144 (136-145) mmol/L Potassium 3.6 (3.5-5.1) mmol/L Chloride 100 (98-107) mmol/L Carbon Dioxide 44 H* (21-32) mmol/L Anion Gap 3.6 L (7-13) mEq/L BUN 19 H (7-18) mg/dL Creatinine 0.90 (0.55-1.02) mg/dL Est Cr Clr Drug Dosing TNP Estimated GFR (MDRD) 60 BUN/Creatinine Ratio 21.1 (No establ ref range) Glucose 132 H (70-99) mg/dL Calcium 8.9 (8.5-10.1) mg/dL Magnesium 2.0 (1.8-2.4) mg/dL Total Bilirubin 0.4 (0.2-1.0) mg/dL AST 19 (15-37) U/L ALT 16 (14-59) U/L Alkaline Phosphatase 109 (46-116) U/L Troponin I (0.000-0.056) ng/mL B-Natriuretic Peptide 98 (0-100) pg/ml Total Protein 6.8 (6.4-8.2) g/dL Albumin 3.2 L (3.4-5.0) g/dL Globulin 3.6 Albumin/Globulin Ratio 0.89 Influenza Type A RNA (NEGATIVE) Influenza Type B RNA (NEGATIVE) SARS-CoV-2 RNA (RAKESH) (NEGATIVE) 07/04/20 07/04/20 07/04/20 Range/Units 13:22 13:22 13:23 WBC (5.0-10.0) 10^3/uL RBC (4.2-5.4) 10^6/uL Hgb (12.0-16.0) g/dL Hct (37.0-47.0) % MCV (80-100) fL MCH (27.0-34.0) pg MCHC (33.0-35.0) g/dL Plt Count (150-450) 10^3/uL Neut % (Auto) (42.2-75.2) % Lymph % (Auto) (20.5-50.1) % [place] % (Auto) (2-8) % Eos % (Auto) (1.0-3.0) % Baso % (Auto) (0.0-1.0) % PT (9.0-12.0) SEC INR (0.9-1.2) D-Dimer, Quantitative < 100 (0-400) ng/mL ABG pH (7.35-7.45) ABG pCO2 (35-45) mmHg ABG pO2 (70-100) mmHg ABG HCO3 (22-26) mmol/L ABG O2 Saturation (95-100) % ABG Base Excess ((-2)-(+3)) mmol/L Jaylan Test O2 Delivery Device Sodium (136-145) mmol/L Potassium (3.5-5.1) mmol/L Chloride (98-107) mmol/L Carbon Dioxide (21-32) mmol/L Anion Gap (7-13) mEq/L BUN (7-18) mg/dL Creatinine (0.55-1.02) mg/dL Est Cr Clr Drug Dosing Estimated GFR (MDRD) BUN/Creatinine Ratio (No establ ref range) Glucose (70-99) mg/dL Calcium (8.5-10.1) mg/dL Magnesium (1.8-2.4) mg/dL Total Bilirubin (0.2-1.0) mg/dL AST (15-37) U/L ALT (14-59) U/L Alkaline Phosphatase (46-116) U/L Troponin I < 0.017 (0.000-0.056) ng/mL B-Natriuretic Peptide (0-100) pg/ml Total Protein (6.4-8.2) g/dL Albumin (3.4-5.0) g/dL Globulin Albumin/Globulin Ratio Influenza Type A RNA Negative (NEGATIVE) Influenza Type B RNA Negative (NEGATIVE) SARS-CoV-2 RNA (RAKESH) Negative (NEGATIVE) 07/04/20 Range/Units 13:34 WBC (5.0-10.0) 10^3/uL RBC (4.2-5.4) 10^6/uL Hgb (12.0-16.0) g/dL Hct (37.0-47.0) % MCV (80-100) fL MCH (27.0-34.0) pg MCHC (33.0-35.0) g/dL Plt Count (150-450) 10^3/uL Neut % (Auto) (42.2-75.2) % Lymph % (Auto) (20.5-50.1) % [place] % (Auto) (2-8) % Eos % (Auto) (1.0-3.0) % Baso % (Auto) (0.0-1.0) % PT (9.0-12.0) SEC INR (0.9-1.2) D-Dimer, Quantitative (0-400) ng/mL ABG pH 7.42 (7.35-7.45) ABG pCO2 65 H (35-45) mmHg ABG pO2 88 (70-100) mmHg ABG HCO3 41.2 H (22-26) mmol/L ABG O2 Saturation 98 (95-100) % ABG Base Excess 14 H ((-2)-(+3)) mmol/L Jaylan Test Performed O2 Delivery Device Nasal cannula Sodium (136-145) mmol/L Potassium (3.5-5.1) mmol/L Chloride (98-107) mmol/L Carbon Dioxide (21-32) mmol/L Anion Gap (7-13) mEq/L BUN (7-18) mg/dL Creatinine (0.55-1.02) mg/dL Est Cr Clr Drug Dosing Estimated GFR (MDRD) BUN/Creatinine Ratio (No establ ref range) Glucose (70-99) mg/dL Calcium (8.5-10.1) mg/dL Magnesium (1.8-2.4) mg/dL Total Bilirubin (0.2-1.0) mg/dL AST (15-37) U/L ALT (14-59) U/L Alkaline Phosphatase (46-116) U/L Troponin I (0.000-0.056) ng/mL B-Natriuretic Peptide (0-100) pg/ml Total Protein (6.4-8.2) g/dL Albumin (3.4-5.0) g/dL Globulin Albumin/Globulin Ratio Influenza Type A RNA (NEGATIVE) Influenza Type B RNA (NEGATIVE) SARS-CoV-2 RNA (RAKESH) (NEGATIVE) Meds: Medications Generic Name Dose Route Start Last Admin Trade Name Freq PRN Reason Stop Dose Admin Sodium Chloride 1,000 mls @ 125 mls/hr 07/04/20 14:49 07/04/20 15:05 Normal Saline IV 07/04/20 22:48 125 mls/hr CONTINUOUS ONE Administration Discontinued Medications Generic Name Dose Route Start Last Admin Trade Name Freq PRN Reason Stop Dose Admin Albuterol/Ipratropium 3 ml 07/04/20 13:51 07/04/20 14:02 Albuterol/Ipratropium 3.0-0.5 Mg/3 Ml Neb Soln NEB 07/04/20 13:52 3 ml ONETIME ONE Administration Albuterol/Ipratropium 3 ml 07/04/20 16:53 07/04/20 17:02 Albuterol/Ipratropium 3.0-0.5 Mg/3 Ml Neb Soln NEB 07/04/20 16:54 3 ml ONETIME ONE Administration Azithromycin 500 mg/ Sodium 250 mls @ 250 mls/hr 07/04/20 14:50 07/04/20 15:05 Chloride IV 07/04/20 15:49 250 mls/hr ONETIME ONE Administration Methylprednisolone Sodium Succinate 125 mg 07/04/20 14:49 07/04/20 15:05 Methylprednisolone Sodium Succinate 125 Mg/2 Ml Sdv IVPUSH 07/04/20 14:50 125 mg ONETIME ONE Administration - Radiology Interpretation Free Text/Narrative:: Chest xray: 1. Chronic asymmetric elevation left hemidiaphragm and generalized abnormal interstitial fibrosis 2. Rounded right perihilar masslike fullness head appears to be increased new since comparison exam 03 February 2019, however, scoliosis and patient rotation artifact possible explanation. Follow-up PA/lateral chest or unenhanced CT scan chest suggested 3. Bronchovascular markings less prominent today and no no signs of focal lobar infiltrate or atelectasis 4. Extensive, chronic, interstitial fibrosis/scarring and underlying cystic/bullous lesions. Normal cardiac silhouette. No no signs of alveolar edema or dependent pleural effusion. See rad report - Re-Assessments/Exams Free Text/Narrative Re-Assessment/Exam: 07/04/20 15:25 Discussed patient lab findings and diagnostics with Dr. Lo. She would like the patient admitted overnight observation to monitor, hydrate, and attempt to correct the pCO2. Dr. Woody was consulted and discussed patient case with him. He states to give the patient steroids, nebulizers, and observe for a few hours. He feels the patient can be managed at home. 07/04/20 15:[address] Lo include: Follow up with her via telemedicine on Friday or next week. Introduce Spironolactone 25 mg daily Change Furosemide to 100mg po daily, 60mg po in am, 40mg po in pm Departure - Departure Time of Disposition: 17:38 Disposition: Home, Self-Care 01 Condition: Good Clinical Impression: COPD exacerbation - Discharge Information *PRESCRIPTION DRUG MONITORING PROGRAM REVIEWED*: No *COPY OF PRESCRIPTION DRUG MONITORING REPORT IN PATIENT YVETTE: No Instructions: Chronic Obstructive Pulmonary Disease Exacerbation, [id number] Referrals: Dahiana James NP [Primary Care Provider] - Forms: ED Department Discharge Additional Instructions: RX: Spironolactone 25mg orally daily Prednisone 20mg, take 2 tablets daily for 4 days Azithromycin 250mg, take 1 daily for the next 4 days Follow up with Dr. Lo next week Friday or via telemedicine Return to ER with any worsening of problems Decrease Lasix to 60mg in the morning and 40mg in the evening (3 in the am, 2 in the pm) Sepsis Event Note (ED) - Evaluation Sepsis Screening Result: No Definite Risk - Focused Exam Vital Signs: Vital Signs Temp Pulse Resp BP Pulse Ox Pulse Ox 07/04/20 16:53 78 98 07/04/20 14:04 93 98 07/04/20 13:25 99 07/04/20 13:17 97.1 F 78 16 137/79 79 L - My Orders Last 24 Hours: My Active Orders 07/04/20 13:10 EKG Documentation Completion [RC] STAT Oxygen Therapy, ED [RC] ASDIRECTED 07/04/20 13:11 UA W/KIANA RFLX IF INDICATED [URIN] Stat 07/04/20 13:51 RT Aerosol Therapy [RC] ASDIRECTED 07/04/20 14:49 Sodium Chloride 0.9% [Normal Saline] 1,000 ml IV CONTINUOUS 07/04/20 15:09 Late Tray [DIET] Routine 07/04/20 16:53 RT Aerosol Therapy [RC] ASDIRECTED - Assessment/Plan Last 24 Hours: My Active Orders 07/04/20 13:10 EKG Documentation Completion [RC] STAT Oxygen Therapy, ED [RC] ASDIRECTED 07/04/20 13:11 UA W/KIANA RFLX IF INDICATED [URIN] Stat 07/04/20 13:51 RT Aerosol Therapy [RC] ASDIRECTED 07/04/20 14:49 Sodium Chloride 0.9% [Normal Saline] 1,000 ml IV CONTINUOUS 07/04/20 15:09 Late Tray [DIET] Routine 07/04/20 16:53 RT Aerosol Therapy [RC] ASDIRECTED
[2020-07-04 14:15] LABS: CORONAVIRUS COVID-19 NAA NEGATIVE (NEGATIVE)
[2020-07-04] MEDS ORDERED: Sodium Chloride 0.9% 1,000 ML IV ONE (14:49)
[2020-07-04] MEDS ORDERED: methylPREDNISolone Sodium Succinate 125 MG/2 ML SDV IVPUSH ONE (14:49)
[2020-07-04] MEDS ORDERED: Azithromycin 500 MG in Sodium Chloride 0.9% 250 ML IV ONE (14:50)
[2020-07-04 17:03] VITALS: PULSE 78
== END 2020-07-04 18:10 | disposition home or self-care (01) ==
LOC: DL.ED 12:42 → EDSTATUS 12:42 → DL.ED 18:10
DX: J44.1 Chronic obstructive pulmonary disease with (acute) exacerbation (principal); I13.0 Hypertensive heart and chronic kidney disease with heart failure and stage 1 through stage 4 chronic kidney disease, or unspecified chronic kidney disease; N18.9 Chronic kidney disease, unspecified; I50.9 Heart failure, unspecified; E78.00 Pure hypercholesterolemia, unspecified; E05.90 Thyrotoxicosis, unspecified without thyrotoxic crisis or storm; I44.7 Left bundle-branch block, unspecified; Z88.0 Allergy status to penicillin; Z88.1 Allergy status to other antibiotic agents; Z91.040 Latex allergy status; Z79.82 Long term (current) use of aspirin; Z79.899 Other long term (current) drug therapy
CPT/HCPCS: 0240U; 36415; 36600; 71045; 80053; 82803; 83735; 83880; 84484; 85025; 85379; 85610; 93005; 94640; 96365; 96375; 99284; 99285-25; J0456; J2930; J7030; J7050; J7620-GY

== ENCOUNTER 2020-11-29 08:14 | Emergency (ER) | payer MEDICARE, BC ==
[2020-11-29 09:20] VITALS: BP 106/86; PULSE 61
[2020-11-29] MEDS ORDERED: Sodium Chloride 0.9% 10 ML Syringe FLUSH PRN (09:45)
--- NOTE | 2020-11-29 09:56 | EDM.PDOC ---
ED HPI GENERAL MEDICAL PROBLEM - General Chief Complaint: Back Pain or Injury Stated Complaint: BACK PAIN Time Seen by Provider: 11/29/20 09:44 Source of Information: Reports: Patient History Limitations: Reports: No Limitations - History of Present Illness INITIAL COMMENTS - FREE TEXT/NARRATIVE: 85 y/o F c/o upper back pn for one week. She reports the pain is constant worse with movement and has been getting worse but is relieved with Ibuprofen. Today the pain is 6/10 non radiating. She is on o2 24/7 secondary to copd. She reports increased fatigue and sob and increased leg swelling over the last week. Denies ford, CP, abd pn, recent trauma, fever, cough, chills, drugs etoh. Onset: Gradual, Unknown/Unsure Duration: Day(s): Location: Reports: Generalized Lower Back Pain Score (Numeric/FACES): 6 - Related Data Allergies Allergy/AdvReac Type Severity Reaction Status Date / Time amoxicillin [Amoxicillin] Allergy Nausea Verified 03/24/20 18:59 cefazolin sodium [From Ancef] Allergy Vomiting Verified 03/24/20 18:59 doxycycline Allergy Nausea Verified 03/24/20 18:59 latex Allergy Nausea Verified 03/24/20 18:59 Home Meds: Home Meds Alendronate [Fosamax] 70 mg PO Q7D@0600 10/21/16 [History] Aspirin 81 mg PO BEDTIME 10/21/16 [History] Budesonide [Pulmicort] 0.5 mg IH BID 10/21/16 [History] Calcitriol [Rocaltrol] 0.25 mcg PO .SUN.MON.WED.Fri10/21/16 [History] Calcium Carbonate/Vitamin D3 [Calcium 500 mg Chewable Tablet] 1 tab PO DAILY 10/21/16 [History] Formoterol Fumarate [Perforomist] 2 ml PO BID PRN 10/21/16 [History] Furosemide [Lasix] 60 mg PO BID 10/21/16 [History] Levothyroxine [Synthroid] 75 mcg PO ACBREAKFAST 10/21/16 [History] Loratadine [Claritin] 10 mg PO DAILY 10/21/16 [History] Magnesium 400 mg PO DAILY 10/21/16 [History] Omeprazole Magnesium [Prilosec Otc] 20 mg PO DAILY 10/21/16 [History] Polyethylene Glycol 3350 [MiraLAX] 17 gm PO DAILY PRN 10/21/16 [History] Potassium Chloride 20 meq PO BID 10/21/16 [History] atorvaSTATin [Lipitor] 10 mg PO DAILY 10/21/16 [History] guaiFENesin [Tussin] 5 ml PO Q6H PRN 10/21/16 [History] Acetaminophen [Tylenol] 500 mg PO Q6H PRN 11/12/17 [History] Metoprolol Tartrate 25 mg PO BID 11/12/17 [History] Albuterol [IJD: Albuterol] 2.5 mg INH Q6H PRN 07/04/20 [History] Gabapentin [Neurontin] 100 mg PO DAILY 07/04/20 [History] predniSONE [Prednisone] 10 mg PO DAILY 07/04/20 [History] Past Medical History - Past Health History Medical/Surgical History: Denies Medical/Surgical History HEENT History: Reports: Impaired Vision, Other (See Below) Other HEENT History: Trouble swallowing, wears glasses Cardiovascular History: Reports: Heart Failure, High Cholesterol, Hypertension, SOB on Exertion Respiratory History: Reports: Asthma, COPD, Interstitial Lung Disease, Pneumonia, Recurrent, Pulmonary Fibrosis, SOB, Other (See Below) Other Respiratory History: chronic cough, lung surgery, emphysema Gastrointestinal History: Reports: Hiatal Hernia Genitourinary History: Reports: Chronic Renal Insuffiency Other Genitourinary History: bladder repair, bowel repair SOFTWARE SALES History: Reports: None Musculoskeletal History: Reports: Back Pain, Chronic, Fracture, Osteoporosis Neurological History: Reports: None Psychiatric History: Reports: Anxiety Endocrine/Metabolic History: Reports: Hyperthyroidism, Osteopenia Hematologic History: Reports: Anemia Immunologic History: Reports: None Oncologic (Cancer) History: Reports: Basal Cell Carcinoma, Other (See Below) Other Oncologic History: face Dermatologic History: Reports: Other (See Below) Other Dermatologic History: has bandage to left chin, , biopsy done, no results yet - Infectious Disease History Infectious Disease History: Reports: Measles - Past Surgical History Head Surgeries/Procedures: Reports: None HEENT Surgical History: Reports: Cataract Surgery Cardiovascular Surgical History: Reports: Other (See Below) Other Cardiovascular Surgeries/Procedures: cardiac cath Respiratory Surgical History: Reports: Lung Biopsies GI Surgical History: Reports: Colonoscopy Female Surgical History: Reports: Breast Biopsy, Hysterectomy, Other (See Below) Other Female Surgeries/Procedures: bladder repair Oncologic Surgical History: Reports: Mastectomy Social & Family History - Family History Family Medical History: No Pertinent Family History HEENT: Reports: None Cardiac: Reports: None Respiratory: Reports: None GI: Reports: None : Reports: None - Tobacco Use Tobacco Use Status *Q: Never Tobacco User - Caffeine Use Caffeine Use: Reports: None - Recreational Drug Use Recreational Drug Use: No - Living Situation & Occupation Living situation: Reports: , with Spouse Occupation: Retired ED ROS GENERAL - Review of Systems Review Of Systems: Comprehensive ROS is negative, except as noted in HPI. ED EXAM,LOWER BACK PAIN/INJURY - Physical Exam Exam: See Below Exam Limited By: No Limitations General Appearance: Alert Eye Exam: Bilateral Eye: PERRL Throat/Mouth: Normal Oropharynx, Normal Voice, No Airway Compromise Head: Atraumatic, Normocephalic Neck: Supple, Non-Tender Respiratory/Chest: Rales (rales throughout) Cardiovascular: Normal Peripheral Pulses GI/Abdominal: Soft, Non-Tender (Female) Exam: Deferred Rectal (Female) Exam: Deferred Back Exam: Other (Tender to palpation over the entire back. ) Extremities: Other (4+ pedal edema) #1 Interpretation EKG Date: 11/29/20 Time: 10:04 Rhythm: Other (sinus rhythm) [place]: LAD-Left [place] Deviation P-Wave: Present QRS: Normal ST-T: Normal QT: Normal Course - Vital Signs Last Recorded V/S: Last Vital Signs Temp 98.1 F 11/29/20 08:45 Pulse 61 11/29/20 08:45 Resp 16 11/29/20 08:45 BP 106/86 11/29/20 08:45 Pulse Ox 99 11/29/20 08:45 - Orders/Labs/Meds Orders: Active Orders 24 hr Category Date Time Status UA W/MICROSCOPIC [URIN] Stat Lab 11/29/20 11:15 Results Ketorolac [Toradol] Med 11/29/20 11:33 Once 30 mg IM ONETIME ONE Medication Orders Ketorolac Tromethamine (Ketorolac 30 Mg/Ml Sdv) 30 mg IM ONETIME ONE Stop: 11/29/20 11:34 Labs: Laboratory Tests 11/29/20 11/29/20 11/29/20 Range/Units 09:54 09:54 11:15 WBC 11.6 H (5.0-10.0) 10^3/uL RBC 3.84 L (4.2-5.4) 10^6/uL Hgb 11.7 L (12.0-16.0) g/dL Hct 37.5 (37.0-47.0) % MCV 97.7 (80-100) fL MCH 30.5 (27.0-34.0) pg MCHC 31.2 L (33.0-35.0) g/dL Plt Count 214 (150-450) 10^3/uL Neut % (Auto) 74.8 (42.2-75.2) % Lymph % (Auto) 16.2 L (20.5-50.1) % [place] % (Auto) 6.1 (2-8) % Eos % (Auto) 2.7 (1.0-3.0) % Baso % (Auto) 0.2 (0.0-1.0) % Sodium 142 (136-145) mmol/L Potassium 4.0 (3.5-5.1) mmol/L Chloride 100 (98-107) mmol/L Carbon Dioxide 42 H* (21-32) mmol/L Anion Gap 4.0 L (7-13) mEq/L BUN 21 H (7-18) mg/dL Creatinine 0.97 (0.55-1.02) mg/dL Est Cr Clr Drug Dosing 31.56 mL/min Estimated GFR (MDRD) 55 BUN/Creatinine Ratio 21.6 (No establ ref range) Glucose 84 (70-99) mg/dL Calcium 9.2 (8.5-10.1) mg/dL Total Bilirubin 0.5 (0.2-1.0) mg/dL AST 23 (15-37) U/L ALT 24 (14-59) U/L Alkaline Phosphatase 79 (46-116) U/L Troponin I High Sens 17 (<=51) pg/mL B-Natriuretic Peptide 132 H (0-100) pg/ml Total Protein 6.5 (6.4-8.2) g/dL Albumin 3.2 L (3.4-5.0) g/dL Globulin 3.3 Albumin/Globulin Ratio 0.97 Urine Color Yellow (YELLOW) Urine Appearance Clear (CLEAR) Urine pH 5.5 (5.0-9.0) Ur Specific [place] 1.020 (1.005-1.030) Urine Protein Negative (NEGATIVE) Urine Glucose (UA) Negative (NEGATIVE) Urine Ketones Negative (NEGATIVE) Urine Occult Blood Trace-lysed H (NEGATIVE) Urine Nitrite Negative (NEGATIVE) Urine Bilirubin Negative (NEGATIVE) Urine Urobilinogen 0.2 (0.2-1.0) mg/dL Ur Leukocyte Esterase Negative (NEGATIVE) Meds: Medications Generic Name Dose Route Start Last Admin Trade Name Freq PRN Reason Stop Dose Admin Ketorolac Tromethamine 30 mg 11/29/20 11:33 Ketorolac 30 Mg/Ml Sdv IM 11/29/20 11:34 ONETIME ONE Discontinued Medications Generic Name Dose Route Start Last Admin Trade Name Freq PRN Reason Stop Dose Admin Furosemide 80 mg 11/29/20 10:37 Furosemide 40 Mg/4 Ml Vial IVPUSH 11/29/20 10:38 ONETIME ONE Furosemide 80 mg 11/29/20 11:32 Furosemide 80 Mg Tab PO 11/29/20 11:33 ONETIME ONE Ketorolac Tromethamine 15 mg 11/29/20 10:53 Ketorolac 30 Mg/Ml Sdv IVPUSH 11/29/20 10:54 ONETIME ONE Sodium Chloride 10 ml 11/29/20 09:45 Sodium Chloride 0.9% 10 Ml Syringe FLUSH ASDIRECTED PRN Keep Vein Open - Re-Assessments/Exams Free Text/Narrative Re-Assessment/Exam: 11/29/20 11:34Disucussed pts labs, exam, ekg and imgaing with her. She will get IM Toradol for back pain and PO lasixs for her increased edema. She feels safe to go home and will be discharged. Departure - Departure Time of Disposition: 11:35 Disposition: Home, Self-Care 01 Condition: Good Clinical Impression: Peripheral edema Back pain Qualifiers: Back pain location: thoracic back pain Chronicity: chronic Back pain laterality: unspecified Qualified Code(s): M54.6 - Pain in thoracic spine; G89.29 - Other chronic pain - Discharge Information Instructions: Chronic Back Pain, [id number] Forms: ED Department Discharge Additional Instructions: RX: Lidocaine patches. Follow up with your primary care facility if your symptoms do not resolve by next week. If any new symptoms or concerns develop contact your Primary care f acility or return to the Er. Sepsis Event Note (ED) - Focused Exam Vital Signs: Vital Signs Temp Pulse Resp BP Pulse Ox 11/29/20 08:45 98.1 F 61 16 106/86 99
--- NOTE | 2020-11-29 10:35 | CR ---
PROCEDURE INFORMATION: Exam: XR Chest Exam date and time: 11/29/2020 10:01 AM Age: 85 years old Clinical indication: Other: Edema, chf TECHNIQUE: Imaging protocol: XR of the chest. Views: 1 view. COMPARISON: CR Chest 1V Frontal 07/04/2020 1:20:01 PM FINDINGS: Lungs: There are similar coarse diffuse bilateral interstitial markings suggesting fibrosis. No significant new area of interstitial or airspace opacity is evident. Pleural spaces: Unremarkable. No pleural effusion. No pneumothorax. Heart/Mediastinum: The cardiomediastinal silhouette is fairly stable in appearance. Diaphragm: The left hemidiaphragm is again elevated. Bones/joints: Degenerative changes again involve the spine. IMPRESSION: Coarse diffuse bilateral interstitial opacities, similar to 07/04/2020, suggesting fibrosis, without new opacity evident.
[2020-11-29] MEDS ORDERED: Furosemide 40 MG/4 ML VIAL IVPUSH ONE (10:37)
[2020-11-29] MEDS ORDERED: Ketorolac 30 MG/ML SDV IVPUSH ONE (10:53)
[2020-11-29] MEDS ORDERED: Furosemide 80 MG Tab PO ONE (11:32)
[2020-11-29] MEDS ORDERED: Ketorolac 30 MG/ML SDV IM ONE (11:33)
[2020-11-29] MEDS ORDERED: Furosemide 40 MG Tab ONE (11:36)
== END 2020-11-29 12:01 | disposition home or self-care (01) ==
LOC: DL.ED 08:14
DX: G89.29 Other chronic pain (principal); M54.6 Pain in thoracic spine; R60.0 Localized edema; I11.0 Hypertensive heart disease with heart failure; I50.9 Heart failure, unspecified; E78.00 Pure hypercholesterolemia, unspecified; J44.9 Chronic obstructive pulmonary disease, unspecified; Z79.82 Long term (current) use of aspirin; Z79.899 Other long term (current) drug therapy; Z88.0 Allergy status to penicillin; Z91.040 Latex allergy status; Z88.8 Allergy status to other drugs, medicaments and biological substances; Z88.1 Allergy status to other antibiotic agents
CPT/HCPCS: 36415; 71045; 80053; 81001; 83880; 84484; 85025; 93005; 96372; 99284; A9270; J1885

== ENCOUNTER 2020-12-08 06:42 | Emergency (ER) | payer MEDICARE, BC ==
[2020-12-08 07:12] VITALS: BP 128/66
[2020-12-08] MEDS: Albuterol/Ipratropium 3.0-0.5 MG/3 ML Neb Soln NEB ONE (07:41)
--- NOTE | 2020-12-08 07:43 | EDM.PDOC ---
ED HPI GENERAL MEDICAL PROBLEM - General Chief Complaint: Respiratory Problem Stated Complaint: SEVERE TROUBLE BREATHING / COPD Time Seen by Provider: 12/08/20 07:30 Source of Information: Reports: Patient History Limitations: Reports: No Limitations - History of Present Illness INITIAL COMMENTS - FREE TEXT/NARRATIVE: This 85 yo female patient reports to the ED due to increased shortness of breath. The patient reports she as been having increased difficulties breathing over the past 2 days, but symptoms got much worse at about 0200 this morning. The patient reports she has had symptom improvement after taking her nebulizer, but did not use her nebulizer this morning. The patient has a history of COPD and Emphysema. The patient reports increased chest pain with movement and deep breathing. Duration: Day(s): Location: Reports: Chest Quality: Reports: Other Severity: Moderate Improves with: Reports: None Worsens with: Reports: None Associated Symptoms: Reports: Chest Pain, cough w sputum - Related Data Allergies Allergy/AdvReac Type Severity Reaction Status Date / Time amoxicillin [Amoxicillin] Allergy Nausea Verified 12/08/20 07:12 cefazolin sodium [From Ancef] Allergy Vomiting Verified 12/08/20 07:12 doxycycline Allergy Nausea Verified 12/08/20 07:12 latex Allergy Nausea Verified 12/08/20 07:12 Home Meds: Home Meds Alendronate [Fosamax] 70 mg PO Q7D@0600 10/21/16 [History] Aspirin 81 mg PO BEDTIME 10/21/16 [History] Budesonide [Pulmicort] 0.5 mg IH BID 10/21/16 [History] Calcitriol [Rocaltrol] 0.25 mcg PO .FRI.FRI.FRI.Fri10/21/16 [History] Calcium Carbonate/Vitamin D3 [Calcium 500 mg Chewable Tablet] 1 tab PO DAILY 10/21/16 [History] Formoterol Fumarate [Perforomist] 2 ml PO BID PRN 10/21/16 [History] Furosemide [Lasix] 60 mg PO BID 10/21/16 [History] Levothyroxine [Synthroid] 75 mcg PO ACBREAKFAST 10/21/16 [History] Loratadine [Claritin] 10 mg PO DAILY 10/21/16 [History] Magnesium 400 mg PO DAILY 10/21/16 [History] Omeprazole Magnesium [Prilosec Otc] 20 mg PO DAILY 10/21/16 [History] Polyethylene Glycol 3350 [MiraLAX] 17 gm PO DAILY PRN 10/21/16 [History] Potassium Chloride 20 meq PO DAILY 10/21/16 [History] atorvaSTATin [Lipitor] 10 mg PO DAILY 10/21/16 [History] guaiFENesin [Tussin] 5 ml PO Q6H PRN 10/21/16 [History] Acetaminophen [Tylenol] 500 mg PO Q6H PRN 11/12/17 [History] Metoprolol Tartrate 25 mg PO BID 11/12/17 [History] Albuterol [IJD: Albuterol] 2.5 mg INH Q6H PRN 07/04/20 [History] Gabapentin [Neurontin] 100 mg PO DAILY 07/04/20 [History] predniSONE [Prednisone] 10 mg PO DAILY 07/04/20 [History] Past Medical History - Past Health History Medical/Surgical History: Denies Medical/Surgical History HEENT History: Reports: Impaired Vision, Other (See Below) Other HEENT History: Trouble swallowing, wears glasses Cardiovascular History: Reports: Heart Failure, High Cholesterol, Hypertension, SOB on Exertion Respiratory History: Reports: Asthma, COPD, Interstitial Lung Disease, Pneumonia, Recurrent, Pulmonary Fibrosis, SOB, Other (See Below) Other Respiratory History: chronic cough, lung surgery, emphysema Gastrointestinal History: Reports: Hiatal Hernia Genitourinary History: Reports: Chronic Renal Insuffiency Other Genitourinary History: bladder repair, bowel repair MANAGER OF FINANCIAL History: Reports: None Musculoskeletal History: Reports: Back Pain, Chronic, Fracture, Osteoporosis Neurological History: Reports: None Psychiatric History: Reports: Anxiety Endocrine/Metabolic History: Reports: Hyperthyroidism, Osteopenia Hematologic History: Reports: Anemia Immunologic History: Reports: None Oncologic (Cancer) History: Reports: Basal Cell Carcinoma, Other (See Below) Other Oncologic History: face Dermatologic History: Reports: Other (See Below) Other Dermatologic History: has bandage to left chin, , biopsy done, no results yet - Infectious Disease History Infectious Disease History: Reports: Measles - Past Surgical History Head Surgeries/Procedures: Reports: None HEENT Surgical History: Reports: Cataract Surgery Cardiovascular Surgical History: Reports: Other (See Below) Other Cardiovascular Surgeries/Procedures: cardiac cath Respiratory Surgical History: Reports: Lung Biopsies GI Surgical History: Reports: Colonoscopy Female Surgical History: Reports: Breast Biopsy, Hysterectomy, Other (See Below) Other Female Surgeries/Procedures: bladder repair Oncologic Surgical History: Reports: Mastectomy Social & Family History - Family History Family Medical History: No Pertinent Family History HEENT: Reports: None Cardiac: Reports: None Respiratory: Reports: None GI: Reports: None : Reports: None - Tobacco Use Tobacco Use Status *Q: Never Tobacco User Second Hand Smoke Exposure: Yes - Caffeine Use Caffeine Use: Reports: Tea - Recreational Drug Use Recreational Drug Use: No - Living Situation & Occupation Living situation: Reports: , with Spouse Occupation: Retired ED ROS GENERAL - Review of Systems Review Of Systems: Comprehensive ROS is negative, except as noted in HPI. ED EXAM, GENERAL - Physical Exam Exam: See Below Exam Limited By: No Limitations General Appearance: Alert, WD/WN, Moderate Distress Eye Exam: Bilateral Eye: EOMI, Normal Inspection, PERRL Ears: Normal External Exam, Normal Canal, Hearing Grossly Normal, Normal TMs Nose: Normal Inspection, Normal Mucosa, No Blood Throat/Mouth: Normal Inspection, Normal Lips, Normal Teeth, Normal Gums, Normal Oropharynx, Normal Voice, No Airway Compromise Head: Atraumatic, Normocephalic Neck: Normal Inspection, Supple, Non-Tender, Full Range of Motion Respiratory/Chest: Crackles, Wheezing (expiratory on left) Cardiovascular: No Gallop, No JVD, No Murmur, No Rub, Tachycardia GI/Abdominal: Normal Bowel Sounds, Soft, Non-Tender, No Organomegaly, No Distention, No Abnormal Bruit, No Mass (Female) Exam: Deferred Rectal (Female) Exam: Deferred Back Exam: Normal Inspection, Full Range of Motion, NT Extremities: Normal Range of Motion, No Pedal Edema, Normal Capillary Refill, Pedal Edema Neurological: Alert, Oriented, CN II-XII Intact, Normal Cognition, Normal Gait, Normal Reflexes, No Motor/Sensory Deficits Psychiatric: Normal Affect, Normal Mood Skin Exam: Warm, Dry, Intact, Normal Color, No Rash Lymphatic: No Adenopathy #1 Interpretation EKG Date: 12/08/20 Time: 07:27 Rhythm: Other (Sinus Tach) [place]: Normal P-Wave: Present QRS: Normal ST-T: Normal QT: Normal Comparison: No Change Course - Vital Signs Last Recorded V/S: Last Vital Signs Temp 98.2 F 12/08/20 07:00 Pulse 108 H 12/08/20 07:34 Resp 25 H 12/08/20 07:00 BP 128/66 12/08/20 07:00 Pulse Ox 93 L 12/08/20 07:34 - Orders/Labs/Meds Orders: Active Orders 24 hr Category Date Time Status RT Aerosol Therapy [RC] ASDIRECTED Care 12/08/20 07:34 Active CULTURE BLOOD [BC] Stat Lab 12/08/20 07:52 Received UA RFX KIANA AND CULT IF INDIC [URIN] Urgent Lab 12/08/20 07:35 Ordered Labs: Laboratory Tests 12/08/20 12/08/20 12/08/20 Range/Units 07:52 07:52 07:52 WBC 16.7 H (5.0-10.0) 10^3/uL RBC 3.77 L (4.2-5.4) 10^6/uL Hgb 11.5 L (12.0-16.0) g/dL Hct 37.3 (37.0-47.0) % MCV 98.9 (80-100) fL MCH 30.5 (27.0-34.0) pg MCHC 30.8 L (33.0-35.0) g/dL Plt Count 209 (150-450) 10^3/uL Neut % (Auto) 90.0 H (42.2-75.2) % Lymph % (Auto) 4.8 L (20.5-50.1) % [place] % (Auto) 4.1 (2-8) % Eos % (Auto) 1.0 (1.0-3.0) % Baso % (Auto) 0.1 (0.0-1.0) % D-Dimer, Quantitative (0-400) ng/mL Sodium 139 (136-145) mmol/L Potassium 3.8 (3.5-5.1) mmol/L Chloride 97 L (98-107) mmol/L Carbon Dioxide 43 H* (21-32) mmol/L Anion Gap 2.8 L (7-13) mEq/L BUN 17 (7-18) mg/dL Creatinine 1.00 (0.55-1.02) mg/dL Est Cr Clr Drug Dosing 30.62 mL/min Estimated GFR (MDRD) 53 BUN/Creatinine Ratio 17.0 (No establ ref range) Glucose 99 (70-99) mg/dL Lactic Acid 0.8 (0.4-2.0) mmol/L Calcium 9.3 (8.5-10.1) mg/dL Total Bilirubin 0.7 (0.2-1.0) mg/dL AST 21 (15-37) U/L ALT 19 (14-59) U/L Alkaline Phosphatase 94 (46-116) U/L B-Natriuretic Peptide 195 H (0-100) pg/ml Total Protein 7.0 (6.4-8.2) g/dL Albumin 3.3 L (3.4-5.0) g/dL Globulin 3.7 Albumin/Globulin Ratio 0.89 09/17/ Range/Units 07:52 WBC (5.0-10.0) 10^3/uL RBC (4.2-5.4) 10^6/uL Hgb (12.0-16.0) g/dL Hct (37.0-47.0) % MCV (80-100) fL MCH (27.0-34.0) pg MCHC (33.0-35.0) g/dL Plt Count (150-450) 10^3/uL Neut % (Auto) (42.2-75.2) % Lymph % (Auto) (20.5-50.1) % [place] % (Auto) (2-8) % Eos % (Auto) (1.0-3.0) % Baso % (Auto) (0.0-1.0) % D-Dimer, Quantitative 575 H (0-400) ng/mL Sodium (136-145) mmol/L Potassium (3.5-5.1) mmol/L Chloride (98-107) mmol/L Carbon Dioxide (21-32) mmol/L Anion Gap (7-13) mEq/L BUN (7-18) mg/dL Creatinine (0.55-1.02) mg/dL Est Cr Clr Drug Dosing mL/min Estimated GFR (MDRD) BUN/Creatinine Ratio (No establ ref range) Glucose (70-99) mg/dL Lactic Acid (0.4-2.0) mmol/L Calcium (8.5-10.1) mg/dL Total Bilirubin (0.2-1.0) mg/dL AST (15-37) U/L ALT (14-59) U/L Alkaline Phosphatase (46-116) U/L B-Natriuretic Peptide (0-100) pg/ml Total Protein (6.4-8.2) g/dL Albumin (3.4-5.0) g/dL Globulin Albumin/Globulin Ratio Meds: Medications Discontinued Medications Generic Name Dose Route Start Last Admin Trade Name Freq PRN Reason Stop Dose Admin Albuterol/Ipratropium 3 ml 12/08/20 07:34 12/08/20 07:41 Albuterol/Ipratropium 3.0-0.5 Mg/3 Ml Neb Soln NEB 12/08/20 07:35 3 ml ONETIME ONE Administration Ceftriaxone Sodium 1 gm/ 0 gm 12/08/20 08:48 Lidocaine HCl 2.1 ml IM 12/08/20 08:49 ONETIME ONE Methylprednisolone Sodium Succinate 125 mg 12/08/20 08:48 Methylprednisolone Sodium Succinate 125 Mg/2 Ml Sdv IM 12/08/20 08:49 ONETIME ONE Departure - Departure Time of Disposition: 09:07 Disposition: Home, Self-Care 01 Condition: Fair Clinical Impression: Bronchitis, COPD with exacerbation - Discharge Information *PRESCRIPTION DRUG MONITORING PROGRAM REVIEWED*: Not Applicable *COPY OF PRESCRIPTION DRUG MONITORING REPORT IN PATIENT YVETTE: Not Applicable Instructions: Chronic Obstructive Pulmonary Disease, [id number] Forms: ED Department Discharge Care Plan Goals: The patient was advised of the examination, lab and x-ray results during the visit. The patient was given an injection of Rocephin (antibiotic) and SoluMedrol (steroid) during the visit. The patient was discharged with a script for Azithromycin (250 mg) #6 to take 2 by mouth on day 1 (12/08/20) and 1 by mouth daily on days 2-5 as well as for Prednisone (20 mg) #10 to take 2 by mouth daily for 5 days. If the patient has any additional symptoms or concerns, the patient should either return to the emergency department or visit her primary care facility. Sepsis Event Note (ED) - Evaluation Sepsis Screening Result: No Definite Risk - Focused Exam Vital Signs: Vital Signs Temp Pulse Resp BP Pulse Ox Pulse Ox 12/08/20 07:34 108 H 93 L 12/08/20 07:00 98.2 F 106 H 25 H 128/66 94 L - My Orders Last 24 Hours: My Active Orders 12/08/20 07:34 RT Aerosol Therapy [RC] ASDIRECTED 12/08/20 07:35 UA RFX KIANA AND CULT IF INDIC [URIN] Urgent 12/08/20 07:52 CULTURE BLOOD [BC] Stat - Assessment/Plan Last 24 Hours: My Active Orders 12/08/20 07:34 RT Aerosol Therapy [RC] ASDIRECTED 12/08/20 07:35 UA RFX KIANA AND CULT IF INDIC [URIN] Urgent 12/08/20 07:52 CULTURE BLOOD [BC] Stat
[2020-12-08 08:27] LABS: ANION GAP 2.8 mEq/L (7-13)
[2020-12-08 08:31] VITALS: PULSE 108
--- NOTE | 2020-12-08 08:44 | CR ---
PROCEDURE INFORMATION: Exam: XR Chest Exam date and time: 12/08/2020 7:54 AM Age: 85 years old Clinical indication: Shortness of breath; Additional info: Short of breath TECHNIQUE: Imaging protocol: XR of the chest. Views: 2 views. COMPARISON: CR Chest 1V Frontal 11/29/2020 10:01 AM FINDINGS: Lungs: There are fairly similar coarse interstitial opacities bilaterally. No new consolidation is evident. Pleural spaces: Unremarkable. No pleural effusion. No pneumothorax. Heart/Mediastinum: The cardiomediastinal silhouette is fairly stable in appearance. Bones/joints: Degenerative changes again involve the spine and shoulders. There is multilevel thoracic vertebral body height loss, likely chronic. IMPRESSION: Stable radiographic appearance of the chest since 11/29/2020, including coarse bilateral interstitial opacities, without new disease evident.
[2020-12-08] MEDS: methylPREDNISolone Sodium Succinate 125 MG/2 ML SDV IM ONE (09:01)
[2020-12-08] MEDS: cefTRIAXone 1 GM, Lidocaine 1% 2.1 ML IM ONE ×2 (09:01)
== END 2020-12-08 09:27 | disposition home or self-care (01) ==
LOC: DL.ED 06:42
DX: J44.1 Chronic obstructive pulmonary disease with (acute) exacerbation (principal); I13.0 Hypertensive heart and chronic kidney disease with heart failure and stage 1 through stage 4 chronic kidney disease, or unspecified chronic kidney disease; N18.9 Chronic kidney disease, unspecified; I50.9 Heart failure, unspecified; E78.00 Pure hypercholesterolemia, unspecified; E05.90 Thyrotoxicosis, unspecified without thyrotoxic crisis or storm; Z91.040 Latex allergy status; Z79.899 Other long term (current) drug therapy; Z79.82 Long term (current) use of aspirin
CPT/HCPCS: 36415; 71046; 80053; 83605; 83880; 85025; 85379; 87040; 93005; 94640; 96372; 99285; J0696; J2930; J7620-GY

== ENCOUNTER 2021-01-12 11:22 | Inpatient (IN) | payer MEDICARE, BC ==
[2021-01-12] MEDS ORDERED: Ondansetron 4 MG Tab.DIS PO PRN (11:42)
[2021-01-12] MEDS ORDERED: Acetaminophen 325 MG Tab PO PRN (11:42)
[2021-01-12] MEDS ORDERED: Ibuprofen 600 MG Tab PO PRN (11:42)
--- NOTE | 2021-01-12 12:38 | CR ---
PROCEDURE INFORMATION: Exam: XR Chest Exam date and time: 01/12/2021 12:14 PM Age: 85 years old Clinical indication: Shortness of breath; Additional info: Copd exacerbation TECHNIQUE: Imaging protocol: XR of the chest. Views: 2 views. COMPARISON: CR Chest 2V 12/08/2020 7:54 AM FINDINGS: Lungs: Lungs mildly hyperexpanded. Elevated left hemidiaphragm. Irregular airspace opacities in the right upper and left lower lobes unchanged from previous examination. Pleural spaces: Unremarkable. No pleural effusion. No pneumothorax. Heart/Mediastinum: Unremarkable. No cardiomegaly. Bones/joints: Unremarkable. IMPRESSION: COPD with chronic consolidation observed in the right upper and left lower lobes. No change from previous study.
[2021-01-12 14:17] LABS: CHLORIDE,CL 97 mmol/L (98-107); SODIUM,NA 143 mmol/L (136-145)
[2021-01-12 14:19] LABS: ANION GAP 5.39999 mEq/L (7-13)
[2021-01-12] MEDS ORDERED: Sodium Chloride 0.9% 10 ML Syringe FLUSH PRN (15:34)
[2021-01-12] MEDS ORDERED: Albuterol 0.083% 2.5 MG/3 ML Neb Soln INH PRN (18:29)
[2021-01-12] MEDS ORDERED: Acetaminophen 500 MG Tab PO PRN (18:29)
[2021-01-12] MEDS ORDERED: Calcitriol 0.25 MCG Cap PO ONE (18:45)
--- NOTE | 2021-01-12 19:04 | PCM.HP ---
H&P History of Present Illness - General Date of Service: 01/12/21 Admit Problem/Dx: Admission Diagnosis/Problem Admission Diagnosis/Problem COPD, Severe chronic obstructive pulmonary disease - History of Present Illness Initial Comments - Free Text/Narative: Nika is an 85-year-old woman who presented to clinic today for a recheck with her gear and spline grinder. She has severe end-stage COPD, that is both steroid and oxygen dependent. She reports 2 days history of worsening shortness of breath as well as needing to use 4 to 5 L of oxygen at home, which is above her typical of 3. She states that when this happens, she typically has a pneumonia. She does not report any fevers or chills, is otherwise been feeling fairly well. She had a Covid test done in the clinic today which was negative. Also notable on her chart and talking with her, she has a significant history of a persistent metabolic alkalosis. This is one of the reasons she sees a gear and spline grinder regularly. Her bicarbonate level typically runs between 38 and 42, higher when she is ill. - Related Data Allergies/Adverse Reactions: Allergies Allergy/AdvReac Type Severity Reaction Status Date / Time amoxicillin [Amoxicillin] Allergy Nausea Verified 01/12/21 12:39 cefazolin sodium [From Ancef] Allergy Vomiting Verified 01/12/21 12:39 doxycycline Allergy Nausea Verified 01/12/21 12:39 latex Allergy Nausea Verified 01/12/21 12:39 Home Medications: Home Meds Alendronate [Fosamax] 70 mg PO Q7D@0600 10/21/16 [History] Aspirin 81 mg PO BEDTIME 10/21/16 [History] Budesonide [Pulmicort] 0.5 mg IH BID 10/21/16 [History] Calcitriol [Rocaltrol] 0.25 mcg PO .SUN.MON.WED.Fri10/21/16 [History] Calcium Carbonate/Vitamin D3 [Calcium 500 mg Chewable Tablet] 1 tab PO DAILY 10/21/16 [History] Formoterol Fumarate [Perforomist] 2 ml PO BID PRN 10/21/16 [History] Furosemide [Lasix] 60 mg PO Q2D 10/21/16 [History] Levothyroxine [Synthroid] 75 mcg PO ACBREAKFAST 10/21/16 [History] Loratadine [Claritin] 10 mg PO DAILY 10/21/16 [History] Magnesium 400 mg PO DAILY 10/21/16 [History] Omeprazole Magnesium [Prilosec Otc] 20 mg PO DAILY 10/21/16 [History] Polyethylene Glycol 3350 [MiraLAX] 17 gm PO DAILY PRN 10/21/16 [History] Potassium Chloride 10 meq PO DAILY 10/21/16 [History] atorvaSTATin [Lipitor] 10 mg PO DAILY 10/21/16 [History] guaiFENesin [Tussin] 5 ml PO Q6H PRN 10/21/16 [History] Metoprolol Tartrate 25 mg PO BID 11/12/17 [History] Albuterol [IJD: Albuterol] 2.5 mg INH Q4H PRN 07/04/20 [History] Gabapentin [Neurontin] 100 mg PO TID 07/04/20 [History] predniSONE [Prednisone] 10 mg PO DAILY 07/04/20 [History] Acetaminophen [Tylenol Extra Strength] 500 mg PO Q6HR PRN 01/12/21 [History] Furosemide 80 mg PO .SA.SAENZ 01/12/21 [History] Spironolactone [Aldactone] 25 mg PO BID 01/12/21 [History] Past Medical History - Past Health History Medical/Surgical History: Denies Medical/Surgical History HEENT History: Reports: Impaired Vision, Other (See Below) Other HEENT History: Trouble swallowing, wears glasses Cardiovascular History: Reports: Heart Failure, High Cholesterol, Hypertension, SOB on Exertion Respiratory History: Reports: Asthma, COPD, Interstitial Lung Disease, Pneumonia, Recurrent, Pulmonary Fibrosis, SOB, Other (See Below) Other Respiratory History: chronic cough, lung surgery, emphysema Gastrointestinal History: Reports: Hiatal Hernia Genitourinary History: Reports: Chronic Renal Insuffiency Other Genitourinary History: bladder repair, bowel repair [employer] History: Reports: None Musculoskeletal History: Reports: Arthritis, Back Pain, Chronic, Fracture, Osteoporosis Neurological History: Reports: None Psychiatric History: Reports: Anxiety, Depression Endocrine/Metabolic History: Reports: Hyperthyroidism, Osteopenia Hematologic History: Reports: Anemia Immunologic History: Reports: None Oncologic (Cancer) History: Reports: None Other Oncologic History: face Dermatologic History: Reports: None Other Dermatologic History: has bandage to left chin, , biopsy done, no results yet - Infectious Disease History Infectious Disease History: Reports: Measles - Past Surgical History Head Surgeries/Procedures: Reports: None HEENT Surgical History: Reports: Cataract Surgery Cardiovascular Surgical History: Reports: Other (See Below) Other Cardiovascular Surgeries/Procedures: cardiac cath Respiratory Surgical History: Reports: Lung Biopsies GI Surgical History: Reports: Colonoscopy Other GI Surgeries/Procedures: bowel repair Female Surgical History: Reports: Breast Biopsy, Hysterectomy, Other (See Below) Other Female Surgeries/Procedures: bladder repair Social & Family History - Family History Family Medical History: No Pertinent Family History HEENT: Reports: None Cardiac: Reports: None Respiratory: Reports: None GI: Reports: None : Reports: None - Caffeine Use Caffeine Use: Reports: Tea - Living Situation & Occupation Living situation: Reports: , with Spouse Occupation: Retired H&P Review of Systems - Review of Systems: Review Of Systems: Comprehensive ROS is negative, except as noted in HPI. Exam - Exam Exam: See Below - Vital Signs Vital Signs: Last Vital Signs Temp 98.1 F 01/12/21 16:04 Pulse 107 H 01/12/21 16:04 Resp 20 01/12/21 16:04 BP 125/69 01/12/21 16:04 Pulse Ox 100 01/12/21 16:04 Weight: 140 lb 8 oz - Exam Physical Exam Comments:: General: Patient is an 85-year-old woman in mild respiratory distress. She has noticeable tachypnea, but is not using any accessory muscles to breathe Oropharynx is clear, mucous membranes are moist Heart: Regular rate and rhythm, 2 out of 6 systolic murmur heard throughout Lungs: Very distant breath sounds throughout, she does have bilateral expiratory wheezing Abdomen: Soft, nontender to palpation, normal bowel sounds heard throughout Neurological: Cranial 2 through 12 are intact grossly - Patient Data Lab Results Last 24 hrs: Laboratory Results - last 24 hr 01/12/21 01/12/21 Range/Units 13:44 13:44 WBC 10.8 H (5.0-10.0) 10^3/uL RBC 3.57 L (4.2-5.4) 10^6/uL Hgb 11.2 L (12.0-16.0) g/dL Hct 36.9 L (37.0-47.0) % MCV 103.4 H D (80-100) fL MCH 31.4 (27.0-34.0) pg MCHC 30.4 L (33.0-35.0) g/dL Plt Count 158 (150-450) 10^3/uL Neut % (Auto) 82.3 H (42.2-75.2) % Lymph % (Auto) 9.8 L (20.5-50.1) % [place] % (Auto) 5.9 (2-8) % Eos % (Auto) 1.7 (1.0-3.0) % Baso % (Auto) 0.3 (0.0-1.0) % Sodium 143 (136-145) mmol/L Potassium 4.4 (3.5-5.1) mmol/L Chloride 97 L (98-107) mmol/L Carbon Dioxide > 45 H* (21-32) mmol/L Anion Gap 5.75232 L (7-13) mEq/L BUN 14 (7-18) mg/dL Creatinine 0.91 (0.55-1.02) mg/dL Est Cr Clr Drug Dosing 33.65 mL/min Estimated GFR (MDRD) 59 BUN/Creatinine Ratio 15.4 (No establ ref range) Glucose 156 H (70-99) mg/dL Calcium 9.2 (8.5-10.1) mg/dL Total Bilirubin 0.5 (0.2-1.0) mg/dL AST 25 (15-37) U/L ALT 21 (14-59) U/L Alkaline Phosphatase 118 H (46-116) U/L Troponin I High Sens 20 (<=51) pg/mL Total Protein 6.8 (6.4-8.2) g/dL Albumin 3.3 L (3.4-5.0) g/dL Globulin 3.5 Albumin/Globulin Ratio 0.94 Result Diagrams: 01/12/21 13:44 01/12/21 13:44 *Q Meaningful Use (ADM) - VTE Risk Assess *Q Each Risk Factor Represents 1 Point: None Total Score 1 Point Risk Factors: 0 Each Risk Factor Represents 2 Points: None Total Score 2 Point Risk Factors: 0 Each Risk Factor Represents 3 Points: Age 75 Years or Greater Total Score 3 Point Risk Factors: 3 - Problem List (1) COPD with exacerbation SNOMED Code(s): 485400032 ICD Code: J44.1 - CHRONIC OBSTRUCTIVE PULMONARY DISEASE W (ACUTE) EXACERBATION Status: Acute Current Visit: No (2) Metabolic alkalosis SNOMED Code(s): 1062802 ICD Code: E87.3 - ALKALOSIS Status: Chronic Current Visit: Yes Problem List Initiated/Reviewed/Updated: Yes Orders Last 24hrs: Active Orders 24 hr Category Date Time Status Patient Status [ADT] Routine ADT 01/12/21 11:42 Active Oxygen Therapy [RC] PRN Care 01/12/21 11:42 Active Peripheral IV Care [RC] . DIRECTED Care 01/12/21 15:34 Active RT Aerosol Therapy [RC] ASDIRECTED Care 01/12/21 18:33 Active VTE/DVT Education [RC] PER UNIT ROUTINE Care 01/12/21 11:42 Active Vital Signs [RC] Q4H Care 01/12/21 11:42 Active Regular Diet [DIET] Diet 01/12/21 Dinner Active BLOOD GAS ARTERIAL [BG] Stat Lab 01/12/21 11:42 Ordered Acetaminophen [TylenoL] Med 01/12/21 11:42 Active 650 mg PO Q4H PRN Acetaminophen [Tylenol Extra Strength] Med 01/12/21 18:29 Active 500 mg PO Q6H PRN Albuterol [Proventil Neb Soln] Med 01/12/21 18:29 Active 2.5 mg INH Q4H PRN Aspirin Med 01/12/21 21:00 Active 81 mg PO BEDTIME Budesonide [Pulmicort] Med 01/12/21 21:00 Active 0.5 mg INH BID Enoxaparin [Lovenox] Med 01/13/21 09:00 Active 30 mg SUBCUT DAILY Formoterol [Perforomist] Med 01/12/21 18:29 Active 20 mcg INH BID PRN Furosemide [Lasix] Med 01/12/21 18:30 Pending 60 mg PO Q2D Furosemide [Lasix] Med 01/12/21 18:30 Pending 80 mg PO ..SAENZ Gabapentin [Neurontin] Med 01/12/21 21:00 Active 100 mg PO TID Ibuprofen [Motrin] Med 01/12/21 11:42 Active 600 mg PO Q6H PRN Levothyroxine [Synthroid] Med 01/13/21 06:00 Ordered 75 mcg PO ACBREAKFAST Loratadine [Claritin] Med 01/13/21 09:00 Ordered 10 mg PO DAILY Magnesium [Magnesium] Med 01/13/21 09:00 Ordered 400 mg PO DAILY Metoprolol Tartrate [Lopressor] Med 01/12/21 21:00 Active 25 mg PO BID Omeprazole Magnesium [Prilosec Otc] Med 01/13/21 09:00 Ordered 20 mg PO DAILY Ondansetron [Zofran ODT] Med 01/12/21 11:42 Active 4 mg PO Q6H PRN Potassium Chloride [Potassium Chloride] Med 01/13/21 09:00 Ordered 10 meq PO DAILY Sodium Chloride 0.9% [Saline Flush] Med 01/12/21 15:34 Active 10 ml FLUSH ASDIRECTED PRN Spironolactone [Aldactone] Med 01/12/21 21:00 Active 25 mg PO BIDDIURETIC atorvaSTATin [Lipitor] Med 01/13/21 09:00 Ordered 10 mg PO DAILY calcitrioL [Rocaltrol] Med 01/12/21 18:30 Pending 0.25 mcg PO . dexAMETHasone [Decadron] Med 01/12/21 18:30 Active 20 mg IVPUSH Q8H guaiFENesin [Robitussin] Med 01/12/21 18:29 Active 100 mg PO Q6H PRN predniSONE Med 01/12/21 18:45 Pending 10 mg PO DAILY Peripheral IV Insertion Adult [OM.PC] Routine Oth 01/12/21 15:34 Ordered Resuscitation Status Routine Resus Stat 01/12/21 11:42 Ordered Medication Orders Acetaminophen (Acetaminophen 325 Mg Tab) 650 mg PO Q4H PRN PRN Reason: Pain (Mild 1-3)/fever Acetaminophen (Acetaminophen 500 Mg Tab) 500 mg PO Q6H PRN PRN Reason: Pain/Fever Albuterol (Albuterol 0.083% 2.5 Mg/3 Ml Neb Soln) 2.5 mg INH Q4H PRN PRN Reason: Shortness of Breath Aspirin (Aspirin 81 Mg Tab.Chew) 81 mg PO BEDTIME AIYANA Atorvastatin Calcium (Atorvastatin 10 Mg Tab) 10 mg PO DAILY AIYANA Budesonide (Budesonide 0.5 Mg/2 Ml Neb Susp) 0.5 mg INH BID AIYANA Calcitriol (Calcitriol 0.25 Mcg Cap) 0.25 mcg PO .FRI. AIYANA Dexamethasone (Dexamethasone 4 Mg/Ml Sdv) 20 mg IVPUSH Q8H [facility] Stop: 01/13/21 10:31 Enoxaparin Sodium (Enoxaparin 30 Mg/0.3 Ml Syringe) 30 mg SUBCUT DAILY [facility] Formoterol Fumarate (Formoterol 20 Mcg/2 Ml Neb) 20 mcg INH BID PRN PRN Reason: Dyspnea Furosemide (Furosemide 20 Mg Tab) 80 mg PO ..SAENZ [facility] Furosemide (Furosemide 20 Mg Tab) 60 mg PO Q2D [facility] Gabapentin (Gabapentin 100 Mg Cap) 100 mg PO TID [facility] Guaifenesin (Guaifenesin 100 Mg/5 Ml Soln 5 Ml Ud Cup) 100 mg PO Q6H PRN PRN Reason: Cough Ibuprofen (Ibuprofen 600 Mg Tab) 600 mg PO Q6H PRN PRN Reason: Pain (mild 1-3) Levothyroxine Sodium (Levothyroxine 50 Mcg Tab) 75 mcg PO ACBREAKFAST [facility] Metoprolol Tartrate (Metoprolol Tartrate 50 Mg Tab) 25 mg PO BID [facility] Non-Formulary Medication (Omeprazole Magnesium [Prilosec Otc]) 20 mg PO DAILY [facility] Non-Formulary Medication (Magnesium [Magnesium]) 400 mg PO DAILY [facility] Non-Formulary Medication (Loratadine [Claritin]) 10 mg PO DAILY [facility] Non-Formulary Medication (Potassium Chloride [Potassium Chloride]) 10 meq PO DAILY [facility] Ondansetron HCl (Ondansetron 4 Mg Tab.Dis) 4 mg PO Q6H PRN PRN Reason: nausea, able to take PO Prednisone (Prednisone 10 Mg Tab) 10 mg PO DAILY [facility] Sodium Chloride (Sodium Chloride 0.9% 10 Ml Syringe) 10 ml FLUSH ASDIRECTED PRN PRN Reason: Keep Vein Open Spironolactone (Spironolactone 25 Mg Tab) 25 mg PO BIDDIURETIC [facility] Assessment/Plan Comment:: Assessment/Plan: 1. 85-year-old woman with acute exacerbation of chronic obstructive pulmonary disease -We will continue her home medications, including inhaled corticosteroids -Dexamethasone, 20 mg IV every 8 hours x3 doses -Duo nebs as needed 2. Chronic metabolic alkalosis, stable 3. VTE prophylaxis: We will use Lovenox, 40 mg daily SQ
[2021-01-12] MEDS ORDERED: Menthol/Methyl Salicylate 85 GM Tube TOP PRN (20:10)
[2021-01-12] MEDS: Metoprolol Tartrate 50 MG Tab PO SCH (20:25)
[2021-01-12] MEDS: Gabapentin 100 MG Cap PO SCH (20:25)
[2021-01-12] MEDS: Aspirin 81 MG Tab.Chew PO SCH (20:25)
[2021-01-12] MEDS: guaiFENesin 100 MG/5 ML Soln 5 ML UD Cup PO PRN (20:26)
[2021-01-12] MEDS: Spironolactone 25 MG Tab PO SCH (20:27)
[2021-01-12] MEDS: Budesonide 0.5 MG/2 ML Neb Susp INH SCH (20:28)
[2021-01-12] MEDS: Dexamethasone 4 MG/ML SDV IVPUSH SCH (20:48)
[2021-01-13] MEDS: predniSONE 10 MG Tab PO SCH ×2 (00:17→08:22)
[2021-01-13] MEDS: Dexamethasone 4 MG/ML SDV IVPUSH SCH ×2 (02:48→10:56)
[2021-01-13] MEDS: Levothyroxine 75 MCG Tab PO SCH (05:38)
[2021-01-13] MEDS: Omeprazole 20 MG Cap.CR PO SCH (05:38)
[2021-01-13] MEDS: Spironolactone 25 MG Tab PO SCH ×2 (08:22→14:53)
[2021-01-13] MEDS: atorvaSTATin 10 MG Tab PO SCH (08:23)
[2021-01-13] MEDS: Loratadine 10 MG Tab PO SCH (08:23)
[2021-01-13] MEDS: Gabapentin 100 MG Cap PO SCH ×3 (08:23→21:22)
[2021-01-13] MEDS: Potassium Chloride 10 MEQ Tab.ER PO SCH (08:24)
[2021-01-13] MEDS: Metoprolol Tartrate 50 MG Tab PO SCH ×2 (08:24→21:23)
[2021-01-13] MEDS: Enoxaparin 30 MG/0.3 ML Syringe SUBCUT SCH (08:25)
[2021-01-13] MEDS ORDERED: Non-Formulary Medication 1 Each (Magnesium [Magnesium] 200 MG Tablet) PO SCH (09:00)
[2021-01-13] MEDS: Budesonide 0.5 MG/2 ML Neb Susp INH SCH ×3 (11:11→22:57)
[2021-01-13] MEDS: guaiFENesin 100 MG/5 ML Soln 5 ML UD Cup PO PRN (21:22)
[2021-01-13] MEDS: Aspirin 81 MG Tab.Chew PO SCH (21:22)
[2021-01-14] MEDS: guaiFENesin 100 MG/5 ML Soln 5 ML UD Cup PO PRN ×2 (03:22→17:18)
[2021-01-14] MEDS: Omeprazole 20 MG Cap.CR PO SCH (06:44)
[2021-01-14] MEDS: Levothyroxine 75 MCG Tab PO SCH (06:44)
[2021-01-14] MEDS ORDERED: Furosemide 80 MG Tab PO SCH (08:00)
[2021-01-14] MEDS: Gabapentin 100 MG Cap PO SCH ×3 (08:34→21:13)
[2021-01-14] MEDS: Loratadine 10 MG Tab PO SCH (08:34)
[2021-01-14] MEDS: Potassium Chloride 10 MEQ Tab.ER PO SCH (08:34)
[2021-01-14] MEDS: Metoprolol Tartrate 50 MG Tab PO SCH ×2 (08:34→21:12)
[2021-01-14] MEDS: predniSONE 10 MG Tab PO SCH (08:34)
[2021-01-14] MEDS: atorvaSTATin 10 MG Tab PO SCH (08:34)
[2021-01-14] MEDS: Spironolactone 25 MG Tab PO SCH ×2 (08:34→13:33)
[2021-01-14] MEDS: Enoxaparin 30 MG/0.3 ML Syringe SUBCUT SCH (08:43)
[2021-01-14] MEDS: Budesonide 0.5 MG/2 ML Neb Susp INH SCH ×2 (09:58→21:13)
[2021-01-14] MEDS ORDERED: Albumin Human 50 GM in Premix Bag 1 BAG IV ONE (11:18)
[2021-01-14] MEDS ORDERED: Furosemide 40 MG/4 ML VIAL IVPUSH ONE (11:19)
[2021-01-14] MEDS ORDERED: Famotidine 20 MG Tab PO ONE (12:00)
--- NOTE | 2021-01-14 14:04 | CR ---
PROCEDURE INFORMATION: Exam: XR Chest Exam date and time: 01/14/2021 1:18 PM Age: 85 years old Clinical indication: Other: Chest pain; Additional info: To follow copd exacerbation TECHNIQUE: Imaging protocol: XR of the chest. Views: 2 views. COMPARISON: CR Chest 2V 01/12/2021 12:14 PM FINDINGS: Lungs: There are similar irregular mixed patchy and interstitial airspace opacities throughout the left lung and in the right upper and lower lung sharpe. Pleural spaces: Unremarkable. No pleural effusion. No pneumothorax. Heart/Mediastinum: The cardiomediastinal silhouette is fairly stable in appearance. Bones/joints: Degenerative changes again involve the spine and shoulders. There is again multilevel thoracic vertebral body compression with marked kyphosis. IMPRESSION: Stable radiographic appearance of the chest since 01/12/2021.
[2021-01-14] MEDS ORDERED: Famotidine 20 MG Tab PO PRN (15:19)
[2021-01-14] MEDS: Dexamethasone 4 MG/ML SDV IVPUSH SCH ×2 (17:18→23:53)
[2021-01-14] MEDS: Calcium Carbonate 500 MG Tab.Chew PO SCH (17:18)
--- NOTE | 2021-01-14 19:47 | PCM.PN ---
- General Info Date of Service: 01/13/21 Admission Dx/Problem (Free Text): Admission Diagnosis/Problem Admission Diagnosis/Problem COPD, Severe chronic obstructive pulmonary disease Subjective Update: Jacob is here with severe COPD exacerbation. She was doing a little bit better yesterday, but now this morning is again having severe wheezing as well as shortness of breath. She is still needing 4 to 5 L of oxygen with activity. - Patient Data Vitals - Most Recent: Last Vital Signs Temp 98.3 F 01/14/21 16:00 Pulse 95 01/14/21 16:00 Resp 20 01/14/21 16:00 BP 127/79 01/14/21 16:00 Pulse Ox 94 L 01/14/21 16:00 Weight - Most Recent: 140 lb 8 oz I&O - Last 24 Hours: Intake & Output 01/14/21 01/14/21 01/14/21 06:59 14:59 22:59 Intake Total 950 750 Balance 950 750 Med Orders - Current: Current Medications Acetaminophen (Acetaminophen 325 Mg Tab) 650 mg PO Q4H PRN PRN Reason: Pain (Mild 1-3)/fever Acetaminophen (Acetaminophen 500 Mg Tab) 500 mg PO Q6H PRN PRN Reason: Pain/Fever Albuterol (Albuterol 0.083% 2.5 Mg/3 Ml Neb Soln) 2.5 mg INH Q4H PRN PRN Reason: Shortness of Breath Aspirin (Aspirin 81 Mg Tab.Chew) 81 mg PO BEDTIME [facility] Last Admin: 01/13/21 21:22 Dose: 81 mg Documented by: Atorvastatin Calcium (Atorvastatin 10 Mg Tab) 10 mg PO DAILY [facility] Last Admin: 01/14/21 08:34 Dose: 10 mg Documented by: Budesonide (Budesonide 0.5 Mg/2 Ml Neb Susp) 0.5 mg INH BID [facility] Last Admin: 01/14/21 09:58 Dose: 0.5 mg Documented by: Calcitriol (Calcitriol 0.25 Mcg Cap) 0.25 mcg PO MoWeFr@0800 [facility] Calcium Carbonate/Glycine (Calcium Carbonate 500 Mg Tab.Chew) 500 mg PO BIDMEALS [facility] Last Admin: 01/14/21 17:18 Dose: 500 mg Documented by: Dexamethasone (Dexamethasone 4 Mg/Ml Sdv) 20 mg IVPUSH Q8H [facility] Stop: 01/15/21 08:01 Last Admin: 10/24/21 17:18 Dose: 20 mg Documented by: Enoxaparin Sodium (Enoxaparin 30 Mg/0.3 Ml Syringe) 30 mg SUBCUT DAILY [facility] Last Admin: 01/14/21 08:43 Dose: 30 mg Documented by: Famotidine (Famotidine 20 Mg Tab) 20 mg PO DAILY PRN PRN Reason: Heartburn Formoterol Fumarate (Formoterol 20 Mcg/2 Ml Neb) 20 mcg INH BID PRN PRN Reason: Dyspnea Furosemide (Furosemide 80 Mg Tab) 80 mg PO Q48H [facility] Last Admin: 01/14/21 08:34 Dose: 80 mg Documented by: Furosemide (Furosemide 20 Mg Tab) 60 mg PO Q48H [facility] Gabapentin (Gabapentin 100 Mg Cap) 100 mg PO TID [facility] Last Admin: 01/14/21 13:33 Dose: 100 mg Documented by: Guaifenesin (Guaifenesin 100 Mg/5 Ml Soln 5 Ml Ud Cup) 100 mg PO Q6H PRN PRN Reason: Cough Last Admin: 01/14/21 17:18 Dose: 100 mg Documented by: Ibuprofen (Ibuprofen 600 Mg Tab) 600 mg PO Q6H PRN PRN Reason: Pain (mild 1-3) Levothyroxine Sodium (Levothyroxine 75 Mcg Tab) 75 mcg PO ACBREAKFAST [facility] Last Admin: 01/14/21 06:44 Dose: 75 mcg Documented by: Loratadine (Loratadine 10 Mg Tab) 10 mg PO DAILY [facility] Last Admin: 01/14/21 08:34 Dose: 10 mg Documented by: Methyl Salicylate (Menthol/Methyl Salicylate 85 Gm Tube) 0 gm TOP Q1H PRN PRN Reason: Pain (mild 1-3) Metoprolol Tartrate (Metoprolol Tartrate 50 Mg Tab) 25 mg PO BID [facility] Last Admin: 01/14/21 08:34 Dose: 25 mg Documented by: Omeprazole (Omeprazole 20 Mg Cap.Cr) 20 mg PO ACBREAKFAST [facility] Last Admin: 01/14/21 06:44 Dose: 20 mg Documented by: Ondansetron HCl (Ondansetron 4 Mg Tab.Dis) 4 mg PO Q6H PRN PRN Reason: nausea, able to take PO Potassium Chloride (Potassium Chloride 10 Meq Tab.Er) 10 meq PO DAILY [facility] Last Admin: 01/14/21 08:34 Dose: 10 meq Documented by: Prednisone (Prednisone 10 Mg Tab) 10 mg PO DAILY [facility] Last Admin: 01/14/21 08:34 Dose: 10 mg Documented by: Sodium Chloride (Sodium Chloride 0.9% 10 Ml Syringe) 10 ml FLUSH ASDIRECTED PRN PRN Reason: Keep Vein Open Last Admin: 01/13/21 02:48 Dose: 10 ml Documented by: Spironolactone (Spironolactone 25 Mg Tab) 25 mg PO BIDDIURETIC [facility]YA[facility] Last Admin: 01/14/21 13:33 Dose: 25 mg Documented by: Discontinued Medications Calcitriol (Calcitriol 0.25 Mcg Cap) 0.25 mcg PO ONETIME ONE Stop: 01/12/21 18:46 Last Admin: 01/12/21 20:26 Dose: 0.25 mcg Documented by: Dexamethasone (Dexamethasone 4 Mg/Ml Sdv) 20 mg IVPUSH Q8H [facility] Stop: 01/13/21 10:31 Last Admin: 01/13/21 10:56 Dose: 20 mg Documented by: Famotidine (Famotidine 20 Mg Tab) 20 mg PO ONETIME ONE Stop: 01/14/21 12:01 Last Admin: 01/14/21 12:21 Dose: 20 mg Documented by: Furosemide (Furosemide 40 Mg/4 Ml Vial) 40 mg IVPUSH ONETIME ONE Stop: 01/14/21 11:20 Albumin Human 50 gm/ Premix 200 mls @ 100 mls/hr IV NOW ONE Stop: 01/14/21 13:17 Last Admin: 01/14/21 16:03 Dose: Not Given Documented by: Non-Formulary Medication (Magnesium [Magnesium]) 400 mg PO DAILY AIYANA - Exam Physical Findings Comments:: General: Patient is an 85-year-old woman in no acute distress Oropharynx is clear, mucous membranes are moist Heart: Regular rate and rhythm, 1 out of 6 systolic murmur heard throughout Lungs: Increase in wheezing today from yesterday. No areas of consolidation heard - Patient Data Result Diagrams: 01/12/21 13:44 01/12/21 13:44 Sepsis Event Note - Evaluation Sepsis Screening Result: No Definite Risk - Focused Exam Vital Signs: Vital Signs Temp Pulse Pulse Resp BP BP Pulse Ox 01/14/21 16:00 98.3 F 95 20 127/79 94 L 01/14/21 11:41 98.5 F 79 20 145/71 H 92 L 01/14/21 08:34 50 L 123/75 01/14/21 08:00 97.2 F 100 20 123/75 100 - Problem List & Annotations (1) COPD with exacerbation SNOMED Code(s): 587441311 Code(s): J44.1 - CHRONIC OBSTRUCTIVE PULMONARY DISEASE W (ACUTE) EXACERBATION Status: Acute Current Visit: No (2) Metabolic alkalosis SNOMED Code(s): 5872497 Code(s): E87.3 - ALKALOSIS Status: Chronic Current Visit: Yes - Problem List Review Problem List Initiated/Reviewed/Updated: Yes - My Orders Last 24 Hours: My Active Orders 01/14/21 08:00 Furosemide [Lasix] 80 mg PO Q48H 01/14/21 15:19 Famotidine [Pepcid] 20 mg PO DAILY PRN 01/14/21 16:00 dexAMETHasone [Decadron] 20 mg IVPUSH Q8H 01/14/21 18:00 Calcium Carbonate [Tums] 500 mg PO BIDMEALS 01/15/21 08:00 Furosemide [Lasix] 60 mg PO Q48H calcitrioL [Rocaltrol] 0.25 mcg PO MoWeFr@0800 - Plan Plan:: Assessment/Plan: 1. 85-year-old woman with acute exacerbation of chronic obstructive pulmonary disease -We will do another 3 doses of IV dexamethasone starting this morning -We will start oral azithromycin today 2. Chronic metabolic alkalosis, stable 3. VTE prophylaxis: We will use Lovenox, 40 mg daily SQ
[2021-01-14] MEDS: Aspirin 81 MG Tab.Chew PO SCH (21:13)
[2021-01-15] MEDS: Levothyroxine 75 MCG Tab PO SCH (05:27)
[2021-01-15] MEDS: Omeprazole 20 MG Cap.CR PO SCH (05:27)
--- NOTE | 2021-01-15 07:22 | PCM.PN ---
- General Info Date of Service: 01/13/21 Admission Dx/Problem (Free Text): Admission Diagnosis/Problem Admission Diagnosis/Problem COPD, Severe chronic obstructive pulmonary disease Subjective Update: Nika was admitted yesterday for severe COPD exacerbation. She has been receiving every 8 hours IV dexamethasone, will receive the last dose of that today. She reports to me this morning, that she has been eating 4 to 5 L per nasal cannula in order to get up and go to the bathroom. She normally is on 3-4 at home. Nursing reports no fevers overnight - Patient Data Vitals - Most Recent: Last Vital Signs Temp 97 F 01/15/21 04:00 Pulse 97 01/15/21 04:00 Resp 18 01/15/21 04:00 BP 145/90 H 01/15/21 04:00 Pulse Ox 99 01/15/21 04:00 Weight - Most Recent: 140 lb 8 oz I&O - Last 24 Hours: Intake & Output 01/14/21 01/15/21 01/15/21 22:59 06:59 14:59 Intake Total 750 Balance 750 Med Orders - Current: Current Medications Acetaminophen (Acetaminophen 325 Mg Tab) 650 mg PO Q4H PRN PRN Reason: Pain (Mild 1-3)/fever Acetaminophen (Acetaminophen 500 Mg Tab) 500 mg PO Q6H PRN PRN Reason: Pain/Fever Albuterol (Albuterol 0.083% 2.5 Mg/3 Ml Neb Soln) 2.5 mg INH Q4H PRN PRN Reason: Shortness of Breath Aspirin (Aspirin 81 Mg Tab.Chew) 81 mg PO BEDTIME [facility] Last Admin: 01/14/21 21:13 Dose: 81 mg Documented by: Atorvastatin Calcium (Atorvastatin 10 Mg Tab) 10 mg PO DAILY [facility] Last Admin: 01/14/21 08:34 Dose: 10 mg Documented by: Budesonide (Budesonide 0.5 Mg/2 Ml Neb Susp) 0.5 mg INH BID [facility] Last Admin: 01/14/21 21:13 Dose: 0.5 mg Documented by: Calcitriol (Calcitriol 0.25 Mcg Cap) 0.25 mcg PO MoWeFr@0800 [facility] Calcium Carbonate/Glycine (Calcium Carbonate 500 Mg Tab.Chew) 500 mg PO BIDMEALS [facility] Last Admin: 01/14/21 17:18 Dose: 500 mg Documented by: Dexamethasone (Dexamethasone 4 Mg/Ml Sdv) 20 mg IVPUSH Q8H [facility] Stop: 01/15/21 08:01 Last Admin: 01/14/21 23:53 Dose: 20 mg Documented by: Enoxaparin Sodium (Enoxaparin 30 Mg/0.3 Ml Syringe) 30 mg SUBCUT DAILY [facility] Last Admin: 01/14/21 08:43 Dose: 30 mg Documented by: Famotidine (Famotidine 20 Mg Tab) 20 mg PO DAILY PRN PRN Reason: Heartburn Formoterol Fumarate (Formoterol 20 Mcg/2 Ml Neb) 20 mcg INH BID PRN PRN Reason: Dyspnea Furosemide (Furosemide 80 Mg Tab) 80 mg PO Q48H [facility] Last Admin: 01/14/21 08:34 Dose: 80 mg Documented by: Furosemide (Furosemide 20 Mg Tab) 60 mg PO Q48H [facility] Gabapentin (Gabapentin 100 Mg Cap) 100 mg PO TID [facility] Last Admin: 01/14/21 21:13 Dose: 100 mg Documented by: Guaifenesin (Guaifenesin 100 Mg/5 Ml Soln 5 Ml Ud Cup) 100 mg PO Q6H PRN PRN Reason: Cough Last Admin: 01/14/21 17:18 Dose: 100 mg Documented by: Ibuprofen (Ibuprofen 600 Mg Tab) 600 mg PO Q6H PRN PRN Reason: Pain (mild 1-3) Levothyroxine Sodium (Levothyroxine 75 Mcg Tab) 75 mcg PO ACBREAKFAST [facility] Last Admin: 01/15/21 05:27 Dose: 75 mcg Documented by: Loratadine (Loratadine 10 Mg Tab) 10 mg PO DAILY [facility] Last Admin: 01/14/21 08:34 Dose: 10 mg Documented by: Methyl Salicylate (Menthol/Methyl Salicylate 85 Gm Tube) 0 gm TOP Q1H PRN PRN Reason: Pain (mild 1-3) Metoprolol Tartrate (Metoprolol Tartrate 50 Mg Tab) 25 mg PO BID [facility] Last Admin: 01/14/21 21:12 Dose: 25 mg Documented by: Omeprazole (Omeprazole 20 Mg Cap.Cr) 20 mg PO ACBREAKFAST [facility] Last Admin: 01/15/21 05:27 Dose: 20 mg Documented by: Ondansetron HCl (Ondansetron 4 Mg Tab.Dis) 4 mg PO Q6H PRN PRN Reason: nausea, able to take PO Potassium Chloride (Potassium Chloride 10 Meq Tab.Er) 10 meq PO DAILY [facility] Last Admin: 01/14/21 08:34 Dose: 10 meq Documented by: Prednisone (Prednisone 10 Mg Tab) 10 mg PO DAILY [facility] Last Admin: 01/14/21 08:34 Dose: 10 mg Documented by: Sodium Chloride (Sodium Chloride 0.9% 10 Ml Syringe) 10 ml FLUSH ASDIRECTED PRN PRN Reason: Keep Vein Open Last Admin: 01/13/21 02:48 Dose: 10 ml Documented by: Spironolactone (Spironolactone 25 Mg Tab) 25 mg PO BIDDIURETIC [facility] Last Admin: 01/14/21 13:33 Dose: 25 mg Documented by: Discontinued Medications Calcitriol (Calcitriol 0.25 Mcg Cap) 0.25 mcg PO ONETIME ONE Stop: 01/12/21 18:46 Last Admin: 01/12/21 20:26 Dose: 0.25 mcg Documented by: Dexamethasone (Dexamethasone 4 Mg/Ml Sdv) 20 mg IVPUSH Q8H [facility] Stop: 01/13/21 10:31 Last Admin: 01/13/21 10:56 Dose: 20 mg Documented by: Famotidine (Famotidine 20 Mg Tab) 20 mg PO ONETIME ONE Stop: 01/14/21 12:01 Last Admin: 01/14/21 12:21 Dose: 20 mg Documented by: Furosemide (Furosemide 40 Mg/4 Ml Vial) 40 mg IVPUSH ONETIME ONE Stop: 01/14/21 11:20 Albumin Human 50 gm/ Premix 200 mls @ 100 mls/hr IV NOW ONE Stop: 01/14/21 13:17 Last Admin: 01/14/21 16:03 Dose: Not Given Documented by: Non-Formulary Medication (Magnesium [Magnesium]) 400 mg PO DAILY [facility] - Exam Physical Findings Comments:: General: Patient is an 85-year-old woman in no acute distress Oropharynx is clear, mucous membranes are moist Neck: Supple, no lymphadenopathy Lungs: Slightly improved from yesterday but not by much. No areas of consolidation heard - Patient Data Result Diagrams: 01/12/21 13:44 01/12/21 13:44 Sepsis Event Note - Evaluation Sepsis Screening Result: No Definite Risk - Focused Exam Vital Signs: Vital Signs Temp Pulse Pulse Resp BP BP Pulse Ox 01/15/21 04:00 97 F 97 18 145/90 H 99 01/15/21 00:00 97.4 F 82 19 118/65 96 01/14/21 21:12 116 H 143/89 H 01/14/21 20:00 98.5 F 116 H 20 143/89 H 91 L - Problem List & Annotations (1) COPD with exacerbation SNOMED Code(s): 338353252 Code(s): J44.1 - CHRONIC OBSTRUCTIVE PULMONARY DISEASE W (ACUTE) EXACERBATION Status: Acute Current Visit: No (2) Metabolic alkalosis SNOMED Code(s): 9956739 Code(s): E87.3 - ALKALOSIS Status: Chronic Current Visit: Yes - Problem List Review Problem List Initiated/Reviewed/Updated: Yes - My Orders Last 24 Hours: My Active Orders 01/14/21 08:00 Furosemide [Lasix] 80 mg PO Q48H 01/14/21 15:19 Famotidine [Pepcid] 20 mg PO DAILY PRN 01/14/21 16:00 dexAMETHasone [Decadron] 20 mg IVPUSH Q8H 01/14/21 18:00 Calcium Carbonate [Tums] 500 mg PO BIDMEALS 01/15/21 08:00 Furosemide [Lasix] 60 mg PO Q48H calcitrioL [Rocaltrol] 0.25 mcg PO MoWeFr@0800 - Plan Plan:: Assessment/Plan: 1. 85-year-old woman with acute exacerbation of chronic obstructive pulmonary disease -Continue DuoNebs -Last dose of IV dexamethasone completing today -We will see how she does over the next 24 hours, discharge home tomorrow is possible 2. Chronic metabolic alkalosis, stable 3. VTE prophylaxis: We will use Lovenox, 40 mg daily SQ
[2021-01-15] MEDS ORDERED: Calcitriol 0.25 MCG Cap PO SCH (08:00)
[2021-01-15] MEDS ORDERED: Furosemide 20 MG Tab PO SCH (08:00)
[2021-01-15] MEDS: Budesonide 0.5 MG/2 ML Neb Susp INH SCH (09:43)
[2021-01-15] MEDS: Loratadine 10 MG Tab PO SCH (09:59)
[2021-01-15] MEDS: Gabapentin 100 MG Cap PO SCH ×2 (09:59→15:51)
[2021-01-15] MEDS: Calcium Carbonate 500 MG Tab.Chew PO SCH (10:00)
[2021-01-15] MEDS: atorvaSTATin 10 MG Tab PO SCH (10:00)
[2021-01-15] MEDS: Potassium Chloride 10 MEQ Tab.ER PO SCH (10:00)
[2021-01-15] MEDS: predniSONE 10 MG Tab PO SCH (10:00)
[2021-01-15] MEDS: Metoprolol Tartrate 50 MG Tab PO SCH (10:00)
[2021-01-15] MEDS: Spironolactone 25 MG Tab PO SCH ×2 (10:00→15:51)
[2021-01-15] MEDS: Dexamethasone 4 MG/ML SDV IVPUSH SCH (10:02)
[2021-01-15] MEDS: Enoxaparin 30 MG/0.3 ML Syringe SUBCUT SCH (10:03)
--- NOTE | 2021-01-15 10:05 | PCM.DCSUM1 ---
Discharge Summary - Hospital Course Free Text/Narrative:: Jacob is an 85-year-old woman who presented to her primary care provider on the with increased dyspnea. She has chronic obstructive pulmonary disease that is both oxygen and steroid-dependent. She has gotten fairly severe exacerbations in the past, requiring numerous hospitalizations. She presented with 3-day history of worsening dyspnea, as well as some fever and chills. She was admitted inpatient, and started on dexamethasone IV. She initially received 3 doses every 8 hours from hospital day #0 to hospital day #1. On hospital day #2, her initial improvement had begun to regress, so she had another 3 doses repeated overnight from hospital day #2 to hospital day #3. By hospital day #4, day of discharge, she was doing much better, was back down to her 3 to 4 L by nasal cannula, which is normal for her at home. She was deemed suitable for discharge home - Discharge Data Discharge Date: 01/15/21 Discharge Disposition: Home, Self-Care 01 Condition: Good - Referral to Home Health Primary Care Physician: PCP None - Discharge Diagnosis/Problem(s) (1) COPD with exacerbation SNOMED Code(s): 011979121 ICD Code: J44.1 - CHRONIC OBSTRUCTIVE PULMONARY DISEASE W (ACUTE) EXACERBATION Status: Acute (2) Metabolic alkalosis SNOMED Code(s): 2078354 ICD Code: E87.3 - ALKALOSIS Status: Chronic - Discharge Plan *PRESCRIPTION DRUG MONITORING PROGRAM REVIEWED*: Not Applicable *COPY OF PRESCRIPTION DRUG MONITORING REPORT IN PATIENT YVETTE: Not Applicable Prescriptions/Med Rec: predniSONE [Prednisone] 5 mg PO ASDIRECTED #53 tablet Home Medications: Home Meds Alendronate [Fosamax] 70 mg PO Q7D@0600 10/21/16 [History] Aspirin 81 mg PO BEDTIME 10/21/16 [History] Budesonide [Pulmicort] 0.5 mg IH BID 10/21/16 [History] Calcitriol [Rocaltrol] 0.25 mcg PO .MON.WED.Fri10/21/16 [History] Calcium Carbonate/Vitamin D3 [Calcium 500 mg Chewable Tablet] 1 tab PO DAILY 10/21/16 [History] Formoterol Fumarate [Perforomist] 2 ml PO BID PRN 10/21/16 [History] Furosemide [Lasix] 60 mg PO Q48H 10/21/16 [History] Levothyroxine [Synthroid] 75 mcg PO ACBREAKFAST 10/21/16 [History] Loratadine [Claritin] 10 mg PO DAILY 10/21/16 [History] Magnesium 400 mg PO DAILY 10/21/16 [History] Omeprazole Magnesium [Prilosec Otc] 20 mg PO DAILY 10/21/16 [History] Polyethylene Glycol 3350 [MiraLAX] 17 gm PO DAILY PRN 10/21/16 [History] Potassium Chloride 10 meq PO DAILY 10/21/16 [History] atorvaSTATin [Lipitor] 10 mg PO DAILY 10/21/16 [History] guaiFENesin [Tussin] 5 ml PO Q6H PRN 10/21/16 [History] Metoprolol Tartrate 25 mg PO BID 11/12/17 [History] Albuterol [IJD: Albuterol] 2.5 mg INH Q4H PRN 07/04/20 [History] Gabapentin [Neurontin] 100 mg PO TID 07/04/20 [History] predniSONE [Prednisone] 10 mg PO DAILY 07/04/20 [History] Acetaminophen [Tylenol Extra Strength] 500 mg PO Q6HR PRN 01/12/21 [History] Furosemide 80 mg PO Q48H 01/12/21 [History] Spironolactone [Aldactone] 25 mg PO BID 01/12/21 [History] predniSONE [Prednisone] 5 mg PO ASDIRECTED #53 tablet 01/15/21 [Rx] Patient Handouts: Chronic Obstructive Pulmonary Disease Exacerbation Referrals: Dahiana James NP [Ordering Only Provider] - - Discharge Summary/Plan Comment DC Time >30 min.: No Total # of Minutes for Discharge Time: 15 minutes Discharge Summary/Plan Comment: Discharge diagnoses: 1. 85-year-old woman with oxygen and steroid-dependent chronic obstructive pulmonary disease, with acute exacerbation, resolving Discharge plan: 1. I will discharge her home on a 10-day prednisone taper, which will back her back down to her normal daily dose of 10 mg 2. Omnicef, 300 mg twice daily x10 days - General Info Date of Service: 01/15/21 Admission Dx/Problem (Free Text: Admission Diagnosis/Problem Admission Diagnosis/Problem COPD, Severe chronic obstructive pulmonary disease Subjective Update: See above summary - Patient Data Vitals - Most Recent: Last Vital Signs Temp 97.6 F 01/15/21 08:00 Pulse 91 01/15/21 08:00 Resp 20 01/15/21 08:00 BP 144/81 H 01/15/21 08:00 Pulse Ox 98 01/15/21 08:00 Weight - Most Recent: 140 lb 8 oz I&O - Last 24 hours: Intake & Output 01/14/21 01/15/21 01/15/21 22:59 06:59 14:59 Intake Total 750 Balance 750 Med Orders - Current: Current Medications Acetaminophen (Acetaminophen 325 Mg Tab) 650 mg PO Q4H PRN PRN Reason: Pain (Mild 1-3)/fever Acetaminophen (Acetaminophen 500 Mg Tab) 500 mg PO Q6H PRN PRN Reason: Pain/Fever Albuterol (Albuterol 0.083% 2.5 Mg/3 Ml Neb Soln) 2.5 mg INH Q4H PRN PRN Reason: Shortness of Breath Aspirin (Aspirin 81 Mg Tab.Chew) 81 mg PO BEDTIME [facility] Last Admin: 01/14/21 21:13 Dose: 81 mg Documented by: Atorvastatin Calcium (Atorvastatin 10 Mg Tab) 10 mg PO DAILY [facility] Last Admin: 01/14/21 08:34 Dose: 10 mg Documented by: Budesonide (Budesonide 0.5 Mg/2 Ml Neb Susp) 0.5 mg INH BID [facility] Last Admin: 01/15/21 09:43 Dose: 0.5 mg Documented by: Calcitriol (Calcitriol 0.25 Mcg Cap) 0.25 mcg PO MoWeFr@0800 [facility] Calcium Carbonate/Glycine (Calcium Carbonate 500 Mg Tab.Chew) 500 mg PO B IDMEALS [facility] Last Admin: 01/14/21 17:18 Dose: 500 mg Documented by: Enoxaparin Sodium (Enoxaparin 30 Mg/0.3 Ml Syringe) 30 mg SUBCUT DAILY [facility] Last Admin: 01/14/21 08:43 Dose: 30 mg Documented by: Famotidine (Famotidine 20 Mg Tab) 20 mg PO DAILY PRN PRN Reason: Heartburn Formoterol Fumarate (Formoterol 20 Mcg/2 Ml Neb) 20 mcg INH BID PRN PRN Reason: Dyspnea Furosemide (Furosemide 80 Mg Tab) 80 mg PO Q48H [facility] Last Admin: 01/14/21 08:34 Dose: 80 mg Documented by: Furosemide (Furosemide 20 Mg Tab) 60 mg PO Q48H [facility] Gabapentin (Gabapentin 100 Mg Cap) 100 mg PO TID [facility] Last Admin: 01/14/21 21:13 Dose: 100 mg Documented by: Guaifenesin (Guaifenesin 100 Mg/5 Ml Soln 5 Ml Ud Cup) 100 mg PO Q6H PRN PRN Reason: Cough Last Admin: 01/14/21 17:18 Dose: 100 mg Documented by: Ibuprofen (Ibuprofen 600 Mg Tab) 600 mg PO Q6H PRN PRN Reason: Pain (mild 1-3) Levothyroxine Sodium (Levothyroxine 75 Mcg Tab) 75 mcg PO ACBREAKFAST [facility] Last Admin: 01/15/21 05:27 Dose: 75 mcg Documented by: Loratadine (Loratadine 10 Mg Tab) 10 mg PO DAILY [facility] Last Admin: 01/14/21 08:34 Dose: 10 mg Documented by: Methyl Salicylate (Menthol/Methyl Salicylate 85 Gm Tube) 0 gm TOP Q1H PRN PRN Reason: Pain (mild 1-3) Metoprolol Tartrate (Metoprolol Tartrate 50 Mg Tab) 25 mg PO BID [facility] Last Admin: 01/14/21 21:12 Dose: 25 mg Documented by: Omeprazole (Omeprazole 20 Mg Cap.Cr) 20 mg PO ACBREAKFAST [facility] Last Admin: 01/15/21 05:27 Dose: 20 mg Documented by: Ondansetron HCl (Ondansetron 4 Mg Tab.Dis) 4 mg PO Q6H PRN PRN Reason: nausea, able to take PO Potassium Chloride (Potassium Chloride 10 Meq Tab.Er) 10 meq PO DAILY [facility] Last Admin: 01/14/21 08:34 Dose: 10 meq Documented by: Prednisone (Prednisone 10 Mg Tab) 10 mg PO DAILY [facility] Last Admin: 01/14/21 08:34 Dose: 10 mg Documented by: Sodium Chloride (Sodium Chloride 0.9% 10 Ml Syringe) 10 ml FLUSH ASDIRECTED PRN PRN Reason: Keep Vein Open Last Admin: 01/13/21 02:48 Dose: 10 ml Documented by: Spironolactone (Spironolactone 25 Mg Tab) 25 mg PO BIDDIURETIC [facility] Last Admin: 01/14/21 13:33 Dose: 25 mg Documented by: Discontinued Medications Calcitriol (Calcitriol 0.25 Mcg Cap) 0.25 mcg PO ONETIME ONE Stop: 01/12/21 18:46 Last Admin: 01/12/21 20:26 Dose: 0.25 mcg Documented by: Dexamethasone (Dexamethasone 4 Mg/Ml Sdv) 20 mg IVPUSH Q8H [facility] Stop: 01/13/21 10:31 Last Admin: 01/13/21 10:56 Dose: 20 mg Documented by: Dexamethasone (Dexamethasone 4 Mg/Ml Sdv) 20 mg IVPUSH Q8H [facility] Stop: 01/15/21 08:01 Last Admin: 01/14/21 23:53 Dose: 20 mg Documented by: Famotidine (Famotidine 20 Mg Tab) 20 mg PO ONETIME ONE Stop: 01/14/21 12:01 Last Admin: 01/14/21 12:21 Dose: 20 mg Documented by: Furosemide (Furosemide 40 Mg/4 Ml Vial) 40 mg IVPUSH ONETIME ONE Stop: 01/14/21 11:20 Albumin Human 50 gm/ Premix 200 mls @ 100 mls/hr IV NOW ONE Stop: 01/14/21 13:17 Last Admin: 01/14/21 16:03 Dose: Not Given Documented by: Non-Formulary Medication (Magnesium [Magnesium]) 400 mg PO DAILY [facility] - Exam Physical Findings Comments:: Discharge exam: Patient is 85-year-old woman in no acute distress. Her breathing appears much more at ease today than our previous exams Oropharynx is clear, mucous membranes are moist Neck: Supple, no lymphadenopathy Heart: Regular rate and rhythm, no murmurs Lungs: Much improved air movement throughout all lung sharpe. She has back down to her 3-4 l per nasal cannula.
[2021-01-15 13:35] VITALS: BP 125/72; PULSE 95
== END 2021-01-15 14:16 | disposition home or self-care (01) | DRG 191 ==
LOC: DL.MS 11:22
PROVIDERS: ADMIT Family Medicine; ATTEND Family Medicine
PROC: 3E0333Z Introduction of Anti-inflammatory into Peripheral Vein, Percutaneous Approach (ICD-10-PCS; principal; 2021-01-12)
DX: J44.1 Chronic obstructive pulmonary disease with (acute) exacerbation (principal); E87.3 Alkalosis; I13.0 Hypertensive heart and chronic kidney disease with heart failure and stage 1 through stage 4 chronic kidney disease, or unspecified chronic kidney disease; Z79.82 Long term (current) use of aspirin; Z79.890 Hormone replacement therapy; Z79.899 Other long term (current) drug therapy; Z79.52 Long term (current) use of systemic steroids; Z88.0 Allergy status to penicillin; Z88.1 Allergy status to other antibiotic agents; Z91.040 Latex allergy status; H54.7 Unspecified visual loss; E78.00 Pure hypercholesterolemia, unspecified; I50.9 Heart failure, unspecified; N18.9 Chronic kidney disease, unspecified; Z87.01 Personal history of pneumonia (recurrent); K44.9 Diaphragmatic hernia without obstruction or gangrene; Z98.890 Other specified postprocedural states; M19.90 Unspecified osteoarthritis, unspecified site; G89.29 Other chronic pain; M54.9 Dorsalgia, unspecified; M81.0 Age-related osteoporosis without current pathological fracture; F41.9 Anxiety disorder, unspecified; F32.A Depression, unspecified; M85.80 Other specified disorders of bone density and structure, unspecified site; E05.90 Thyrotoxicosis, unspecified without thyrotoxic crisis or storm; D64.9 Anemia, unspecified; Z98.49 Cataract extraction status, unspecified eye; Z90.710 Acquired absence of both cervix and uterus
CPT/HCPCS: 36415; 71046; 80053; 84484; 85025; 94640; A9270-GY; J1100; J1650; J7512

== ENCOUNTER 2021-01-19 16:24 | Inpatient (IN) | payer MEDICARE, BC ==
--- NOTE | 2021-01-19 17:02 | EDM.PDOC ---
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 Per EMS, the patient was noted to have oxygen saturations in the 80s with oxygen in place; a DuoNeb was administered and her saturations improved to high 90s. The patient was discharged from this facility four days prior for a hospitalization for COPD exacerbation; she states she urged discharge, and notes it may have been too soon. She notes persistent cough that is not worsened and swelling to her bilateral lower extremities which has worsened. She denies fever, shaking chills, chest pain/pressure, palpitations, dyspepsia, nausea, vomiting, or abdominal pain. The patient has finished her course of azithromycin. - Related Data Allergies Allergy/AdvReac Type Severity Reaction Status Date / Time amoxicillin [Amoxicillin] Allergy Nausea Verified 01/12/21 12:39 cefazolin sodium [From Ancef] Allergy Vomiting Verified 01/12/21 12:39 doxycycline Allergy Nausea Verified 01/12/21 12:39 latex Allergy Nausea Verified 01/12/21 12:39 Home Meds: Home Meds Alendronate [Fosamax] 70 mg PO Q7D@0600 10/21/16 [History] Aspirin 81 mg PO BEDTIME 10/21/16 [History] Budesonide [Pulmicort] 0.5 mg IH BID 10/21/16 [History] Calcitriol [Rocaltrol] 0.25 mcg PO .SUNMONWEDFRI 10/21/16 [History] Calcium Carbonate/Vitamin D3 [Calcium 500 mg Chewable Tablet] 1 tab PO DAILY 10/21/16 [History] Formoterol Fumarate [Perforomist] 2 ml PO BID 10/21/16 [History] Furosemide [Lasix] 60 mg PO Q48H 10/21/16 [History] Levothyroxine [Synthroid] 75 mcg PO ACBREAKFAST 10/21/16 [History] Loratadine [Claritin] 10 mg PO DAILY 10/21/16 [History] Magnesium 400 mg PO DAILY 10/21/16 [History] Omeprazole Magnesium [Prilosec Otc] 20 mg PO DAILY 10/21/16 [History] Polyethylene Glycol 3350 [MiraLAX] 17 gm PO DAILY PRN 10/21/16 [History] atorvaSTATin [Lipitor] 10 mg PO DAILY 10/21/16 [History] guaiFENesin [Tussin] 5 ml PO Q6H PRN 10/21/16 [History] Metoprolol Tartrate 25 mg PO BID 11/12/17 [History] Gabapentin [Neurontin] 100 mg PO TID 07/04/20 [History] predniSONE [Prednisone] 10 mg PO DAILY 07/04/20 [History] Acetaminophen [Tylenol Extra Strength] 500 mg PO Q6HR PRN 01/12/21 [History] Furosemide 80 mg PO Q48H 01/12/21 [History] Spironolactone [Aldactone] 25 mg PO BID 01/12/21 [History] predniSONE [Prednisone] 5 mg PO ASDIRECTED #53 tablet 01/15/21 [Rx] Potassium Chloride 10 meq PO DAILY 01/22/21 [History] Past Medical History - Past Health History Medical/Surgical History: Denies Medical/Surgical History HEENT History: Reports: Impaired Vision, Other (See Below) Other HEENT History: Trouble swallowing, wears glasses Cardiovascular History: Reports: Heart Failure, High Cholesterol, Hypertension, SOB on Exertion Respiratory History: Reports: Asthma, COPD, Interstitial Lung Disease, Pneumonia, Recurrent, Pulmonary Fibrosis, SOB, Other (See Below) Other Respiratory History: chronic cough, lung surgery, emphysema Gastrointestinal History: Reports: Hiatal Hernia Genitourinary History: Reports: Chronic Renal Insuffiency Other Genitourinary History: bladder repair, bowel repair G[employer]ER History: Reports: None Musculoskeletal History: Reports: Arthritis, Back Pain, Chronic, Fracture, Osteoporosis Neurological History: Reports: None Psychiatric History: Reports: Anxiety, Depression Endocrine/Metabolic History: Reports: Hyperthyroidism, Osteopenia Hematologic History: Reports: Anemia Immunologic History: Reports: None Oncologic (Cancer) History: Reports: None Other Oncologic History: face Dermatologic History: Reports: None Other Dermatologic History: has bandage to left chin, , biopsy done, no results yet - Infectious Disease History Infectious Disease History: Reports: Measles - Past Surgical History Head Surgeries/Procedures: Reports: None HEENT Surgical History: Reports: Cataract Surgery Cardiovascular Surgical History: Reports: Other (See Below) Other Cardiovascular Surgeries/Procedures: cardiac cath Respiratory Surgical History: Reports: Lung Biopsies GI Surgical History: Reports: Colonoscopy Other GI Surgeries/Procedures: bowel repair Female Surgical History: Reports: Breast Biopsy, Hysterectomy, Other (See Below) Other Female Surgeries/Procedures: bladder repair Oncologic Surgical History: Reports: Mastectomy Social & Family History - Family History Family Medical History: No Pertinent Family History HEENT: Reports: None Cardiac: Reports: None Respiratory: Reports: None GI: Reports: None : Reports: None - Caffeine Use Caffeine Use: Reports: Tea - Living Situation & Occupation Living situation: Reports: , with Spouse Occupation: Retired ED ROS GENERAL - Review of Systems Review Of Systems: Comprehensive ROS is negative, except as noted in HPI. ED EXAM, GENERAL - Physical Exam Exam: See Below Exam Limited By: No Limitations General Appearance: Alert, No Apparent Distress Eye Exam: Bilateral Eye: EOMI, Normal Inspection, PERRL (3mm) Ears: Normal External Exam, Hearing Grossly Normal Nose: Normal Inspection, Normal Mucosa, No Blood Throat/Mouth: Normal Voice, No Airway Compromise. No: Normal Oropharynx (Dry mucous membranes ) Head: Atraumatic, Normocephalic Neck: Normal Inspection, Supple, Non-Tender, Full Range of Motion. No: Lymphadenopathy (L), Lymphadenopathy (R) Respiratory/Chest: No Respiratory Distress, No Accessory Muscle Use, Crackles (Bilateral bases), Rhonchi (Diffuse), Other (4L O2 via NC). No: Wheezing Cardiovascular: Normal Peripheral Pulses, Regular Rate, Rhythm, No Gallop, No Murmur, No Rub. No: No Edema Peripheral Pulses: 2+: Radial (L), Radial (R) GI/Abdominal: Normal Bowel Sounds, Soft, Non-Tender, No Distention, No Abnormal Bruit, No Mass, Pelvis Stable (Female) Exam: Deferred Rectal (Female) Exam: Deferred Back Exam: Normal Inspection, Full Range of Motion Extremities: Normal Range of Motion, Normal Capillary Refill, Pedal Edema (+3 pitting, bilaterally) Neurological: Alert, Oriented, CN II-XII Intact, Normal Cognition, Normal Gait, No Motor/Sensory Deficits Psychiatric: Normal Affect, Normal Mood Skin Exam: Warm, Dry, Intact, Normal Color, No Rash. No: Cyanosis, Jaundice, Mottled, Pallor Course - Vital Signs Last Recorded V/S: Last Vital Signs Temp 98.3 F 01/22/21 19:06 Pulse 118 H 01/22/21 19:06 Resp 20 01/22/21 19:06 BP 118/90 01/22/21 19:06 Pulse Ox 98 01/22/21 19:06 - Orders/Labs/Meds Orders: Medication Orders Acetaminophen (Acetaminophen 500 Mg Tab) 500 mg PO Q6HR PRN PRN Reason: Pain/Fever Last Admin: 01/22/21 21:08 Dose: 500 mg Documented by: Admin: 01/21/21 01:16 Dose: 500 mg Documented by: KILLIAN Albuterol (Albuterol 0.083% 2.5 Mg/3 Ml Neb Soln) 2.5 mg NEB Q4HRRT PRN PRN Reason: Shortness of Breath Last Admin: 01/21/21 17:29 Dose: 2.5 mg Documented by: Admin: 01/20/21 01:20 Dose: 2.5 mg Documented by: KEITH Albuterol (Albuterol 0.083% 2.5 Mg/3 Ml Neb Soln) 2.5 mg INH Q4H PRN PRN Reason: Shortness of Breath Aspirin (Aspirin 81 Mg Tab.Chew) 81 mg PO BEDTIME [facility] Last Admin: 01/22/21 21:08 Dose: 81 mg Documented by: Admin: 01/21/21 21:35 Dose: 81 mg Documented by: Admin: 01/20/21 20:28 Dose: 81 mg Documented by: KILLIAN Atorvastatin Calcium (Atorvastatin 10 Mg Tab) 10 mg PO DAILY [facility] Last Admin: 01/22/21 08:54 Dose: 10 mg Documented by: Admin: 01/21/21 09:37 Dose: 10 mg Documented by: Admin: 01/20/21 09:40 Dose: 10 mg Documented by: BATOOL Budesonide (Budesonide 0.5 Mg/2 Ml Neb Susp) 0.5 mg INH BIDRT [facility] Last Admin: 01/22/21 18:56 Dose: 0.5 mg Documented by: GUILLE Calcitriol (Calcitriol 0.25 Mcg Cap) 0.25 mcg PO MoWeFr@0900 [facility] Last Admin: 01/22/21 08:54 Dose: 0.25 mcg Documented by: GIANA Dextrose/Water (50% Dextrose In Water 50 Ml Syringe) 25 ml IVPUSH ASDIRECTED PRN PRN Reason: Hypoglycemia BS<70 Enoxaparin Sodium (Enoxaparin 40 Mg/0.4 Ml Syringe) 40 mg SUBCUT DAILY [facility] Last Admin: 01/22/21 09:00 Dose: 40 mg Documented by: Admin: 01/21/21 09:38 Dose: 40 mg Documented by: Admin: 01/20/21 09:39 Dose: 40 mg Documented by: Admin: 01/19/21 22:14 Dose: 40 mg Documented by: KEITH Formoterol Fumarate (Formoterol 20 Mcg/2 Ml Neb *Own Med*) 20 mcg INH BIDRT [facility] Last Admin: 01/22/21 18:55 Dose: Not Given Documented by: GUILLE Furosemide (Furosemide 20 Mg/2 Ml Vial) 20 mg IVPUSH Q8H [facility] Last Admin: 01/22/21 21:36 Dose: 20 mg Documented by: Admin: 01/22/21 13:47 Dose: 20 mg Documented by: Admin: 01/22/21 05:30 Dose: 20 mg Documented by: Admin: 01/21/21 21:39 Dose: 20 mg Documented by: Admin: 01/21/21 15:55 Dose: 20 mg Documented by: Admin: 01/21/21 05:39 Dose: 20 mg Documented by: Admin: 01/20/21 22:15 Dose: 20 mg Documented by: Admin: 01/20/21 15:27 Dose: 20 mg Documented by: BATOOL Gabapentin (Gabapentin 100 Mg Cap) 100 mg PO TID [facility] Last Admin: 01/22/21 21:08 Dose: 100 mg Documented by: Admin: 01/22/21 13:47 Dose: 100 mg Documented by: Admin: 01/22/21 08:55 Dose: 100 mg Documented by: Admin: 01/21/21 21:35 Dose: 100 mg Documented by: Admin: 01/21/21 15:54 Dose: 100 mg Documented by: Admin: 01/21/21 09:39 Dose: 100 mg Documented by: Admin: 01/20/21 20:28 Dose: 100 mg Documented by: Admin: 01/20/21 15:27 Dose: 100 mg Documented by: Admin: 01/20/21 09:41 Dose: 100 mg Documented by: BATOOL Guaifenesin (Guaifenesin 100 Mg/5 Ml Soln 5 Ml Ud Cup) 100 mg PO Q6H PRN PRN Reason: Cough Last Admin: 01/22/21 19:53 Dose: 100 mg Documented by: RENATA Insulin Human Lispro (Insulin Lispro 100 Units/Ml 3 Ml Vial) 0 unit SUBCUT WITHMEALSANDBED [facility]; Protocol Last Admin: 01/22/21 21:09 Dose: Not Given Documented by: Admin: 01/22/21 17:28 Dose: 4 units Documented by: Admin: 01/22/21 14:54 Dose: Not Given Documented by: Admin: 01/22/21 10:30 Dose: Not Given Documented by: Admin: 01/22/21 00:43 Dose: Not Given Documented by: Admin: 01/21/21 17:16 Dose: Not Given Documented by: Admin: 01/21/21 15:40 Dose: Not Given Documented by: Admin: 01/21/21 11:27 Dose: Not Given Documented by: Admin: 01/20/21 20:31 Dose: Not Given Documented by: Admin: 01/20/21 18:46 Dose: Not Given Documented by: BATOOL Levothyroxine Sodium (Levothyroxine 75 Mcg Tab) 75 mcg PO ACBREAKFAST [facility] Last Admin: 01/22/21 05:29 Dose: 75 mcg Documented by: Admin: 01/21/21 05:39 Dose: 75 mcg Documented by: KILLIAN Loratadine (Loratadine 10 Mg Tab) 10 mg PO DAILY [facility] Last Admin: 01/22/21 08:59 Dose: 10 mg Documented by: Admin: 01/21/21 09:36 Dose: 10 mg Documented by: Admin: 01/20/21 09:40 Dose: 10 mg Documented by: BATOOL Metoprolol Tartrate (Metoprolol Tartrate 50 Mg Tab) 25 mg PO BID [facility] Admin: 01/22/21 21:09 Dose: Not Given Documented by: Admin: 01/22/21 19:04 Dose: 25 mg Documented by: Admin: 01/22/21 08:56 Dose: 25 mg Documented by: Admin: 01/21/21 21:37 Dose: 25 mg Documented by: Admin: 01/21/21 09:36 Dose: 25 mg Documented by: Admin: 01/20/21 20:28 Dose: 25 mg Documented by: Admin: 01/20/21 09:40 Dose: 25 mg Documented by: BATOOL Omeprazole (Omeprazole 20 Mg Cap.Cr) 20 mg PO DAILY [facility] Admin: 01/22/21 08:55 Dose: 20 mg Documented by: Admin: 01/21/21 09:35 Dose: 20 mg Documented by: Admin: 01/20/21 09:40 Dose: 20 mg Documented by: BATOOL Ondansetron HCl (Ondansetron 4 Mg Tab.Dis) 4 mg PO Q6H PRN PRN Reason: nausea, able to take PO Polyethylene Glycol (Polyethylene Glycol 3350 Powder 17 Gm Packet) 17 gm PO DAILY [facility] Admin: 01/22/21 16:58 Dose: 17 gm Documented by: GIANA Potassium Chloride (Potassium Chloride 10 Meq Tab.Er) 10 meq PO DAILY [facility] Admin: 01/22/21 08:59 Dose: 10 meq Documented by: Admin: 01/21/21 09:36 Dose: 10 meq Documented by: Admin: 01/20/21 09:40 Dose: 10 meq Documented by: BATOOL Prednisone (Prednisone 20 Mg Tab) 20 mg PO WITHBREAKFAST [facility] Admin: 01/22/21 08:58 Dose: 20 mg Documented by: Admin: 01/21/21 09:35 Dose: 20 mg Documented by: GIANA Spironolactone (Spironolactone 25 Mg Tab) 25 mg PO BID [facility] Admin: 01/22/21 21:08 Dose: 25 mg Documented by: Admin: 01/22/21 08:58 Dose: 25 mg Documented by: Admin: 01/21/21 21:35 Dose: 25 mg Documented by: Admin: 01/21/21 09:35 Dose: 25 mg Documented by: Admin: 01/20/21 20:28 Dose: 25 mg Documented by: Admin: 01/20/21 09:40 Dose: 25 mg Documented by: BATOOL Labs: Laboratory Tests 01/19/21 01/19/21 01/19/21 Range/Units 16:37 16:37 16:37 WBC 13.8 H (5.0-10.0) 10^3/uL RBC 3.91 L (4.2-5.4) 10^6/uL Hgb 12.5 (12.0-16.0) g/dL Hct 39.4 (37.0-47.0) % MCV 100.8 H (80-100) fL MCH 32.0 (27.0-34.0) pg MCHC 31.7 L (33.0-35.0) g/dL Plt Count 240 D (150-450) 10^3/uL Neut % (Auto) 90.6 H (42.2-75.2) % Lymph % (Auto) 5.3 L (20.5-50.1) % [place] % (Auto) 3.9 (2-8) % Eos % (Auto) 0.1 L (1.0-3.0) % Baso % (Auto) 0.1 (0.0-1.0) % Sodium 143 (136-145) mmol/L Potassium 4.6 (3.5-5.1) mmol/L Chloride 96 L (98-107) mmol/L Carbon Dioxide > 45 H* (21-32) mmol/L Anion Gap 6.78497 L (7-13) mEq/L BUN 31 H (7-18) mg/dL Creatinine 0.98 (0.55-1.02) mg/dL Est Cr Clr Drug Dosing TNP Estimated GFR (MDRD) 54 BUN/Creatinine Ratio 31.6 (No establ ref range) Glucose 124 H (70-99) mg/dL Lactic Acid 1.0 (0.4-2.0) mmol/L Calcium 9.6 (8.5-10.1) mg/dL Total Bilirubin 0.4 (0.2-1.0) mg/dL AST 18 (15-37) U/L ALT 25 (14-59) U/L Alkaline Phosphatase 95 (46-116) U/L Troponin I High Sens 22 (<=51) pg/mL B-Natriuretic Peptide 132 H (0-100) pg/ml Total Protein 7.2 (6.4-8.2) g/dL Albumin 3.7 (3.4-5.0) g/dL Globulin 3.5 Albumin/Globulin Ratio 1.1 SARS-CoV-2 RNA (RAKESH) (NEGATIVE) 01/19/21 Range/Units 17:05 WBC (5.0-10.0) 10^3/uL RBC (4.2-5.4) 10^6/uL Hgb (12.0-16.0) g/dL Hct (37.0-47.0) % MCV (80-100) fL MCH (27.0-34.0) pg MCHC (33.0-35.0) g/dL Plt Count (150-450) 10^3/uL Neut % (Auto) (42.2-75.2) % Lymph % (Auto) (20.5-50.1) % [place] % (Auto) (2-8) % Eos % (Auto) (1.0-3.0) % Baso % (Auto) (0.0-1.0) % Sodium (136-145) mmol/L Potassium (3.5-5.1) mmol/L Chloride (98-107) mmol/L Carbon Dioxide (21-32) mmol/L Anion Gap (7-13) mEq/L BUN (7-18) mg/dL Creatinine (0.55-1.02) mg/dL Est Cr Clr Drug Dosing Estimated GFR (MDRD) BUN/Creatinine Ratio (No establ ref range) Glucose (70-99) mg/dL Lactic Acid (0.4-2.0) mmol/L Calcium (8.5-10.1) mg/dL Total Bilirubin (0.2-1.0) mg/dL AST (15-37) U/L ALT (14-59) U/L Alkaline Phosphatase (46-116) U/L Troponin I High Sens (<=51) pg/mL B-Natriuretic Peptide (0-100) pg/ml Total Protein (6.4-8.2) g/dL Albumin (3.4-5.0) g/dL Globulin Albumin/Globulin Ratio SARS-CoV-2 RNA (RAKESH) Negative (NEGATIVE) Meds: Medications Generic Name Dose Route Start Last Admin Trade Name Freq PRN Reason Stop Dose Admin Acetaminophen 500 mg 01/20/21 06:31 01/22/21 21:08 Acetaminophen 500 Mg Tab PO 500 mg Q6HR PRN Administration Pain/Fever Albuterol 2.5 mg 01/19/21 23:03 01/21/21 17:29 Albuterol 0.083% 2.5 Mg/3 Ml Neb Soln NEB 2.5 mg Q4HRRT PRN Administration Shortness of Breath Albuterol 2.5 mg 01/20/21 06:31 Albuterol 0.083% 2.5 Mg/3 Ml Neb Soln INH Q4H PRN Shortness of Breath Aspirin 81 mg 01/20/21 21:00 01/22/21 21:08 Aspirin 81 Mg Tab.Chew PO 81 mg BEDTIME AIYANA Administration Atorvastatin Calcium 10 mg 01/20/21 09:00 01/22/21 08:54 Atorvastatin 10 Mg Tab PO 10 mg DAILY AIYANA Administration Budesonide 0.5 mg 01/22/21 18:00 01/22/21 18:56 Budesonide 0.5 Mg/2 Ml Neb Susp INH 0.5 mg BIDRT AIYANA Administration Calcitriol 0.25 mcg 01/22/21 09:00 01/22/21 08:54 Calcitriol 0.25 Mcg Cap PO 0.25 mcg MoWeFr@0900 AIYANA Administration Dextrose/Water 25 ml 01/20/21 14:12 50% Dextrose In Water 50 Ml Syringe IVPUSH ASDIRECTED PRN Hypoglycemia BS<70 Enoxaparin Sodium 40 mg 01/19/21 20:15 01/22/21 09:00 Enoxaparin 40 Mg/0.4 Ml Syringe SUBCUT 40 mg DAILY AIYANA Administration Formoterol Fumarate 20 mcg 01/22/21 18:00 01/22/21 18:55 Formoterol 20 Mcg/2 Ml Neb *Own Med* INH Not Given BIDRT AIYANA Furosemide 20 mg 01/20/21 14:15 01/22/21 21:36 Furosemide 20 Mg/2 Ml Vial IVPUSH 20 mg Q8H AIYANA Administration Gabapentin 100 mg 01/20/21 09:00 01/22/21 21:08 Gabapentin 100 Mg Cap PO 100 mg TID AIYANA Administration Guaifenesin 100 mg 01/22/21 19:33 01/22/21 19:53 Guaifenesin 100 Mg/5 Ml Soln 5 Ml Ud Cup PO 100 mg Q6H PRN Administration Cough Insulin Human Lispro 0 unit 01/20/21 18:00 01/22/21 21:09 Insulin Lispro 100 Units/Ml 3 Ml Vial SUBCUT Not Given WITHMEALSANDBED [facility] Protocol Levothyroxine Sodium 75 mcg 01/21/21 06:00 01/22/21 05:29 Levothyroxine 75 Mcg Tab PO 75 mcg ACBREAKFAST AIYANA Administration Loratadine 10 mg 01/20/21 09:00 01/22/21 08:59 Loratadine 10 Mg Tab PO 10 mg DAILY AIYANA Administration Metoprolol Tartrate 25 mg 01/20/21 09:00 01/22/21 21:09 Metoprolol Tartrate 50 Mg Tab PO Not Given BID AIYANA Omeprazole 20 mg 01/20/21 09:00 01/22/21 08:55 Omeprazole 20 Mg Cap.Cr PO 20 mg DAILY AIYANA Administration Ondansetron HCl 4 mg 01/19/21 19:58 Ondansetron 4 Mg Tab.Dis PO Q6H PRN nausea, able to take PO Polyethylene Glycol 17 gm 01/22/21 16:15 01/22/21 16:58 Polyethylene Glycol 3350 Powder 17 Gm Packet PO 17 gm DAILY AIYANA Administration Potassium Chloride 10 meq 01/20/21 09:00 01/22/21 08:59 Potassium Chloride 10 Meq Tab.Er PO 10 meq DAILY AIYANA Administration Prednisone 20 mg 01/21/21 08:00 01/22/21 08:58 Prednisone 20 Mg Tab PO 20 mg WITHBREAKFAST AIYANA Administration Spironolactone 25 mg 01/20/21 09:00 01/22/21 21:08 Spironolactone 25 Mg Tab PO 25 mg BID AIYANA Administration Discontinued Medications Generic Name Dose Route Start Last Admin Trade Name Freq PRN Reason Stop Dose Admin Budesonide 0.5 mg 01/20/21 09:00 01/22/21 14:55 Budesonide 0.5 Mg/2 Ml Neb Susp INH Not Given BID AIYANA Dexamethasone 20 mg 01/19/21 20:15 01/20/21 06:48 Dexamethasone 4 Mg/Ml Sdv IVPUSH 01/20/21 04:16 Not Given Q8H AIYANA Dexamethasone 20 mg 01/20/21 06:39 01/20/21 06:58 Dexamethasone 4 Mg/Ml Sdv IV 01/20/21 06:40 20 mg ONETIME ONE Administration Furosemide 60 mg 01/19/21 17:32 01/19/21 18:07 Furosemide 100 Mg/10 Ml Sdv IVPUSH 01/19/21 17:33 60 mg ONETIME ONE Administration Furosemide 80 mg 01/20/21 07:00 01/20/21 06:57 Furosemide 20 Mg Tab PO 80 mg Q48H AIYANA Administration Furosemide 60 mg 01/21/21 07:00 Furosemide 20 Mg Tab PO Q48H AIYANA - Radiology Interpretation Free Text/Narrative:: [facility] [place] - [facility] Final Radiology Report Call: [phone] assistance Online chat: [email or web address] Name: JACOB MCLEOD Age: 85Years F Date: 01/19/2021 SSN: -- : [id number] Study: CR CHEST 1V FRONTAL Requesting Physician: Violetta Marshall Images: 1 Addl Studies: Provided Clinical History: SOB Contrast: Contrast Medium: Contrast Amount: Contrast Method: Page 1 of 2 PROCEDURE INFORMATION: Exam: XR Chest Exam date and time: 01/19/2021 4:45 PM Age: 85 years old Clinical indication: Shortness of breath; Additional info: SOB TECHNIQUE: Imaging protocol: XR of the chest. Views: 1 view. COMPARISON: 1. CT Chest wo Cont 07/27/2020 10:56:39 AM 2. CR Chest 2V 01/14/2021 1:18 PM FINDINGS: Lungs: Diffuse bilateral patchy and reticular pulmonary opacities, with areas of hyperlucency on the right, not significantly changed compared to prior. Pleural spaces: Unremarkable. No pleural effusion. No pneumothorax. Heart/Mediastinum: The cardiac silhouette is mostly obscured but there is no evidence of marked cardiomegaly. Diaphragm: Elevation of the left hemidiaphragm as before. Bones/joints: No evidence of acute osseous abnormality. IMPRESSION: No significant change from prior. Diffuse bilateral pulmonary opacities as before. Findings most likely represent scarring/fibrosis with possible superimposed edema or atypical infection. Thank you for allowing us to participate in the care of your patient. Dictated and Authenticated by: Vijay Garcia MD 01/19/2021 5:13 PM Central Time ([place] & [place]) - Re-Assessments/Exams Free Text/Narrative Re-Assessment/Exam: 01/19/21 CXR obtained while labs pending. Furosemide 60mg IVP administered. Case discussed with Dr. Gustafson, hospitalist at [facility], who kindly accepted patient for admission to this facility. Findings of examination, lab work, imaging, and discussion with Dr. Gustafson reviewed with patient. Patient verbalized understanding and agreement with the plan of care. 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
[2021-01-19 17:12] LABS: CHLORIDE,CL 96 mmol/L (98-107); SODIUM,NA 143 mmol/L (136-145)
--- NOTE | 2021-01-19 17:14 | CR ---
PROCEDURE INFORMATION: Exam: XR Chest Exam date and time: 01/19/2021 4:45 PM Age: 85 years old Clinical indication: Shortness of breath; Additional info: SOB TECHNIQUE: Imaging protocol: XR of the chest. Views: 1 view. COMPARISON: 1. CT Chest wo Cont 07/27/2020 10:56:39 AM 2. CR Chest 2V 01/14/2021 1:18 PM FINDINGS: Lungs: Diffuse bilateral patchy and reticular pulmonary opacities, with areas of hyperlucency on the right, not significantly changed compared to prior. Pleural spaces: Unremarkable. No pleural effusion. No pneumothorax. Heart/Mediastinum: The cardiac silhouette is mostly obscured but there is no evidence of marked cardiomegaly. Diaphragm: Elevation of the left hemidiaphragm as before. Bones/joints: No evidence of acute osseous abnormality. IMPRESSION: No significant change from prior. Diffuse bilateral pulmonary opacities as before. Findings most likely represent scarring/fibrosis with possible superimposed edema or atypical infection.
[2021-01-19 17:24] LABS: ANION GAP 6.59999 mEq/L (7-13)
[2021-01-19] MEDS ORDERED: Furosemide 100 MG/10 ML SDV IVPUSH ONE (17:32)
[2021-01-19] MEDS ORDERED: Ondansetron 4 MG Tab.DIS PO PRN (19:58)
[2021-01-19] MEDS: Dexamethasone 4 MG/ML SDV IVPUSH SCH (22:14)
[2021-01-19] MEDS: Enoxaparin 40 MG/0.4 ML Syringe SUBCUT SCH (22:14)
[2021-01-20] MEDS: Albuterol 0.083% 2.5 MG/3 ML Neb Soln NEB PRN (01:20)
--- NOTE | 2021-01-20 06:28 | PCM.HP ---
H&P History of Present Illness - General Date of Service: 01/19/21 Admit Problem/Dx: Admission Diagnosis/Problem Admission Diagnosis/Problem Congestive heart failure - History of Present Illness Initial Comments - Free Text/Narative: Jacob is an 85-year-old woman who has both oxygen and steroid-dependent COPD, as well as brittle CHF. She was hospitalized earlier this week with COPD exacerbation, and was sent home on a prednisone taper. She states that over the last 24 hours, she again became very short of breath. ER noted her to desaturate into the 70s on room air and even up to 2 L of oxygen. She was also noted to be up 19 pounds since her admission weight 1 week ago. She reports no chest pain or palpitations, no nausea or vomiting. - Related Data Allergies/Adverse Reactions: Allergies Allergy/AdvReac Type Severity Reaction Status Date / Time amoxicillin [Amoxicillin] Allergy Nausea Verified 01/12/21 12:39 cefazolin sodium [From Ancef] Allergy Vomiting Verified 01/12/21 12:39 doxycycline Allergy Nausea Verified 01/12/21 12:39 latex Allergy Nausea Verified 01/12/21 12:39 Home Medications: Home Meds Alendronate [Fosamax] 70 mg PO Q7D@0600 10/21/16 [History] Aspirin 81 mg PO BEDTIME 10/21/16 [History] Budesonide [Pulmicort] 0.5 mg IH BID 10/21/16 [History] Calcitriol [Rocaltrol] 0.25 mcg PO .MON.WED.Fri10/21/16 [History] Calcium Carbonate/Vitamin D3 [Calcium 500 mg Chewable Tablet] 1 tab PO DAILY [History] Formoterol Fumarate [Perforomist] 2 ml PO BID PRN 10/21/16 [History] Furosemide [Lasix] 60 mg PO Q48H 10/21/16 [History] Levothyroxine [Synthroid] 75 mcg PO ACBREAKFAST 10/21/16 [History] Loratadine [Claritin] 10 mg PO DAILY 10/21/16 [History] Magnesium 400 mg PO DAILY 10/21/16 [History] Omeprazole Magnesium [Prilosec Otc] 20 mg PO DAILY 10/21/16 [History] Polyethylene Glycol 3350 [MiraLAX] 17 gm PO DAILY PRN 10/21/16 [History] Potassium Chloride 10 meq PO DAILY 10/21/16 [History] atorvaSTATin [Lipitor] 10 mg PO DAILY 10/21/16 [History] guaiFENesin [Tussin] 5 ml PO Q6H PRN 10/21/16 [History] Metoprolol Tartrate 25 mg PO BID 11/12/17 [History] Albuterol [IJD: Albuterol] 2.5 mg INH Q4H PRN 07/04/20 [History] Gabapentin [Neurontin] 100 mg PO TID 07/04/20 [History] predniSONE [Prednisone] 10 mg PO DAILY 07/04/20 [History] Acetaminophen [Tylenol Extra Strength] 500 mg PO Q6HR PRN 01/12/21 [History] Furosemide 80 mg PO Q48H 01/12/21 [History] Spironolactone [Aldactone] 25 mg PO BID 01/12/21 [History] predniSONE [Prednisone] 5 mg PO ASDIRECTED #53 tablet 01/15/21 [Rx] Past Medical History - Past Health History Medical/Surgical History: Denies Medical/Surgical History HEENT History: Reports: Impaired Vision, Other (See Below) Other HEENT History: Trouble swallowing, wears glasses Cardiovascular History: Reports: Heart Failure, High Cholesterol, Hypertension, SOB on Exertion Respiratory History: Reports: Asthma, COPD, Interstitial Lung Disease, Pneumonia, Recurrent, Pulmonary Fibrosis, SOB, Other (See Below) Other Respiratory History: chronic cough, lung surgery, emphysema Gastrointestinal History: Reports: Hiatal Hernia Genitourinary History: Reports: Chronic Renal Insuffiency Other Genitourinary History: bladder repair, bowel repair BACON SLICER History: Reports: None Musculoskeletal History: Reports: Arthritis, Back Pain, Chronic, Fracture, Osteo porosis Neurological History: Reports: None Psychiatric History: Reports: Anxiety, Depression Endocrine/Metabolic History: Reports: Hyperthyroidism, Osteopenia Hematologic History: Reports: Anemia Immunologic History: Reports: None Oncologic (Cancer) History: Reports: None Other Oncologic History: face Dermatologic History: Reports: None Other Dermatologic History: has bandage to left chin, , biopsy done, no results yet - Infectious Disease History Infectious Disease History: Reports: Measles - Past Surgical History Head Surgeries/Procedures: Reports: None HEENT Surgical History: Reports: Cataract Surgery Cardiovascular Surgical History: Reports: Other (See Below) Other Cardiovascular Surgeries/Procedures: cardiac cath Respiratory Surgical History: Reports: Lung Biopsies GI Surgical History: Reports: Colonoscopy Other GI Surgeries/Procedures: bowel repair Female Surgical History: Reports: Breast Biopsy, Hysterectomy, Other (See Below) Other Female Surgeries/Procedures: bladder repair Oncologic Surgical History: Reports: Mastectomy Social & Family History - Family History Family Medical History: No Pertinent Family History HEENT: Reports: None Cardiac: Reports: None Respiratory: Reports: None GI: Reports: None : Reports: None - Tobacco Use Tobacco Use Status *Q: Never Tobacco User Second Hand Smoke Exposure: No - Caffeine Use Caffeine Use: Reports: Soda, Tea Caffeine Use Comment: Tea daily, soda occasionally - Recreational Drug Use Recreational Drug Use: No - Living Situation & Occupation Living situation: Reports: , with Spouse Occupation: Retired H&P Review of Systems - Review of Systems: Review Of Systems: See Below General: Denies: Fever, Chills HEENT: Denies: Hearing Changes, Visual Changes Pulmonary: Reports: Other (See HPI) Cardiovascular: Denies: Chest Pain, Palpitations Gastrointestinal: Denies: Hematochezia, Melena Genitourinary: Denies: Dysuria, Hematuria Musculoskeletal: Denies: Joint Pain, Joint Swelling Skin: Denies: Rash, Lesions Neurological: Denies: Trouble Speaking Hematologic/Lymphatic: Denies: Easy Bleeding, Easy Bruising Review of Systems Comment:: Rest of her review of systems is complete and negative Exam - Exam Exam: See Below - Vital Signs Vital Signs: Last Vital Signs Temp 97.9 F 01/20/21 01:00 Pulse 113 H 01/20/21 01:00 Resp 20 01/20/21 01:00 BP 130/81 01/20/21 01:00 Pulse Ox 97 01/20/21 01:00 Weight: 141 lb 12.8 oz - Exam Physical Exam Comments:: General: Nika is an 85-year-old woman in no acute distress. She is showing no signs of respiratory distress, no tachypnea or accessory muscle use Oropharynx is clear, mucous membranes are moist Neck: Supple, no lymphadenopathy Heart: Regular rate and rhythm, 1 out of 6 systolic murmur heard throughout Lungs: Expiratory wheezing bilaterally with very distant breath sounds throughout all lung sharpe. No areas of consolidation heard - Patient Data Lab Results Last 24 hrs: Laboratory Results - last 24 hr 01/19/21 01/19/21 01/19/21 Range/Units 16:37 16:37 16:37 WBC 13.8 H (5.0-10.0) 10^3/uL RBC 3.91 L (4.2-5.4) 10^6/uL Hgb 12.5 (12.0-16.0) g/dL Hct 39.4 (37.0-47.0) % MCV 100.8 H (80-100) fL MCH 32.0 (27.0-34.0) pg MCHC 31.7 L (33.0-35.0) g/dL Plt Count 240 D (150-450) 10^3/uL Neut % (Auto) 90.6 H (42.2-75.2) % Lymph % (Auto) 5.3 L (20.5-50.1) % Dale % (Auto) 3.9 (2-8) % Eos % (Auto) 0.1 L (1.0-3.0) % Baso % (Auto) 0.1 (0.0-1.0) % Sodium 143 (136-145) mmol/L Potassium 4.6 (3.5-5.1) mmol/L Chloride 96 L (98-107) mmol/L Carbon Dioxide > 45 H* (21-32) mmol/L Anion Gap 6.11129 L (7-13) mEq/L BUN 31 H (7-18) mg/dL Creatinine 0.98 (0.55-1.02) mg/dL Est Cr Clr Drug Dosing TNP Estimated GFR (MDRD) 54 BUN/Creatinine Ratio 31.6 (No establ ref range) Glucose 124 H (70-99) mg/dL Lactic Acid 1.0 (0.4-2.0) mmol/L Calcium 9.6 (8.5-10.1) mg/dL Total Bilirubin 0.4 (0.2-1.0) mg/dL AST 18 (15-37) U/L ALT 25 (14-59) U/L Alkaline Phosphatase 95 (46-116) U/L Troponin I High Sens 22 (<=51) pg/mL B-Natriuretic Peptide 132 H (0-100) pg/ml Total Protein 7.2 (6.4-8.2) g/dL Albumin 3.7 (3.4-5.0) g/dL Globulin 3.5 Albumin/Globulin Ratio 1.1 SARS-CoV-2 RNA (RAKESH) (NEGATIVE) 01/19/21 Range/Units 17:05 WBC (5.0-10.0) 10^3/uL RBC (4.2-5.4) 10^6/uL Hgb (12.0-16.0) g/dL Hct (37.0-47.0) % MCV (80-100) fL MCH (27.0-34.0) pg MCHC (33.0-35.0) g/dL Plt Count (150-450) 10^3/uL Neut % (Auto) (42.2-75.2) % Lymph % (Auto) (20.5-50.1) % [place] % (Auto) (2-8) % Eos % (Auto) (1.0-3.0) % Baso % (Auto) (0.0-1.0) % Sodium (136-145) mmol/L Potassium (3.5-5.1) mmol/L Chloride (98-107) mmol/L Carbon Dioxide (21-32) mmol/L Anion Gap (7-13) mEq/L BUN (7-18) mg/dL Creatinine (0.55-1.02) mg/dL Est Cr Clr Drug Dosing Estimated GFR (MDRD) BUN/Creatinine Ratio (No establ ref range) Glucose (70-99) mg/dL Lactic Acid (0.4-2.0) mmol/L Calcium (8.5-10.1) mg/dL Total Bilirubin (0.2-1.0) mg/dL AST (15-37) U/L ALT (14-59) U/L Alkaline Phosphatase (46-116) U/L Troponin I High Sens (<=51) pg/mL B-Natriuretic Peptide (0-100) pg/ml Total Protein (6.4-8.2) g/dL Albumin (3.4-5.0) g/dL Globulin Albumin/Globulin Ratio SARS-CoV-2 RNA (RAKESH) Negative (NEGATIVE) Result Diagrams: 01/20/21 05:40 01/19/21 16:37 *Q Meaningful Use (ADM) - VTE Risk Assess *Q Each Risk Factor Represents 2 Points: None Total Score 2 Point Risk Factors: 0 Each Risk Factor Represents 3 Points: Age 75 Years or Greater Total Score 3 Point Risk Factors: 3 - Problem List (1) Acute exacerbation of CHF (congestive heart failure) SNOMED Code(s): 012969333, 26985981086411 ICD Code: I50.9 - HEART FAILURE, UNSPECIFIED Status: Chronic Current Visit: Yes Qualifiers: Heart failure type: combined systolic and diastolic Qualified Code(s): I50.43 - Acute on chronic combined systolic (congestive) and diastolic (congestive) heart failure (2) COPD (chronic obstructive pulmonary disease) SNOMED Code(s): 49396976 ICD Code: J44.9 - CHRONIC OBSTRUCTIVE PULMONARY DISEASE, UNSPECIFIED S tatus: Chronic Current Visit: Yes Qualifiers: COPD type: unspecified COPD Qualified Code(s): J44.9 - Chronic obstructive pulmonary disease, unspecified (3) Metabolic alkalosis SNOMED Code(s): 9010836 ICD Code: E87.3 - ALKALOSIS Status: Chronic Current Visit: No Problem List Initiated/Reviewed/Updated: Yes Orders Last 24hrs: Active Orders 24 hr Category Date Time Status Admission Diagnosis [ADT] Stat ADT 01/19/21 18:27 Ordered Admission Status [Patient Status] [ADT] Routine ADT 01/19/21 18:27 Active Cardiac Monitoring [RC] Care 01/19/21 20:00 Active Oxygen Therapy [RC] PRN Care 01/19/21 19:58 Active RT Aerosol Therapy [RC] .PRN Care 01/19/21 23:04 Active Up With Assistance [RC] ASDIRECTED Care 01/19/21 19:58 Active VTE/DVT Education [RC] Care 01/19/21 19:58 Active Vital Signs [RC] Q4H Care 01/19/21 19:58 Active Regular Diet [DIET] Diet 01/20/21 Breakfast Active B-TYPE NATRIURETIC PEPTIDE,BNP [CHEM] AM Lab 01/20/21 05:40 Received CBC WITH AUTO DIFF [HEME] AM Lab 01/20/21 05:40 Received COMPREHENSIVE METABOLIC PN,CMP [CHEM] AM Lab 01/20/21 05:40 Received CULTURE BLOOD [BC] Stat Lab 01/19/21 16:37 Received TROPONIN I HIGH SENSITIVITY [CHEM] AM Lab 01/20/21 05:40 Received Albuterol [Proventil Neb Soln] Med 01/19/21 23:03 Active 2.5 mg NEB Q4HRRT PRN Enoxaparin [Lovenox] Med 01/19/21 20:15 Active 40 mg SUBCUT DAILY Ondansetron [Zofran ODT] Med 01/19/21 19:58 Active 4 mg PO Q6H PRN Medication Orders Albuterol (Albuterol 0.083% 2.5 Mg/3 Ml Neb Soln) 2.5 mg NEB Q4HRRT PRN PRN Reason: Shortness of Breath Last Admin: 01/20/21 01:20 Dose: 2.5 mg Documented by: KEITH Enoxaparin Sodium (Enoxaparin 40 Mg/0.4 Ml Syringe) 40 mg SUBCUT DAILY [facility] Last Admin: 01/19/21 22:14 Dose: 40 mg Documented by: KEITH Ondansetron HCl (Ondansetron 4 Mg Tab.Dis) 4 mg PO Q6H PRN PRN Reason: nausea, able to take PO Assessment/Plan Comment:: Assessment/Plan: 1. 85-year-old woman with sudden increased weight gain as well as increased oxygen demand: With the increased weight gain, I am suspicious of CHF exacerbation, however her BNP is fairly low. We will treat empirically for both and see if she can declare herself within the next 24 hours. -Dexamethasone, 20 mg IV every 8 hours x3 doses, I will use an exclusive glucocorticoid instead of methylprednisolone, in the context of her brittle CHF -Continue home albuterol -She is on a large dose of daily Lasix from home, we will continue that see if she cannot diurese some today 2. VTE prophylaxis: She is on Lovenox, 40 mg subcu daily
[2021-01-20] MEDS ORDERED: Albuterol 0.083% 2.5 MG/3 ML Neb Soln INH PRN (06:31)
[2021-01-20] MEDS ORDERED: Dexamethasone 4 MG/ML SDV IV ONE (06:39)
[2021-01-20 06:40] LABS: CHLORIDE,CL 96 mmol/L (98-107); SODIUM,NA 144 mmol/L (136-145)
[2021-01-20] MEDS: Dexamethasone 4 MG/ML SDV IVPUSH SCH (06:48)
[2021-01-20 06:49] LABS: ANION GAP 7.59999 mEq/L (7-13)
[2021-01-20] MEDS ORDERED: Furosemide 20 MG Tab PO SCH (07:00)
[2021-01-20] MEDS: Enoxaparin 40 MG/0.4 ML Syringe SUBCUT SCH (09:39)
[2021-01-20] MEDS: Omeprazole 20 MG Cap.CR PO SCH (09:40)
[2021-01-20] MEDS: atorvaSTATin 10 MG Tab PO SCH (09:40)
[2021-01-20] MEDS: Potassium Chloride 10 MEQ Tab.ER PO SCH (09:40)
[2021-01-20] MEDS: Spironolactone 25 MG Tab PO SCH ×2 (09:40→20:28)
[2021-01-20] MEDS: Metoprolol Tartrate 50 MG Tab PO SCH ×2 (09:40→20:28)
[2021-01-20] MEDS: Loratadine 10 MG Tab PO SCH (09:40)
[2021-01-20] MEDS: Gabapentin 100 MG Cap PO SCH ×3 (09:41→20:28)
[2021-01-20] MEDS: Budesonide 0.5 MG/2 ML Neb Susp INH SCH ×2 (09:47→20:32)
[2021-01-20] MEDS ORDERED: 50% Dextrose in Water 50 ML Syringe IVPUSH PRN (14:12)
--- NOTE | 2021-01-20 14:16 | PCM.PN ---
- General Info Date of Service: 01/20/21 Admission Dx/Problem (Free Text): Admission Diagnosis/Problem Admission Diagnosis/Problem Shortness of breath Subjective Update: admitted with sob feeling better sob is moderate, improved since admission, no associated fever, better with oxygen, worse with activity, has been present for days - Patient Data Vitals - Most Recent: Last Vital Signs Temp 97.0 F 01/20/21 12:18 Pulse 92 01/20/21 12:18 Resp 18 01/20/21 12:18 BP 117/73 01/20/21 12:18 Pulse Ox 98 01/20/21 12:18 Weight - Most Recent: 140 lb 9.6 oz I&O - Last 24 Hours: Intake & Output 01/19/21 01/20/21 01/20/21 22:59 06:59 14:59 Intake Total 100 250 80 Output Total 550 300 Balance -450 -50 80 Lab Results Last 24 Hours: Laboratory Results - last 24 hr 01/19/21 01/19/21 01/19/21 Range/Units 16:37 16:37 16:37 WBC 13.8 H (5.0-10.0) 10^3/uL RBC 3.91 L (4.2-5.4) 10^6/uL Hgb 12.5 (12.0-16.0) g/dL Hct 39.4 (37.0-47.0) % MCV 100.8 H (80-100) fL MCH 32.0 (27.0-34.0) pg MCHC 31.7 L (33.0-35.0) g/dL Plt Count 240 D (150-450) 10^3/uL Neut % (Auto) 90.6 H (42.2-75.2) % Lymph % (Auto) 5.3 L (20.5-50.1) % [place] % (Auto) 3.9 (2-8) % Eos % (Auto) 0.1 L (1.0-3.0) % Baso % (Auto) 0.1 (0.0-1.0) % Sodium 143 (136-145) mmol/L Potassium 4.6 (3.5-5.1) mmol/L Chloride 96 L (98-107) mmol/L Carbon Dioxide > 45 H* (21-32) mmol/L Anion Gap 6.52228 L (7-13) mEq/L BUN 31 H (7-18) mg/dL Creatinine 0.98 (0.55-1.02) mg/dL Est Cr Clr Drug Dosing TNP Estimated GFR (MDRD) 54 BUN/Creatinine Ratio 31.6 (No establ ref range) Glucose 124 H (70-99) mg/dL Lactic Acid 1.0 (0.4-2.0) mmol/L Calcium 9.6 (8.5-10.1) mg/dL Total Bilirubin 0.4 (0.2-1.0) mg/dL AST 18 (15-37) U/L ALT 25 (14-59) U/L Alkaline Phosphatase 95 (46-116) U/L Troponin I High Sens 22 (<=51) pg/mL B-Natriuretic Peptide 132 H (0-100) pg/ml Total Protein 7.2 (6.4-8.2) g/dL Albumin 3.7 (3.4-5.0) g/dL Globulin 3.5 Albumin/Globulin Ratio 1.1 SARS-CoV-2 RNA (RAKESH) (NEGATIVE) 01/19/21 01/20/21 01/20/21 Range/Units 17:05 05:40 05:40 WBC 9.7 (5.0-10.0) 10^3/uL RBC 3.58 L (4.2-5.4) 10^6/uL Hgb 11.4 L (12.0-16.0) g/dL Hct 36.4 L (37.0-47.0) % MCV 101.7 H (80-100) fL MCH 31.8 (27.0-34.0) pg MCHC 31.3 L (33.0-35.0) g/dL Plt Count 199 (150-450) 10^3/uL Neut % (Auto) 95.8 H (42.2-75.2) % Lymph % (Auto) 3.3 L (20.5-50.1) % [place] % (Auto) 0.8 L (2-8) % Eos % (Auto) 0.0 L (1.0-3.0) % Baso % (Auto) 0.1 (0.0-1.0) % Sodium 144 (136-145) mmol/L Potassium 4.6 (3.5-5.1) mmol/L Chloride 96 L (98-107) mmol/L Carbon Dioxide > 45 H* (21-32) mmol/L Anion Gap 7.57147 (7-13) mEq/L BUN 32 H (7-18) mg/dL Creatinine 0.95 (0.55-1.02) mg/dL Est Cr Clr Drug Dosing 32.23 Estimated GFR (MDRD) 56 BUN/Creatinine Ratio 33.7 (No establ ref range) Glucose 183 H (70-99) mg/dL Lactic Acid (0.4-2.0) mmol/L Calcium 9.2 (8.5-10.1) mg/dL Total Bilirubin 0.4 (0.2-1.0) mg/dL AST 17 (15-37) U/L ALT 21 (14-59) U/L Alkaline Phosphatase 80 (46-116) U/L Troponin I High Sens 32 (<=51) pg/mL B-Natriuretic Peptide 105 H (0-100) pg/ml Total Protein 6.1 L (6.4-8.2) g/dL Albumin 3.0 L (3.4-5.0) g/dL Globulin 3.1 Albumin/Globulin Ratio 0.97 SARS-CoV-2 RNA (RAKESH) Negative (NEGATIVE) Med Orders - Current: Current Medications Acetaminophen (Acetaminophen 500 Mg Tab) 500 mg PO Q6HR PRN PRN Reason: Pain/Fever Albuterol (Albuterol 0.083% 2.5 Mg/3 Ml Neb Soln) 2.5 mg NEB Q4HRRT PRN PRN Reason: Shortness of Breath Last Admin: 01/20/21 01:20 Dose: 2.5 mg Documented by: Albuterol (Albuterol 0.083% 2.5 Mg/3 Ml Neb Soln) 2.5 mg INH Q4H PRN PRN Reason: Shortness of Breath Aspirin (Aspirin 81 Mg Tab.Chew) 81 mg PO BEDTIME AIYANA Atorvastatin Calcium (Atorvastatin 10 Mg Tab) 10 mg PO DAILY [facility] Last Admin: 01/20/21 09:40 Dose: 10 mg Documented by: Budesonide (Budesonide 0.5 Mg/2 Ml Neb Susp) 0.5 mg INH BID [facility] Last Admin: 01/20/21 09:47 Dose: 0.5 mg Documented by: Calcitriol (Calcitriol 0.25 Mcg Cap) 0.25 mcg PO MoWeFr@0900 [facility] Dextrose/Water (50% Dextrose In Water 50 Ml Syringe) 25 ml IVPUSH ASDIRECTED PRN PRN Reason: Hypoglycemia BS<70 Enoxaparin Sodium (Enoxaparin 40 Mg/0.4 Ml Syringe) 40 mg SUBCUT DAILY [facility] [place] Last Admin: 01/20/21 09:39 Dose: 40 mg Documented by: Formoterol Fumarate (Formoterol 20 Mcg/2 Ml Neb) 20 mcg INH BID PRN PRN Reason: Dyspnea Furosemide (Furosemide 20 Mg/2 Ml Vial) 20 mg IVPUSH Q8H [facility] Gabapentin (Gabapentin 100 Mg Cap) 100 mg PO TID [facility] [place] Last Admin: 01/20/21 09:41 Dose: 100 mg Documented by: Insulin Human Lispro (Insulin Lispro 100 Units/Ml 3 Ml Vial) 0 unit SUBCUT WITHMEALSANDBED [facility]; Protocol Levothyroxine Sodium (Levothyroxine 75 Mcg Tab) 75 mcg PO ACBREAKFAST [facility] Loratadine (Loratadine 10 Mg Tab) 10 mg PO DAILY [facility] Last Admin: 01/20/21 09:40 Dose: 10 mg Documented by: Metoprolol Tartrate (Metoprolol Tartrate 50 Mg Tab) 25 mg PO BID [facility] Last Admin: 01/20/21 09:40 Dose: 25 mg Documented by: Omeprazole (Omeprazole 20 Mg Cap.Cr) 20 mg PO DAILY [facility] Last Admin: 01/20/21 09:40 Dose: 20 mg Documented by: Ondansetron HCl (Ondansetron 4 Mg Tab.Dis) 4 mg PO Q6H PRN PRN Reason: nausea, able to take PO Potassium Chloride (Potassium Chloride 10 Meq Tab.Er) 10 meq PO DAILY [facility] Last Admin: 01/20/21 09:40 Dose: 10 meq Documented by: Prednisone (Prednisone 20 Mg Tab) 20 mg PO WITHBREAKFAST [facility] Spironolactone (Spironolactone 25 Mg Tab) 25 mg PO BID [facility] Last Admin: 01/20/21 09:40 Dose: 25 mg Documented by: Discontinued Medications Dexamethasone (Dexamethasone 4 Mg/Ml Sdv) 20 mg IVPUSH Q8H [facility] Stop: 01/20/21 04:16 Last Admin: 01/20/21 06:48 Dose: Not Given Documented by: Dexamethasone (Dexamethasone 4 Mg/Ml Sdv) 20 mg IV ONETIME ONE Stop: 01/20/21 06:40 Last Admin: 01/20/21 06:58 Dose: 20 mg Documented by: Furosemide (Furosemide 100 Mg/10 Ml Sdv) 60 mg IVPUSH ONETIME ONE Stop: 01/19/21 17:33 Last Admin: 01/19/21 18:07 Dose: 60 mg Documented by: Furosemide (Furosemide 20 Mg Tab) 80 mg PO Q48H AIYANA Last Admin: 01/20/21 06:57 Dose: 80 mg Documented by: Furosemide (Furosemide 20 Mg Tab) 60 mg PO Q48H AIYANA - Exam Quality Assessment: Supplemental Oxygen General: Alert, Oriented Neck: Supple Lungs: Crackles (fine b/l ) Cardiovascular: Regular Rate, Regular Rhythm GI/Abdominal Exam: Normal Bowel Sounds, Soft, Non-Tender Extremities: Pedal Edema (2+ ) Neurological: No New Focal Deficit Psy/Mental Status: Alert, Normal Affect, Normal Mood - Patient Data Lab Results Last 24 hrs: Laboratory Results - last 24 hr 01/19/21 01/19/21 01/19/21 Range/Units 16:37 16:37 16:37 WBC 13.8 H (5.0-10.0) 10^3/uL RBC 3.91 L (4.2-5.4) 10^6/uL Hgb 12.5 (12.0-16.0) g/dL Hct 39.4 (37.0-47.0) % MCV 100.8 H (80-100) fL MCH 32.0 (27.0-34.0) pg MCHC 31.7 L (33.0-35.0) g/dL Plt Count 240 D (150-450) 10^3/uL Neut % (Auto) 90.6 H (42.2-75.2) % Lymph % (Auto) 5.3 L (20.5-50.1) % [place] % (Auto) 3.9 (2-8) % Eos % (Auto) 0.1 L (1.0-3.0) % Baso % (Auto) 0.1 (0.0-1.0) % Sodium 143 (136-145) mmol/L Potassium 4.6 (3.5-5.1) mmol/L Chloride 96 L (98-107) mmol/L Carbon Dioxide > 45 H* (21-32) mmol/L Anion Gap 6.32840 L (7-13) mEq/L BUN 31 H (7-18) mg/dL Creatinine 0.98 (0.55-1.02) mg/dL Est Cr Clr Drug Dosing TNP Estimated GFR (MDRD) 54 BUN/Creatinine Ratio 31.6 (No establ ref range) Glucose 124 H (70-99) mg/dL Lactic Acid 1.0 (0.4-2.0) mmol/L Calcium 9.6 (8.5-10.1) mg/dL Total Bilirubin 0.4 (0.2-1.0) mg/dL AST 18 (15-37) U/L ALT 25 (14-59) U/L Alkaline Phosphatase 95 (46-116) U/L Troponin I High Sens 22 (<=51) pg/mL B-Natriuretic Peptide 132 H (0-100) pg/ml Total Protein 7.2 (6.4-8.2) g/dL Albumin 3.7 (3.4-5.0) g/dL Globulin 3.5 Albumin/Globulin Ratio 1.1 SARS-CoV-2 RNA (RAKESH) (NEGATIVE) 01/19/21 01/20/21 01/20/21 Range/Units 17:05 05:40 05:40 WBC 9.7 (5.0-10.0) 10^3/uL RBC 3.58 L (4.2-5.4) 10^6/uL Hgb 11.4 L (12.0-16.0) g/dL Hct 36.4 L (37.0-47.0) % MCV 101.7 H (80-100) fL MCH 31.8 (27.0-34.0) pg MCHC 31.3 L (33.0-35.0) g/dL Plt Count 199 (150-450) 10^3/uL Neut % (Auto) 95.8 H (42.2-75.2) % Lymph % (Auto) 3.3 L (20.5-50.1) % [place] % (Auto) 0.8 L (2-8) % Eos % (Auto) 0.0 L (1.0-3.0) % Baso % (Auto) 0.1 (0.0-1.0) % Sodium 144 (136-145) mmol/L Potassium 4.6 (3.5-5.1) mmol/L Chloride 96 L (98-107) mmol/L Carbon Dioxide > 45 H* (21-32) mmol/L Anion Gap 7.79107 (7-13) mEq/L BUN 32 H (7-18) mg/dL Creatinine 0.95 (0.55-1.02) mg/dL Est Cr Clr Drug Dosing 32.23 Estimated GFR (MDRD) 56 BUN/Creatinine Ratio 33.7 (No establ ref range) Glucose 183 H (70-99) mg/dL Lactic Acid (0.4-2.0) mmol/L Calcium 9.2 (8.5-10.1) mg/dL Total Bilirubin 0.4 (0.2-1.0) mg/dL AST 17 (15-37) U/L ALT 21 (14-59) U/L Alkaline Phosphatase 80 (46-116) U/L Troponin I High Sens 32 (<=51) pg/mL B-Natriuretic Peptide 105 H (0-100) pg/ml Total Protein 6.1 L (6.4-8.2) g/dL Albumin 3.0 L (3.4-5.0) g/dL Globulin 3.1 Albumin/Globulin Ratio 0.97 SARS-CoV-2 RNA (RAKESH) Negative (NEGATIVE) Result Diagrams: 01/20/21 05:40 01/20/21 05:40 Sepsis Event Note - Evaluation Sepsis Screening Result: No Definite Risk - Focused Exam Vital Signs: Vital Signs Temp Pulse Pulse Resp BP BP Pulse Ox 01/20/21 12:18 97.0 F 92 18 117/73 98 01/20/21 09:40 106 H 126/76 01/20/21 07:49 97.0 F 106 H 18 126/76 100 - Problem List & Annotations (1) Oxygen dependent SNOMED Code(s): 818717120136 Code(s): Z99.81 - DEPENDENCE ON SUPPLEMENTAL OXYGEN Status: Acute Current Visit: Yes (2) Acute exacerbation of CHF (congestive heart failure) SNOMED Code(s): 540966958, [id number] Code(s): I50.9 - HEART FAILURE, UNSPECIFIED Status: Chronic Current Visit: Yes Qualifiers: Heart failure type: combined systolic and diastolic Qualified Code(s): I50.43 - Acute on chronic combined systolic (congestive) and diastolic (congestive) heart failure (3) COPD (chronic obstructive pulmonary disease) SNOMED Code(s): 10614161 Code(s): J44.9 - CHRONIC OBSTRUCTIVE PULMONARY DISEASE, UNSPECIFIED Status: Chronic Current Visit: Yes Qualifiers: COPD type: unspecified COPD Qualified Code(s): J44.9 - Chronic obstructive pulmonary disease, unspecified (4) Ankle edema SNOMED Code(s): 33918174 Code(s): M25.473 - EFFUSION, UNSPECIFIED ANKLE Status: Acute Current Visit: No (5) COPD exacerbation SNOMED Code(s): 212129783 Code(s): J44.1 - CHRONIC OBSTRUCTIVE PULMONARY DISEASE W (ACUTE) EXACERBATION Status: Acute Current Visit: No (6) SOB (shortness of breath) SNOMED Code(s): 788865862 Code(s): R06.02 - SHORTNESS OF BREATH Status: Acute Current Visit: No - Problem List Review Problem List Initiated/Reviewed/Updated: Yes - My Orders Last 24 Hours: My Active Orders 01/20/21 14:12 Blood Glucose Check, Bedside [RC] WITHMEALSANDBED Dextrose 50% in Water 25 ml IVPUSH ASDIRECTED PRN 01/20/21 14:15 Furosemide [Lasix] 20 mg IVPUSH Q8H 01/20/21 18:00 Insulin Lispro [HumaLOG] See Protocol SUBCUT WITHMEALSANDBED 01/21/21 05:15 BASIC METABOLIC PANEL,BMP [CHEM] AM CBC WITH AUTO DIFF [HEME] AM 01/21/21 08:00 predniSONE 20 mg PO WITHBREAKFAST - Plan Plan:: Assessment/Plan: 85 yo f with h/o pulmonary fibrosis, copd on home oxygen, on chronic steroids Underlying pulmonary fibrosis makes cxr interpretation diffcult Recently hospitalized and treated for copd and chf Readmitted with wght gain and increased SOB Acute on chronic hypoxemic, hypercarbic respiratory failure Supplement oxygen as needed Currently at 4 l/min Pulmonary fibrosis Poor prognosis Copd Acute exacerbation Received a dose of IV dexamethasone Will cont prednisone PO Treat with pulmicort, perforomist Use as needed albuterol Acute diastolic chf LE edema, Wght gain but bnp is low and Cont lasix transition from PO to IV form Cont spironolactone, metoprolol Evaluation for concurrent bacterial infection Leukocytosis resolved Recently received ABxs Hyperglycemia Will follow bs, Supplement oxygen as needed Dvt prophylaxis with sq lovenox d/w dr. [place]ont
[2021-01-20] MEDS: Furosemide 20 MG/2 ML VIAL IVPUSH SCH ×2 (15:27→22:15)
[2021-01-20] MEDS: Insulin Lispro 100 Units/ML 3 ML Vial SUBCUT SCH ×2 (18:46→20:31)
[2021-01-20] MEDS: Aspirin 81 MG Tab.Chew PO SCH (20:28)
[2021-01-21] MEDS: Acetaminophen 500 MG Tab PO PRN (01:16)
[2021-01-21] MEDS: Furosemide 20 MG/2 ML VIAL IVPUSH SCH ×3 (05:39→21:39)
[2021-01-21] MEDS: Levothyroxine 75 MCG Tab PO SCH (05:39)
[2021-01-21] MEDS ORDERED: Furosemide 20 MG Tab PO SCH (07:00)
[2021-01-21 07:08] LABS: CHLORIDE,CL 94 mmol/L (98-107); SODIUM,NA 143 mmol/L (136-145)
[2021-01-21 07:17] LABS: ANION GAP 7.69999 mEq/L (7-13)
[2021-01-21] MEDS: predniSONE 20 MG Tab PO SCH (09:35)
[2021-01-21] MEDS: Omeprazole 20 MG Cap.CR PO SCH (09:35)
[2021-01-21] MEDS: Spironolactone 25 MG Tab PO SCH ×2 (09:35→21:35)
[2021-01-21] MEDS: Potassium Chloride 10 MEQ Tab.ER PO SCH (09:36)
[2021-01-21] MEDS: Loratadine 10 MG Tab PO SCH (09:36)
[2021-01-21] MEDS: Metoprolol Tartrate 50 MG Tab PO SCH ×2 (09:36→21:37)
[2021-01-21] MEDS: atorvaSTATin 10 MG Tab PO SCH (09:37)
[2021-01-21] MEDS: Budesonide 0.5 MG/2 ML Neb Susp INH SCH ×2 (09:38→21:44)
[2021-01-21] MEDS: Enoxaparin 40 MG/0.4 ML Syringe SUBCUT SCH (09:38)
[2021-01-21] MEDS: Gabapentin 100 MG Cap PO SCH ×3 (09:39→21:35)
[2021-01-21] MEDS: Insulin Lispro 100 Units/ML 3 ML Vial SUBCUT SCH ×3 (11:27→17:16)
--- NOTE | 2021-01-21 11:54 | PCM.PN ---
- General Info Date of Service: 01/21/21 Admission Dx/Problem (Free Text): Admission Diagnosis/Problem Admission Diagnosis/Problem Shortness of breath Subjective Update: admitted with sob feeling better sob is moderate, further improved since admission, no associated fever, better with oxygen, worse with activity, started days prior to admission Functional Status: Reports: Pain Controlled, Tolerating Diet - Review of Systems General: Reports: Weakness. Denies: Fever Pulmonary: Reports: Shortness of Breath, Cough (non productive) Cardiovascular: Reports: Edema Gastrointestinal: Denies: Abdominal Pain Neurological: Denies: Confusion Psychiatric: Denies: Anxiety, Agitation - Patient Data Vitals - Most Recent: Last Vital Signs Temp 96.2 F L 01/21/21 08:09 Pulse 86 01/21/21 09:36 Resp 18 01/21/21 08:09 BP 149/81 H 01/21/21 09:36 Pulse Ox 100 01/21/21 08:09 Weight - Most Recent: 141 lb 6.4 oz I&O - Last 24 Hours: Intake & Output 01/20/21 01/21/21 01/21/21 22:59 06:59 14:59 Intake Total 225 500 Output Total 900 Balance 225 -400 Lab Results Last 24 Hours: Laboratory Results - last 24 hr 01/20/21 01/20/21 01/21/21 Range/Units 17:03 20:28 06:00 WBC 18.4 H (5.0-10.0) 10^3/uL RBC 3.75 L (4.2-5.4) 10^6/uL Hgb 11.8 L (12.0-16.0) g/dL Hct 38.3 (37.0-47.0) % MCV 102.1 H (80-100) fL MCH 31.5 (27.0-34.0) pg MCHC 30.8 L (33.0-35.0) g/dL Plt Count 246 (150-450) 10^3/uL Neut % (Auto) 88.9 H (42.2-75.2) % Lymph % (Auto) 5.6 L (20.5-50.1) % [place] % (Auto) 5.3 (2-8) % Eos % (Auto) 0.1 L (1.0-3.0) % Baso % (Auto) 0.1 (0.0-1.0) % Add Manual Diff Yes Neutrophils % (Manual) 89 H (42-75) % Lymphocytes % (Manual) 5 L (20-50) % Monocytes % (Manual) 5 (2-8) % Metamyelocytes % 1 Sodium (136-145) mmol/L Potassium (3.5-5.1) mmol/L Chloride (98-107) mmol/L Carbon Dioxide (21-32) mmol/L Anion Gap (7-13) mEq/L BUN (7-18) mg/dL Creatinine (0.55-1.02) mg/dL Est Cr Clr Drug Dosing mL/min Estimated GFR (MDRD) Glucose (70-99) mg/dL POC Glucose 169 H 150 H (70-99) mg/dL Calcium (8.5-10.1) mg/dL 01/21/21 01/21/21 01/21/21 Range/Units 06:00 07:51 11:18 WBC (5.0-10.0) 10^3/uL RBC (4.2-5.4) 10^6/uL Hgb (12.0-16.0) g/dL Hct (37.0-47.0) % MCV (80-100) fL MCH (27.0-34.0) pg MCHC (33.0-35.0) g/dL Plt Count (150-450) 10^3/uL Neut % (Auto) (42.2-75.2) % Lymph % (Auto) (20.5-50.1) % [place] % (Auto) (2-8) % Eos % (Auto) (1.0-3.0) % Baso % (Auto) (0.0-1.0) % Add Manual Diff Neutrophils % (Manual) (42-75) % Lymphocytes % (Manual) (20-50) % Monocytes % (Manual) (2-8) % Metamyelocytes % Sodium 143 (136-145) mmol/L Potassium 3.7 (3.5-5.1) mmol/L Chloride 94 L (98-107) mmol/L Carbon Dioxide > 45 H* (21-32) mmol/L Anion Gap 7.52303 (7-13) mEq/L BUN 32 H (7-18) mg/dL Creatinine 0.96 (0.55-1.02) mg/dL Est Cr Clr Drug Dosing 31.89 mL/min Estimated GFR (MDRD) 56 Glucose 105 H (70-99) mg/dL POC Glucose 87 109 H (70-99) mg/dL Calcium 9.0 (8.5-10.1) mg/dL Luke Results Last 24 Hours: Microbiology 01/19/21 16:37 Aerobic Blood Culture - Preliminary Blood - Arm, Right NO GROWTH AFTER 1 DAY Anaerobic Blood Culture - Preliminary NO GROWTH AFTER 1 DAY Med Orders - Current: Current Medications Acetaminophen (Acetaminophen 500 Mg Tab) 500 mg PO Q6HR PRN PRN Reason: Pain/Fever Last Admin: 01/21/21 01:16 Dose: 500 mg Documented by: Albuterol (Albuterol 0.083% 2.5 Mg/3 Ml Neb Soln) 2.5 mg NEB Q4HRRT PRN PRN Reason: Shortness of Breath Last Admin: 01/20/21 01:20 Dose: 2.5 mg Documented by: Albuterol (Albuterol 0.083% 2.5 Mg/3 Ml Neb Soln) 2.5 mg INH Q4H PRN PRN Reason: Shortness of Breath Aspirin (Aspirin 81 Mg Tab.Chew) 81 mg PO BEDTIME [facility] Last Admin: 01/20/21 20:28 Dose: 81 mg Documented by: Atorvastatin Calcium (Atorvastatin 10 Mg Tab) 10 mg PO DAILY [facility] Last Admin: 01/21/21 09:37 Dose: 10 mg Documented by: Budesonide (Budesonide 0.5 Mg/2 Ml Neb Susp) 0.5 mg INH BID [facility] Last Admin: 01/21/21 09:38 Dose: 0.5 mg Documented by: Calcitriol (Calcitriol 0.25 Mcg Cap) 0.25 mcg PO MoWeFr@0900 [facility] Dextrose/Water (50% Dextrose In Water 50 Ml Syringe) 25 ml IVPUSH ASDIRECTED PRN PRN Reason: Hypoglycemia BS<70 Enoxaparin Sodium (Enoxaparin 40 Mg/0.4 Ml Syringe) 40 mg SUBCUT DAILY [facility] Last Admin: 01/21/21 09:38 Dose: 40 mg Documented by: Formoterol Fumarate (Formoterol 20 Mcg/2 Ml Neb) 20 mcg INH BID PRN PRN Reason: Dyspnea Furosemide (Furosemide 20 Mg/2 Ml Vial) 20 mg IVPUSH Q8H [facility] Last Admin: 01/21/21 05:39 Dose: 20 mg Documented by: Gabapentin (Gabapentin 100 Mg Cap) 100 mg PO TID [facility] Last Admin: 01/21/21 09:39 Dose: 100 mg Documented by: Insulin Human Lispro (Insulin Lispro 100 Units/Ml 3 Ml Vial) 0 unit SUBCUT WITHMEALSANDBED [facility]; Protocol Last Admin: 01/21/21 11:27 Dose: Not Given Documented by: Levothyroxine Sodium (Levothyroxine 75 Mcg Tab) 75 mcg PO ACBREAKFAST [facility] Last Admin: 01/21/21 05:39 Dose: 75 mcg Documented by: Loratadine (Loratadine 10 Mg Tab) 10 mg PO DAILY [facility] Last Admin: 01/21/21 09:36 Dose: 10 mg Documented by: Metoprolol Tartrate (Metoprolol Tartrate 50 Mg Tab) 25 mg PO BID [facility] Last Admin: 01/21/21 09:36 Dose: 25 mg Documented by: Omeprazole (Omeprazole 20 Mg Cap.Cr) 20 mg PO DAILY [facility] Last Admin: 01/21/21 09:35 Dose: 20 mg Documented by: Ondansetron HCl (Ondansetron 4 Mg Tab.Dis) 4 mg PO Q6H PRN PRN Reason: nausea, able to take PO Potassium Chloride (Potassium Chloride 10 Meq Tab.Er) 10 meq PO DAILY [facility] Last Admin: 01/21/21 09:36 Dose: 10 meq Documented by: Prednisone (Prednisone 20 Mg Tab) 20 mg PO WITHBREAKFAST [facility] Last Admin: 01/21/21 09:35 Dose: 20 mg Documented by: Spironolactone (Spironolactone 25 Mg Tab) 25 mg PO BID [facility] Last Admin: 01/21/21 09:35 Dose: 25 mg Documented by: Discontinued Medications Dexamethasone (Dexamethasone 4 Mg/Ml Sdv) 20 mg IVPUSH Q8H [facility] Stop: 01/20/21 04:16 Last Admin: 01/20/21 06:48 Dose: Not Given Documented by: Dexamethasone (Dexamethasone 4 Mg/Ml Sdv) 20 mg IV ONETIME ONE Stop: 01/20/21 06:40 Last Admin: 01/20/21 06:58 Dose: 20 mg Documented by: Furosemide (Furosemide 100 Mg/10 Ml Sdv) 60 mg IVPUSH ONETIME ONE Stop: 01/19/21 17:33 Last Admin: 01/19/21 18:07 Dose: 60 mg Documented by: Furosemide (Furosemide 20 Mg Tab) 80 mg PO Q48H [facility] Last Admin: 01/20/21 06:57 Dose: 80 mg Documented by: Furosemide (Furosemide 20 Mg Tab) 60 mg PO Q48H [facility] - Exam Quality Assessment: Supplemental Oxygen General: Alert, Oriented Neck: Supple Lungs: Decreased Breath Sounds, Crackles Cardiovascular: Regular Rate, Regular Rhythm GI/Abdominal Exam: Normal Bowel Sounds, Soft, Non-Tender, Other (obese) Extremities: Pedal Edema Neurological: No New Focal Deficit Psy/Mental Status: Alert, Normal Affect, Normal Mood - Patient Data Lab Results Last 24 hrs: Laboratory Results - last 24 hr 01/20/21 01/20/21 01/21/21 Range/Units 17:03 20:28 06:00 WBC 18.4 H (5.0-10.0) 10^3/uL RBC 3.75 L (4.2-5.4) 10^6/uL Hgb 11.8 L (12.0-16.0) g/dL Hct 38.3 (37.0-47.0) % MCV 102.1 H (80-100) fL MCH 31.5 (27.0-34.0) pg MCHC 30.8 L (33.0-35.0) g/dL Plt Count 246 (150-450) 10^3/uL Neut % (Auto) 88.9 H (42.2-75.2) % Lymph % (Auto) 5.6 L (20.5-50.1) % [place] % (Auto) 5.3 (2-8) % Eos % (Auto) 0.1 L (1.0-3.0) % Baso % (Auto) 0.1 (0.0-1.0) % Add Manual Diff Yes Neutrophils % (Manual) 89 H (42-75) % Lymphocytes % (Manual) 5 L (20-50) % Monocytes % (Manual) 5 (2-8) % Metamyelocytes % 1 Sodium (136-145) mmol/L Potassium (3.5-5.1) mmol/L Chloride (98-107) mmol/L Carbon Dioxide (21-32) mmol/L Anion Gap (7-13) mEq/L BUN (7-18) mg/dL Creatinine (0.55-1.02) mg/dL Est Cr Clr Drug Dosing mL/min Estimated GFR (MDRD) Glucose (70-99) mg/dL POC Glucose 169 H 150 H (70-99) mg/dL Calcium (8.5-10.1) mg/dL 01/21/21 01/21/21 01/21/21 Range/Units 06:00 07:51 11:18 WBC (5.0-10.0) 10^3/uL RBC (4.2-5.4) 10^6/uL Hgb (12.0-16.0) g/dL Hct (37.0-47.0) % MCV (80-100) fL MCH (27.0-34.0) pg MCHC (33.0-35.0) g/dL Plt Count (150-450) 10^3/uL Neut % (Auto) (42.2-75.2) % Lymph % (Auto) (20.5-50.1) % [place] % (Auto) (2-8) % Eos % (Auto) (1.0-3.0) % Baso % (Auto) (0.0-1.0) % Add Manual Diff Neutrophils % (Manual) (42-75) % Lymphocytes % (Manual) (20-50) % Monocytes % (Manual) (2-8) % Metamyelocytes % Sodium 143 (136-145) mmol/L Potassium 3.7 (3.5-5.1) mmol/L Chloride 94 L (98-107) mmol/L Carbon Dioxide > 45 H* (21-32) mmol/L Anion Gap 7.47541 (7-13) mEq/L BUN 32 H (7-18) mg/dL Creatinine 0.96 (0.55-1.02) mg/dL Est Cr Clr Drug Dosing 31.89 mL/min Estimated GFR (MDRD) 56 Glucose 105 H (70-99) mg/dL POC Glucose 87 109 H (70-99) mg/dL Calcium 9.0 (8.5-10.1) mg/dL Result Diagrams: 01/21/21 06:00 01/21/21 06:00 Luke Results Last 24 hrs: Microbiology 01/19/21 16:37 Aerobic Blood Culture - Preliminary Blood - Arm, Right NO GROWTH AFTER 1 DAY Anaerobic Blood Culture - Preliminary NO GROWTH AFTER 1 DAY Sepsis Event Note - Evaluation Sepsis Screening Result: No Definite Risk - Focused Exam Vital Signs: Vital Signs Temp Pulse Pulse Resp BP BP Pulse Ox 01/21/21 09:36 86 149/81 H 01/21/21 08:09 96.2 F L 86 18 140/81 100 01/21/21 08:00 96.2 F L 86 18 149/81 H 100 01/21/21 00:27 97.3 F 87 18 140/84 92 L - Problem List & Annotations (1) Oxygen dependent SNOMED Code(s): 790618947607 Code(s): Z99.81 - DEPENDENCE ON SUPPLEMENTAL OXYGEN Status: Acute Current Visit: Yes (2) Acute exacerbation of CHF (congestive heart failure) SNOMED Code(s): 439363538, 06681476932894 Code(s): I50.9 - HEART FAILURE, UNSPECIFIED Status: Chronic Current Visit: Yes Qualifiers: Heart failure type: combined systolic and diastolic Qualified Code(s): I50.43 - Acute on chronic combined systolic (congestive) and diastolic (congestive) heart failure (3) COPD (chronic obstructive pulmonary disease) SNOMED Code(s): 10621560 Code(s): J44.9 - CHRONIC OBSTRUCTIVE PULMONARY DISEASE, UNSPECIFIED Status: Chronic Current Visit: Yes Qualifiers: COPD type: unspecified COPD Qualified Code(s): J44.9 - Chronic obstructive pulmonary disease, unspecified (4) Ankle edema SNOMED Code(s): 42683334 Code(s): M25.473 - EFFUSION, UNSPECIFIED ANKLE Status: Acute Current Visit: No (5) COPD exacerbation SNOMED Code(s): 217040994 Code(s): J44.1 - CHRONIC OBSTRUCTIVE PULMONARY DISEASE W (ACUTE) EXACERBATION Status: Acute Current Visit: No (6) SOB (shortness of breath) SNOMED Code(s): 511390525 Code(s): R06.02 - SHORTNESS OF BREATH Status: Acute Current Visit: No - Problem List Review Problem List Initiated/Reviewed/Updated: Yes - My Orders Last 24 Hours: My Active Orders 01/20/21 14:12 Blood Glucose Check, Bedside [RC] WITHMEALSANDBED Dextrose 50% in Water 25 ml IVPUSH ASDIRECTED PRN 01/20/21 14:15 Furosemide [Lasix] 20 mg IVPUSH Q8H 01/20/21 14:22 Resuscitation Status Routine 01/20/21 18:00 Insulin Lispro [HumaLOG] See Protocol SUBCUT WITHMEALSANDBED 01/21/21 08:00 predniSONE 20 mg PO WITHBREAKFAST - Plan Plan:: Assessment/Plan: 85 yo f with h/o pulmonary fibrosis, copd on home oxygen, on chronic steroids Underlying pulmonary fibrosis makes cxr interpretation diffcult Recently hospitalized and treated for copd and chf Readmitted with wght gain and increased SOB Acute on chronic hypoxemic, hypercarbic respiratory failure feels improved Supplement oxygen as needed Currently at 4 l/min Pulmonary fibrosis Poor prognosis Copd Acute exacerbation Received a dose of IV dexamethasone on admission Will cont prednisone PO Treat with pulmicort, perforomist Use as needed albuterol Acute diastolic chf LE edema, Wght gain but bnp is low and Cont lasix IV Cont spironolactone, metoprolol nate stocking as tolerated Evaluation for concurrent bacterial infection Leukocytosis noted Recently received ABxs leukocytosis is likely due to steroids will monitor off Abx Hyperglycemia Will follow bs, Supplement oxygen as needed Dvt prophylaxis with sq lovenox
[2021-01-21] MEDS: Albuterol 0.083% 2.5 MG/3 ML Neb Soln NEB PRN (17:29)
[2021-01-21] MEDS: Aspirin 81 MG Tab.Chew PO SCH (21:35)
[2021-01-22] MEDS: Insulin Lispro 100 Units/ML 3 ML Vial SUBCUT SCH ×5 (00:43→21:09)
[2021-01-22] MEDS: Levothyroxine 75 MCG Tab PO SCH (05:29)
[2021-01-22] MEDS: Furosemide 20 MG/2 ML VIAL IVPUSH SCH ×3 (05:30→21:36)
[2021-01-22 06:20] LABS: CHLORIDE,CL 96 mmol/L (98-107); SODIUM,NA 143 mmol/L (136-145)
[2021-01-22 06:34] LABS: ANION GAP 5.59999 mEq/L (7-13)
[2021-01-22] MEDS: atorvaSTATin 10 MG Tab PO SCH (08:54)
[2021-01-22] MEDS: Gabapentin 100 MG Cap PO SCH ×3 (08:55→21:08)
[2021-01-22] MEDS: Omeprazole 20 MG Cap.CR PO SCH (08:55)
[2021-01-22] MEDS: Metoprolol Tartrate 50 MG Tab PO SCH ×3 (08:56→21:09)
[2021-01-22] MEDS: predniSONE 20 MG Tab PO SCH (08:58)
[2021-01-22] MEDS: Spironolactone 25 MG Tab PO SCH ×2 (08:58→21:08)
[2021-01-22] MEDS: Loratadine 10 MG Tab PO SCH (08:59)
[2021-01-22] MEDS: Potassium Chloride 10 MEQ Tab.ER PO SCH (08:59)
[2021-01-22] MEDS: Enoxaparin 40 MG/0.4 ML Syringe SUBCUT SCH (09:00)
[2021-01-22] MEDS ORDERED: Calcitriol 0.25 MCG Cap PO SCH (09:00)
--- NOTE | 2021-01-22 11:25 | PCM.PN ---
- General Info Date of Service: 01/22/21 Admission Dx/Problem (Free Text): Admission Diagnosis/Problem Admission Diagnosis/Problem Shortness of breath Subjective Update: admitted with sob feeling better sob is mild to moderate, further improved since admission, no associated fever, better with oxygen - now on 5 l/min, worse with activity, started days prior to admission no cp, no abd pain Functional Status: Reports: Pain Controlled, Tolerating Diet - Review of Systems General: Denies: Fever Pulmonary: Reports: Shortness of Breath Cardiovascular: Reports: Edema. Denies: Chest Pain Gastrointestinal: Denies: Abdominal Pain Neurological: Denies: Confusion - Patient Data Vitals - Most Recent: Last Vital Signs Temp 97.0 F 01/22/21 07:37 Pulse 89 01/22/21 08:56 Resp 18 01/22/21 07:37 BP 129/82 01/22/21 08:56 Pulse Ox 98 01/22/21 07:37 Weight - Most Recent: 141 lb 6.4 oz I&O - Last 24 Hours: Intake & Output 01/21/21 01/22/21 01/22/21 22:59 06:59 14:59 Intake Total 1260 300 Output Total 450 900 Balance 810 -600 Lab Results Last 24 Hours: Laboratory Results - last 24 hr 01/21/21 01/21/21 01/21/21 Range/Units 11:18 16:53 20:39 WBC (5.0-10.0) 10^3/uL RBC (4.2-5.4) 10^6/uL Hgb (12.0-16.0) g/dL Hct (37.0-47.0) % MCV (80-100) fL MCH (27.0-34.0) pg MCHC (33.0-35.0) g/dL Plt Count (150-450) 10^3/uL Neut % (Auto) (42.2-75.2) % Lymph % (Auto) (20.5-50.1) % [place] % (Auto) (2-8) % Eos % (Auto) (1.0-3.0) % Baso % (Auto) (0.0-1.0) % Add Manual Diff Neutrophils % (Manual) (42-75) % Lymphocytes % (Manual) (20-50) % Monocytes % (Manual) (2-8) % Eosinophils % (Manual) (1-3) % Myelocytes % Macrocytosis Sodium (136-145) mmol/L Potassium (3.5-5.1) mmol/L Chloride (98-107) mmol/L Carbon Dioxide (21-32) mmol/L Anion Gap (7-13) mEq/L BUN (7-18) mg/dL Creatinine (0.55-1.02) mg/dL Est Cr Clr Drug Dosing mL/min Estimated GFR (MDRD) Glucose (70-99) mg/dL POC Glucose 109 H 152 H 172 H (70-99) mg/dL Calcium (8.5-10.1) mg/dL 01/22/21 01/22/21 01/22/21 Range/Units 05:40 05:40 07:30 WBC 12.7 H (5.0-10.0) 10^3/uL RBC 3.73 L (4.2-5.4) 10^6/uL Hgb 11.5 L (12.0-16.0) g/dL Hct 38.1 (37.0-47.0) % MCV 102.1 H (80-100) fL MCH 30.8 (27.0-34.0) pg MCHC 30.2 L (33.0-35.0) g/dL Plt Count 213 (150-450) 10^3/uL Neut % (Auto) 73.5 (42.2-75.2) % Lymph % (Auto) 18.4 L (20.5-50.1) % [place] % (Auto) 7.2 (2-8) % Eos % (Auto) 0.8 L (1.0-3.0) % Baso % (Auto) 0.1 (0.0-1.0) % Add Manual Diff Yes Neutrophils % (Manual) 73 (42-75) % Lymphocytes % (Manual) 19 L (20-50) % Monocytes % (Manual) 5 (2-8) % Eosinophils % (Manual) 1 (1-3) % Myelocytes % 2 Macrocytosis 1+ slight Sodium 143 (136-145) mmol/L Potassium 3.6 (3.5-5.1) mmol/L Chloride 96 L (98-107) mmol/L Carbon Dioxide > 45 H* (21-32) mmol/L Anion Gap 5.17285 L (7-13) mEq/L BUN 33 H (7-18) mg/dL Creatinine 1.00 (0.55-1.02) mg/dL Est Cr Clr Drug Dosing 30.62 mL/min Estimated GFR (MDRD) 53 Glucose 81 (70-99) mg/dL POC Glucose 78 (70-99) mg/dL Calcium 9.1 (8.5-10.1) mg/dL Luke Results Last 24 Hours: Microbiology 01/19/21 16:37 Aerobic Blood Culture - Preliminary Blood - Arm, Right NO GROWTH AFTER 2 DAYS Anaerobic Blood Culture - Preliminary NO GROWTH AFTER 2 DAYS Med Orders - Current: Current Medications Acetaminophen (Acetaminophen 500 Mg Tab) 500 mg PO Q6HR PRN PRN Reason: Pain/Fever Last Admin: 01/21/21 01:16 Dose: 500 mg Documented by: Albuterol (Albuterol 0.083% 2.5 Mg/3 Ml Neb Soln) 2.5 mg NEB Q4HRRT PRN PRN Reason: Shortness of Breath Last Admin: 01/21/21 17:29 Dose: 2.5 mg Documented by: Albuterol (Albuterol 0.083% 2.5 Mg/3 Ml Neb Soln) 2.5 mg INH Q4H PRN PRN Reason: Shortness of Breath Aspirin (Aspirin 81 Mg Tab.Chew) 81 mg PO BEDTIME [facility] Last Admin: 01/21/21 21:35 Dose: 81 mg Documented by: Atorvastatin Calcium (Atorvastatin 10 Mg Tab) 10 mg PO DAILY [facility] Last Admin: 01/22/21 08:54 Dose: 10 mg Documented by: Budesonide (Budesonide 0.5 Mg/2 Ml Neb Susp) 0.5 mg INH BIDRT [facility] Calcitriol (Calcitriol 0.25 Mcg Cap) 0.25 mcg PO MoWeFr@0900 [facility] Last Admin: 01/22/21 08:54 Dose: 0.25 mcg Documented by: Dextrose/Water (50% Dextrose In Water 50 Ml Syringe) 25 ml IVPUSH ASDIRECTED PRN PRN Reason: Hypoglycemia BS<70 Enoxaparin Sodium (Enoxaparin 40 Mg/0.4 Ml Syringe) 40 mg SUBCUT DAILY [facility] Last Admin: 01/22/21 09:00 Dose: 40 mg Documented by: Formoterol Fumarate (Formoterol 20 Mcg/2 Ml Neb *Own Med*) 20 mcg INH BIDRT [facility] Furosemide (Furosemide 20 Mg/2 Ml Vial) 20 mg IVPUSH Q8H [facility] Last Admin: 01/22/21 05:30 Dose: 20 mg Documented by: Gabapentin (Gabapentin 100 Mg Cap) 100 mg PO TID [facility] Last Admin: 01/22/21 08:55 Dose: 100 mg Documented by: Insulin Human Lispro (Insulin Lispro 100 Units/Ml 3 Ml Vial) 0 unit SUBCUT WITHMEALSANDBED [facility]; Protocol Last Admin: 01/22/21 10:30 Dose: Not Given Documented by: Levothyroxine Sodium (Levothyroxine 75 Mcg Tab) 75 mcg PO ACBREAKFAST [facility] Last Admin: 01/22/21 05:29 Dose: 75 mcg Documented by: Loratadine (Loratadine 10 Mg Tab) 10 mg PO DAILY [facility] Last Admin: 01/22/21 08:59 Dose: 10 mg Documented by: Metoprolol Tartrate (Metoprolol Tartrate 50 Mg Tab) 25 mg PO BID [facility] Last Admin: 01/22/21 08:56 Dose: 25 mg Documented by: Omeprazole (Omeprazole 20 Mg Cap.Cr) 20 mg PO DAILY [facility] Last Admin: 01/22/21 08:55 Dose: 20 mg Documented by: Ondansetron HCl (Ondansetron 4 Mg Tab.Dis) 4 mg PO Q6H PRN PRN Reason: nausea, able to take PO Potassium Chloride (Potassium Chloride 10 Meq Tab.Er) 10 meq PO DAILY [facility] Last Admin: 01/22/21 08:59 Dose: 10 meq Documented by: Prednisone (Prednisone 20 Mg Tab) 20 mg PO WITHBREAKFAST [facility] Last Admin: 01/22/21 08:58 Dose: 20 mg Documented by: Spironolactone (Spironolactone 25 Mg Tab) 25 mg PO BID [facility] Last Admin: 01/22/21 08:58 Dose: 25 mg Documented by: Discontinued Medications Budesonide (Budesonide 0.5 Mg/2 Ml Neb Susp) 0.5 mg INH BID [facility] Last Admin: 01/21/21 21:44 Dose: 0.5 mg Documented by: Dexamethasone (Dexamethasone 4 Mg/Ml Sdv) 20 mg IVPUSH Q8H [facility] Stop: 01/20/21 04:16 Last Admin: 01/20/21 06:48 Dose: Not Given Documented by: Dexamethasone (Dexamethasone 4 Mg/Ml Sdv) 20 mg IV ONETIME ONE Stop: 01/20/21 06:40 Last Admin: 01/20/21 06:58 Dose: 20 mg Documented by: Furosemide (Furosemide 100 Mg/10 Ml Sdv) 60 mg IVPUSH ONETIME ONE Stop: 01/19/21 17:33 Last Admin: 01/19/21 18:07 Dose: 60 mg Documented by: Furosemide (Furosemide 20 Mg Tab) 80 mg PO Q48H [facility] Last Admin: 01/20/21 06:57 Dose: 80 mg Documented by: Furosemide (Furosemide 20 Mg Tab) 60 mg PO Q48H [facility] - Exam Quality Assessment: Supplemental Oxygen General: Alert, Oriented Neck: Supple Lungs: Normal Respiratory Effort, Decreased Breath Sounds, Rales, Wheezing Cardiovascular: Regular Rate, Regular Rhythm GI/Abdominal Exam: Normal Bowel Sounds, Soft, Non-Tender Extremities: Pedal Edema (trace) Neurological: No New Focal Deficit Psy/Mental Status: Alert, Normal Affect, Normal Mood - Patient Data Lab Results Last 24 hrs: Laboratory Results - last 24 hr 01/21/21 01/21/21 01/21/21 Range/Units 11:18 16:53 20:39 WBC (5.0-10.0) 10^3/uL RBC (4.2-5.4) 10^6/uL Hgb (12.0-16.0) g/dL Hct (37.0-47.0) % MCV (80-100) fL MCH (27.0-34.0) pg MCHC (33.0-35.0) g/dL Plt Count (150-450) 10^3/uL Neut % (Auto) (42.2-75.2) % Lymph % (Auto) (20.5-50.1) % [place] % (Auto) (2-8) % Eos % (Auto) (1.0-3.0) % Baso % (Auto) (0.0-1.0) % Add Manual Diff Neutrophils % (Manual) (42-75) % Lymphocytes % (Manual) (20-50) % Monocytes % (Manual) (2-8) % Eosinophils % (Manual) (1-3) % Myelocytes % Macrocytosis Sodium (136-145) mmol/L Potassium (3.5-5.1) mmol/L Chloride (98-107) mmol/L Carbon Dioxide (21-32) mmol/L Anion Gap (7-13) mEq/L BUN (7-18) mg/dL Creatinine (0.55-1.02) mg/dL Est Cr Clr Drug Dosing mL/min Estimated GFR (MDRD) Glucose (70-99) mg/dL POC Glucose 109 H 152 H 172 H (70-99) mg/dL Calcium (8.5-10.1) mg/dL 01/22/21 01/22/21 01/22/21 Range/Units 05:40 05:40 07:30 WBC 12.7 H (5.0-10.0) 10^3/uL RBC 3.73 L (4.2-5.4) 10^6/uL Hgb 11.5 L (12.0-16.0) g/dL Hct 38.1 (37.0-47.0) % MCV 102.1 H (80-100) fL MCH 30.8 (27.0-34.0) pg MCHC 30.2 L (33.0-35.0) g/dL Plt Count 213 (150-450) 10^3/uL Neut % (Auto) 73.5 (42.2-75.2) % Lymph % (Auto) 18.4 L (20.5-50.1) % [place] % (Auto) 7.2 (2-8) % Eos % (Auto) 0.8 L (1.0-3.0) % Baso % (Auto) 0.1 (0.0-1.0) % Add Manual Diff Yes Neutrophils % (Manual) 73 (42-75) % Lymphocytes % (Manual) 19 L (20-50) % Monocytes % (Manual) 5 (2-8) % Eosinophils % (Manual) 1 (1-3) % Myelocytes % 2 Macrocytosis 1+ slight Sodium 143 (136-145) mmol/L Potassium 3.6 (3.5-5.1) mmol/L Chloride 96 L (98-107) mmol/L Carbon Dioxide > 45 H* (21-32) mmol/L Anion Gap 5.27456 L (7-13) mEq/L BUN 33 H (7-18) mg/dL Creatinine 1.00 (0.55-1.02) mg/dL Est Cr Clr Drug Dosing 30.62 mL/min Estimated GFR (MDRD) 53 Glucose 81 (70-99) mg/dL POC Glucose 78 (70-99) mg/dL Calcium 9.1 (8.5-10.1) mg/dL Result Diagrams: 01/22/21 05:40 01/22/21 05:40 Luke Results Last 24 hrs: Microbiology 01/19/21 16:37 Aerobic Blood Culture - Preliminary Blood - Arm, Right NO GROWTH AFTER 2 DAYS Anaerobic Blood Culture - Preliminary NO GROWTH AFTER 2 DAYS Sepsis Event Note - Evaluation Sepsis Screening Result: Sepsis Risk - Focused Exam Vital Signs: Vital Signs Temp Pulse Pulse Resp BP BP Pulse Ox 01/22/21 08:56 89 129/82 01/22/21 07:37 97.0 F 89 18 129/82 98 01/22/21 04:00 97.6 F 80 24 H 123/74 100 01/22/21 00:35 95 01/22/21 00:00 98 F 73 21 H 133/73 99 - Problem List & Annotations (1) Oxygen dependent SNOMED Code(s): 787771927471 Code(s): Z99.81 - DEPENDENCE ON SUPPLEMENTAL OXYGEN Status: Acute Current Visit: Yes (2) Acute exacerbation of CHF (congestive heart failure) SNOMED Code(s): 969352814, 02590509878437 Code(s): I50.9 - HEART FAILURE, UNSPECIFIED Status: Chronic Current Visit: Yes Qualifiers: Heart failure type: combined systolic and diastolic Qualified Code(s): I50.43 - Acute on chronic combined systolic (congestive) and diastolic (congestive) heart failure (3) COPD (chronic obstructive pulmonary disease) SNOMED Code(s): 52171272 Code(s): J44.9 - CHRONIC OBSTRUCTIVE PULMONARY DISEASE, UNSPECIFIED Status: Chronic Current Visit: Yes Qualifiers: COPD type: unspecified COPD Qualified Code(s): J44.9 - Chronic obstructive pulmonary disease, unspecified (4) Ankle edema SNOMED Code(s): 37366390 Code(s): M25.473 - EFFUSION, UNSPECIFIED ANKLE Status: Acute Current Visit: No (5) COPD exacerbation SNOMED Code(s): 697762595 Code(s): J44.1 - CHRONIC OBSTRUCTIVE PULMONARY DISEASE W (ACUTE) EXACERBATION Status: Acute Current Visit: No (6) SOB (shortness of breath) SNOMED Code(s): 645853186 Code(s): R06.02 - SHORTNESS OF BREATH Status: Acute Current Visit: No - Problem List Review Problem List Initiated/Reviewed/Updated: Yes - My Orders Last 24 Hours: My Active Orders 01/23/21 05:15 BASIC METABOLIC PANEL,BMP [CHEM] AM CBC WITH AUTO DIFF [HEME] AM - Plan Plan:: Assessment/Plan: 85 yo f with h/o pulmonary fibrosis, copd on home oxygen, on chronic steroids Underlying pulmonary fibrosis makes cxr interpretation diffcult Recently hospitalized and treated for copd and chf Readmitted with wght gain and increased SOB Acute on chronic hypoxemic, hypercarbic respiratory failure feels improved Supplement oxygen as needed Currently at 5 l/min - home dose is 4 l/min Pulmonary fibrosis Poor prognosis Copd Acute exacerbation Received a dose of IV dexamethasone on admission Will cont prednisone PO Treat with pulmicort, perforomist Use as needed albuterol Acute diastolic chf LE edema, Wght gain but bnp is low and Cont lasix IV Cont spironolactone, metoprolol nate stocking as tolerated Evaluation for concurrent bacterial infection Leukocytosis noted Recently received ABxs leukocytosis is likely due to steroids - improved will monitor off Abx Hyperglycemia Will follow bs, Supplement oxygen as needed Dvt prophylaxis with sq lovenox
[2021-01-22] MEDS: Budesonide 0.5 MG/2 ML Neb Susp INH SCH ×2 (14:55→18:56)
[2021-01-22] MEDS: Polyethylene Glycol 3350 Powder 17 GM Packet PO SCH (16:58)
[2021-01-22] MEDS: Formoterol 20 MCG/2 ML Neb *OWN MED INH SCH (18:55)
[2021-01-22] MEDS ORDERED: guaiFENesin 100 MG/5 ML Soln 5 ML UD Cup PO PRN (19:33)
[2021-01-22] MEDS: Acetaminophen 500 MG Tab PO PRN (21:08)
[2021-01-22] MEDS: Aspirin 81 MG Tab.Chew PO SCH (21:08)
[2021-01-23] MEDS: Levothyroxine 75 MCG Tab PO SCH (05:57)
[2021-01-23] MEDS: Furosemide 20 MG/2 ML VIAL IVPUSH SCH (05:57)
[2021-01-23 06:30] LABS: CHLORIDE,CL 97 mmol/L (98-107); SODIUM,NA 142 mmol/L (136-145)
[2021-01-23 07:40] VITALS: BP 124/78
[2021-01-23] MEDS: Polyethylene Glycol 3350 Powder 17 GM Packet PO SCH (08:42)
[2021-01-23] MEDS: Omeprazole 20 MG Cap.CR PO SCH (08:43)
[2021-01-23] MEDS: Metoprolol Tartrate 50 MG Tab PO SCH (08:43)
[2021-01-23] MEDS: Spironolactone 25 MG Tab PO SCH (08:44)
[2021-01-23] MEDS: predniSONE 20 MG Tab PO SCH (08:44)
[2021-01-23] MEDS: Gabapentin 100 MG Cap PO SCH (08:44)
[2021-01-23] MEDS: atorvaSTATin 10 MG Tab PO SCH (08:44)
[2021-01-23] MEDS: Loratadine 10 MG Tab PO SCH (08:44)
[2021-01-23] MEDS: Potassium Chloride 10 MEQ Tab.ER PO SCH (08:44)
[2021-01-23] MEDS: Enoxaparin 40 MG/0.4 ML Syringe SUBCUT SCH (08:45)
[2021-01-23 08:52] VITALS: PULSE 68
[2021-01-23] MEDS: Insulin Lispro 100 Units/ML 3 ML Vial SUBCUT SCH (08:53)
[2021-01-23] MEDS: Budesonide 0.5 MG/2 ML Neb Susp INH SCH (10:00)
[2021-01-23] MEDS: Formoterol 20 MCG/2 ML Neb *OWN MED INH SCH (10:00)
--- NOTE | 2021-01-23 10:17 | PCM.DCSUM1 ---
Discharge Summary - Hospital Course Free Text/Narrative:: 85 yo f with h/o pulmonary fibrosis, copd on home oxygen, on chronic steroids Underlying pulmonary fibrosis makes cxr interpretation diffcult Recently hospitalized and treated for copd and chf Readmitted with wght gain and increased SOB Acute on chronic hypoxemic, hypercarbic respiratory failure feels improved Supplement oxygen as needed - down to baseline need Pulmonary fibrosis Poor prognosis Copd Acute exacerbation Received a dose of IV dexamethasone on admission Will cont prednisone PO Treat with pulmicort, perforomist Use as needed albuterol Acute diastolic chf echo 03/2020 [facility] Interpretation Summary Cannot rule out left ventricular hypertropy. Left ventricular systolic function is normal. Ejection Fraction = 60-65%. The left atrium is severely dilated. Mild to moderate pulmonic valvular regurgitation. LE edema, Wght gain but bnp is low treated with lasix IV - cont po daily bid Cont spironolactone, metoprolol nate stocking as tolerated K supplement check elytes and renal fx. periodically as out pt with diuretics Evaluation for concurrent bacterial infection Leukocytosis noted Recently received ABxs leukocytosis is likely due to steroids - improved will hold Abx will discharge to home care with home care will need nurse to monitor and treat chronic hypoxemic respiratory failure, chf, diuresis pt for strengthening, ot for adls Diagnosis: Stroke: No - Discharge Data Discharge Date: 01/23/21 Discharge Disposition: Home, W Home Health Agency 06 Condition: Good - Referral to Home Health Date of Face to Face Encounter: 01/23/21 Reason for Homebound Status: weakness, sob with activity, oxygen dependent Primary Care Physician: PCP None Skilled Need: RN for evaluation and management of copd, chronic hypoxemic respiratory failure, pt: for strengthening, OT for helping with ADLs training - Discharge Diagnosis/Problem(s) (1) Oxygen dependent SNOMED Code(s): 419285287970 ICD Code: Z99.81 - DEPENDENCE ON SUPPLEMENTAL OXYGEN Status: Acute Current Visit: Yes (2) Acute exacerbation of CHF (congestive heart failure) SNOMED Code(s): 842231648, 83235322977660 ICD Code: I50.9 - HEART FAILURE, UNSPECIFIED Status: Chronic Current Visit: Yes Qualifiers: Heart failure type: diastolic Qualified Code(s): I50.33 - Acute on chronic diastolic (congestive) heart failure (3) COPD (chronic obstructive pulmonary disease) SNOMED Code(s): 27756933 ICD Code: J44.9 - CHRONIC OBSTRUCTIVE PULMONARY DISEASE, UNSPECIFIED Status: Chronic Current Visit: Yes Qualifiers: COPD type: unspecified COPD Qualified Code(s): J44.9 - Chronic obstructive pulmonary disease, unspecified (4) Ankle edema SNOMED Code(s): 09707478 ICD Code: M25.473 - EFFUSION, UNSPECIFIED ANKLE Status: Acute Current Visit: No (5) COPD exacerbation SNOMED Code(s): 403082853 ICD Code: J44.1 - CHRONIC OBSTRUCTIVE PULMONARY DISEASE W (ACUTE) EXACERBATION Status: Acute Current Visit: No (6) SOB (shortness of breath) SNOMED Code(s): 993447931 ICD Code: R06.02 - SHORTNESS OF BREATH Status: Acute Current Visit: No - Patient Instructions Diet: Heart Healthy Diet Activity: As Tolerated - Discharge Plan *PRESCRIPTION DRUG MONITORING PROGRAM REVIEWED*: Not Applicable *COPY OF PRESCRIPTION DRUG MONITORING REPORT IN PATIENT YVETTE: Not Applicable Prescriptions/Med Rec: Furosemide [Lasix] 40 mg PO BID #60 tab Home Medications: Home Meds Alendronate [Fosamax] 70 mg PO Q7D@0600 10/21/16 [History] Aspirin 81 mg PO BEDTIME 10/21/16 [History] Budesonide [Pulmicort] 0.5 mg IH BID 10/21/16 [History] Calcitriol [Rocaltrol] 0.25 mcg PO .SUNMONWEDFRI 10/21/16 [History] Calcium Carbonate/Vitamin D3 [Calcium 500 mg Chewable Tablet] 1 tab PO DAILY 10/21/16 [History] Formoterol Fumarate [Perforomist] 2 ml PO BID 10/21/16 [History] Levothyroxine [Synthroid] 75 mcg PO ACBREAKFAST 10/21/16 [History] Loratadine [Claritin] 10 mg PO DAILY 10/21/16 [History] Magnesium 400 mg PO DAILY 10/21/16 [History] Omeprazole Magnesium [Prilosec Otc] 20 mg PO DAILY 10/21/16 [History] Polyethylene Glycol 3350 [MiraLAX] 17 gm PO DAILY PRN 10/21/16 [History] atorvaSTATin [Lipitor] 10 mg PO DAILY 10/21/16 [History] guaiFENesin [Tussin] 5 ml PO Q6H PRN 10/21/16 [History] Metoprolol Tartrate 25 mg PO BID 11/12/17 [History] Gabapentin [Neurontin] 100 mg PO TID 07/04/20 [History] predniSONE [Prednisone] 10 mg PO DAILY 07/04/20 [History] Acetaminophen [Tylenol Extra Strength] 500 mg PO Q6HR PRN 01/12/21 [History] Spironolactone [Aldactone] 25 mg PO BID 01/12/21 [History] Potassium Chloride 10 meq PO DAILY 01/22/21 [History] Albuterol [Proventil Neb Soln] 2.5 mg INH Q4H PRN neb 01/23/21 [Rx] Furosemide [Lasix] 40 mg PO BID #60 tab 01/23/21 [Rx] Patient Handouts: Heart Failure Exacerbation Forms: ED Department Discharge Referrals: Dahiana James NP [Ordering Only Provider] - - Discharge Summary/Plan Comment DC Time >30 min.: Yes Total # of Minutes for Discharge Time: 35 min, reviewed [facility] chart for chf history and echo - General Info Date of Service: 01/23/21 Admission Dx/Problem (Free Text: Admission Diagnosis/Problem Admission Diagnosis/Problem Shortness of breath Subjective Update: admitted with sob feeling better breathing is back to baseline oxygen need is back to baseline reported chest heavyness yesterday - resolved after removing gait belt, negative troponins, remained stabl Functional Status: Reports: Tolerating Diet, Ambulating - Review of Systems General: Denies: Fever Pulmonary: Reports: Shortness of Breath (at baseline) Cardiovascular: Denies: Chest Pain Gastrointestinal: Denies: Abdominal Pain Genitourinary: Denies: Dysuria Neurological: Denies: Confusion - Patient Data Vitals - Most Recent: Last Vital Signs Temp 97.2 F 01/23/21 07:39 Pulse 68 01/23/21 08:43 Resp 18 01/23/21 07:39 BP 124/78 01/23/21 08:43 Pulse Ox 100 01/23/21 07:39 Weight - Most Recent: 142 lb 12.8 oz I&O - Last 24 hours: Intake & Output 01/22/21 01/23/21 01/23/21 22:59 06:59 14:59 Intake Total 250 800 Output Total 700 800 Balance -450 0 Lab Results - Last 24 hrs: Laboratory Results - last 24 hr 01/22/21 01/22/21 01/22/21 Range/Units 11:34 17:00 17:14 WBC (5.0-10.0) 10^3/uL RBC (4.2-5.4) 10^6/uL Hgb (12.0-16.0) g/dL Hct (37.0-47.0) % MCV (80-100) fL MCH (27.0-34.0) pg MCHC (33.0-35.0) g/dL Plt Count (150-450) 10^3/uL Neut % (Auto) (42.2-75.2) % Lymph % (Auto) (20.5-50.1) % [place] % (Auto) (2-8) % Eos % (Auto) (1.0-3.0) % Baso % (Auto) (0.0-1.0) % Sodium (136-145) mmol/L Potassium (3.5-5.1) mmol/L Chloride (98-107) mmol/L Carbon Dioxide (21-32) mmol/L Anion Gap (7-13) mEq/L BUN (7-18) mg/dL Creatinine (0.55-1.02) mg/dL Est Cr Clr Drug Dosing mL/min Estimated GFR (MDRD) Glucose (70-99) mg/dL POC Glucose 135 H 211 H (70-99) mg/dL Calcium (8.5-10.1) mg/dL Troponin I High Sens 26 (<=51) pg/mL 01/22/21 01/22/21 01/23/21 Range/Units 20:36 23:00 05:45 WBC 13.3 H (5.0-10.0) 10^3/uL RBC 3.66 L (4.2-5.4) 10^6/uL Hgb 11.4 L (12.0-16.0) g/dL Hct 37.7 (37.0-47.0) % MCV 103.0 H (80-100) fL MCH 31.1 (27.0-34.0) pg MCHC 30.2 L (33.0-35.0) g/dL Plt Count 226 (150-450) 10^3/uL Neut % (Auto) 73.8 (42.2-75.2) % Lymph % (Auto) 17.0 L (20.5-50.1) % [place] % (Auto) 7.4 (2-8) % Eos % (Auto) 1.7 (1.0-3.0) % Baso % (Auto) 0.1 (0.0-1.0) % Sodium (136-145) mmol/L Potassium (3.5-5.1) mmol/L Chloride (98-107) mmol/L Carbon Dioxide (21-32) mmol/L Anion Gap (7-13) mEq/L BUN (7-18) mg/dL Creatinine (0.55-1.02) mg/dL Est Cr Clr Drug Dosing mL/min Estimated GFR (MDRD) Glucose (70-99) mg/dL POC Glucose 104 H (70-99) mg/dL Calcium (8.5-10.1) mg/dL Troponin I High Sens 36 (<=51) pg/mL 01/23/21 01/23/21 Range/Units 05:45 07:27 WBC (5.0-10.0) 10^3/uL RBC (4.2-5.4) 10^6/uL Hgb (12.0-16.0) g/dL Hct (37.0-47.0) % MCV (80-100) fL MCH (27.0-34.0) pg MCHC (33.0-35.0) g/dL Plt Count (150-450) 10^3/uL Neut % (Auto) (42.2-75.2) % Lymph % (Auto) (20.5-50.1) % [place] % (Auto) (2-8) % Eos % (Auto) (1.0-3.0) % Baso % (Auto) (0.0-1.0) % Sodium 142 (136-145) mmol/L Potassium 4.1 (3.5-5.1) mmol/L Chloride 97 L (98-107) mmol/L Carbon Dioxide > 45 H* (21-32) mmol/L Anion Gap 4.75809 L (7-13) mEq/L BUN 30 H (7-18) mg/dL Creatinine 0.93 (0.55-1.02) mg/dL Est Cr Clr Drug Dosing 32.92 mL/min Estimated GFR (MDRD) 58 Glucose 82 (70-99) mg/dL POC Glucose 84 (70-99) mg/dL Calcium 8.9 (8.5-10.1) mg/dL Troponin I High Sens (<=51) pg/mL [facility]NA Results - Last 24 hrs: Microbiology 01/19/21 16:37 Aerobic Blood Culture - Preliminary Blood - Arm, Right NO GROWTH AFTER 3 DAYS Anaerobic Blood Culture - Preliminary NO GROWTH AFTER 3 DAYS Med Orders - Current: Current Medications Acetaminophen (Acetaminophen 500 Mg Tab) 500 mg PO Q6HR PRN PRN Reason: Pain/Fever Last Admin: 01/22/21 21:08 Dose: 500 mg Documented by: Albuterol (Albuterol 0.083% 2.5 Mg/3 Ml Neb Soln) 2.5 mg NEB Q4HRRT PRN PRN Reason: Shortness of Breath Last Admin: 01/21/21 17:29 Dose: 2.5 mg Documented by: Albuterol (Albuterol 0.083% 2.5 Mg/3 Ml Neb Soln) 2.5 mg INH Q4H PRN PRN Reason: Shortness of Breath Aspirin (Aspirin 81 Mg Tab.Chew) [address] [facility] Last Admin: 01/22/21 21:08 Dose: 81 mg Documented by: Atorvastatin Calcium (Atorvastatin 10 Mg Tab) [address] [facility] Last Admin: 01/23/21 08:44 Dose: 10 mg Documented by: Budesonide (Budesonide 0.5 Mg/2 Ml Neb Susp) 0.[address] [facility] Last Admin: 01/23/21 10:00 Dose: 0.5 mg Documented by: Calcitriol (Calcitriol 0.25 Mcg Cap) 0.25 mcg PO MoWeFr@0900 [facility] Last Admin: 01/22/21 08:54 Dose: 0.25 mcg Documented by: Dextrose/Water (50% Dextrose In Water 50 Ml Syringe) 25 ml IVPUSH ASDIRECTED PRN PRN Reason: Hypoglycemia BS<70 Enoxaparin Sodium (Enoxaparin 40 Mg/0.4 Ml Syringe) [address] [facility] Last Admin: 01/23/21 08:45 Dose: 40 mg Documented by: Formoterol Fumarate (Formoterol 20 Mcg/2 Ml Neb *Own Med*) [address] [facility] Last Admin: 01/23/21 10:00 Dose: Not Given Documented by: Furosemide (Furosemide 20 Mg/2 Ml Vial) [address] [facility] Last Admin: 01/23/21 05:57 Dose: 20 mg Documented by: Gabapentin (Gabapentin 100 Mg Cap) [address] [facility] Last Admin: 01/23/21 08:44 Dose: 100 mg Documented by: Guaifenesin (Guaifenesin 100 Mg/5 Ml Soln 5 Ml Ud Cup) 100 mg PO Q6H PRN PRN Reason: Cough Last Admin: 01/22/21 19:53 Dose: 100 mg Documented by: Insulin Human Lispro (Insulin Lispro 100 Units/Ml 3 Ml Vial) [address] [facility]; Protocol Last Admin: 01/23/21 08:53 Dose: Not Given Documented by: Levothyroxine Sodium (Levothyroxine 75 Mcg Tab) [address] [facility] Last Admin: 01/23/21 05:57 Dose: 75 mcg Documented by: Loratadine (Loratadine 10 Mg Tab) [address] [facility] Last Admin: 01/23/21 08:44 Dose: 10 mg Documented by: Metoprolol Tartrate (Metoprolol Tartrate 50 Mg Tab) [address] [facility] Last Admin: 01/23/21 08:43 Dose: 25 mg Documented by: Omeprazole (Omeprazole 20 Mg Cap.Cr) [address] [facility] Last Admin: 01/23/21 08:43 Dose: 20 mg Documented by: Ondansetron HCl (Ondansetron 4 Mg Tab.Dis) 4 mg PO Q6H PRN PRN Reason: nausea, able to take PO Polyethylene Glycol (Polyethylene Glycol 3350 Powder 17 Gm Packet) [address] [facility] Last Admin: 01/23/21 08:42 Dose: 17 gm Documented by: Potassium Chloride (Potassium Chloride 10 Meq Tab.Er) [address] [facility] Last Admin: 01/23/21 08:44 Dose: 10 meq Documented by: Prednisone (Prednisone 20 Mg Tab) [address] [facility] Last Admin: 01/23/21 08:44 Dose: 20 mg Documented by: Spironolactone (Spironolactone 25 Mg Tab) [address] [facility] Last Admin: 01/23/21 08:44 Dose: 25 mg Documented by: Discontinued Medications Budesonide (Budesonide 0.5 Mg/2 Ml Neb Susp) 0.[address] [facility] Last Admin: 01/22/21 14:55 Dose: Not Given Documented by: Dexamethasone (Dexamethasone 4 Mg/Ml Sdv) 20 mg IVPUSH Q8H AIYANA Stop: 01/20/21 04:16 Last Admin: 01/20/21 06:48 Dose: Not Given Documented by: Dexamethasone (Dexamethasone 4 Mg/Ml Sdv) 20 mg IV ONETIME ONE Stop: 01/20/21 06:40 Last Admin: 01/20/21 06:58 Dose: 20 mg Documented by: Furosemide (Furosemide 100 Mg/10 Ml Sdv) 60 mg IVPUSH ONETIME ONE Stop: 01/19/21 17:33 Last Admin: 01/19/21 18:07 Dose: 60 mg Documented by: Furosemide (Furosemide 20 Mg Tab) [address] [facility] Last Admin: 01/20/21 06:57 Dose: 80 mg Documented by: Furosemide (Furosemide 20 Mg Tab) 60 mg PO Q48H AIYANA - Exam General: Reports: Alert, Oriented Neck: Reports: Supple Lungs: Reports: Decreased Breath Sounds, Other (fine crackles) Cardiovascular: Reports: Regular Rate, Regular Rhythm GI/Abdominal Exam: Normal Bowel Sounds, Soft, Non-Tender Extremities: No Pedal Edema Skin: Reports: Warm, Dry Neurological: Reports: No New Focal Deficit Psy/Mental Status: Reports: Alert, Normal Affect, Normal Mood
== END 2021-01-23 11:35 | disposition home health service (06) | DRG 291 ==
LOC: DL.ED 16:24 → DL.MS 18:27
PROVIDERS: ADMIT Family Medicine; ATTEND Internal Medicine
DX: I50.43 Acute on chronic combined systolic (congestive) and diastolic (congestive) heart failure (principal); I13.0 Hypertensive heart and chronic kidney disease with heart failure and stage 1 through stage 4 chronic kidney disease, or unspecified chronic kidney disease; I50.33 Acute on chronic diastolic (congestive) heart failure; J96.21 Acute and chronic respiratory failure with hypoxia; J96.22 Acute and chronic respiratory failure with hypercapnia; E87.3 Alkalosis; Z99.81 Dependence on supplemental oxygen; J84.10 Pulmonary fibrosis, unspecified; I37.1 Nonrheumatic pulmonary valve insufficiency; D72.829 Elevated white blood cell count, unspecified; F32.9 Major depressive disorder, single episode, unspecified; H54.7 Unspecified visual loss; Z20.822 Contact with and (suspected) exposure to COVID-19; D64.9 Anemia, unspecified; E78.00 Pure hypercholesterolemia, unspecified; J43.9 Emphysema, unspecified; N18.9 Chronic kidney disease, unspecified; M54.9 Dorsalgia, unspecified; G89.29 Other chronic pain; M81.0 Age-related osteoporosis without current pathological fracture; F41.9 Anxiety disorder, unspecified; F32.A Depression, unspecified; D63.1 Anemia in chronic kidney disease; M85.80 Other specified disorders of bone density and structure, unspecified site; T38.0X5A Adverse effect of glucocorticoids and synthetic analogues, initial encounter; K44.9 Diaphragmatic hernia without obstruction or gangrene; M19.90 Unspecified osteoarthritis, unspecified site; E05.90 Thyrotoxicosis, unspecified without thyrotoxic crisis or storm; R73.9 Hyperglycemia, unspecified; Z88.0 Allergy status to penicillin; Z88.1 Allergy status to other antibiotic agents; Z91.040 Latex allergy status; Z79.82 Long term (current) use of aspirin; Z79.52 Long term (current) use of systemic steroids; Z79.899 Other long term (current) drug therapy; Z87.01 Personal history of pneumonia (recurrent); Z79.890 Hormone replacement therapy; Z79.51 Long term (current) use of inhaled steroids
CPT/HCPCS: 36415; 71045; 80053; 83605; 83880; 84484; 85025; 87040; J1940; U0002; 80048; 82947; 94640; A9270-GY; J1100; J1650; J7512; J7613-GY

== ENCOUNTER 2021-02-16 18:11 | Emergency (ER) | payer MEDICARE, BC ==
[2021-02-16 18:26] VITALS: BP 124/64; PULSE 120
[2021-02-16 19:53] LABS: CORONAVIRUS COVID-19 NAA NEGATIVE (NEGATIVE)
[2021-02-16 19:54] LABS: ANION GAP 2.7 mEq/L (7-13)
--- NOTE | 2021-02-16 20:26 | EDM.PDOC ---
ED HPI GENERAL MEDICAL PROBLEM - General Chief Complaint: Respiratory Problem Stated Complaint: AMBULANCE Time Seen by Provider: 02/16/21 20:10 Source of Information: Reports: Patient History Limitations: Reports: No Limitations - History of Present Illness INITIAL COMMENTS - FREE TEXT/NARRATIVE: This 85 yo female patient reports to the ED with increased shortness of breath over the past couple of days. The patient is on oxygen at home (2 lpm), but had her oxygen increased by EMS prior to arrival in the ED. EMS reports the patient had an oxygen saturation in the low 80% upon their arrival. After the increase in oxygen (to 4 lpm) and a nebulizer treatment, the patient's oxygen sat has been running in the upper 90's. Onset: Gradual Duration: Day(s):, Constant, Getting Worse Location: Reports: Chest Quality: Reports: Other Severity: Moderate Improves with: Reports: Rest Worsens with: Reports: Movement Context: Reports: Other Associated Symptoms: Reports: Shortness of Breath - Related Data Allergies Allergy/AdvReac Type Severity Reaction Status Date / Time amoxicillin [Amoxicillin] Allergy Nausea Verified 02/16/21 18:26 cefazolin sodium [From Ancef] Allergy Vomiting Verified 02/16/21 18:26 doxycycline Allergy Nausea Verified 02/16/21 18:26 latex Allergy Nausea Verified 02/16/21 18:26 Home Meds: Home Meds Alendronate [Fosamax] 70 mg PO Q7D@0600 10/21/16 [History] Aspirin 81 mg PO BEDTIME 10/21/16 [History] Budesonide [Pulmicort] 0.5 mg IH BID 10/21/16 [History] Calcitriol [Rocaltrol] 0.25 mcg PO .SUNMONWEDFRI 10/21/16 [History] Calcium Carbonate/Vitamin D3 [Calcium 500 mg Chewable Tablet] 1 tab PO DAILY 10/21/16 [History] Formoterol Fumarate [Perforomist] 2 ml PO BID 10/21/16 [History] Levothyroxine [Synthroid] 75 mcg PO ACBREAKFAST 10/21/16 [History] Loratadine [Claritin] 10 mg PO DAILY 10/21/16 [History] Magnesium 400 mg PO DAILY 10/21/16 [History] Omeprazole Magnesium [Prilosec Otc] 20 mg PO DAILY 10/21/16 [History] Polyethylene Glycol 3350 [MiraLAX] 17 gm PO DAILY PRN 10/21/16 [History] atorvaSTATin [Lipitor] 10 mg PO DAILY 10/21/16 [History] guaiFENesin [Tussin] 5 ml PO Q6H PRN 10/21/16 [History] Metoprolol Tartrate 25 mg PO BID 11/12/17 [History] Gabapentin [Neurontin] 100 mg PO TID 07/04/20 [History] predniSONE [Prednisone] 10 mg PO DAILY 07/04/20 [History] Acetaminophen [Tylenol Extra Strength] 500 mg PO Q6HR PRN 01/12/21 [History] Spironolactone [Aldactone] 25 mg PO BID 01/12/21 [History] Potassium Chloride 10 meq PO DAILY 01/22/21 [History] Albuterol [Proventil Neb Soln] 2.5 mg INH Q4H PRN neb 01/23/21 [Rx] Furosemide [Lasix] 40 mg PO BID #60 tab 01/23/21 [Rx] Past Medical History - Past Health History Medical/Surgical History: Denies Medical/Surgical History HEENT History: Reports: Impaired Vision, Other (See Below) Other HEENT History: Trouble swallowing, wears glasses Cardiovascular History: Reports: Heart Failure, High Cholesterol, Hypertension, SOB on Exertion Respiratory History: Reports: Asthma, COPD, Interstitial Lung Disease, Pneumonia, Recurrent, Pulmonary Fibrosis, SOB, Other (See Below) Other Respiratory History: chronic cough, lung surgery, emphysema Gastrointestinal History: Reports: Hiatal Hernia Genitourinary History: Reports: Chronic Renal Insuffiency Other Genitourinary History: bladder repair, bowel repair THRESHER BR[employer]OMCORN History: Reports: None Musculoskeletal History: Reports: Arthritis, Back Pain, Chronic, Fracture, Osteoporosis Neurological History: Reports: None Psychiatric History: Reports: Anxiety, Depression Endocrine/Metabolic History: Reports: Hyperthyroidism, Osteopenia Hematologic History: Reports: Anemia Immunologic History: Reports: None Oncologic (Cancer) History: Reports: None Other Oncologic History: face Dermatologic History: Reports: None Other Dermatologic History: has bandage to left chin, , biopsy done, no results yet - Infectious Disease History Infectious Disease History: Reports: Measles - Past Surgical History Head Surgeries/Procedures: Reports: None HEENT Surgical History: Reports: Cataract Surgery Cardiovascular Surgical History: Reports: Other (See Below) Other Cardiovascular Surgeries/Procedures: cardiac cath Respiratory Surgical History: Reports: Lung Biopsies GI Surgical History: Reports: Colonoscopy Other GI Surgeries/Procedures: bowel repair Female Surgical History: Reports: Breast Biopsy, Hysterectomy, Other (See Below) Other Female Surgeries/Procedures: bladder repair Oncologic Surgical History: Reports: Mastectomy Social & Family History - Family History Family Medical History: No Pertinent Family History HEENT: Reports: None Cardiac: Reports: None Respiratory: Reports: None GI: Reports: None : Reports: None - Tobacco Use Tobacco Use Status *Q: Never Tobacco User - Caffeine Use Caffeine Use: Reports: Tea Caffeine Use Comment: Tea daily, soda occasionally - Recreational Drug Use Recreational Drug Use: No - Living Situation & Occupation Living situation: Reports: , with Spouse Occupation: Retired ED ROS GENERAL - Review of Systems Review Of Systems: Comprehensive ROS is negative, except as noted in HPI. ED EXAM, GENERAL - Physical Exam Exam: See Below Exam Limited By: No Limitations General Appearance: Alert, WD/WN, Mild Distress Eye Exam: Bilateral Eye: EOMI, Normal Inspection, PERRL Ears: Normal External Exam, Normal Canal, Hearing Grossly Normal, Normal TMs Nose: Normal Inspection, Normal Mucosa, No Blood Throat/Mouth: Normal Inspection, Normal Lips, Normal Teeth, Normal Gums, Normal Oropharynx, Normal Voice, No Airway Compromise Head: Atraumatic, Normocephalic Neck: Normal Inspection, Supple, Non-Tender, Full Range of Motion Respiratory/Chest: Decreased Breath Sounds (bilateral lower lobes), Rhonchi (faint upper lobes) Cardiovascular: No Gallop, No JVD, No Murmur, No Rub, Tachycardia GI/Abdominal: Normal Bowel Sounds, Soft, Non-Tender, No Organomegaly, No Distention, No Abnormal Bruit, No Mass (Female) Exam: Deferred Rectal (Female) Exam: Deferred Back Exam: Normal Inspection, Full Range of Motion, NT Extremities: Pedal Edema (chronic) Neurological: Alert, Oriented, CN II-XII Intact, Normal Cognition, Normal Gait, Normal Reflexes, No Motor/Sensory Deficits Psychiatric: Normal Affect, Normal Mood Skin Exam: Warm, Dry, Intact, Normal Color, No Rash Lymphatic: No Adenopathy #1 Interpretation EKG Date: 02/16/21 Time: 20:42 Rhythm: Other (Sinus Tach) Rate (Beats/Min): 116 Elkins: Normal P-Wave: Present QRS: Normal ST-T: Normal QT: Normal Comparison: No Change Course - Vital Signs Last Recorded V/S: Last Vital Signs Temp 97.6 F 02/16/21 18:25 Pulse 120 H 02/16/21 18:25 Resp 26 H 02/16/21 18:25 BP 124/64 02/16/21 18:25 Pulse Ox 100 02/16/21 18:25 - Orders/Labs/Meds Orders: Active Orders 24 hr Category Date Time Status EKG Documentation Completion [RC] STAT Care 02/16/21 19:10 Active CULTURE BLOOD [BC] Stat Lab 02/16/21 19:25 Received Levofloxacin/Dextrose 5%-Water [Levaquin in D5W 500 MG/ Med 02/16/21 21:49 Ordered 100 ML] 500 mg Premix Bag 1 bag IV ONETIME Medication Orders Levofloxacin/Dextrose 500 mg/ (Premix) 100 mls @ 100 mls/hr IV ONETIME ONE Stop: 02/16/21 22:48 Labs: Laboratory Tests 02/16/21 02/16/21 02/16/21 Range/Units 19:05 19:25 19:25 WBC 12.9 H (5.0-10.0) 10^3/uL RBC 3.69 L (4.2-5.4) 10^6/uL Hgb 11.6 L (12.0-16.0) g/dL Hct 38.1 (37.0-47.0) % MCV 103.3 H (80-100) fL MCH 31.4 (27.0-34.0) pg MCHC 30.4 L (33.0-35.0) g/dL Plt Count 228 (150-450) 10^3/uL Neut % (Auto) 82.5 H (42.2-75.2) % Lymph % (Auto) 9.8 L (20.5-50.1) % Morrill % (Auto) 6.9 (2-8) % Eos % (Auto) 0.6 L (1.0-3.0) % Baso % (Auto) 0.2 (0.0-1.0) % Sodium 145 (136-145) mmol/L Potassium 3.7 (3.5-5.1) mmol/L Chloride 101 (98-107) mmol/L Carbon Dioxide 45 H* (21-32) mmol/L Anion Gap 2.7 L (7-13) mEq/L BUN 24 H (7-18) mg/dL Creatinine 1.00 (0.55-1.02) mg/dL Est Cr Clr Drug Dosing 30.62 mL/min Estimated GFR (MDRD) 53 BUN/Creatinine Ratio 24.0 (No establ ref range) Glucose 96 (70-99) mg/dL Lactic Acid (0.4-2.0) mmol/L Calcium 9.4 (8.5-10.1) mg/dL Total Bilirubin 0.3 (0.2-1.0) mg/dL AST 23 (15-37) U/L ALT 28 (14-59) U/L Alkaline Phosphatase 125 H (46-116) U/L Troponin I High Sens 23 (<=51) pg/mL B-Natriuretic Peptide (0-100) pg/ml Total Protein 6.7 (6.4-8.2) g/dL Albumin 3.3 L (3.4-5.0) g/dL Globulin 3.4 Albumin/Globulin Ratio 0.97 Influenza Type A RNA Negative (NEGATIVE) Influenza Type B RNA Negative (NEGATIVE) SARS-CoV-2 RNA (RAKESH) Negative (NEGATIVE) 02/16/21 02/16/21 Range/Units 19:25 20:30 WBC (5.0-10.0) 10^3/uL RBC (4.2-5.4) 10^6/uL Hgb (12.0-16.0) g/dL Hct (37.0-47.0) % MCV (80-100) fL MCH (27.0-34.0) pg MCHC (33.0-35.0) g/dL Plt Count (150-450) 10^3/uL Neut % (Auto) (42.2-75.2) % Lymph % (Auto) (20.5-50.1) % Morrill % (Auto) (2-8) % Eos % (Auto) (1.0-3.0) % Baso % (Auto) (0.0-1.0) % Sodium (136-145) mmol/L Potassium (3.5-5.1) mmol/L Chloride (98-107) mmol/L Carbon Dioxide (21-32) mmol/L Anion Gap (7-13) mEq/L BUN (7-18) mg/dL Creatinine (0.55-1.02) mg/dL Est Cr Clr Drug Dosing mL/min Estimated GFR (MDRD) BUN/Creatinine Ratio (No establ ref range) Glucose (70-99) mg/dL Lactic Acid 0.8 (0.4-2.0) mmol/L Calcium (8.5-10.1) mg/dL Total Bilirubin (0.2-1.0) mg/dL AST (15-37) U/L ALT (14-59) U/L Alkaline Phosphatase (46-116) U/L Troponin I High Sens 25 (<=51) pg/mL B-Natriuretic Peptide 132 H (0-100) pg/ml Total Protein (6.4-8.2) g/dL Albumin (3.4-5.0) g/dL Globulin Albumin/Globulin Ratio Influenza Type A RNA (NEGATIVE) Influenza Type B RNA (NEGATIVE) SARS-CoV-2 RNA (RAKESH) (NEGATIVE) Meds: Medications Generic Name Dose Route Start Last Admin Trade Name Freq PRN Reason Stop Dose Admin Levofloxacin/Dextrose 500 mg/ 100 mls @ 100 mls/hr 02/16/21 21:49 Premix IV 02/16/21 22:48 ONETIME ONE Departure - Departure Time of Disposition: 21:50 Disposition: Home, Self-Care 01 Condition: Fair Clinical Impression: COPD exacerbation, Bronchitis - Discharge Information *PRESCRIPTION DRUG MONITORING PROGRAM REVIEWED*: Not Applicable *COPY OF PRESCRIPTION DRUG MONITORING REPORT IN PATIENT YVETTE: Not Applicable Instructions: Upper Respiratory Infection, Adult, [id number], Chronic Obstructive Pulmonary Disease Exacerbation, [id number] Forms: ED Department Discharge Care Plan Goals: The patient was advised of the examination, lab, EKG, x-ray and repeat lab results during the visit. The patient was given an IV dose of Levaquin while in the ED. The patient was discharged with a script for Levaquin (500 mg) #7 to take 1 by mouth daily for 7 days. The patient should follow-up with her primary care facility next week for continued evaluation and further management. If the patient has any additional symptoms or concerns, the patient should either return to the emergency department or visit her primary care facility. Sepsis Event Note (ED) - Focused Exam Vital Signs: Vital Signs Temp Pulse Resp BP Pulse Ox 02/16/21 18:25 97.6 F 120 H 26 H 124/64 100 - My Orders Last 24 Hours: My Active Orders 02/16/21 19:10 EKG Documentation Completion [RC] STAT 02/16/21 19:25 CULTURE BLOOD [BC] Stat 02/16/21 21:49 Levofloxacin/Dextrose 5%-Water [Levaquin in D5W 500 MG/100 ML] 500 mg Premix Bag 1 bag IV ONETIME - Assessment/Plan Last 24 Hours: My Active Orders 02/16/21 19:10 EKG Documentation Completion [RC] STAT 02/16/21 19:25 CULTURE BLOOD [BC] Stat 02/16/21 21:49 Levofloxacin/Dextrose 5%-Water [Levaquin in D5W 500 MG/100 ML] 500 mg Premix Bag 1 bag IV ONETIME
--- NOTE | 2021-02-16 21:28 | CR ---
PROCEDURE INFORMATION: Exam: XR Chest Exam date and time: 02/16/2021 8:47 PM Age: 85 years old Clinical indication: Shortness of breath TECHNIQUE: Imaging protocol: XR of the chest. Views: 2 views. COMPARISON: CR Chest 1V Frontal 01/19/2021 4:45 PM FINDINGS: Lungs: There are coarse reticular interstitial opacities, unchanged compared with the prior exam. No definite superimposed pneumonia is identified, but sensitivity is reduced due to the degree of underlying lung disease. Pleural spaces: There are no pleural effusions. There is no pneumothorax. Heart/Mediastinum: The cardiac silhouette is partially obscured, but the heart size appears stable. Diaphragm: There is stable elevation of the left hemidiaphragm. Bones/joints: No acute osseous pathology is identified. There are compression fracture deformities in the thoracic spine resulting in acute kyphosis, unchanged. IMPRESSION: Extensive bilateral pulmonary fibrosis without definite superimposed pneumonia.
[2021-02-16] MEDS ORDERED: Levofloxacin/Dextrose 5%-Water 500 MG in Premix Bag 1 BAG IV ONE (21:49)
== END 2021-02-16 23:27 | disposition home or self-care (01) ==
LOC: DL.ED 18:11
DX: J44.1 Chronic obstructive pulmonary disease with (acute) exacerbation (principal); I11.0 Hypertensive heart disease with heart failure; I50.9 Heart failure, unspecified; J44.9 Chronic obstructive pulmonary disease, unspecified; E05.90 Thyrotoxicosis, unspecified without thyrotoxic crisis or storm; Z88.0 Allergy status to penicillin; Z91.040 Latex allergy status; Z88.1 Allergy status to other antibiotic agents; Z79.82 Long term (current) use of aspirin; Z79.899 Other long term (current) drug therapy; Z20.822 Contact with and (suspected) exposure to COVID-19
CPT/HCPCS: 0240U; 36415; 71046; 80053; 83605; 83880; 84484; 85025; 87040; 93005; 96365; 99285; J1956

== ENCOUNTER 2021-03-01 09:41 | Inpatient (IN) | payer MEDICARE, BC ==
--- NOTE | 2021-03-01 09:57 | EDM.PDOC ---
ED HPI GENERAL MEDICAL PROBLEM - General Chief Complaint: Back Pain or Injury Stated Complaint: AMBULANCE Time Seen by Provider: 03/01/21 09:54 Source of Information: Reports: Patient, EMS, Old Records, RN, RN Notes Reviewed History Limitations: Reports: No Limitations - History of Present Illness INITIAL COMMENTS - FREE TEXT/NARRATIVE: Pt arrives to ER from the [facility] with c/o low back pain. Pt reports that she fell asleep in her chair this morning and woke up on the flood with severe low back pain. Her granddaughter put some Lidocaine patches on the area of pain, but she still had pain. Denies radiating pain, saddle area numbness, loss of bowel or bladder control, or motor weakness. Onset: Today Onset Date: 03/01/21 Onset Time: 04:30 Duration: Constant Location: Reports: Back, Pelvis Quality: Reports: Ache Severity: Severe Improves with: Reports: Immobilization, Rest Worsens with: Reports: Movement Associated Symptoms: Reports: No Other Symptoms - Related Data Allergies Allergy/AdvReac Type Severity Reaction Status Date / Time amoxicillin [Amoxicillin] Allergy Nausea Verified 02/16/21 18:26 cefazolin sodium [From Ancef] Allergy Vomiting Verified 02/16/21 18:26 doxycycline Allergy Nausea Verified 02/16/21 18:26 latex Allergy Nausea Verified 02/16/21 18:26 Home Meds: Home Meds Alendronate [Fosamax] 70 mg PO Q7D@0600 10/21/16 [History] Aspirin 81 mg PO BEDTIME 10/21/16 [History] Budesonide [Pulmicort] 0.5 mg IH BID 10/21/16 [History] Calcitriol [Rocaltrol] 0.25 mcg PO .SUNMONWEDFRI 10/21/16 [History] Calcium Carbonate/Vitamin D3 [Calcium 500 mg Chewable Tablet] 1 tab PO DAILY 10/21/16 [History] Formoterol Fumarate [Perforomist] 2 ml PO BID 10/21/16 [History] Levothyroxine [Synthroid] 75 mcg PO ACBREAKFAST 10/21/16 [History] Loratadine [Claritin] 10 mg PO DAILY 10/21/16 [History] Magnesium 400 mg PO DAILY 10/21/16 [History] Omeprazole Magnesium [Prilosec Otc] 20 mg PO DAILY 10/21/16 [History] Polyethylene Glycol 3350 [MiraLAX] 17 gm PO DAILY PRN 10/21/16 [History] atorvaSTATin [Lipitor] 10 mg PO DAILY 10/21/16 [History] guaiFENesin [Tussin] 5 ml PO Q6H PRN 10/21/16 [History] Metoprolol Tartrate 25 mg PO BID 11/12/17 [History] Gabapentin [Neurontin] 100 mg PO TID 07/04/20 [History] predniSONE [Prednisone] 10 mg PO DAILY 07/04/20 [History] Acetaminophen [Tylenol Extra Strength] 500 mg PO Q6HR PRN 01/12/21 [History] Spironolactone [Aldactone] 25 mg PO BID 01/12/21 [History] Potassium Chloride 10 meq PO DAILY 01/22/21 [History] Albuterol [Proventil Neb Soln] 2.5 mg INH Q4H PRN neb 01/23/21 [Rx] Furosemide [Lasix] 40 mg PO BID #60 tab 01/23/21 [Rx] Past Medical History - Past Health History Medical/Surgical History: Denies Medical/Surgical History HEENT History: Reports: Impaired Vision, Other (See Below) Other HEENT History: Trouble swallowing, wears glasses Cardiovascular History: Reports: Heart Failure, High Cholesterol, Hypertension, SOB on Exertion Respiratory History: Reports: Asthma, COPD, Interstitial Lung Disease, Pneumonia, Recurrent, Pulmonary Fibrosis, SOB, Other (See Below) Other Respiratory History: chronic cough, lung surgery, emphysema Gastrointestinal History: Reports: Hiatal Hernia Genitourinary History: Reports: Chronic Renal Insuffiency Other Genitourinary History: bladder repair, bowel repair FINANCE AND ADMINISTRATION MANAGER History: Reports: None Musculoskeletal History: Reports: Arthritis, Back Pain, Chronic, Fracture, Osteoporosis Neurological History: Reports: None Psychiatric History: Reports: Anxiety, Depression Endocrine/Metabolic History: Reports: Hyperthyroidism, Osteopenia Hematologic History: Reports: Anemia Immunologic History: Reports: None Oncologic (Cancer) History: Reports: None Other Oncologic History: face Dermatologic History: Reports: None Other Dermatologic History: has bandage to left chin, , biopsy done, no results yet - Infectious Disease History Infectious Disease History: Reports: Measles - Past Surgical History Head Surgeries/Procedures: Reports: None HEENT Surgical History: Reports: Cataract Surgery Cardiovascular Surgical History: Reports: Other (See Below) Other Cardiovascular Surgeries/Procedures: cardiac cath Respiratory Surgical History: Reports: Lung Biopsies GI Surgical History: Reports: Colonoscopy Other GI Surgeries/Procedures: bowel repair Female Surgical History: Reports: Breast Biopsy, Hysterectomy, Other (See Below) Other Female Surgeries/Procedures: bladder repair Oncologic Surgical History: Reports: Mastectomy Social & Family History - Family History Family Medical History: No Pertinent Family History HEENT: Reports: None Cardiac: Reports: None Respiratory: Reports: None GI: Reports: None : Reports: None - Caffeine Use Caffeine Use: Reports: Soda, Tea Caffeine Use Comment: Tea daily, soda occasionally - Living Situation & Occupation Living situation: Reports: , Assisted Living ([facility]) Occupation: Retired ED ROS GENERAL - Review of Systems Review Of Systems: Comprehensive ROS is negative, except as noted in HPI. ED EXAM,LOWER BACK PAIN/INJURY - Physical Exam Exam: See Below Exam Limited By: No Limitations General Appearance: Alert, No Apparent Distress, Other (Frail elderly female) Eye Exam: Bilateral Eye: Normal Inspection Throat/Mouth: Normal Voice, No Airway Compromise Head: Atraumatic, Normocephalic Neck: Normal Inspection, Non-Tender, Full Range of Motion Respiratory/Chest: No Respiratory Distress, No Accessory Muscle Use, Chest Non- Tender, Decreased Breath Sounds Cardiovascular: Regular Rate, Rhythm, Other (+2 pitting edema of B/L lower exts. to the knees) GI/Abdominal: Normal Bowel Sounds, Soft, Non-Tender, Pelvis Stable Back Exam: Decreased Range of Motion (Lumbar), Paraspinal Tenderness (Lumbar), Vertebral Tenderness (Middle to lower lumbar region). No: CVA Tenderness (L), CVA Tenderness (R) Extremities: Normal Range of Motion, Pedal Edema Neurological: Alert, Normal Mood/Affect, Normal Dorsiflexion, CN II-XII Intact, Normal Plantar Flexion, No Motor/Sensory Deficits, Other (Pt able to ambulate independently) Psychiatric: Normal Mood Skin Exam: Warm, Dry, Intact Course - Vital Signs Last Recorded V/S: Last Vital Signs Temp 98.1 F 03/01/21 10:32 Pulse 88 03/01/21 10:32 Resp 20 03/01/21 10:32 BP 142/66 H 03/01/21 10:32 Pulse Ox 97 03/01/21 10:32 - Orders/Labs/Meds Orders: Active Orders 24 hr Category Date Time Status Peripheral IV Care [RC] . DIRECTED Care 03/01/21 11:57 Active B-TYPE NATRIURETIC PEPTIDE,BNP [CHEM] Stat Lab 03/01/21 11:56 Ordered CBC WITH AUTO DIFF [HEME] Stat Lab 03/01/21 11:56 Ordered COMPREHENSIVE METABOLIC PN,CMP [CHEM] Stat Lab 03/01/21 11:56 Ordered CORONAVIRUS COVID-19 RAKESH [MOLEC] Stat Lab 03/01/21 11:56 Ordered Sodium Chloride 0.9% [Saline Flush] Med 03/01/21 11:56 Active 10 ml FLUSH ASDIRECTED PRN Peripheral IV Insertion Adult [OM.PC] Stat Oth 03/01/21 11:56 Ordered Medication Orders Sodium Chloride (Sodium Chloride 0.9% 10 Ml Syringe) 10 ml FLUSH ASDIRECTED PRN PRN Reason: Keep Vein Open Labs: Laboratory Tests 03/01/21 Range/Units 10:00 Urine Color Yellow (YELLOW) Urine Appearance Clear (CLEAR) Urine pH 7.5 (5.0-9.0) Ur Specific Somers 1.015 (1.005-1.030) Urine Protein Negative (NEGATIVE) Urine Glucose (UA) Negative (NEGATIVE) Urine Ketones Negative (NEGATIVE) Urine Occult Blood Trace-intact H (NEGATIVE) Urine Nitrite Negative (NEGATIVE) Urine Bilirubin Negative (NEGATIVE) Urine Urobilinogen 0.2 (0.2-1.0) mg/dL Ur Leukocyte Esterase Negative (NEGATIVE) Urine RBC Not seen (0-5) /HPF Urine WBC Not seen (0-5/HPF) /HPF Ur Epithelial Cells Few (NOT SEEN) /HPF Urine Bacteria Rare (0-FEW/HPF) /HPF Urine Mucus Not seen (NOT SEEN) /LPF Meds: Medications Generic Name Dose Route Start Last Admin Trade Name Freq PRN Reason Stop Dose Admin Sodium Chloride 10 ml 03/01/21 11:56 Sodium Chloride 0.9% 10 Ml Syringe FLUSH ASDIRECTED PRN Keep Vein Open Discontinued Medications Generic Name Dose Route Start Last Admin Trade Name Freq PRN Reason Stop Dose Admin Hydromorphone HCl 0.5 mg 03/01/21 11:56 Hydromorphone 0.5 Mg/0.5 Ml Syringe IVPUSH 03/01/21 11:57 ONETIME ONE Ondansetron HCl 4 mg 03/01/21 10:03 03/01/21 10:40 Ondansetron 4 Mg Tab.Dis PO 03/01/21 10:04 4 mg ONETIME ONE Administration Tramadol HCl 50 mg 03/01/21 10:03 03/01/21 10:40 Tramadol 50 Mg Tab PO 03/01/21 10:04 50 mg ONETIME ONE Administration - Radiology Interpretation Free Text/Narrative:: CT L-spine: acute L3 compression fx ~50%, increased compression at L2 and L4 which previously had mild compression, see Rad. report. CT Pelvis: no hip or pelvis fractures per Rad. report. Departure - Departure Time of Disposition: 12:14 (admitted to Dr. Blas) Disposition: Admitted As Inpatient 68 Condition: Fair Clinical Impression: Compression fracture of L3 vertebra Qualifiers: Encounter type: initial encounter Qualified Code(s): S32.030A - Wedge compression fracture of third lumbar vertebra, initial encounter for closed fracture Compression fracture of L2 Qualifiers: Encounter type: initial encounter Qualified Code(s): S32.020A - Wedge compression fracture of second lumbar vertebra, initial encounter for closed fracture Compression fracture of L4 vertebra Qualifiers: Encounter type: initial encounter Qualified Code(s): S32.040A - Wedge compression fracture of fourth lumbar vertebra, initial encounter for closed fracture - Discharge Information *PRESCRIPTION DRUG MONITORING PROGRAM REVIEWED*: Not Applicable *COPY OF PRESCRIPTION DRUG MONITORING REPORT IN PATIENT YVETTE: Not Applicable Forms: ED Department Discharge Sepsis Event Note (ED) - Focused Exam Vital Signs: Vital Signs Temp Pulse Resp BP Pulse Ox 03/01/21 10:32 98.1 F 88 20 142/66 H 97 - My Orders Last 24 Hours: My Active Orders 03/01/21 11:56 B-TYPE NATRIURETIC PEPTIDE,BNP [CHEM] Stat CBC WITH AUTO DIFF [HEME] Stat COMPREHENSIVE METABOLIC PN,CMP [CHEM] Stat CORONAVIRUS COVID-19 RAKESH [MOLEC] Stat Sodium Chloride 0.9% [Saline Flush] 10 ml FLUSH ASDIRECTED PRN Peripheral IV Insertion Adult [OM.PC] Stat 03/01/21 11:57 Peripheral IV Care [RC] . DIRECTED - Assessment/Plan Last 24 Hours: My Active Orders 03/01/21 11:56 B-TYPE NATRIURETIC PEPTIDE,BNP [CHEM] Stat CBC WITH AUTO DIFF [HEME] Stat COMPREHENSIVE METABOLIC PN,CMP [CHEM] Stat CORONAVIRUS COVID-19 RAKESH [MOLEC] Stat Sodium Chloride 0.9% [Saline Flush] 10 ml FLUSH ASDIRECTED PRN Peripheral IV Insertion Adult [OM.PC] Stat 03/01/21 11:57 Peripheral IV Care [RC] . DIRECTED
[2021-03-01] MEDS ORDERED: traMADol 50 MG Tab PO ONE (10:03)
[2021-03-01] MEDS ORDERED: Ondansetron 4 MG Tab.DIS PO ONE (10:03)
--- NOTE | 2021-03-01 11:01 | CT ---
EXAMINATION: Lumbar Spine wo Cont SEX: Female AGE: 85 years CLINICAL HISTORY: 85-year-old female injured in ground-level fall (slipped out of recliner) and now complaining of low back/pelvic pain. TECHNIQUE: Volume acquisition of data emergency unenhanced CT scan of the lumbar spine/sacrum obtained with patient lying supine on the Siemens multi slice scanner [place], [place]. All data archived in the PACS system for storage, reformatting axial/sagittal/coronal planes and study. Interpretation: Abnormal. 1. Osteoporosis. Mild dextrorotatory lumbar scoliosis. 2. Bibasilar cystic/fibrotic scarring and interstitial groundglass opacities (L>R) as noted on [address] 3. *New insufficiency FRACTURE (50%) L3 vertebral body since recent comparison exam 17 May 2020. 4. Subtle relative increased compression (loss of vertical height) adjacent L2 and L4 vertebral bodies. 5. Chronic reactive sclerosis articulating facets posteriorly. 6. No spondylolisthesis or dislocation lumbar vertebra.
--- NOTE | 2021-03-01 11:10 | CT ---
EXAMINATION: Pelvis wo Cont SEX: Female AGE: 85 years CLINICAL HISTORY: 5-year-old female injured in ground-level fall (slipped from recliner) now complaining of low back and pelvic pain. "Acute new insufficiency fracture L3 vertebral body since comparison April 2020 exam. " Scan technique: Volume acquisition of data emergency unenhanced CT scan of the lower lumbar spine, sacrum, pelvis and both hips obtained with the patient lying supine on the Siemens multi slice scanner [place], [place]. All data archived in the PACS system for storage, reformatting axial/sagittal/coronal planes and study (bone/soft tissue windows). Interpretation: 1. Rotoscoliosis, osteoporosis, and compression fracture L4 vertebral body upper margin of the exam. 2. *No sign of pelvic or either hip fracture/dislocation. 3. Symmetric spacing normal-appearing SI and hip joints i.e. no arthritic degenerative changes. 4. No foreign bodies. No pathologic skeletal lesions. Osteitis pubic symphysis. 5. Sacrum unremarkable for age and gender.
[2021-03-01] MEDS ORDERED: Sodium Chloride 0.9% 10 ML Syringe FLUSH PRN (11:56)
[2021-03-01] MEDS ORDERED: HYDROmorphone 0.5 MG/0.5 ML Syringe IVPUSH ONE (11:56)
[2021-03-01] MEDS ORDERED: Albuterol/Ipratropium 3.0-0.5 MG/3 ML Neb Soln NEB ONE (12:30)
[2021-03-01 12:35] LABS: ANION GAP 3.3 mEq/L (7-13); CHLORIDE,CL 100 mmol/L (98-107); SODIUM,NA 143 mmol/L (136-145)
--- NOTE | 2021-03-01 14:13 | PCM.HP ---
H&P History of Present Illness - General Date of Service: 03/01/21 Admit Problem/Dx: Admission Diagnosis/Problem Admission Diagnosis/Problem Compression fracture Source of Information: Patient, EMS - History of Present Illness Initial Comments - Free Text/Narative: Patient is an 85-year-old female with a history of congestive heart failure, COPD on chronic 3 to 4 L, osteoporosis status post multiple compression fractures who initially presented with concerns of back pain and a fall. Per patient she was at her assisted living and was sleeping in a recliner which she does on a regular basis and woke up in the morning and had a fall and that she had slid off of her recliner down to the floor. States that she had left back pain which she was unable to get up on her own and later for several hours will trying to move towards the door to call for help. She states that her back pain is slightly improved over last several hours but is still severe. She presented the emergency department she was hemodynamically stable, maintaining her oxygen saturations on 4 L via nasal cannula. Laboratory studies included sodium 143, potassium 4.3, creatinine 0.81, glucose 122, BNP 183, hemoglobin 0.0 and stable, WBC 11, blood count 201. AST ALT within normal limits. COVID-[address] showed no acute fracture. Lumbar CT showed L3 new compression deformity, prior compression deformities at L2 and L4. My discussion with patient she states that she has had a history of multiple compression fractures. States she lives in assisted living. States that she was surprised by her Covid positive test. Patient states that she has had Covid in the past approximate 1 year ago and was also vaccinated against COVID-19. States that her breathing may feel little worse than normal but she describes that this sensation has been something that has been occurring over the last se veral months. States that she has been following up with a physician in [place] and they fed several changes to her Lasix and she is unclear exactly what she is taking for that. States that the assisted living comes with her medications. She denies any fevers or chills, worsening cough. Remainder review of systems is negative except those listed above. Lower Back Pain Score (Numeric/FACES): 8 - Related Data Allergies/Adverse Reactions: Allergies Allergy/AdvReac Type Severity Reaction Status Date / Time amoxicillin [Amoxicillin] Allergy Nausea Verified 02/16/21 18:26 cefazolin sodium [From Anc] Allergy Vomiting Verified 02/16/21 18:26 doxycycline Allergy Nausea Verified 02/16/21 18:26 latex Allergy Nausea Verified 02/16/21 18:26 Home Medications: Home Meds Alendronate [Fosamax] 70 mg PO Q7D@0600 10/21/16 [History] Aspirin 81 mg PO BEDTIME 10/21/16 [History] Budesonide [Pulmicort] 0.5 mg IH BID 10/21/16 [History] Calcitriol [Rocaltrol] 0.25 mcg PO .SUNMONWEDFRI 10/21/16 [History] Calcium Carbonate/Vitamin D3 [Calcium 500 mg Chewable Tablet] 1 tab PO DAILY [History] Formoterol Fumarate [Perforomist] 2 ml PO BID 10/21/16 [History] Levothyroxine [Synthroid] 75 mcg PO ACBREAKFAST 10/21/16 [History] Loratadine [Claritin] 10 mg PO DAILY 10/21/16 [History] Magnesium 400 mg PO DAILY 10/21/16 [History] Omeprazole Magnesium [Prilosec Otc] 20 mg PO DAILY 10/21/16 [History] Polyethylene Glycol 3350 [MiraLAX] 17 gm PO DAILY PRN 10/21/16 [History] atorvaSTATin [Lipitor] 10 mg PO BEDTIME 10/21/16 [History] guaiFENesin [Tussin] 5 ml PO Q6H PRN 10/21/16 [History] Metoprolol Tartrate 25 mg PO BID 11/12/17 [History] Gabapentin [Neurontin] 100 mg PO TID 07/04/20 [History] predniSONE [Prednisone] 20 mg PO DAILY 07/04/20 [History] Acetaminophen [Tylenol Extra Strength] 500 mg PO Q6HR PRN 01/12/21 [History] Spironolactone [Aldactone] 25 mg PO BID 01/12/21 [History] Potassium Chloride 20 meq PO DAILY 01/22/21 [History] Albuterol Sulfate 2.5 mg NEB Q4H PRN 03/01/21 [History] Albuterol [Proventil Neb Soln] 2.5 mg NEB QID 03/01/21 [History] Furosemide [Lasix] 60 mg PO DAILY 03/01/21 [History] acetaZOLAMIDE [Diamox] 250 mg PO TUTHSA 03/01/21 [History] Past Medical History - Past Health History Medical/Surgical History: Denies Medical/Surgical History HEENT History: Reports: Impaired Vision, Other (See Below) Other HEENT History: Trouble swallowing, wears glasses Cardiovascular History: Reports: Heart Failure, High Cholesterol, Hypertension, SOB on Exertion Respiratory History: Reports: Asthma, COPD, Interstitial Lung Disease, Pneumonia, Recurrent, Pulmonary Fibrosis, SOB, Other (See Below) Other Respiratory History: chronic cough, lung surgery, emphysema Gastrointestinal History: Reports: Hiatal Hernia Genitourinary History: Reports: Chronic Renal Insuffiency Other Genitourinary History: bladder repair, bowel repair ACUPUNCTURE PHYSICIAN History: Reports: None Musculoskeletal History: Reports: Arthritis, Back Pain, Chronic, Fracture, Os teoporosis Neurological History: Reports: None Psychiatric History: Reports: Anxiety, Depression Endocrine/Metabolic History: Reports: Hyperthyroidism, Osteopenia Hematologic History: Reports: Anemia Immunologic History: Reports: None Oncologic (Cancer) History: Reports: None Other Oncologic History: face Dermatologic History: Reports: None Other Dermatologic History: has bandage to left chin, , biopsy done, no results yet - Infectious Disease History Infectious Disease History: Reports: Measles - Past Surgical History Head Surgeries/Procedures: Reports: None HEENT Surgical History: Reports: Cataract Surgery Cardiovascular Surgical History: Reports: Other (See Below) Other Cardiovascular Surgeries/Procedures: cardiac cath Respiratory Surgical History: Reports: Lung Biopsies GI Surgical History: Reports: Colonoscopy Other GI Surgeries/Procedures: bowel repair Female Surgical History: Reports: Breast Biopsy, Hysterectomy, Other (See Below) Other Female Surgeries/Procedures: bladder repair Oncologic Surgical History: Reports: Mastectomy Social & Family History - Family History Family Medical History: No Pertinent Family History HEENT: Reports: None Cardiac: Reports: None Respiratory: Reports: None GI: Reports: None : Reports: None - Tobacco Use Tobacco Use Status *Q: Never Tobacco User Second Hand Smoke Exposure: No - Caffeine Use Caffeine Use: Reports: Coffee Caffeine Use Comment: Tea daily, soda occasionally - Recreational Drug Use Recreational Drug Use: No - Living Situation & Occupation Living situation: Reports: , Assisted Living ([facility]) Occupation: Retired H&P Review of Systems - Review of Systems: Review Of Systems: Comprehensive ROS is negative, except as noted in HPI. Exam - Exam Exam: See Below - Vital Signs Vital Signs: Last Vital Signs Temp 98.1 F 03/01/21 10:32 Pulse 88 03/01/21 10:32 Resp 20 03/01/21 10:32 BP 142/66 H 03/01/21 10:32 Pulse Ox 97 03/01/21 10:32 Weight: 145 lb 11.609 oz - Exam Quality Assessment: Supplemental Oxygen General: Alert, Oriented HEENT: Conjunctiva Clear Neck: Supple, Trachea Midline Lungs: Decreased Breath Sounds, Crackles Cardiovascular: Regular Rate, Regular Rhythm GI/Abdominal Exam: Normal Bowel Sounds, No Distention Back Exam: Vertebral Tenderness Extremities: Pedal Edema Peripheral Pulses: 2+: Radial (L), Radial (R) Skin: Warm, Dry Neurological: Cranial Nerves Intact Neuro Extensive - Mental Status: Alert, Oriented x3 - Patient Data Lab Results Last 24 hrs: Laboratory Results - last 24 hr 03/01/21 03/01/21 03/01/21 Range/Units 10:00 12:09 12:09 WBC 11.0 H (5.0-10.0) 10^3/uL RBC 3.48 L (4.2-5.4) 10^6/uL Hgb 11.0 L (12.0-16.0) g/dL Hct 35.4 L (37.0-47.0) % MCV 101.7 H (80-100) fL MCH 31.6 (27.0-34.0) pg MCHC 31.1 L (33.0-35.0) g/dL Plt Count 201 (150-450) 10^3/uL Neut % (Auto) 91.8 H (42.2-75.2) % Lymph % (Auto) 4.6 L (20.5-50.1) % [place] % (Auto) 2.5 (2-8) % Eos % (Auto) 0.9 L (1.0-3.0) % Baso % (Auto) 0.2 (0.0-1.0) % Sodium 143 (136-145) mmol/L Potassium 4.3 (3.5-5.1) mmol/L Chloride 100 (98-107) mmol/L Carbon Dioxide 44 H* (21-32) mmol/L Anion Gap 3.3 L (7-13) mEq/L BUN 19 H (7-18) mg/dL Creatinine 0.81 (0.55-1.02) mg/dL Est Cr Clr Drug Dosing TNP Estimated GFR (MDRD) > 60 BUN/Creatinine Ratio 23.5 (No establ ref range) Glucose 122 H (70-99) mg/dL Calcium 9.3 (8.5-10.1) mg/dL Total Bilirubin 0.4 (0.2-1.0) mg/dL AST 28 (15-37) U/L ALT 24 (14-59) U/L Alkaline Phosphatase 125 H (46-116) U/L B-Natriuretic Peptide 183 H (0-100) pg/ml Total Protein 6.5 (6.4-8.2) g/dL Albumin 3.2 L (3.4-5.0) g/dL Globulin 3.3 Albumin/Globulin Ratio 0.97 Urine Color Yellow (YELLOW) Urine Appearance Clear (CLEAR) Urine pH 7.5 (5.0-9.0) Ur Specific [place] 1.015 (1.005-1.030) Urine Protein Negative (NEGATIVE) Urine Glucose (UA) Negative (NEGATIVE) Urine Ketones Negative (NEGATIVE) Urine Occult Blood Trace-intact H (NEGATIVE) Urine Nitrite Negative (NEGATIVE) Urine Bilirubin Negative (NEGATIVE) Urine Urobilinogen 0.2 (0.2-1.0) mg/dL Ur Leukocyte Esterase Negative (NEGATIVE) Urine RBC Not seen (0-5) /HPF Urine WBC Not seen (0-5/HPF) /HPF Ur Epithelial Cells Few (NOT SEEN) /HPF Urine Bacteria Rare (0-FEW/HPF) /HPF Urine Mucus Not seen (NOT SEEN) /LPF SARS-CoV-2 RNA (RAKESH) (NEGATIVE) 03/01/21 Range/Units 12:45 WBC (5.0-10.0) 10^3/uL RBC (4.2-5.4) 10^6/uL Hgb (12.0-16.0) g/dL Hct (37.0-47.0) % MCV (80-100) fL MCH (27.0-34.0) pg MCHC (33.0-35.0) g/dL Plt Count (150-450) 10^3/uL Neut % (Auto) (42.2-75.2) % Lymph % (Auto) (20.5-50.1) % [place] % (Auto) (2-8) % Eos % (Auto) (1.0-3.0) % Baso % (Auto) (0.0-1.0) % Sodium (136-145) mmol/L Potassium (3.5-5.1) mmol/L Chloride (98-107) mmol/L Carbon Dioxide (21-32) mmol/L Anion Gap (7-13) mEq/L BUN (7-18) mg/dL Creatinine (0.55-1.02) mg/dL Est Cr Clr Drug Dosing Estimated GFR (MDRD) BUN/Creatinine Ratio (No establ ref range) Glucose (70-99) mg/dL Calcium (8.5-10.1) mg/dL Total Bilirubin (0.2-1.0) mg/dL AST (15-37) U/L ALT (14-59) U/L Alkaline Phosphatase (46-116) U/L B-Natriuretic Peptide (0-100) pg/ml Total Protein (6.4-8.2) g/dL Albumin (3.4-5.0) g/dL Globulin Albumin/Globulin Ratio Urine Color (YELLOW) Urine Appearance (CLEAR) Urine pH (5.0-9.0) Ur Specific [place] (1.005-1.030) Urine Protein (NEGATIVE) Urine Glucose (UA) (NEGATIVE) Urine Ketones (NEGATIVE) Urine Occult Blood (NEGATIVE) Urine Nitrite (NEGATIVE) Urine Bilirubin (NEGATIVE) Urine Urobilinogen (0.2-1.0) mg/dL Ur Leukocyte Esterase (NEGATIVE) Urine RBC (0-5) /HPF Urine WBC (0-5/HPF) /HPF Ur Epithelial Cells (NOT SEEN) /HPF Urine Bacteria (0-FEW/HPF) /HPF Urine Mucus (NOT SEEN) /LPF SARS-CoV-2 RNA (RAKEHS) Positive H (NEGATIVE) Result Diagrams: 03/01/21 12:09 03/01/21 12:09 - Problem List (1) Compression fracture of L3 vertebra SNOMED Code(s): 202854073, 432674659 ICD Code: S32.030A - WEDGE COMPRESSION FRACTURE OF THIRD LUMBAR VERTEBRA, INIT Status: Acute Current Visit: No Qualifiers: Encounter type: initial encounter Qualified Code(s): S32.030A - Wedge compression fracture of third lumbar vertebra, initial encounter for closed fracture (2) Compression fracture of L4 vertebra SNOMED Code(s): 887280547, 81748664639130813 ICD Code: S32.040A - WEDGE COMPRESSION FRACTURE OF FOURTH LUMBAR VERTEBRA, INIT Status: Acute Current Visit: No Qualifiers: Encounter type: initial encounter Qualified Code(s): S32.040A - Wedge compression fracture of fourth lumbar vertebra, initial encounter for closed fracture (3) HTN, Benign hypertension SNOMED Code(s): 39435846 ICD Code: I10 - ESSENTIAL (PRIMARY) HYPERTENSION Status: Acute Current Visit: No (4) Peripheral edema SNOMED Code(s): 275196616 ICD Code: R60.9 - EDEMA, UNSPECIFIED Status: Acute Current Visit: No (5) SOB (shortness of breath) SNOMED Code(s): 349488950 ICD Code: R06.02 - SHORTNESS OF BREATH Status: Acute Current Visit: No (6) Acute exacerbation of CHF (congestive heart failure) SNOMED Code(s): 460887324, 56274580335869 ICD Code: I50.9 - HEART FAILURE, UNSPECIFIED Status: Chronic Current Visit: No Qualifiers: Heart failure type: diastolic Qualified Code(s): I50.33 - Acute on chronic diastolic (congestive) heart failure (7) COPD (chronic obstructive pulmonary disease) SNOMED Code(s): 35545101 ICD Code: J44.9 - CHRONIC OBSTRUCTIVE PULMONARY DISEASE, UNSPECIFIED Status: Chronic Current Visit: No Qualifiers: COPD type: unspecified COPD Qualified Code(s): J44.9 - Chronic obstructive pulmonary disease, unspecified Problem List Initiated/Reviewed/Updated: Yes Orders Last 24hrs: Active Orders 24 hr Category Date Time Status Admission Diagnosis [ADT] Stat ADT 03/01/21 13:18 Ordered Admission Status [Patient Status] [ADT] Routine ADT 03/01/21 13:18 Active Peripheral IV Care [RC] . DIRECTED Care 03/01/21 11:57 Active RT Aerosol Therapy [RC] ASDIRECTED Care 03/01/21 12:30 Active Sodium Chloride 0.9% [Saline Flush] Med 03/01/21 11:56 Active 10 ml FLUSH ASDIRECTED PRN Peripheral IV Insertion Adult [OM.PC] Stat Oth 03/01/21 11:56 Ordered Medication Orders Sodium Chloride (Sodium Chloride 0.9% 10 Ml Syringe) 10 ml FLUSH ASDIRECTED PRN PRN Reason: Keep Vein Open Last Admin: 03/01/21 12:59 Dose: 10 ml Documented by: DOMINIQUE Assessment/Plan Comment:: Patient is an 85-year-old female with a history of COPD on chronic home O2, osteoporosis with multiple compression fractures, CHF who presented with fall and new onset compression fractures. Request was made for admission due to pain control, placement. #L4 compression fracture -Multiple compression fractures due to history of osteoporosis. Continue vitamin D, Fosamax, calcium supplementation. -Pain control with scheduled Tylenol, lidocaine patches, as needed oxycodone, PT/OT/social work -Continue gabapentin #COVID-19 positive test -Patient states to me that she had Covid 19 infection a year ago and is vaccinated against COVID-19. States that she may be notices some worsening shortness of breath but this is over months per patient. Overall more convincing for asymptomatic COVID-19 infection. -CT lumbar spine did show some groundglass opacities in the pulmonary exam however these were also seen in stable from April 2020 #COPD on home oxygen -Scheduled home inhalers, PRN home inhalers -Continue on home O2 #CHF -Is listed sure the patient is on 40 mg Lasix twice daily however patient appeared to be suggesting that she was on 60 mg p.o. once, regardless she does have some findings on physical exam concerning for worsening heart failure we will proceed with IV Lasix 40, repeat creatinine electrolytes tomorrow a.m. -Sodium restricted diet #Hyperlipidemia -continue statin #Hypothyroidismlevothyroxine Fluidsnone Electrolytesnormal limits Dietsodium restricted DVT prophylaxis Lovenox
[2021-03-01] MEDS ORDERED: oxyCODONE 5 MG Tab PO PRN (14:17)
[2021-03-01] MEDS ORDERED: Acetaminophen 325 MG Tab PO PRN (14:17)
[2021-03-01] MEDS ORDERED: Furosemide 40 MG/4 ML VIAL IVPUSH ONE (14:30)
[2021-03-01] MEDS: Albuterol/Ipratropium 3.0-0.5 MG/3 ML Neb Soln NEB SCH ×2 (15:28→23:06)
[2021-03-01] MEDS: guaiFENesin 100 MG/5 ML Soln 5 ML UD Cup PO PRN ×2 (17:33→23:50)
[2021-03-01] MEDS: Budesonide 0.5 MG/2 ML Neb Susp INH SCH (18:28)
[2021-03-01] MEDS: Metoprolol Tartrate 50 MG Tab PO SCH (20:40)
[2021-03-01] MEDS: Gabapentin 100 MG Cap PO SCH (20:42)
[2021-03-01] MEDS: Spironolactone 25 MG Tab PO SCH (20:42)
[2021-03-01] MEDS: Aspirin 81 MG Tab.Chew PO SCH (20:42)
[2021-03-01] MEDS: atorvaSTATin 10 MG Tab PO SCH (20:42)
--- NOTE | 2021-03-02 06:12 | PCM.PN ---
- General Info Date of Service: 03/02/21 Admission Dx/Problem (Free Text): Admission Diagnosis/Problem Admission Diagnosis/Problem Compression fracture Subjective Update: Nursing staff stated patient had some mild confusion this a.m. which had since resolved. Patient did receive one oxycodone last evening. When I went to see patient she was alert orientated x3 was able to tell me why she was in the hospital in the hospital location of the month. Patient denies any worsening of her chronic shortness of breath. States that her back pain is well controlled today. Remainder review systems is negative except those listed above. - Patient Data Vitals - Most Recent: Last Vital Signs Temp 97.0 F 03/02/21 04:00 Pulse 104 H 03/02/21 04:00 Resp 22 H 03/02/21 04:00 BP 136/66 03/02/21 04:00 Pulse Ox 98 03/02/21 04:00 Weight - Most Recent: 144 lb 2 oz I&O - Last 24 Hours: Intake & Output 03/01/21 03/01/21 03/02/21 14:59 22:59 06:59 Intake Total 340 200 Output Total 350 Balance 340 -350 200 Lab Results Last 24 Hours: Laboratory Results - last 24 hr 03/01/21 03/01/21 03/01/21 Range/Units 10:00 12:09 12:09 WBC 11.0 H (5.0-10.0) 10^3/uL RBC 3.48 L (4.2-5.4) 10^6/uL Hgb 11.0 L (12.0-16.0) g/dL Hct 35.4 L (37.0-47.0) % MCV 101.7 H (80-100) fL MCH 31.6 (27.0-34.0) pg MCHC 31.1 L (33.0-35.0) g/dL Plt Count 201 (150-450) 10^3/uL Neut % (Auto) 91.8 H (42.2-75.2) % Lymph % (Auto) 4.6 L (20.5-50.1) % [place] % (Auto) 2.5 (2-8) % Eos % (Auto) 0.9 L (1.0-3.0) % Baso % (Auto) 0.2 (0.0-1.0) % Sodium 143 (136-145) mmol/L Potassium 4.3 (3.5-5.1) mmol/L Chloride 100 (98-107) mmol/L Carbon Dioxide 44 H* (21-32) mmol/L Anion Gap 3.3 L (7-13) mEq/L BUN 19 H (7-18) mg/dL Creatinine 0.81 (0.55-1.02) mg/dL Est Cr Clr Drug Dosing TNP Estimated GFR (MDRD) > 60 BUN/Creatinine Ratio 23.5 (No establ ref range) Glucose 122 H (70-99) mg/dL Calcium 9.3 (8.5-10.1) mg/dL Total Bilirubin 0.4 (0.2-1.0) mg/dL AST 28 (15-37) U/L ALT 24 (14-59) U/L Alkaline Phosphatase 125 H (46-116) U/L B-Natriuretic Peptide 183 H (0-100) pg/ml Total Protein 6.5 (6.4-8.2) g/dL Albumin 3.2 L (3.4-5.0) g/dL Globulin 3.3 Albumin/Globulin Ratio 0.97 Urine Color Yellow (YELLOW) Urine Appearance Clear (CLEAR) Urine pH 7.5 (5.0-9.0) Ur Specific [place] 1.015 (1.005-1.030) Urine Protein Negative (NEGATIVE) Urine Glucose (UA) Negative (NEGATIVE) Urine Ketones Negative (NEGATIVE) Urine Occult Blood Trace-intact H (NEGATIVE) Urine Nitrite Negative (NEGATIVE) Urine Bilirubin Negative (NEGATIVE) Urine Urobilinogen 0.2 (0.2-1.0) mg/dL Ur Leukocyte Esterase Negative (NEGATIVE) Urine RBC Not seen (0-5) /HPF Urine WBC Not seen (0-5/HPF) /HPF Ur Epithelial Cells Few (NOT SEEN) /HPF Urine Bacteria Rare (0-FEW/HPF) /HPF Urine Mucus Not seen (NOT SEEN) /LPF SARS-CoV-2 RNA (RAKESH) (NEGATIVE) 03/01/21 Range/Units 12:45 WBC (5.0-10.0) 10^3/uL RBC (4.2-5.4) 10^6/uL Hgb (12.0-16.0) g/dL Hct (37.0-47.0) % MCV (80-100) fL MCH (27.0-34.0) pg MCHC (33.0-35.0) g/dL Plt Count (150-450) 10^3/uL Neut % (Auto) (42.2-75.2) % Lymph % (Auto) (20.5-50.1) % [place] % (Auto) (2-8) % Eos % (Auto) (1.0-3.0) % Baso % (Auto) (0.0-1.0) % Sodium (136-145) mmol/L Potassium (3.5-5.1) mmol/L Chloride (98-107) mmol/L Carbon Dioxide (21-32) mmol/L Anion Gap (7-13) mEq/L BUN (7-18) mg/dL Creatinine (0.55-1.02) mg/dL Est Cr Clr Drug Dosing Estimated GFR (MDRD) BUN/Creatinine Ratio (No establ ref range) Glucose (70-99) mg/dL Calcium (8.5-10.1) mg/dL Total Bilirubin (0.2-1.0) mg/dL AST (15-37) U/L ALT (14-59) U/L Alkaline Phosphatase (46-116) U/L B-Natriuretic Peptide (0-100) pg/ml Total Protein (6.4-8.2) g/dL Albumin (3.4-5.0) g/dL Globulin Albumin/Globulin Ratio Urine Color (YELLOW) Urine Appearance (CLEAR) Urine pH (5.0-9.0) Ur Specific [place] (1.005-1.030) Urine Protein (NEGATIVE) Urine Glucose (UA) (NEGATIVE) Urine Ketones (NEGATIVE) Urine Occult Blood (NEGATIVE) Urine Nitrite (NEGATIVE) Urine Bilirubin (NEGATIVE) Urine Urobilinogen (0.2-1.0) mg/dL Ur Leukocyte Esterase (NEGATIVE) Urine RBC (0-5) /HPF Urine WBC (0-5/HPF) /HPF Ur Epithelial Cells (NOT SEEN) /HPF Urine Bacteria (0-FEW/HPF) /HPF Urine Mucus (NOT SEEN) /LPF SARS-CoV-2 RNA (RAKESH) Positive H (NEGATIVE) Med Orders - Current: Current Medications Acetaminophen (Acetaminophen 325 Mg Tab) 650 mg PO Q4H PRN PRN Reason: Pain (Mild 1-3)/fever Acetazolamide (Acetazolamide 250 Mg Tab) 250 mg PO TuThSa@0900 [facility] Albuterol/Ipratropium (Albuterol/Ipratropium 3.0-0.5 Mg/3 Ml Neb Soln) 3 ml NEB Q8HRRT [facility] Last Admin: 03/01/21 23:06 Dose: Not Given Documented by: Aspirin (Aspirin 81 Mg Tab.Chew) 81 mg PO BEDTIME [facility] Last Admin: 03/01/21 20:42 Dose: 81 mg Documented by: Atorvastatin Calcium (Atorvastatin 10 Mg Tab) 10 mg PO BEDTIME [facility] Last Admin: 03/01/21 20:42 Dose: 10 mg Documented by: Budesonide (Budesonide 0.5 Mg/2 Ml Neb Susp) 0.5 mg INH BIDRT [facility] Last Admin: 03/01/21 18:28 Dose: 0.5 mg Documented by: Enoxaparin Sodium (Enoxaparin 40 Mg/0.4 Ml Syringe) 40 mg SUBCUT DAILY [facility] Gabapentin (Gabapentin 100 Mg Cap) 100 mg PO TID [facility] Last Admin: 03/01/21 20:42 Dose: 100 mg Documented by: Guaifenesin (Guaifenesin 100 Mg/5 Ml Soln 5 Ml Ud Cup) 100 mg PO Q6H PRN PRN Reason: Cough Last Admin: 03/01/21 23:50 Dose: 100 mg Documented by: Levothyroxine Sodium (Levothyroxine 75 Mcg Tab) 75 mcg PO ACBREAKFAST [facility] Metoprolol Tartrate (Metoprolol Tartrate 50 Mg Tab) 25 mg PO BID [facility] Last Admin: 03/01/21 20:40 Dose: 25 mg Documented by: Oxycodone HCl (Oxycodone 5 Mg Tab) 5 mg PO Q8H PRN PRN Reason: Pain (moderate 4-6) Last Admin: 03/01/21 23:47 Dose: 5 mg Documented by: Potassium Chloride (Potassium Chloride 10 Meq Tab.Er) 20 meq PO DAILY [facility] Sodium Chloride (Sodium Chloride 0.9% 10 Ml Syringe) 10 ml FLUSH ASDIRECTED PRN PRN Reason: Keep Vein Open Spironolactone (Spironolactone 25 Mg Tab) 25 mg PO BID [facility] Last Admin: 03/01/21 20:42 Dose: 25 mg Documented by: Discontinued Medications Albuterol/Ipratropium (Albuterol/Ipratropium 3.0-0.5 Mg/3 Ml Neb Soln) 3 ml NEB ONETIME ONE Stop: 03/01/21 12:31 Last Admin: 03/01/21 12:59 Dose: 3 ml Documented by: Furosemide (Furosemide 40 Mg/4 Ml Vial) 40 mg IVPUSH ONETIME ONE Stop: 03/01/21 14:31 Last Admin: 03/01/21 16:22 Dose: 40 mg Documented by: Hydromorphone HCl (Hydromorphone 0.5 Mg/0.5 Ml Syringe) 0.5 mg IVPUSH ONETIME ONE Stop: 03/01/21 11:57 Last Admin: 03/01/21 12:59 Dose: 0.5 mg Documented by: Ondansetron HCl (Ondansetron 4 Mg Tab.Dis) 4 mg PO ONETIME ONE Stop: 03/01/21 10:04 Last Admin: 03/01/21 10:40 Dose: 4 mg Documented by: Sodium Chloride (Sodium Chloride 0.9% 10 Ml Syringe) 10 ml FLUSH ASDIRECTED PRN PRN Reason: Keep Vein Open Last Admin: 03/01/21 12:59 Dose: 10 ml Documented by: Tramadol HCl (Tramadol 50 Mg Tab) 50 mg PO ONETIME ONE Stop: 03/01/21 10:04 Last Admin: 03/01/21 10:40 Dose: 50 mg Documented by: - Exam Quality Assessment: Supplemental Oxygen General: Alert, Oriented HEENT: Pupils Equal Neck: Supple Lungs: Decreased Breath Sounds, Crackles Cardiovascular: Regular Rate, Regular Rhythm GI/Abdominal Exam: Normal Bowel Sounds, Soft Back Exam: Vertebral Tenderness Extremities: Pedal Edema Peripheral Pulses: 2+: Radial (L), Radial (R) Skin: Warm Neurological: No New Focal Deficit Psy/Mental Status: Alert - Patient Data Lab Results Last 24 hrs: Laboratory Results - last 24 hr 03/01/21 03/01/21 03/01/21 Range/Units 10:00 12:09 12:09 WBC 11.0 H (5.0-10.0) 10^3/uL RBC 3.48 L (4.2-5.4) 10^6/uL Hgb 11.0 L (12.0-16.0) g/dL Hct 35.4 L (37.0-47.0) % MCV 101.7 H (80-100) fL MCH 31.6 (27.0-34.0) pg MCHC 31.1 L (33.0-35.0) g/dL Plt Count 201 (150-450) 10^3/uL Neut % (Auto) 91.8 H (42.2-75.2) % Lymph % (Auto) 4.6 L (20.5-50.1) % [place] % (Auto) 2.5 (2-8) % Eos % (Auto) 0.9 L (1.0-3.0) % Baso % (Auto) 0.2 (0.0-1.0) % Sodium 143 (136-145) mmol/L Potassium 4.3 (3.5-5.1) mmol/L Chloride 100 (98-107) mmol/L Carbon Dioxide 44 H* (21-32) mmol/L Anion Gap 3.3 L (7-13) mEq/L BUN 19 H (7-18) mg/dL Creatinine 0.81 (0.55-1.02) mg/dL Est Cr Clr Drug Dosing TNP Estimated GFR (MDRD) > 60 BUN/Creatinine Ratio 23.5 (No establ ref range) Glucose 122 H (70-99) mg/dL Calcium 9.3 (8.5-10.1) mg/dL Total Bilirubin 0.4 (0.2-1.0) mg/dL AST 28 (15-37) U/L ALT 24 (14-59) U/L Alkaline Phosphatase 125 H (46-116) U/L B-Natriuretic Peptide 183 H (0-100) pg/ml Total Protein 6.5 (6.4-8.2) g/dL Albumin 3.2 L (3.4-5.0) g/dL Globulin 3.3 Albumin/Globulin Ratio 0.97 Urine Color Yellow (YELLOW) Urine Appearance Clear (CLEAR) Urine pH 7.5 (5.0-9.0) Ur Specific [place] 1.015 (1.005-1.030) Urine Protein Negative (NEGATIVE) Urine Glucose (UA) Negative (NEGATIVE) Urine Ketones Negative (NEGATIVE) Urine Occult Blood Trace-intact H (NEGATIVE) Urine Nitrite Negative (NEGATIVE) Urine Bilirubin Negative (NEGATIVE) Urine Urobilinogen 0.2 (0.2-1.0) mg/dL Ur Leukocyte Esterase Negative (NEGATIVE) Urine RBC Not seen (0-5) /HPF Urine WBC Not seen (0-5/HPF) /HPF Ur Epithelial Cells Few (NOT SEEN) /HPF Urine Bacteria Rare (0-FEW/HPF) /HPF Urine Mucus Not seen (NOT SEEN) /LPF SARS-CoV-2 RNA (RAKESH) (NEGATIVE) 03/01/21 Range/Units 12:45 WBC (5.0-10.0) 10^3/uL RBC (4.2-5.4) 10^6/uL Hgb (12.0-16.0) g/dL Hct (37.0-47.0) % MCV (80-100) fL MCH (27.0-34.0) pg MCHC (33.0-35.0) g/dL Plt Count (150-450) 10^3/uL Neut % (Auto) (42.2-75.2) % Lymph % (Auto) (20.5-50.1) % [place] % (Auto) (2-8) % Eos % (Auto) (1.0-3.0) % Baso % (Auto) (0.0-1.0) % Sodium (136-145) mmol/L Potassium (3.5-5.1) mmol/L Chloride (98-107) mmol/L Carbon Dioxide (21-32) mmol/L Anion Gap (7-13) mEq/L BUN (7-18) mg/dL Creatinine (0.55-1.02) mg/dL Est Cr Clr Drug Dosing Estimated GFR (MDRD) BUN/Creatinine Ratio (No establ ref range) Glucose (70-99) mg/dL Calcium (8.5-10.1) mg/dL Total Bilirubin (0.2-1.0) mg/dL AST (15-37) U/L ALT (14-59) U/L Alkaline Phosphatase (46-116) U/L B-Natriuretic Peptide (0-100) pg/ml Total Protein (6.4-8.2) g/dL Albumin (3.4-5.0) g/dL Globulin Albumin/Globulin Ratio Urine Color (YELLOW) Urine Appearance (CLEAR) Urine pH (5.0-9.0) Ur Specific [place] (1.005-1.030) Urine Protein (NEGATIVE) Urine Glucose (UA) (NEGATIVE) Urine Ketones (NEGATIVE) Urine Occult Blood (NEGATIVE) Urine Nitrite (NEGATIVE) Urine Bilirubin (NEGATIVE) Urine Urobilinogen (0.2-1.0) mg/dL Ur Leukocyte Esterase (NEGATIVE) Urine RBC (0-5) /HPF Urine WBC (0-5/HPF) /HPF Ur Epithelial Cells (NOT SEEN) /HPF Urine Bacteria (0-FEW/HPF) /HPF Urine Mucus (NOT SEEN) /LPF SARS-CoV-2 RNA (RAKESH) Positive H (NEGATIVE) Result Diagrams: 03/01/21 12:09 03/02/21 06:25 Sepsis Event Note - Evaluation Sepsis Screening Result: No Definite Risk - Focused Exam Vital Signs: Vital Signs Temp Pulse Pulse Resp BP BP Pulse Ox 03/02/21 04:00 97.0 F 104 H 22 H 136/66 98 03/01/21 23:59 97.2 F 107 H 22 H 128/68 97 03/01/21 20:40 104 H 127/78 03/01/21 20:17 96.2 F L 109 H 20 133/75 98 - Problem List & Annotations (1) Compression fracture of L3 vertebra SNOMED Code(s): 550172794, 742630983 Code(s): S32.030A - WEDGE COMPRESSION FRACTURE OF THIRD LUMBAR VERTEBRA, INIT Status: Acute Current Visit: No Qualifiers: Encounter type: initial encounter Qualified Code(s): S32.030A - Wedge compression fracture of third lumbar vertebra, initial encounter for closed fracture (2) Compression fracture of L4 vertebra SNOMED Code(s): 561838424, 80910974425999867 Code(s): S32.040A - WEDGE COMPRESSION FRACTURE OF FOURTH LUMBAR VERTEBRA, INIT Status: Acute Current Visit: No Qualifiers: Encounter type: initial encounter Qualified Code(s): S32.040A - Wedge compression fracture of fourth lumbar vertebra, initial encounter for closed fracture (3) HTN, Benign hypertension SNOMED Code(s): 46607359 Code(s): I10 - ESSENTIAL (PRIMARY) HYPERTENSION Status: Acute Current Visit: No (4) Peripheral edema SNOMED Code(s): 788810813 Code(s): R60.9 - EDEMA, UNSPECIFIED Status: Acute Current Visit: No (5) SOB (shortness of breath) SNOMED Code(s): 588875260 Code(s): R06.02 - SHORTNESS OF BREATH Status: Acute Current Visit: No (6) Acute exacerbation of CHF (congestive heart failure) SNOMED Code(s): 527137507, 25905851026567 Code(s): I50.9 - HEART FAILURE, UNSPECIFIED Status: Chronic Current Visit: No Qualifiers: Heart failure type: diastolic Qualified Code(s): I50.33 - Acute on chronic diastolic (congestive) heart failure (7) COPD (chronic obstructive pulmonary disease) SNOMED Code(s): 33040841 Code(s): J44.9 - CHRONIC OBSTRUCTIVE PULMONARY DISEASE, UNSPECIFIED Status: Chronic Current Visit: No Qualifiers: COPD type: unspecified COPD Qualified Code(s): J44.9 - Chronic obstructive pulmonary disease, unspecified - Problem List Review Problem List Initiated/Reviewed/Updated: Yes - My Orders Last 24 Hours: My Active Orders 03/01/21 14:17 Oxygen Therapy [RC] PRN Up With Assistance [RC] ASDIRECTED VTE/DVT Education [RC] 08,20 Vital Signs [RC] 20,00,04,08,12,16 Acetaminophen [TylenoL] 650 mg PO Q4H PRN oxyCODONE 5 mg PO Q8H PRN Resuscitation Status Routine 03/01/21 14:19 RT Aerosol Therapy [RC] ASDIRECTED 03/01/21 14:29 Sodium Chloride 0.9% [Saline Flush] 10 ml FLUSH ASDIRECTED PRN 03/01/21 15:00 Albuterol/Ipratropium [DuoNeb 3.0-0.5 MG/3 ML] 3 ml NEB Q8HRRT 03/01/21 15:08 Consult to Occupational Therapy [OT Evaluation and Treatment] [CONS] Routine PT Evaluation and Treatment [CONS] Routine 03/01/21 15:10 RT Aerosol Therapy [RC] ASDIRECTED 03/01/21 16:40 guaiFENesin [Robitussin] 100 mg PO Q6H PRN 03/01/21 Dinner 2 Gram Sodium Diet [DIET] 03/01/21 18:00 Budesonide [Pulmicort] 0.5 mg INH BIDRT 03/01/21 19:00 Isolation [COMM] Routine 03/01/21 21:00 Aspirin 81 mg PO BEDTIME Gabapentin [Neurontin] 100 mg PO TID Metoprolol Tartrate [Lopressor] 25 mg PO BID Spironolactone [Aldactone] 25 mg PO BID atorvaSTATin [Lipitor] 10 mg PO BEDTIME 03/02/21 05:11 BASIC METABOLIC PANEL,BMP [CHEM] AM 03/02/21 06:00 Levothyroxine 75 mcg PO ACBREAKFAST 03/02/21 09:00 Enoxaparin [Lovenox] 40 mg SUBCUT DAILY Potassium Chloride [Klor-Con 10] 20 meq PO DAILY 03/03/21 09:00 acetaZOLAMIDE [Diamox] 250 mg PO TuThSa@0900 - Plan Plan:: Patient is an 85-year-old female with a history of COPD on chronic home O2, osteoporosis with multiple compression fractures, CHF who presented with fall and new onset compression fractures. Request was made for admission due to pain control, PT and OT and possible placement. #L4 compression fracture -Multiple compression fractures due to history of osteoporosis. Continue vitamin D, Fosamax, calcium supplementation. -Pain control with scheduled Tylenol, PRN tylenol, lidocaine patches, PT/OT/s ocial work -will hold oxycodone given chronic respiratory status and mild confusion this AM - confusion since resolved -Continue gabapentin #COVID-19 positive test -Patient states to me that she had Covid 19 infection a year ago and is vaccinated against COVID-19. States that she may be notices some worsening shortness of breath but this is over months per patient. Overall more convincing for asymptomatic COVID-19 infection. -CT lumbar spine did show some groundglass opacities in the pulmonary exam however these were also seen in stable from April 2020 #COPD on home oxygen -Scheduled home inhalers, PRN home inhalers -Continue on home O2 #CHF -Transition to home 60 mg PO lasix in AM, continue spironolactone, metoprolol -Sodium restricted diet #Hyperlipidemia -continue statin #Hypothyroidismlevothyroxine Fluidsnone Electrolytesnormal limits Dietsodium restricted DVT prophylaxis Lovenox Dispositionapproaching medical stability -PT/OT, social work, patient will likely require placement in a skilled facility
[2021-03-02] MEDS: Levothyroxine 75 MCG Tab PO SCH ×2 (06:27→06:29)
[2021-03-02 07:02] LABS: CHLORIDE,CL 98 mmol/L (98-107); SODIUM,NA 144 mmol/L (136-145)
[2021-03-02 07:08] LABS: ANION GAP 5.09999 mEq/L (7-13)
[2021-03-02] MEDS: Albuterol/Ipratropium 3.0-0.5 MG/3 ML Neb Soln NEB SCH ×3 (08:51→23:43)
[2021-03-02] MEDS: Budesonide 0.5 MG/2 ML Neb Susp INH SCH ×3 (08:52→19:27)
[2021-03-02] MEDS ORDERED: Enoxaparin 40 MG/0.4 ML Syringe SUBCUT SCH (09:00)
[2021-03-02] MEDS: Spironolactone 25 MG Tab PO SCH ×2 (09:18→20:31)
[2021-03-02] MEDS: Potassium Chloride 10 MEQ Tab.ER PO SCH (09:18)
[2021-03-02] MEDS: Gabapentin 100 MG Cap PO SCH ×3 (09:18→20:31)
[2021-03-02] MEDS: Metoprolol Tartrate 50 MG Tab PO SCH ×2 (09:19→20:31)
[2021-03-02] MEDS: Furosemide 40 MG Tab PO SCH (11:27)
[2021-03-02] MEDS: Lidocaine 5% 700 MG Patch TRDERM SCH (14:26)
[2021-03-02] MEDS: Aspirin 81 MG Tab.Chew PO SCH (20:31)
[2021-03-02] MEDS: atorvaSTATin 10 MG Tab PO SCH (20:31)
[2021-03-03] MEDS: guaiFENesin 100 MG/5 ML Soln 5 ML UD Cup PO PRN (03:56)
[2021-03-03] MEDS: Levothyroxine 75 MCG Tab PO SCH (05:59)
--- NOTE | 2021-03-03 06:54 | PCM.PN ---
- General Info Date of Service: 03/03/21 Admission Dx/Problem (Free Text): Admission Diagnosis/Problem Admission Diagnosis/Problem Compression fracture Subjective Update: Patient had no confusion this a.m. No confusion overnight per nursing staff was alert orientated x3 this morning and can tell me her complete stories to what she was in the hospital. States that her back pain is controlled today a slightly worse than prior day when she moves. Patient does tell me that she believes her breathing is worse than her baseline today and she "has a harder time getting air ". Denies any fevers, chills, worsening lower extremity edema, taj pain, nausea or vomiting. Remainder review systems is negative except those listed above. - Patient Data Vitals - Most Recent: Last Vital Signs Temp 98.8 F 03/03/21 04:25 Pulse 95 03/03/21 04:25 Resp 26 H 03/03/21 04:25 BP 115/55 L 03/03/21 04:25 Pulse Ox 95 03/03/21 04:25 Weight - Most Recent: 143 lb I&O - Last 24 Hours: Intake & Output 03/02/21 03/02/21 03/03/21 14:59 22:59 06:59 Intake Total 275 125 Balance 275 125 Lab Results Last 24 Hours: Laboratory Results - last 24 hr 03/02/21 Range/Units 06:25 Sodium 144 (136-145) mmol/L Potassium 4.1 (3.5-5.1) mmol/L Chloride 98 (98-107) mmol/L Carbon Dioxide > 45 H* (21-32) mmol/L Anion Gap 5.33679 L (7-13) mEq/L BUN 21 H (7-18) mg/dL Creatinine 0.93 (0.55-1.02) mg/dL Est Cr Clr Drug Dosing 32.92 mL/min Estimated GFR (MDRD) 58 Glucose 103 H (70-99) mg/dL Calcium 9.0 (8.5-10.1) mg/dL Med Orders - Current: Current Medications Acetazolamide (Acetazolamide 250 Mg Tab) 250 mg PO TuThSa@0900 AIYANA Albuterol/Ipratropium (Albuterol/Ipratropium 3.0-0.5 Mg/3 Ml Neb Soln) 3 ml NEB Q8HRRT AIYANA Last Admin: 03/02/21 23:43 Dose: Not Given Documented by: Aspirin (Aspirin 81 Mg Tab.Chew) 81 mg PO BEDTIME [facility] Last Admin: 03/02/21 20:31 Dose: 81 mg Documented by: Atorvastatin Calcium (Atorvastatin 10 Mg Tab) 10 mg PO BEDTIME [facility] Last Admin: 03/02/21 20:31 Dose: 10 mg Documented by: Budesonide (Budesonide 0.5 Mg/2 Ml Neb Susp) 0.5 mg INH BIDRT [facility] Last Admin: 03/02/21 19:27 Dose: Not Given Documented by: Furosemide (Furosemide 40 Mg Tab) 60 mg PO DAILY [facility] Last Admin: 03/02/21 11:27 Dose: 60 mg Documented by: Gabapentin (Gabapentin 100 Mg Cap) 100 mg PO TID [facility] Last Admin: 03/02/21 20:31 Dose: 100 mg Documented by: Guaifenesin (Guaifenesin 100 Mg/5 Ml Soln 5 Ml Ud Cup) 100 mg PO Q6H PRN PRN Reason: Cough Last Admin: 03/03/21 03:56 Dose: 100 mg Documented by: Levothyroxine Sodium (Levothyroxine 75 Mcg Tab) 75 mcg PO ACBREAKFAST [facility] Last Admin: 03/03/21 05:59 Dose: 75 mcg Documented by: Lidocaine (Lidocaine 5% 700 Mg Patch) 1,400 mg TRDERM DAILY [facility] Last Admin: 03/02/21 14:26 Dose: 1,400 mg Documented by: Metoprolol Tartrate (Metoprolol Tartrate 50 Mg Tab) 25 mg PO BID [facility] Last Admin: 03/02/21 20:31 Dose: 25 mg Documented by: Miscellaneous Information (Remove Patch) 1 ea TRDERM BEDTIME [facility] Last Admin: 03/02/21 20:32 Dose: Not Given Documented by: Potassium Chloride (Potassium Chloride 10 Meq Tab.Er) 20 meq PO DAILY [facility] Last Admin: 03/02/21 09:18 Dose: 20 meq Documented by: Sodium Chloride (Sodium Chloride 0.9% 10 Ml Syringe) 10 ml FLUSH ASDIRECTED PRN PRN Reason: Keep Vein Open Spironolactone (Spironolactone 25 Mg Tab) 25 mg PO BID [facility] Last Admin: 03/02/21 20:31 Dose: 25 mg Documented by: Discontinued Medications Acetaminophen (Acetaminophen 325 Mg Tab) 650 mg PO Q4H PRN PRN Reason: Pain (Mild 1-3)/fever Albuterol/Ipratropium (Albuterol/Ipratropium 3.0-0.5 Mg/3 Ml Neb Soln) 3 ml NEB ONETIME ONE Stop: 03/01/21 12:31 Last Admin: 03/01/21 12:59 Dose: 3 ml Documented by: Enoxaparin Sodium (Enoxaparin 40 Mg/0.4 Ml Syringe) 40 mg SUBCUT DAILY AIYANA Last Admin: 03/02/21 09:18 Dose: 40 mg Documented by: Furosemide (Furosemide 40 Mg/4 Ml Vial) 40 mg IVPUSH ONETIME ONE Stop: 03/01/21 14:31 Last Admin: 03/01/21 16:22 Dose: 40 mg Documented by: Hydromorphone HCl (Hydromorphone 0.5 Mg/0.5 Ml Syringe) 0.5 mg IVPUSH ONETIME ONE Stop: 03/01/21 11:57 Last Admin: 03/01/21 12:59 Dose: 0.5 mg Documented by: Ondansetron HCl (Ondansetron 4 Mg Tab.Dis) 4 mg PO ONETIME ONE Stop: 03/01/21 10:04 Last Admin: 03/01/21 10:40 Dose: 4 mg Documented by: Oxycodone HCl (Oxycodone 5 Mg Tab) 5 mg PO Q8H PRN PRN Reason: Pain (moderate 4-6) Last Admin: 03/01/21 23:47 Dose: 5 mg Documented by: Sodium Chloride (Sodium Chloride 0.9% 10 Ml Syringe) 10 ml FLUSH ASDIRECTED PRN PRN Reason: Keep Vein Open Last Admin: 03/01/21 12:59 Dose: 10 ml Documented by: Tramadol HCl (Tramadol 50 Mg Tab) 50 mg PO ONETIME ONE Stop: 03/01/21 10:04 Last Admin: 03/01/21 10:40 Dose: 50 mg Documented by: - Exam Quality Assessment: Supplemental Oxygen General: Alert, Oriented HEENT: Pupils Equal Neck: Supple Lungs: Decreased Breath Sounds, Crackles, Wheezing Cardiovascular: Regular Rate, Regular Rhythm GI/Abdominal Exam: Normal Bowel Sounds, Soft, Non-Tender Back Exam: Normal Inspection Extremities: Normal Inspection, Pedal Edema Peripheral Pulses: 2+: Radial (L), Radial (R) Skin: Warm Neurological: No New Focal Deficit Psy/Mental Status: Alert - Patient Data Lab Results Last 24 hrs: Laboratory Results - last 24 hr 03/02/21 Range/Units 06:25 Sodium 144 (136-145) mmol/L Potassium 4.1 (3.5-5.1) mmol/L Chloride 98 (98-107) mmol/L Carbon Dioxide > 45 H* (21-32) mmol/L Anion Gap 5.31613 L (7-13) mEq/L BUN 21 H (7-18) mg/dL Creatinine 0.93 (0.55-1.02) mg/dL Est Cr Clr Drug Dosing 32.92 mL/min Estimated GFR (MDRD) 58 Glucose 103 H (70-99) mg/dL Calcium 9.0 (8.5-10.1) mg/dL Result Diagrams: 03/01/21 12:09 03/02/21 06:25 Sepsis Event Note - Evaluation Sepsis Screening Result: No Definite Risk - Focused Exam Vital Signs: Vital Signs Temp Pulse Pulse Resp BP BP Pulse Ox 03/03/21 04:25 98.8 F 95 26 H 115/55 L 95 03/02/21 20:31 107 H 116/65 03/02/21 20:23 99.0 F 107 H 28 H 116/65 90 L - Problem List & Annotations (1) Compression fracture of L3 vertebra SNOMED Code(s): 102687685, 208334671 Code(s): S32.030A - WEDGE COMPRESSION FRACTURE OF THIRD LUMBAR VERTEBRA, INIT Status: Acute Current Visit: Yes Qualifiers: Encounter type: initial encounter Qualified Code(s): S32.030A - Wedge compression fracture of third lumbar vertebra, initial encounter for closed fracture (2) Compression fracture of L4 vertebra SNOMED Code(s): 364119183, 40944600229672101 Code(s): S32.040A - WEDGE COMPRESSION FRACTURE OF FOURTH LUMBAR VERTEBRA, INIT Status: Acute Current Visit: Yes Qualifiers: Encounter type: initial encounter Qualified Code(s): S32.040A - Wedge compression fracture of fourth lumbar vertebra, initial encounter for closed fracture (3) HTN, Benign hypertension SNOMED Code(s): 35140281 Code(s): I10 - ESSENTIAL (PRIMARY) HYPERTENSION Status: Acute Current Visit: No (4) Peripheral edema SNOMED Code(s): 740118179 Code(s): R60.9 - EDEMA, UNSPECIFIED Status: Acute Current Visit: No (5) SOB (shortness of breath) SNOMED Code(s): 841528691 Code(s): R06.02 - SHORTNESS OF BREATH Status: Acute Current Visit: No (6) Acute exacerbation of CHF (congestive heart failure) SNOMED Code(s): 909446272, 17429800302531 Code(s): I50.9 - HEART FAILURE, UNSPECIFIED Status: Chronic Current Visit: No Qualifiers: Heart failure type: diastolic Qualified Code(s): I50.33 - Acute on chronic diastolic (congestive) heart failure (7) COPD (chronic obstructive pulmonary disease) SNOMED Code(s): 61088901 Code(s): J44.9 - CHRONIC OBSTRUCTIVE PULMONARY DISEASE, UNSPECIFIED Status: Chronic Current Visit: No Qualifiers: COPD type: unspecified COPD Qualified Code(s): J44.9 - Chronic obstructive pulmonary disease, unspecified (8) Acute and chronic respiratory failure with hypoxia SNOMED Code(s): 27518670, 115131197 Code(s): J96.21 - ACUTE AND CHRONIC RESPIRATORY FAILURE WITH HYPOXIA Status: Acute Current Visit: Yes (9) COVID-19 SNOMED Code(s): 079978386 Code(s): U07.1 - COVID-19 Status: Acute Current Visit: Yes - Problem List Review Problem List Initiated/Reviewed/Updated: Yes - My Orders Last 24 Hours: My Active Orders 03/02/21 06:00 Levothyroxine 75 mcg PO ACBREAKFAST 03/02/21 09:00 Potassium Chloride [Klor-Con 10] 20 meq PO DAILY 03/02/21 09:30 Furosemide [Lasix] 60 mg PO DAILY Lidocaine 5% [Lidoderm 5%] 1,400 mg TRDERM DAILY 03/02/21 Lunch 2 Gram Sodium Diet [DIET] 03/02/21 21:00 Remove Patch 1 ea TRDERM BEDTIME 03/03/21 09:00 acetaZOLAMIDE [Diamox] 250 mg PO TuThSa@0900 - Plan Plan:: Patient is an 85-year-old female with a history of COPD on chronic home O2, os teoporosis with multiple compression fractures, CHF who presented with fall and new onset compression fractures. Request was made for admission due to pain control, PT and OT and possible placement. # L4 compression fracture -Multiple compression fractures due to history of osteoporosis. Continue vitamin D, Fosamax, calcium supplementation. -Pain control with scheduled Tylenol, PRN tylenol, lidocaine patches, PT/OT/social work -No further opioid medications if able given patient's slight confusion after 1 dose of oxycodone, patient is alert orientated and at baseline mental status today -Continue gabapentin # COVID-19 positive test/acute on chronic hypoxic respiratory failure -Patient states to me that she had Covid 19 infection a year ago and is vaccinated against COVID-19. Initially on admission patient stated that her restless status was no different than baseline. However on hospital day 1 patient indicates significant worsening of her baseline respiratory disease. -CT lumbar spine did show some groundglass opacities in the pulmonary exam however these were also seen in stable from April 2020 -Chest x-ray obtained 03-03-21, official read pending however shows findings of significant chronic lung disease, I do not note any significant fluid, likely severe emphysematous and bilateral groundglass changes -Given patient's worsening of her respiratory symptoms and slight increase in her oxygen requirements we will treat patient symptomatic COVID-19 pneumonia infectionwe will treat with remdesivir per protocol, dexamethasone p.o. per protocol, laboratory monitoring per protocol -We will hold on antibiotics for now but low threshold if further worsening to obtain blood cultures and start broad-spectrum antibiotics # COPD on home oxygen -Scheduled dulera inhaler, PRN albuterol inhaler -Continue on home O2 - goal oxygen saturation >88% # CHF -Continue home 60 mg PO lasix in AM, continue spironolactone, metoprolol -Patient did receive IV Lasix 40 mg x 1 on admission -appears closer to euvolemia on exam today-I believe that patient's respiratory status changes due to the COVID-19 infection rather than a significant volume overload component -Sodium restricted diet # Hyperlipidemia -continue statin # Hypothyroidismlevothyroxine Fluidsnone Electrolytesnormal limits Dietsodium restricted DVT prophylaxis Lovenox Dispositionfurther inpatient monitoring given worsening acute on chronic hypoxic respiratory failure, PT/OT/social work for possible placement
[2021-03-03] MEDS: Budesonide 0.5 MG/2 ML Neb Susp INH SCH ×2 (07:00→19:23)
[2021-03-03] MEDS: Albuterol/Ipratropium 3.0-0.5 MG/3 ML Neb Soln NEB SCH ×2 (07:00→19:23)
[2021-03-03] MEDS ORDERED: REMDESIVIR 200 MG in Sodium Chloride 0.9% 250 ML IV ONE (09:19)
[2021-03-03] MEDS: Furosemide 40 MG Tab PO SCH (09:31)
[2021-03-03] MEDS: Lidocaine 5% 700 MG Patch TRDERM SCH (09:33)
[2021-03-03] MEDS: Potassium Chloride 10 MEQ Tab.ER PO SCH (09:33)
[2021-03-03] MEDS: acetaZOLAMIDE 250 MG Tab PO SCH (09:34)
[2021-03-03] MEDS: Gabapentin 100 MG Cap PO SCH ×3 (09:34→20:11)
[2021-03-03] MEDS: Spironolactone 25 MG Tab PO SCH ×2 (09:34→20:13)
[2021-03-03] MEDS: Metoprolol Tartrate 50 MG Tab PO SCH ×2 (09:34→20:13)
[2021-03-03] MEDS: Dexamethasone 6 MG TABLET PO SCH (09:41)
[2021-03-03] MEDS: Albuterol 6.7 GM Inhaler INH SCH ×4 (10:04→22:23)
--- NOTE | 2021-03-03 10:13 | CR ---
PROCEDURE INFORMATION: Exam: XR Chest Exam date and time: 03/03/2021 9:44 AM Age: 85 years old Clinical indication: Shortness of breath; Additional info: SOB, covid + TECHNIQUE: Imaging protocol: XR of the chest. Views: 1 view. COMPARISON: CR Chest 2V 02/16/2021 8:47 PM FINDINGS: Lungs: There is mild increase in interstitial markings within the lungs. This is nonspecific. There are superimposed patchy areas of there is atypical/viral pneumonia. There is no pulmonary edema. Lung volumes are low. Pleural spaces: Unremarkable. No pleural effusion. No pneumothorax. Heart/Mediastinum: Unremarkable. No cardiomegaly. Bones/joints: Unremarkable. IMPRESSION: Chronic appearing interstitial change with superimposed multifocal airspace opacity concerning for possible atypical/viral pneumonia. Correlate with COVID-19 status.
[2021-03-03] MEDS ORDERED: Water For Injection, Sterile 40 ML ONE (10:29)
[2021-03-03] MEDS: Sodium Chloride 0.9% 10 ML Syringe FLUSH PRN (10:48)
[2021-03-03 11:29] LABS: CHLORIDE,CL 97 mmol/L (98-107); SODIUM,NA 143 mmol/L (136-145)
[2021-03-03] MEDS ORDERED: Formoterol/Mometasone 100-5 MCG 8.8 GM Inhaler IH SCH (18:00)
[2021-03-03] MEDS: Formoterol/Mometasone 200-5 MCG 8.8 GM Inhaler IH SCH (18:12)
[2021-03-03] MEDS ORDERED: Docusate Sodium 100 MG Cap PO PRN (19:25)
[2021-03-03] MEDS: Aspirin 81 MG Tab.Chew PO SCH (20:11)
[2021-03-03] MEDS: atorvaSTATin 10 MG Tab PO SCH (20:11)
[2021-03-04] MEDS: Albuterol 6.7 GM Inhaler INH SCH ×6 (02:43→22:14)
[2021-03-04] MEDS: Levothyroxine 75 MCG Tab PO SCH (05:25)
[2021-03-04 06:51] LABS: ANION GAP 5.6 mEq/L (7-13); CHLORIDE,CL 100 mmol/L (98-107); SODIUM,NA 145 mmol/L (136-145)
--- NOTE | 2021-03-04 07:10 | PCM.PN ---
- General Info Date of Service: 03/04/21 Admission Dx/Problem (Free Text): Admission Diagnosis/Problem Admission Diagnosis/Problem Compression fracture Subjective Update: Patient is again alert and orientated x3 this AM. She tells me that her breathing is improved from prior day but is not back to her baseline. States that her back pain is controlled today a slightly worse than prior day when she moves. Denies any fevers, chills, worsening lower extremity edema, abdominal pain, nausea or vomiting. Remainder review systems is negative except those listed above. - Patient Data Vitals - Most Recent: Last Vital Signs Temp 97.1 F 03/04/21 04:00 Pulse 106 H 03/04/21 04:00 Resp 20 03/04/21 04:00 BP 114/70 03/04/21 04:00 Pulse Ox 93 L 03/04/21 04:00 Weight - Most Recent: 144 lb I&O - Last 24 Hours: Intake & Output 03/03/21 03/04/21 03/04/21 22:59 06:59 14:59 Intake Total 605 100 Balance 605 100 Lab Results Last 24 Hours: Laboratory Results - last 24 hr 03/03/21 03/04/21 Range/Units 11:02 06:05 Sodium 143 145 (136-145) mmol/L Potassium 4.0 3.6 (3.5-5.1) mmol/L Chloride 97 L 100 (98-107) mmol/L Carbon Dioxide 45 H* 43 H* (21-32) mmol/L Anion Gap 5.0 L 5.6 L (7-13) mEq/L BUN 20 H 19 H (7-18) mg/dL Creatinine 0.85 0.76 (0.55-1.02) mg/dL Est Cr Clr Drug Dosing 36.02 40.29 mL/min Estimated GFR (MDRD) > 60 > 60 BUN/Creatinine Ratio 23.5 25.0 (No establ ref range) Glucose 126 H 107 H (70-99) mg/dL Calcium 8.9 8.6 (8.5-10.1) mg/dL Total Bilirubin 0.5 0.3 (0.2-1.0) mg/dL AST 23 20 (15-37) U/L ALT 20 20 (14-59) U/L Alkaline Phosphatase 119 H 108 (46-116) U/L Total Protein 6.0 L 5.4 L (6.4-8.2) g/dL Albumin 3.0 L 2.9 L (3.4-5.0) g/dL Globulin 3.0 2.5 Albumin/Globulin Ratio 1.00 1.16 Med Orders - Current: Current Medications Acetazolamide (Acetazolamide 250 Mg Tab) 250 mg PO TuThSa@0900 [facility] Last Admin: 03/03/21 09:34 Dose: 250 mg Documented by: Albuterol (Albuterol 6.7 Gm Inhaler) 0 gm INH Q4H [facility] Last Admin: 03/04/21 05:25 Dose: 2 puff Documented by: Aspirin (Aspirin 81 Mg Tab.Chew) 81 mg PO BEDTIME [facility] Last Admin: 03/03/21 20:11 Dose: 81 mg Documented by: Atorvastatin Calcium (Atorvastatin 10 Mg Tab) 10 mg PO BEDTIME [facility] Last Admin: 03/03/21 20:11 Dose: 10 mg Documented by: Dexamethasone (Dexamethasone 6 Mg Tablet) 6 mg PO DAILY [facility] Stop: 03/12/21 09:01 Last Admin: 03/03/21 09:41 Dose: 6 mg Documented by: Docusate Sodium (Docusate Sodium 100 Mg Cap) 100 mg PO Q12H PRN PRN Reason: Constipation Furosemide (Furosemide 40 Mg Tab) 60 mg PO DAILY [facility] Last Admin: 03/03/21 09:31 Dose: 60 mg Documented by: Gabapentin (Gabapentin 100 Mg Cap) 100 mg PO TID [facility] Last Admin: 03/03/21 20:11 Dose: 100 mg Documented by: Guaifenesin (Guaifenesin 100 Mg/5 Ml Soln 5 Ml Ud Cup) 100 mg PO Q6H PRN PRN Reason: Cough Last Admin: 03/03/21 03:56 Dose: 100 mg Documented by: Remdesivir 100 mg/ Sodium (Chloride) 100 mls @ 100 mls/hr IV Q24H [facility] Stop: 03/07/21 09:59 Levothyroxine Sodium (Levothyroxine 75 Mcg Tab) 75 mcg PO ACBREAKFAST [facility] Last Admin: 03/04/21 05:25 Dose: 75 mcg Documented by: Lidocaine (Lidocaine 5% 700 Mg Patch) 1,400 mg TRDERM DAILY [facility] Last Admin: 03/03/21 09:33 Dose: 1,400 mg Documented by: Metoprolol Tartrate (Metoprolol Tartrate 50 Mg Tab) 25 mg PO BID [facility] Last Admin: 03/03/21 20:13 Dose: 25 mg Documented by: Miscellaneous Information (Remove Patch) 1 ea TRDERM BEDTIME [facility] Last Admin: 03/03/21 22:24 Dose: Not Given Documented by: Mometasone Furoate/Formoterol Fumar (Formoterol/Mometasone 200-5 Mcg 8.8 Gm Inhaler) 0 puff IH BIDRT [facility] Last Admin: 03/03/21 18:12 Dose: 2 puff Documented by: Potassium Chloride (Potassium Chloride 10 Meq Tab.Er) 20 meq PO DAILY [facility] Last Admin: 03/03/21 09:33 Dose: 20 meq Documented by: Sodium Chloride (Sodium Chloride 0.9% 10 Ml Syringe) 10 ml FLUSH ASDIRECTED PRN PRN Reason: Keep Vein Open Last Admin: 03/03/21 10:48 Dose: 10 ml Documented by: Spironolactone (Spironolactone 25 Mg Tab) 25 mg PO BID [facility] Last Admin: 03/03/21 20:13 Dose: 25 mg Documented by: Discontinued Medications Acetaminophen (Acetaminophen 325 Mg Tab) 650 mg PO Q4H PRN PRN Reason: Pain (Mild 1-3)/fever Albuterol/Ipratropium (Albuterol/Ipratropium 3.0-0.5 Mg/3 Ml Neb Soln) 3 ml NEB ONETIME ONE Stop: 03/01/21 12:31 Last Admin: 03/01/21 12:59 Dose: 3 ml Documented by: Albuterol/Ipratropium (Albuterol/Ipratropium 3.0-0.5 Mg/3 Ml Neb Soln) 3 ml NEB Q8HRRT [facility] Last Admin: 03/03/21 19:23 Dose: Not Given Documented by: Budesonide (Budesonide 0.5 Mg/2 Ml Neb Susp) 0.5 mg INH BIDRT [facility] Last Admin: 03/03/21 19:23 Dose: Not Given Documented by: Enoxaparin Sodium (Enoxaparin 40 Mg/0.4 Ml Syringe) 40 mg SUBCUT DAILY [facility] Last Admin: 03/02/21 09:18 Dose: 40 mg Documented by: Furosemide (Furosemide 40 Mg/4 Ml Vial) 40 mg IVPUSH ONETIME ONE Stop: 03/01/21 14:31 Last Admin: 03/01/21 16:22 Dose: 40 mg Documented by: Hydromorphone HCl (Hydromorphone 0.5 Mg/0.5 Ml Syringe) 0.5 mg IVPUSH ONETIME ONE Stop: 03/01/21 11:57 Last Admin: 03/01/21 12:59 Dose: 0.5 mg Documented by: Remdesivir 200 mg/ Sodium (Chloride) 250 mls @ 250 mls/hr IV ONETIME ONE Stop: 03/03/21 10:18 Last Infusion: 03/03/21 11:50 Dose: Infused Documented by: Sterile Water (Sterile Water For Injection) Confirm Administered Dose 40 mls @ as directed .ROUTE .STK-MED ONE Stop: 03/03/21 10:30 Last Admin: 03/03/21 11:58 Dose: Not Given Documented by: Mometasone Furoate/Formoterol Fumar (Formoterol/Mometasone 100-5 Mcg 8.8 Gm Inhaler) 2 puff IH BIDRT [facility] Ondansetron HCl (Ondansetron 4 Mg Tab.Dis) 4 mg PO ONETIME ONE Stop: 03/01/21 10:04 Last Admin: 03/01/21 10:40 Dose: 4 mg Documented by: Oxycodone HCl (Oxycodone 5 Mg Tab) 5 mg PO Q8H PRN PRN Reason: Pain (moderate 4-6) Last Admin: 03/01/21 23:47 Dose: 5 mg Documented by: Sodium Chloride (Sodium Chloride 0.9% 10 Ml Syringe) 10 ml FLUSH ASDIRECTED PRN PRN Reason: Keep Vein Open Last Admin: 03/01/21 12:59 Dose: 10 ml Documented by: Tramadol HCl (Tramadol 50 Mg Tab) 50 mg PO ONETIME ONE Stop: 03/01/21 10:04 Last Admin: 03/01/21 10:40 Dose: 50 mg Documented by: - Exam Quality Assessment: Supplemental Oxygen General: Alert, Oriented HEENT: Pupils Equal Neck: Supple Lungs: Decreased Breath Sounds, Crackles, Wheezing Cardiovascular: Regular Rate, Regular Rhythm GI/Abdominal Exam: Normal Bowel Sounds, Soft Back Exam: Normal Inspection Extremities: Pedal Edema Peripheral Pulses: 2+: Radial (L), Radial (R) Skin: Warm Neurological: No New Focal Deficit Psy/Mental Status: Alert - Patient Data Lab Results Last 24 hrs: Laboratory Results - last 24 hr 03/03/21 03/04/21 Range/Units 11:02 06:05 Sodium 143 145 (136-145) mmol/L Potassium 4.0 3.6 (3.5-5.1) mmol/L Chloride 97 L 100 (98-107) mmol/L Carbon Dioxide 45 H* 43 H* (21-32) mmol/L Anion Gap 5.0 L 5.6 L (7-13) mEq/L BUN 20 H 19 H (7-18) mg/dL Creatinine 0.85 0.76 (0.55-1.02) mg/dL Est Cr Clr Drug Dosing 36.02 40.29 mL/min Estimated GFR (MDRD) > 60 > 60 BUN/Creatinine Ratio 23.5 25.0 (No establ ref range) Glucose 126 H 107 H (70-99) mg/dL Calcium 8.9 8.6 (8.5-10.1) mg/dL Total Bilirubin 0.5 0.3 (0.2-1.0) mg/dL AST 23 20 (15-37) U/L ALT 20 20 (14-59) U/L Alkaline Phosphatase 119 H 108 (46-116) U/L Total Protein 6.0 L 5.4 L (6.4-8.2) g/dL Albumin 3.0 L 2.9 L (3.4-5.0) g/dL Globulin 3.0 2.5 Albumin/Globulin Ratio 1.00 1.16 Result Diagrams: 03/01/21 12:09 03/04/21 06:05 Sepsis Event Note - Evaluation Sepsis Screening Result: No Definite Risk - Focused Exam Vital Signs: Vital Signs Temp Pulse Pulse Resp BP BP Pulse Ox 03/04/21 04:00 97.1 F 106 H 20 114/70 93 L 03/03/21 20:13 110 H 125/71 03/03/21 20:00 91 L 03/03/21 19:58 99.1 F 112 H 22 H 125/71 62 L - Problem List & Annotations (1) Compression fracture of L3 vertebra SNOMED Code(s): 933625552, 974695291 Code(s): S32.030A - WEDGE COMPRESSION FRACTURE OF THIRD LUMBAR VERTEBRA, INIT Status: Acute Current Visit: Yes Qualifiers: Encounter type: initial encounter Qualified Code(s): S32.030A - Wedge compression fracture of third lumbar vertebra, initial encounter for closed fracture (2) Compression fracture of L4 vertebra SNOMED Code(s): 046033851, 18431029122215409 Code(s): S32.040A - WEDGE COMPRESSION FRACTURE OF FOURTH LUMBAR VERTEBRA, INIT Status: Acute Current Visit: Yes Qualifiers: Encounter type: initial encounter Qualified Code(s): S32.040A - Wedge compression fracture of fourth lumbar vertebra, initial encounter for closed fracture (3) HTN, Benign hypertension SNOMED Code(s): 81614181 Code(s): I10 - ESSENTIAL (PRIMARY) HYPERTENSION Status: Acute Current Visit: No (4) Peripheral edema SNOMED Code(s): 419645163 Code(s): R60.9 - EDEMA, UNSPECIFIED Status: Acute Current Visit: No (5) SOB (shortness of breath) SNOMED Code(s): 581555683 Code(s): R06.02 - SHORTNESS OF BREATH Status: Acute Current Visit: No (6) Acute exacerbation of CHF (congestive heart failure) SNOMED Code(s): 521475933, 39751825752500 Code(s): I50.9 - HEART FAILURE, UNSPECIFIED Status: Chronic Current Visit: No Qualifiers: Heart failure type: diastolic Qualified Code(s): I50.33 - Acute on chronic diastolic (congestive) heart failure (7) COPD (chronic obstructive pulmonary disease) SNOMED Code(s): 04888880 Code(s): J44.9 - CHRONIC OBSTRUCTIVE PULMONARY DISEASE, UNSPECIFIED Status: Chronic Current Visit: No Qualifiers: COPD type: unspecified COPD Qualified Code(s): J44.9 - Chronic obstructive pulmonary disease, unspecified (8) Acute and chronic respiratory failure with hypoxia SNOMED Code(s): 26701796, 189193909 Code(s): J96.21 - ACUTE AND CHRONIC RESPIRATORY FAILURE WITH HYPOXIA Status: Acute Current Visit: Yes (9) COVID-19 SNOMED Code(s): 403604607 Code(s): U07.1 - COVID-19 Status: Acute Current Visit: Yes - Problem List Review Problem List Initiated/Reviewed/Updated: Yes - My Orders Last 24 Hours: My Active Orders 03/03/21 09:00 acetaZOLAMIDE [Diamox] 250 mg PO TuThSa@0900 03/03/21 09:30 dexAMETHasone 6 mg PO DAILY 03/03/21 09:53 RT Post Treatment Assessment [RC] Click to Edit RT Pre-Treatment Assessment [RC] Click to Edit 03/03/21 10:00 Albuterol [Proventil HFA] 0 gm INH Q4H 03/03/21 18:01 Mometasone/Formoterol [Dulera 200-5 MCG] 0 puff IH BIDRT 03/03/21 19:25 Docusate Sodium [Colace] 100 mg PO Q12H PRN 03/04/21 09:00 Remdesivir 100 mg Sodium Chloride 0.9% [Normal Saline AdvBag] 100 ml IV Q24H 03/05/21 09:30 COMPREHENSIVE METABOLIC PN,CMP [CHEM] DAILY 03/06/21 09:30 COMPREHENSIVE METABOLIC PN,CMP [CHEM] DAILY 03/07/21 09:30 COMPREHENSIVE METABOLIC PN,CMP [CHEM] DAILY - Plan Plan:: Patient is an 85-year-old female with a history of COPD on chronic home O2, osteoporosis with multiple compression fractures, CHF who presented with fall and new onset compression fractures. Request was made for admission due to pain control, PT and OT and possible placement. # L4 compression fracture -Multiple compression fractures due to history of osteoporosis. Continue vitamin D, Fosamax, calcium supplementation. -Pain control with scheduled Tylenol, PRN tylenol, lidocaine patches, PT/OT/social work -No further opioid medications if able given patient's slight confusion after 1 dose of oxycodone on admission, patient is alert orientated and at baseline mental status since 03/03/21 -Continue gabapentin # COVID-19 positive test/acute on chronic hypoxic respiratory failure -Patient states to me that she had Covid 19 infection a year ago and is vaccinated against COVID-19. Initially on admission patient stated that her respiratory status was no different than baseline. However on hospital day 1 tati berger indicates significant worsening of her baseline respiratory disease. -CT lumbar spine did show some groundglass opacities in the pulmonary exam however these were also seen in stable from April 2020 -Chest x-ray obtained 03-03-21, official read indicated viral/atypical pneumonia pattern -Given patient's worsening of her respiratory symptoms and slight increase in her oxygen requirements we began treatment for symptomatic COVID-19 infection on 03-03-21 with remdesivir per protocol, dexamethasone p.o. per protocol, laboratory monitoring per protocol -We will hold on antibiotics for now but low threshold if further worsening to obtain blood cultures and start abx # COPD on home oxygen -Scheduled dulera inhaler, PRN albuterol inhaler -Continue on home O2 - goal oxygen saturation >88% # CHF -Continue home 60 mg PO lasix in AM, continue spironolactone, metoprolol -Patient did receive IV Lasix 40 mg x 1 on admission 03/02/21 -appears closer to euvolemia on exam today-I believe that patient's respiratory status changes due to the COVID-19 infection rather than a significant volume overload component -Sodium restricted diet # Hyperlipidemia -continue statin # Hypothyroidismlevothyroxine Fluidsnone Electrolytesnormal limits Dietsodium restricted DVT prophylaxis Lovenox Dispositionfurther inpatient monitoring given worsening acute on chronic hypoxic respiratory failure, PT/OT/social work for possible placement
[2021-03-04] MEDS: Formoterol/Mometasone 200-5 MCG 8.8 GM Inhaler IH SCH ×2 (07:53→18:18)
[2021-03-04] MEDS: Spironolactone 25 MG Tab PO SCH ×2 (09:15→20:08)
[2021-03-04] MEDS: Dexamethasone 6 MG TABLET PO SCH (09:15)
[2021-03-04] MEDS: Furosemide 40 MG Tab PO SCH (09:16)
[2021-03-04] MEDS: Metoprolol Tartrate 50 MG Tab PO SCH ×2 (09:16→20:08)
[2021-03-04] MEDS: Potassium Chloride 10 MEQ Tab.ER PO SCH (09:17)
[2021-03-04] MEDS: Gabapentin 100 MG Cap PO SCH ×3 (09:17→20:12)
[2021-03-04] MEDS: Lidocaine 5% 700 MG Patch TRDERM SCH (09:17)
[2021-03-04] MEDS: REMDESIVIR 100 MG in Sodium Chloride 0.9% 100 ML IV SCH (10:42)
[2021-03-04] MEDS: Sodium Chloride 0.9% 10 ML Syringe FLUSH PRN (10:46)
[2021-03-04] MEDS: Nystatin Susp 100,000 Unit/ML 5 ML UD Cup PO SCH ×4 (13:41→20:08)
[2021-03-04] MEDS: Aspirin 81 MG Tab.Chew PO SCH (20:08)
[2021-03-04] MEDS: atorvaSTATin 10 MG Tab PO SCH (20:08)
[2021-03-05] MEDS: Albuterol 6.7 GM Inhaler INH SCH ×6 (01:33→21:00)
[2021-03-05] MEDS: Levothyroxine 75 MCG Tab PO SCH (05:07)
--- NOTE | 2021-03-05 06:46 | PCM.PN ---
- General Info Date of Service: 03/05/21 Admission Dx/Problem (Free Text): Admission Diagnosis/Problem Admission Diagnosis/Problem Compression fracture Subjective Update: Patient is alert and orientated x3 this AM. She tells me that her breathing is stable to improved from prior day but is not back to her baseline. States that her back pain is controlled today and she only notices it when she moves. Denies any fevers, chills, worsening lower extremity edema, abdominal pain, nausea or vomiting. Remainder of review systems is negative except those listed above. - Patient Data Vitals - Most Recent: Last Vital Signs Temp 98.6 F 03/05/21 04:00 Pulse 105 H 03/05/21 04:00 Resp 18 03/05/21 04:00 BP 112/72 03/05/21 04:00 Pulse Ox 97 03/05/21 04:00 Weight - Most Recent: 144 lb I&O - Last 24 Hours: Intake & Output 03/04/21 03/04/21 03/05/21 14:59 22:59 06:59 Intake Total 450 200 180 Balance 450 200 180 Lab Results Last 24 Hours: Laboratory Results - last 24 hr 03/04/21 Range/Units 06:05 Sodium 145 (136-145) mmol/L Potassium 3.6 (3.5-5.1) mmol/L Chloride 100 (98-107) mmol/L Carbon Dioxide 43 H* (21-32) mmol/L Anion Gap 5.6 L (7-13) mEq/L BUN 19 H (7-18) mg/dL Creatinine 0.76 (0.55-1.02) mg/dL Est Cr Clr Drug Dosing 40.29 mL/min Estimated GFR (MDRD) > 60 BUN/Creatinine Ratio 25.0 (No establ ref range) Glucose 107 H (70-99) mg/dL Calcium 8.6 (8.5-10.1) mg/dL Total Bilirubin 0.3 (0.2-1.0) mg/dL AST 20 (15-37) U/L ALT 20 (14-59) U/L Alkaline Phosphatase 108 (46-116) U/L Total Protein 5.4 L (6.4-8.2) g/dL Albumin 2.9 L (3.4-5.0) g/dL Globulin 2.5 Albumin/Globulin Ratio 1.16 Med Orders - Current: Current Medications Acetazolamide (Acetazolamide 250 Mg Tab) 250 mg PO TuThSa@0900 [facility] Last Admin: 03/03/21 09:34 Dose: 250 mg Documented by: Albuterol (Albuterol 6.7 Gm Inhaler) 0 gm INH Q4H [facility] Last Admin: 03/05/21 05:08 Dose: 2 puff Documented by: Aspirin (Aspirin 81 Mg Tab.Chew) 81 mg PO BEDTIME [facility] Last Admin: 03/04/21 20:08 Dose: 81 mg Documented by: Atorvastatin Calcium (Atorvastatin 10 Mg Tab) 10 mg PO BEDTIME [facility] Last Admin: 03/04/21 20:08 Dose: 10 mg Documented by: Dexamethasone (Dexamethasone 6 Mg Tablet) 6 mg PO DAILY [facility] Stop: 03/12/21 09:01 Last Admin: 03/04/21 09:15 Dose: 6 mg Documented by: Docusate Sodium (Docusate Sodium 100 Mg Cap) 100 mg PO Q12H PRN PRN Reason: Constipation Furosemide (Furosemide 40 Mg Tab) 60 mg PO DAILY [facility] Last Admin: 03/04/21 09:16 Dose: 60 mg Documented by: Gabapentin (Gabapentin 100 Mg Cap) 100 mg PO TID [facility] Last Admin: 03/04/21 20:12 Dose: 100 mg Documented by: Guaifenesin (Guaifenesin 100 Mg/5 Ml Soln 5 Ml Ud Cup) 100 mg PO Q6H PRN PRN Reason: Cough Last Admin: 03/03/21 03:56 Dose: 100 mg Documented by: Remdesivir 100 mg/ Sodium (Chloride) 100 mls @ 100 mls/hr IV Q24H [facility] Stop: 03/07/21 09:59 Last Infusion: 03/04/21 12:05 Dose: Infused Documented by: Levothyroxine Sodium (Levothyroxine 75 Mcg Tab) 75 mcg PO ACBREAKFAST [facility] Last Admin: 03/05/21 05:07 Dose: 75 mcg Documented by: Lidocaine (Lidocaine 5% 700 Mg Patch) 1,400 mg TRDERM DAILY [facility] Last Admin: 03/04/21 09:17 Dose: 1,400 mg Documented by: Metoprolol Tartrate (Metoprolol Tartrate 50 Mg Tab) 25 mg PO BID [facility] Last Admin: 03/04/21 20:08 Dose: 25 mg Documented by: Miscellaneous Information (Remove Patch) 1 ea TRDERM BEDTIME [facility] Last Admin: 03/04/21 20:12 Dose: Not Given Documented by: Mometasone Furoate/Formoterol Fumar (Formoterol/Mometasone 200-5 Mcg 8.8 Gm Inhaler) 0 puff IH BIDRT [facility] Last Admin: 03/04/21 18:18 Dose: 2 puff Documented by: Nystatin (Nystatin Susp 100,000 Unit/Ml 5 Ml Ud Cup) 5 ml PO QID@0900,1300,1800,2100 [facility] Last Admin: 03/04/21 20:08 Dose: 5 ml Documented by: Potassium Chloride (Potassium Chloride 10 Meq Tab.Er) 20 meq PO DAILY [facility] Last Admin: 03/04/21 09:17 Dose: 20 meq Documented by: Sodium Chloride (Sodium Chloride 0.9% 10 Ml Syringe) 10 ml FLUSH ASDIRECTED PRN PRN Reason: Keep Vein Open Last Admin: 03/04/21 10:46 Dose: 10 ml Documented by: Spironolactone (Spironolactone 25 Mg Tab) 25 mg PO BID [facility] Last Admin: 03/04/21 20:08 Dose: 25 mg Documented by: Discontinued Medications Acetaminophen (Acetaminophen 325 Mg Tab) 650 mg PO Q4H PRN PRN Reason: Pain (Mild 1-3)/fever Albuterol/Ipratropium (Albuterol/Ipratropium 3.0-0.5 Mg/3 Ml Neb Soln) 3 ml NEB ONETIME ONE Stop: 03/01/21 12:31 Last Admin: 03/01/21 12:59 Dose: 3 ml Documented by: Albuterol/Ipratropium (Albuterol/Ipratropium 3.0-0.5 Mg/3 Ml Neb Soln) 3 ml NEB Q8HRRT [facility] Last Admin: 03/03/21 19:23 Dose: Not Given Documented by: Budesonide (Budesonide 0.5 Mg/2 Ml Neb Susp) 0.5 mg INH BIDRT [facility] Last Admin: 03/03/21 19:23 Dose: Not Given Documented by: Enoxaparin Sodium (Enoxaparin 40 Mg/0.4 Ml Syringe) 40 mg SUBCUT DAILY [facility] Last Admin: 03/02/21 09:18 Dose: 40 mg Documented by: Furosemide (Furosemide 40 Mg/4 Ml Vial) 40 mg IVPUSH ONETIME ONE Stop: 03/01/21 14:31 Last Admin: 03/01/21 16:22 Dose: 40 mg Documented by: Hydromorphone HCl (Hydromorphone 0.5 Mg/0.5 Ml Syringe) 0.5 mg IVPUSH ONETIME ONE Stop: 03/01/21 11:57 Last Admin: 03/01/21 12:59 Dose: 0.5 mg Documented by: Remdesivir 200 mg/ Sodium (Chloride) 250 mls @ 250 mls/hr IV ONETIME ONE Stop: 03/03/21 10:18 Last Infusion: 03/03/21 11:50 Dose: Infused Documented by: Sterile Water (Sterile Water For Injection) Confirm Administered Dose 40 mls @ as directed .ROUTE .STK-MED ONE Stop: 03/03/21 10:30 Last Admin: 03/03/21 11:58 Dose: Not Given Documented by: Mometasone Furoate/Formoterol Fumar (Formoterol/Mometasone 100-5 Mcg 8.8 Gm Inhaler) 2 puff IH BIDRT [facility] Nystatin (Nystatin Susp 100,000 Unit/Ml 5 Ml Ud Cup) 5 ml PO QID [facility] Last Admin: 03/04/21 18:25 Dose: Not Given Documented by: Ondansetron HCl (Ondansetron 4 Mg Tab.Dis) 4 mg PO ONETIME ONE Stop: 03/01/21 10:04 Last Admin: 03/01/21 10:40 Dose: 4 mg Documented by: Oxycodone HCl (Oxycodone 5 Mg Tab) 5 mg PO Q8H PRN PRN Reason: Pain (moderate 4-6) Last Admin: 03/01/21 23:47 Dose: 5 mg Documented by: Sodium Chloride (Sodium Chloride 0.9% 10 Ml Syringe) 10 ml FLUSH ASDIRECTED PRN PRN Reason: Keep Vein Open Last Admin: 03/01/21 12:59 Dose: 10 ml Documented by: Tramadol HCl (Tramadol 50 Mg Tab) 50 mg PO ONETIME ONE Stop: 03/01/21 10:04 Last Admin: 03/01/21 10:40 Dose: 50 mg Documented by: - Exam General: Alert, Oriented HEENT: Pupils Equal, Pupils Reactive Neck: Supple Lungs: Normal Respiratory Effort, Crackles Cardiovascular: Regular Rate, Regular Rhythm GI/Abdominal Exam: Normal Bowel Sounds, Soft, Non-Tender Back Exam: Normal Inspection Extremities: Normal Inspection Peripheral Pulses: 2+: Radial (L), Radial (R) Skin: Warm, Dry Neurological: No New Focal Deficit Psy/Mental Status: Alert - Patient Data Lab Results Last 24 hrs: Laboratory Results - last 24 hr 03/04/21 Range/Units 06:05 Sodium 145 (136-145) mmol/L Potassium 3.6 (3.5-5.1) mmol/L Chloride 100 (98-107) mmol/L Carbon Dioxide 43 H* (21-32) mmol/L Anion Gap 5.6 L (7-13) mEq/L BUN 19 H (7-18) mg/dL Creatinine 0.76 (0.55-1.02) mg/dL Est Cr Clr Drug Dosing 40.29 mL/min Estimated GFR (MDRD) > 60 BUN/Creatinine Ratio 25.0 (No establ ref range) Glucose 107 H (70-99) mg/dL Calcium 8.6 (8.5-10.1) mg/dL Total Bilirubin 0.3 (0.2-1.0) mg/dL AST 20 (15-37) U/L ALT 20 (14-59) U/L Alkaline Phosphatase 108 (46-116) U/L Total Protein 5.4 L (6.4-8.2) g/dL Albumin 2.9 L (3.4-5.0) g/dL Globulin 2.5 Albumin/Globulin Ratio 1.16 Result Diagrams: 03/01/21 12:09 03/05/21 06:05 Sepsis Event Note - Evaluation Sepsis Screening Result: No Definite Risk - Focused Exam Vital Signs: Vital Signs Temp Pulse Pulse Resp BP BP Pulse Ox 03/05/21 04:00 98.6 F 105 H 18 112/72 97 03/04/21 20:08 118 H 116/73 03/04/21 20:00 98.8 F 118 H 22 H 116/73 97 - Problem List & Annotations (1) Compression fracture of L3 vertebra SNOMED Code(s): 408002772, 882381159 Code(s): S32.030A - WEDGE COMPRESSION FRACTURE OF THIRD LUMBAR VERTEBRA, INIT Status: Acute Current Visit: Yes Qualifiers: Encounter type: initial encounter Qualified Code(s): S32.030A - Wedge compression fracture of third lumbar vertebra, initial encounter for closed fracture (2) Compression fracture of L4 vertebra SNOMED Code(s): 907662471, 35403077803109028 Code(s): S32.040A - WEDGE COMPRESSION FRACTURE OF FOURTH LUMBAR VERTEBRA, INIT Status: Acute Current Visit: Yes Qualifiers: Encounter type: initial encounter Qualified Code(s): S32.040A - Wedge compression fracture of fourth lumbar vertebra, initial encounter for closed fracture (3) HTN, Benign hypertension SNOMED Code(s): 97300786 Code(s): I10 - ESSENTIAL (PRIMARY) HYPERTENSION Status: Acute Current Visit: No (4) Peripheral edema SNOMED Code(s): 757012471 Code(s): R60.9 - EDEMA, UNSPECIFIED Status: Acute Current Visit: Yes (5) SOB (shortness of breath) SNOMED Code(s): 764549902 Code(s): R06.02 - SHORTNESS OF BREATH Status: Acute Current Visit: Yes (6) Acute exacerbation of CHF (congestive heart failure) SNOMED Code(s): 385182935, 45534581019122 Code(s): I50.9 - HEART FAILURE, UNSPECIFIED Status: Chronic Current Visit: No Qualifiers: Heart failure type: diastolic Qualified Code(s): I50.33 - Acute on chronic diastolic (congestive) heart failure (7) COPD (chronic obstructive pulmonary disease) SNOMED Code(s): 49215258 Code(s): J44.9 - CHRONIC OBSTRUCTIVE PULMONARY DISEASE, UNSPECIFIED Status: Chronic Current Visit: No Qualifiers: COPD type: unspecified COPD Qualified Code(s): J44.9 - Chronic obstructive pulmonary disease, unspecified (8) Acute and chronic respiratory failure with hypoxia SNOMED Code(s): 10928594, 693040836 Code(s): J96.21 - ACUTE AND CHRONIC RESPIRATORY FAILURE WITH HYPOXIA Status: Acute Current Visit: Yes (9) COVID-19 SNOMED Code(s): 658271797 Code(s): U07.1 - COVID-19 Status: Acute Current Visit: Yes - Problem List Review Problem List Initiated/Reviewed/Updated: Yes - My Orders Last 24 Hours: My Active Orders 03/04/21 09:00 Remdesivir 100 mg Sodium Chloride 0.9% [Normal Saline AdvBag] 100 ml IV Q24H 03/04/21 18:00 Nystatin [Mycostatin] 5 ml PO QID@0900,1300,1800,2100 03/05/21 06:05 COMPREHENSIVE METABOLIC PN,CMP [CHEM] DAILY 03/06/21 09:30 COMPREHENSIVE METABOLIC PN,CMP [CHEM] DAILY 03/07/21 09:30 COMPREHENSIVE METABOLIC PN,CMP [CHEM] DAILY - Plan Plan:: Patient is an 85-year-old female with a history of COPD on chronic home O2, osteoporosis with multiple compression fractures, CHF who presented with fall and new onset compression fractures. Request was made for admission due to pain control, PT/OT and possible placement. # L4 compression fracture -Multiple compression fractures due to history of osteoporosis. Continue v itamin D, Fosamax, calcium supplementation. -Pain control with scheduled Tylenol, PRN tylenol, lidocaine patches, PT/OT/social work -No further opioid medications if able given patient's slight confusion after 1 dose of oxycodone on admission, patient is alert orientated and at baseline mental status since 03/03/21 -Continue gabapentin # COVID-19 positive test/acute on chronic hypoxic respiratory failure -Patient states to me that she had Covid 19 infection a year ago and is vaccinated against COVID-19. Initially on admission patient stated that her respiratory status was no different than baseline. However on hospital day 1 patient indicates significant worsening of her baseline respiratory disease. -CT lumbar spine did show some groundglass opacities in the pulmonary exam however these were also seen in stable from April 2020 -Chest x-ray obtained 03-03-21, official read indicated viral/atypical pneumonia pattern -Given patient's worsening of her respiratory symptoms and slight increase in her oxygen requirements we began treatment for symptomatic COVID-19 infection on 03-03-21 with remdesivir per protocol, dexamethasone p.o. per protocol, laboratory monitoring per protocol -respiratory status stable to improved today -We will hold on antibiotics for now but low threshold if further worsening to obtain blood cultures and start abx # COPD on home oxygen -Scheduled dulera inhaler, PRN albuterol inhaler -Continue on home O2 - goal oxygen saturation >88% # CHF -Continue home 60 mg PO lasix in AM, continue spironolactone, metoprolol -Patient did receive IV Lasix 40 mg x 1 on admission 03/02/21 -appears closer to euvolemia on exam today-looking at prior notes patient has chronic crackles -Sodium restricted diet # Hyperlipidemia -continue statin # Hypothyroidismlevothyroxine Fluidsnone Electrolytesnormal limits Dietsodium restricted DVT prophylaxis Lovenox Dispositionfurther inpatient monitoring given worsening acute on chronic hypoxic respiratory failure, PT/OT/social work for possible placement
[2021-03-05 06:51] LABS: ANION GAP 2.6 mEq/L (7-13); CHLORIDE,CL 102 mmol/L (98-107); SODIUM,NA 146 mmol/L (136-145)
[2021-03-05] MEDS: Lidocaine 5% 700 MG Patch TRDERM SCH (08:03)
[2021-03-05] MEDS: Formoterol/Mometasone 200-5 MCG 8.8 GM Inhaler IH SCH ×2 (08:08→18:19)
[2021-03-05] MEDS: Nystatin Susp 100,000 Unit/ML 5 ML UD Cup PO SCH ×4 (08:11→20:51)
[2021-03-05] MEDS: Dexamethasone 6 MG TABLET PO SCH (08:12)
[2021-03-05] MEDS: Spironolactone 25 MG Tab PO SCH ×2 (08:12→20:51)
[2021-03-05] MEDS: Furosemide 40 MG Tab PO SCH (08:13)
[2021-03-05] MEDS: Metoprolol Tartrate 50 MG Tab PO SCH ×2 (08:14→20:51)
[2021-03-05] MEDS: Potassium Chloride 10 MEQ Tab.ER PO SCH (08:14)
[2021-03-05] MEDS: Gabapentin 100 MG Cap PO SCH ×3 (08:14→20:51)
[2021-03-05] MEDS: REMDESIVIR 100 MG in Sodium Chloride 0.9% 100 ML IV SCH (09:46)
[2021-03-05] MEDS ORDERED: Ondansetron 4 MG/2 ML SDV IVPUSH SCH (14:00)
[2021-03-05] MEDS: Calcium Carbonate 500 MG Tab.Chew PO PRN (15:17)
[2021-03-05] MEDS ORDERED: Ondansetron 4 MG/2 ML SDV IVPUSH PRN (18:00)
[2021-03-05] MEDS: Aspirin 81 MG Tab.Chew PO SCH (20:51)
[2021-03-05] MEDS: atorvaSTATin 10 MG Tab PO SCH (20:51)
[2021-03-05] MEDS: guaiFENesin 100 MG/5 ML Soln 5 ML UD Cup PO PRN (22:41)
[2021-03-06] MEDS: Albuterol 6.7 GM Inhaler INH SCH ×6 (02:11→21:22)
[2021-03-06] MEDS: Levothyroxine 75 MCG Tab PO SCH (05:15)
--- NOTE | 2021-03-06 05:28 | PCM.PN ---
- General Info Date of Service: 03/06/21 Admission Dx/Problem (Free Text): Admission Diagnosis/Problem Admission Diagnosis/Problem Compression fracture Subjective Update: Patient is alert, orientated, pleasant and the most awake and attentive that she has been during her hospital stay. Patient states her breathing is the most improved it has been during her hospital stay, is not quite back to her baseline per patient. Patient does describe some mild epigastric discomfort, likely related to her GERD per patient. Denies any fevers, chills, worsening lower extremity edema, nausea or vomiting. Remainder of review systems is negative except those listed above. - Patient Data Vitals - Most Recent: Last Vital Signs Temp 98.2 F 03/06/21 04:00 Pulse 82 03/06/21 04:00 Resp 22 H 03/06/21 04:00 BP 118/78 03/06/21 04:00 Pulse Ox 92 L 03/06/21 04:00 Weight - Most Recent: 144 lb I&O - Last 24 Hours: Intake & Output 03/05/21 03/05/21 03/06/21 14:59 22:59 06:59 Intake Total 240 240 Output Total 200 Balance 40 240 Lab Results Last 24 Hours: Laboratory Results - last 24 hr 03/05/21 Range/Units 06:05 Sodium 146 H (136-145) mmol/L Potassium 3.6 (3.5-5.1) mmol/L Chloride 102 (98-107) mmol/L Carbon Dioxide 45 H* (21-32) mmol/L Anion Gap 2.6 L (7-13) mEq/L BUN 18 (7-18) mg/dL Creatinine 0.80 (0.55-1.02) mg/dL Est Cr Clr Drug Dosing 38.27 mL/min Estimated GFR (MDRD) > 60 BUN/Creatinine Ratio 22.5 (No establ ref range) Glucose 98 (70-99) mg/dL Calcium 8.2 L (8.5-10.1) mg/dL Total Bilirubin 0.3 (0.2-1.0) mg/dL AST 17 (15-37) U/L ALT 19 (14-59) U/L Alkaline Phosphatase 97 (46-116) U/L Total Protein 4.7 L (6.4-8.2) g/dL Albumin 2.7 L (3.4-5.0) g/dL Globulin 2.0 Albumin/Globulin Ratio 1.35 Med Orders - Current: Current Medications Acetazolamide (Acetazolamide 250 Mg Tab) 250 mg PO TuThSa@0900 [facility] Last Admin: 03/03/21 09:34 Dose: 250 mg Documented by: Albuterol (Albuterol 6.7 Gm Inhaler) 0 gm INH Q4H [facility] Last Admin: 03/06/21 05:16 Dose: 2 puff Documented by: Aspirin (Aspirin 81 Mg Tab.Chew) 81 mg PO BEDTIME [facility] Last Admin: 03/05/21 20:51 Dose: 81 mg Documented by: Atorvastatin Calcium (Atorvastatin 10 Mg Tab) 10 mg PO BEDTIME [facility] Last Admin: 03/05/21 20:51 Dose: 10 mg Documented by: Calcium Carbonate/Glycine (Calcium Carbonate 500 Mg Tab.Chew) 500 mg PO Q2H PRN PRN Reason: Nausea/upset stomach Last Admin: 03/05/21 15:17 Dose: 500 mg Documented by: Dexamethasone (Dexamethasone 6 Mg Tablet) 6 mg PO DAILY [facility] Stop: 03/12/21 09:01 Last Admin: 03/05/21 08:12 Dose: 6 mg Documented by: Docusate Sodium (Docusate Sodium 100 Mg Cap) 100 mg PO Q12H PRN PRN Reason: Constipation Furosemide (Furosemide 40 Mg Tab) 60 mg PO DAILY [facility] Last Admin: 03/05/21 08:13 Dose: 60 mg Documented by: Gabapentin (Gabapentin 100 Mg Cap) 100 mg PO TID [facility] Last Admin: 03/05/21 20:51 Dose: 100 mg Documented by: Guaifenesin (Guaifenesin 100 Mg/5 Ml Soln 5 Ml Ud Cup) 100 mg PO Q6H PRN PRN Reason: Cough Last Admin: 03/05/21 22:41 Dose: 100 mg Documented by: Remdesivir 100 mg/ Sodium (Chloride) 100 mls @ 100 mls/hr IV Q24H [facility] Stop: 03/07/21 09:59 Last Admin: 03/05/21 09:46 Dose: 100 mls/hr Documented by: Levothyroxine Sodium (Levothyroxine 75 Mcg Tab) 75 mcg PO ACBREAKFAST [facility] Last Admin: 03/06/21 05:15 Dose: 75 mcg Documented by: Lidocaine (Lidocaine 5% 700 Mg Patch) 1,400 mg TRDERM DAILY [facility] Last Admin: 03/05/21 08:03 Dose: 1,400 mg Documented by: Metoprolol Tartrate (Metoprolol Tartrate 50 Mg Tab) 25 mg PO BID [facility] Last Admin: 03/05/21 20:51 Dose: 25 mg Documented by: Miscellaneous Information (Remove Patch) 1 ea TRDERM BEDTIME [facility] Last Admin: 03/05/21 20:53 Dose: Not Given Documented by: Mometasone Furoate/Formoterol Fumar (Formoterol/Mometasone 200-5 Mcg 8.8 Gm Inhaler) 0 puff IH BIDRT [facility] Last Admin: 03/05/21 18:19 Dose: 2 puff Documented by: Nystatin (Nystatin Susp 100,000 Unit/Ml 5 Ml Ud Cup) 5 ml PO QID@0900,1300,1800,2100 [facility] Last Admin: 03/05/21 20:51 Dose: 5 ml Documented by: Ondansetron HCl (Ondansetron 4 Mg/2 Ml Sdv) 4 mg IVPUSH Q8H PRN PRN Reason: Nausea/Vomiting Potassium Chloride (Potassium Chloride 10 Meq Tab.Er) 20 meq PO DAILY [facility] Last Admin: 03/05/21 08:14 Dose: 20 meq Documented by: Sodium Chloride (Sodium Chloride 0.9% 10 Ml Syringe) 10 ml FLUSH ASDIRECTED PRN PRN Reason: Keep Vein Open Last Admin: 03/04/21 10:46 Dose: 10 ml Documented by: Spironolactone (Spironolactone 25 Mg Tab) 25 mg PO BID [facility] Last Admin: 03/05/21 20:51 Dose: 25 mg Documented by: Discontinued Medications Acetaminophen (Acetaminophen 325 Mg Tab) 650 mg PO Q4H PRN PRN Reason: Pain (Mild 1-3)/fever Albuterol/Ipratropium (Albuterol/Ipratropium 3.0-0.5 Mg/3 Ml Neb Soln) 3 ml NEB ONETIME ONE Stop: 03/01/21 12:31 Last Admin: 03/01/21 12:59 Dose: 3 ml Documented by: Albuterol/Ipratropium (Albuterol/Ipratropium 3.0-0.5 Mg/3 Ml Neb Soln) 3 ml NEB Q8HRRT [facility] Last Admin: 03/03/21 07:00 Dose: 3 ml Documented by: Budesonide (Budesonide 0.5 Mg/2 Ml Neb Susp) 0.5 mg INH BIDRT [facility] Last Admin: 03/03/21 07:00 Dose: 0.5 mg Documented by: Enoxaparin Sodium (Enoxaparin 40 Mg/0.4 Ml Syringe) 40 mg SUBCUT DAILY [facility] Last Admin: 03/02/21 09:18 Dose: 40 mg Documented by: Furosemide (Furosemide 40 Mg/4 Ml Vial) 40 mg IVPUSH ONETIME ONE Stop: 03/01/21 14:31 Last Admin: 03/01/21 16:22 Dose: 40 mg Documented by: Hydromorphone HCl (Hydromorphone 0.5 Mg/0.5 Ml Syringe) 0.5 mg IVPUSH ONETIME ONE Stop: 03/01/21 11:57 Last Admin: 03/01/21 12:59 Dose: 0.5 mg Documented by: Remdesivir 200 mg/ Sodium (Chloride) 250 mls @ 250 mls/hr IV ONETIME ONE Stop: 03/03/21 10:18 Last Infusion: 03/03/21 11:50 Dose: Infused Documented by: Sterile Water (Sterile Water For Injection) Confirm Administered Dose 40 mls @ as directed .ROUTE .STK-MED ONE Stop: 03/03/21 10:30 Last Admin: 03/03/21 11:58 Dose: Not Given Documented by: Mometasone Furoate/Formoterol Fumar (Formoterol/Mometasone 100-5 Mcg 8.8 Gm Inhaler) 2 puff IH BIDRT [facility] Nystatin (Nystatin Susp 100,000 Unit/Ml 5 Ml Ud Cup) 5 ml PO QID [facility] Last Admin: 03/04/21 18:25 Dose: Not Given Documented by: Ondansetron HCl (Ondansetron 4 Mg Tab.Dis) 4 mg PO ONETIME ONE Stop: 03/01/21 10:04 Last Admin: 03/01/21 10:40 Dose: 4 mg Documented by: Ondansetron HCl (Ondansetron 4 Mg/2 Ml Sdv) 4 mg IVPUSH Q8HR [facility] Oxycodone HCl (Oxycodone 5 Mg Tab) 5 mg PO Q8H PRN PRN Reason: Pain (moderate 4-6) Last Admin: 03/01/21 23:47 Dose: 5 mg Documented by: Sodium Chloride (Sodium Chloride 0.9% 10 Ml Syringe) 10 ml FLUSH ASDIRECTED PRN PRN Reason: Keep Vein Open Last Admin: 03/01/21 12:59 Dose: 10 ml Documented by: Tramadol HCl (Tramadol 50 Mg Tab) 50 mg PO ONETIME ONE Stop: 03/01/21 10:04 Last Admin: 03/01/21 10:40 Dose: 50 mg Documented by: - Exam Quality Assessment: Supplemental Oxygen General: Alert, Oriented HEENT: Pupils Equal Neck: Supple Lungs: Decreased Breath Sounds, Crackles, Wheezing Cardiovascular: Regular Rate, Regular Rhythm GI/Abdominal Exam: Normal Bowel Sounds, Soft, Non-Tender Extremities: Normal Inspection Peripheral Pulses: 2+: Radial (L), Radial (R) Skin: Warm Neurological: No New Focal Deficit Psy/Mental Status: Alert - Patient Data Lab Results Last 24 hrs: Laboratory Results - last 24 hr 03/05/21 Range/Units 06:05 Sodium 146 H (136-145) mmol/L Potassium 3.6 (3.5-5.1) mmol/L Chloride 102 (98-107) mmol/L Carbon Dioxide 45 H* (21-32) mmol/L Anion Gap 2.6 L (7-13) mEq/L BUN 18 (7-18) mg/dL Creatinine 0.80 (0.55-1.02) mg/dL Est Cr Clr Drug Dosing 38.27 mL/min Estimated GFR (MDRD) > 60 BUN/Creatinine Ratio 22.5 (No establ ref range) Glucose 98 (70-99) mg/dL Calcium 8.2 L (8.5-10.1) mg/dL Total Bilirubin 0.3 (0.2-1.0) mg/dL AST 17 (15-37) U/L ALT 19 (14-59) U/L Alkaline Phosphatase 97 (46-116) U/L Total Protein 4.7 L (6.4-8.2) g/dL Albumin 2.7 L (3.4-5.0) g/dL Globulin 2.0 Albumin/Globulin Ratio 1.35 Result Diagrams: 03/01/21 12:09 03/06/21 06:20 Sepsis Event Note - Evaluation Sepsis Screening Result: No Definite Risk - Focused Exam Vital Signs: Vital Signs Temp Pulse Pulse Resp BP BP Pulse Ox 03/06/21 04:00 98.2 F 82 22 H 118/78 92 L 03/05/21 20:51 97 123/77 03/05/21 20:40 98.3 F 97 20 123/77 91 L - Problem List & Annotations (1) Compression fracture of L3 vertebra SNOMED Code(s): 852604198, 083177398 Code(s): S32.030A - WEDGE COMPRESSION FRACTURE OF THIRD LUMBAR VERTEBRA, INIT Status: Acute Current Visit: Yes Qualifiers: Encounter type: initial encounter Qualified Code(s): S32.030A - Wedge compression fracture of third lumbar vertebra, initial encounter for closed fracture (2) Compression fracture of L4 vertebra SNOMED Code(s): 272360086, 44155716038673948 Code(s): S32.040A - WEDGE COMPRESSION FRACTURE OF FOURTH LUMBAR VERTEBRA, INIT Status: Acute Current Visit: Yes Qualifiers: Encounter type: initial encounter Qualified Code(s): S32.040A - Wedge compression fracture of fourth lumbar vertebra, initial encounter for closed fracture (3) HTN, Benign hypertension SNOMED Code(s): 23369038 Code(s): I10 - ESSENTIAL (PRIMARY) HYPERTENSION Status: Acute Current Visit: No (4) Peripheral edema SNOMED Code(s): 072707063 Code(s): R60.9 - EDEMA, UNSPECIFIED Status: Acute Current Visit: Yes (5) SOB (shortness of breath) SNOMED Code(s): 023697678 Code(s): R06.02 - SHORTNESS OF BREATH Status: Acute Current Visit: Yes (6) Acute exacerbation of CHF (congestive heart failure) SNOMED Code(s): 881687007, 65920729228409 Code(s): I50.9 - HEART FAILURE, UNSPECIFIED Status: Chronic Current Visit: No Qualifiers: Heart failure type: diastolic Qualified Code(s): I50.33 - Acute on chronic diastolic (congestive) heart failure (7) COPD (chronic obstructive pulmonary disease) SNOMED Code(s): 44672767 Code(s): J44.9 - CHRONIC OBSTRUCTIVE PULMONARY DISEASE, UNSPECIFIED Status: Chronic Current Visit: No Qualifiers: COPD type: unspecified COPD Qualified Code(s): J44.9 - Chronic obstructive pulmonary disease, unspecified (8) Acute and chronic respiratory failure with hypoxia SNOMED Code(s): 15538929, 963177477 Code(s): J96.21 - ACUTE AND CHRONIC RESPIRATORY FAILURE WITH HYPOXIA Status: Acute Current Visit: Yes (9) COVID-19 SNOMED Code(s): 933500938 Code(s): U07.1 - COVID-19 Status: Acute Current Visit: Yes - Problem List Review Problem List Initiated/Reviewed/Updated: Yes - My Orders Last 24 Hours: My Active Orders 03/05/21 11:57 Calcium Carbonate [Tums] 500 mg PO Q2H PRN 03/05/21 18:00 Ondansetron [Zofran] 4 mg IVPUSH Q8H PRN 03/06/21 09:30 COMPREHENSIVE METABOLIC PN,CMP [CHEM] DAILY 03/07/21 09:30 COMPREHENSIVE METABOLIC PN,CMP [CHEM] DAILY - Plan Plan:: Patient is an 85-year-old female with a history of COPD on chronic home O2, osteoporosis with multiple compression fractures, CHF who presented with fall and new onset compression fractures. Request was made for admission due to pain control, PT/OT and possible placement. # L4 compression fracture -Multiple compression fractures due to history of osteoporosis. Continue vitamin D, Fosamax, calcium supplementation. -Pain control with scheduled Tylenol, PRN tylenol, lidocaine patches, PT/OT/social work -No further opioid medications if able given patient's slight confusion after 1 dose of oxycodone on admission, patient is alert orientated and at baseline mental status since 03/03/21 -Continue gabapentin # COVID-19 positive test/acute on chronic hypoxic respiratory failure -Patient states to me that she had Covid 19 infection a year ago and is vaccinated against COVID-19. Initially on admission patient stated that her respiratory status was no different than baseline. However on hospital day 1 patient indicates significant worsening of her baseline respiratory disease. -CT lumbar spine did show some ground glass opacities in the pulmonary exam however these were also seen in stable from April 2020 -Chest x-ray obtained 03-03-21, official read indicated viral/atypical pneumonia pattern -Given patient's worsening of her respiratory symptoms and slight increase in her oxygen requirements we began treatment for symptomatic COVID-19 infection on 03-03-21 with remdesivir per protocol (03/07/21), dexamethasone p.o. per protocol (end date 03/12/21), laboratory monitoring per protocol -respiratory status stable to improved today -We will hold on antibiotics for now but low threshold if further worsening to obtain blood cultures and start abx # COPD on home oxygen -Scheduled dulera inhaler, PRN albuterol inhaler -Continue on home O2 - goal oxygen saturation >88% # CHF -Continue home 60 mg PO lasix in AM, continue spironolactone, metoprolol -Patient did receive IV Lasix 40 mg x 1 on admission 03/02/21 -appears closer to euvolemia on exam today-looking at prior notes patient has chronic crackles -Sodium restricted diet # Hyperlipidemia -continue statin # Hypothyroidismlevothyroxine # Chronic metabolic alkalosis - secondary to chronic respiratory acidosis 2/2 multiple pulmonary etiologies - continue goal oxygen 88% on home O2 - patient is on chronic acetazolamide Fluidsnone Electrolytesnormal limits Dietsodium restricted DVT prophylaxis Lovenox Dispositionfurther inpatient monitoring given worsening acute on chronic hypoxic respiratory failure, PT/OT/social work for possible placement - COVID 19 positive 03/02/21
[2021-03-06 07:17] LABS: CHLORIDE,CL 102 mmol/L (98-107); SODIUM,NA 144 mmol/L (136-145)
[2021-03-06] MEDS: REMDESIVIR 100 MG in Sodium Chloride 0.9% 100 ML IV SCH (09:35)
[2021-03-06] MEDS: Sodium Chloride 0.9% 10 ML Syringe FLUSH PRN (09:36)
[2021-03-06] MEDS: Furosemide 40 MG Tab PO SCH (09:37)
[2021-03-06] MEDS: Spironolactone 25 MG Tab PO SCH ×2 (09:37→20:15)
[2021-03-06] MEDS: acetaZOLAMIDE 250 MG Tab PO SCH (09:37)
[2021-03-06] MEDS: Gabapentin 100 MG Cap PO SCH ×3 (09:37→20:14)
[2021-03-06] MEDS: Metoprolol Tartrate 50 MG Tab PO SCH ×2 (09:39→20:24)
[2021-03-06] MEDS: Potassium Chloride 10 MEQ Tab.ER PO SCH (09:39)
[2021-03-06] MEDS: Nystatin Susp 100,000 Unit/ML 5 ML UD Cup PO SCH ×4 (09:47→20:20)
[2021-03-06] MEDS: Lidocaine 5% 700 MG Patch TRDERM SCH (09:47)
[2021-03-06] MEDS: Formoterol/Mometasone 200-5 MCG 8.8 GM Inhaler IH SCH ×2 (10:06→18:31)
[2021-03-06] MEDS: Dexamethasone 6 MG TABLET PO SCH (10:07)
[2021-03-06] MEDS ORDERED: Menthol/Methyl Salicylate 85 GM Tube TOP PRN (15:55)
[2021-03-06] MEDS: Acetaminophen 325 MG Tab PO PRN ×2 (17:00→22:37)
[2021-03-06] MEDS: atorvaSTATin 10 MG Tab PO SCH (20:15)
[2021-03-06] MEDS: Aspirin 81 MG Tab.Chew PO SCH (20:15)
[2021-03-07] MEDS: Albuterol 6.7 GM Inhaler INH SCH ×6 (01:40→21:44)
[2021-03-07] MEDS: Omeprazole 20 MG Cap.CR PO SCH (06:12)
[2021-03-07] MEDS: Levothyroxine 75 MCG Tab PO SCH (06:12)
[2021-03-07] MEDS: Acetaminophen 325 MG Tab PO PRN (06:14)
[2021-03-07] MEDS: Formoterol/Mometasone 200-5 MCG 8.8 GM Inhaler IH SCH ×2 (06:27→17:09)
[2021-03-07] MEDS: Lidocaine 5% 700 MG Patch TRDERM SCH (08:11)
[2021-03-07] MEDS: Furosemide 40 MG Tab PO SCH (08:12)
[2021-03-07] MEDS: Dexamethasone 6 MG TABLET PO SCH (08:13)
[2021-03-07] MEDS: Potassium Chloride 10 MEQ Tab.ER PO SCH (08:13)
[2021-03-07] MEDS: Gabapentin 100 MG Cap PO SCH ×3 (08:13→21:41)
[2021-03-07] MEDS: Spironolactone 25 MG Tab PO SCH ×2 (08:13→21:39)
[2021-03-07] MEDS: Metoprolol Tartrate 50 MG Tab PO SCH ×2 (08:13→21:39)
[2021-03-07] MEDS: Nystatin Susp 100,000 Unit/ML 5 ML UD Cup PO SCH ×4 (08:15→21:41)
[2021-03-07] MEDS: REMDESIVIR 100 MG in Sodium Chloride 0.9% 100 ML IV SCH (08:15)
[2021-03-07] MEDS: Sodium Chloride 0.9% 10 ML Syringe FLUSH PRN ×2 (08:21→21:50)
[2021-03-07 09:52] LABS: ANION GAP 9.6 mEq/L (7-13); CHLORIDE,CL 99 mmol/L (98-107); SODIUM,NA 144 mmol/L (136-145)
--- NOTE | 2021-03-07 13:56 | PCM.PN ---
- General Info Date of Service: 03/07/21 Admission Dx/Problem (Free Text): Admission Diagnosis/Problem Admission Diagnosis/Problem Compression fracture Subjective Update: Patient is alert, orientated, pleasant no c/o sob, much improved no cp eating well duration of illness is days Functional Status: Reports: Tolerating Diet - Review of Systems General: Reports: Weakness Pulmonary: Reports: Shortness of Breath (minimal) Cardiovascular: Denies: Chest Pain Gastrointestinal: Denies: Abdominal Pain Genitourinary: Denies: Dysuria - Patient Data Vitals - Most Recent: Last Vital Signs Temp 97.7 F 03/07/21 12:00 Pulse 80 03/07/21 12:00 Resp 18 03/07/21 12:00 BP 116/62 03/07/21 12:00 Pulse Ox 100 03/07/21 12:00 Weight - Most Recent: 140 lb I&O - Last 24 Hours: Intake & Output 03/06/21 03/07/21 03/07/21 22:59 06:59 14:59 Intake Total 450 350 550 Balance 450 350 550 Lab Results Last 24 Hours: Laboratory Results - last 24 hr 03/07/21 Range/Units 09:22 Sodium 144 (136-145) mmol/L Potassium 3.6 (3.5-5.1) mmol/L Chloride 99 (98-107) mmol/L Carbon Dioxide 39 H (21-32) mmol/L Anion Gap 9.6 (7-13) mEq/L BUN 22 H (7-18) mg/dL Creatinine 0.87 (0.55-1.02) mg/dL Est Cr Clr Drug Dosing 35.19 mL/min Estimated GFR (MDRD) > 60 BUN/Creatinine Ratio 25.3 (No establ ref range) Glucose 154 H (70-99) mg/dL Calcium 8.6 (8.5-10.1) mg/dL Total Bilirubin 0.3 (0.2-1.0) mg/dL AST 19 (15-37) U/L ALT 21 (14-59) U/L Alkaline Phosphatase 107 (46-116) U/L Total Protein 5.6 L (6.4-8.2) g/dL Albumin 2.9 L (3.4-5.0) g/dL Globulin 2.7 Albumin/Globulin Ratio 1.07 Med Orders - Current: Current Medications Acetaminophen (Acetaminophen 325 Mg Tab) 650 mg PO Q4H PRN PRN Reason: Pain (moderate 4-6) Last Admin: 03/07/21 06:14 Dose: 650 mg Documented by: Acetazolamide (Acetazolamide 250 Mg Tab) 250 mg PO TuThSa@0900 [facility] Last Admin: 03/06/21 09:37 Dose: 250 mg Documented by: Albuterol (Albuterol 6.7 Gm Inhaler) 0 gm INH Q4H [facility] Last Admin: 03/07/21 13:27 Dose: 2 puff Documented by: Aspirin (Aspirin 81 Mg Tab.Chew) 81 mg PO BEDTIME [facility] Last Admin: 03/06/21 20:15 Dose: 81 mg Documented by: Atorvastatin Calcium (Atorvastatin 10 Mg Tab) 10 mg PO BEDTIME [facility] Last Admin: 03/06/21 20:15 Dose: 10 mg Documented by: Calcium Carbonate/Glycine (Calcium Carbonate 500 Mg Tab.Chew) 500 mg PO Q2H PRN PRN Reason: Nausea/upset stomach Last Admin: 03/05/21 15:17 Dose: 500 mg Documented by: Dexamethasone (Dexamethasone 6 Mg Tablet) 6 mg PO DAILY [facility] Stop: 03/12/21 09:01 Last Admin: 03/07/21 08:13 Dose: 6 mg Documented by: Docusate Sodium (Docusate Sodium 100 Mg Cap) 100 mg PO Q12H PRN PRN Reason: Constipation Furosemide (Furosemide 40 Mg Tab) 60 mg PO DAILY [facility] Last Admin: 03/07/21 08:12 Dose: 60 mg Documented by: Gabapentin (Gabapentin 100 Mg Cap) 100 mg PO TID [facility] Last Admin: 03/07/21 13:25 Dose: 100 mg Documented by: Guaifenesin (Guaifenesin 100 Mg/5 Ml Soln 5 Ml Ud Cup) 100 mg PO Q6H PRN PRN Reason: Cough Last Admin: 03/05/21 22:41 Dose: 100 mg Documented by: Levothyroxine Sodium (Levothyroxine 75 Mcg Tab) 75 mcg PO ACBREAKFAST [facility] Last Admin: 03/07/21 06:12 Dose: 75 mcg Documented by: Lidocaine (Lidocaine 5% 700 Mg Patch) 1,400 mg TRDERM DAILY [facility] Last Admin: 03/07/21 08:11 Dose: 1,400 mg Documented by: Methyl Salicylate (Menthol/Methyl Salicylate 85 Gm Tube) 0 gm TOP BID PRN PRN Reason: Pain (mild 1-3) Metoprolol Tartrate (Metoprolol Tartrate 50 Mg Tab) 25 mg PO BID [facility] Last Admin: 03/07/21 08:13 Dose: 25 mg Documented by: Miscellaneous Information (Remove Patch) 1 ea TRDERM BEDTIME [facility] Last Admin: 03/06/21 20:17 Dose: 1 ea Documented by: Mometasone Furoate/Formoterol Fumar (Formoterol/Mometasone 200-5 Mcg 8.8 Gm Inhaler) 0 puff IH BIDRT [facility] Last Admin: 03/07/21 06:27 Dose: 2 puff Documented by: Nystatin (Nystatin Susp 100,000 Unit/Ml 5 Ml Ud Cup) 5 ml PO QID@0900,1300,1800,2100 [facility] Last Admin: 03/07/21 13:25 Dose: 5 ml Documented by: Omeprazole (Omeprazole 20 Mg Cap.Cr) 20 mg PO ACBREAKFAST [facility] Last Admin: 03/07/21 06:12 Dose: 20 mg Documented by: Ondansetron HCl (Ondansetron 4 Mg/2 Ml Sdv) 4 mg IVPUSH Q8H PRN PRN Reason: Nausea/Vomiting Potassium Chloride (Potassium Chloride 10 Meq Tab.Er) 20 meq PO DAILY [facility] Last Admin: 03/07/21 08:13 Dose: 20 meq Documented by: Sodium Chloride (Sodium Chloride 0.9% 10 Ml Syringe) 10 ml FLUSH ASDIRECTED PRN PRN Reason: Keep Vein Open Last Admin: 03/07/21 08:21 Dose: 10 ml Documented by: Spironolactone (Spironolactone 25 Mg Tab) 25 mg PO BID [facility] Last Admin: 03/07/21 08:13 Dose: 25 mg Documented by: Discontinued Medications Acetaminophen (Acetaminophen 325 Mg Tab) 650 mg PO Q4H PRN PRN Reason: Pain (Mild 1-3)/fever Albuterol/Ipratropium (Albuterol/Ipratropium 3.0-0.5 Mg/3 Ml Neb Soln) 3 ml NEB ONETIME ONE Stop: 03/01/21 12:31 Last Admin: 03/01/21 12:59 Dose: 3 ml Documented by: Albuterol/Ipratropium (Albuterol/Ipratropium 3.0-0.5 Mg/3 Ml Neb Soln) 3 ml NEB Q8HRRT [facility] Last Admin: 03/03/21 07:00 Dose: 3 ml Documented by: Budesonide (Budesonide 0.5 Mg/2 Ml Neb Susp) 0.5 mg INH BIDRT [facility] Last Admin: 03/03/21 07:00 Dose: 0.5 mg Documented by: Enoxaparin Sodium (Enoxaparin 40 Mg/0.4 Ml Syringe) 40 mg SUBCUT DAILY [facility] Last Admin: 03/02/21 09:18 Dose: 40 mg Documented by: Furosemide (Furosemide 40 Mg/4 Ml Vial) 40 mg IVPUSH ONETIME ONE Stop: 03/01/21 14:31 Last Admin: 03/01/21 16:22 Dose: 40 mg Documented by: Hydromorphone HCl (Hydromorphone 0.5 Mg/0.5 Ml Syringe) 0.5 mg IVPUSH ONETIME ONE Stop: 03/01/21 11:57 Last Admin: 03/01/21 12:59 Dose: 0.5 mg Documented by: Remdesivir 200 mg/ Sodium (Chloride) 250 mls @ 250 mls/hr IV ONETIME ONE Stop: 03/03/21 10:18 Last Infusion: 03/03/21 11:50 Dose: Infused Documented by: Remdesivir 100 mg/ Sodium (Chloride) 100 mls @ 100 mls/hr IV Q24H [facility] Stop: 03/07/21 09:59 Last Infusion: 03/07/21 09:33 Dose: Infused Documented by: Sterile Water (Sterile Water For Injection) Confirm Administered Dose 40 mls @ as directed .ROUTE .STK-MED ONE Stop: 03/03/21 10:30 Last Admin: 03/03/21 11:58 Dose: Not Given Documented by: Mometasone Furoate/Formoterol Fumar (Formoterol/Mometasone 100-5 Mcg 8.8 Gm Inhaler) 2 puff IH BIDRT [facility] Nystatin (Nystatin Susp 100,000 Unit/Ml 5 Ml Ud Cup) 5 ml PO QID [facility] Last Admin: 03/04/21 18:25 Dose: Not Given Documented by: Ondansetron HCl (Ondansetron 4 Mg Tab.Dis) 4 mg PO ONETIME ONE Stop: 03/01/21 10:04 Last Admin: 03/01/21 10:40 Dose: 4 mg Documented by: Ondansetron HCl (Ondansetron 4 Mg/2 Ml Sdv) 4 mg IVPUSH Q8HR [facility] Last Admin: 03/05/21 15:00 Dose: Not Given Documented by: Oxycodone HCl (Oxycodone 5 Mg Tab) 5 mg PO Q8H PRN PRN Reason: Pain (moderate 4-6) Last Admin: 03/01/21 23:47 Dose: 5 mg Documented by: Sodium Chloride (Sodium Chloride 0.9% 10 Ml Syringe) 10 ml FLUSH ASDIRECTED PRN PRN Reason: Keep Vein Open Last Admin: 03/01/21 12:59 Dose: 10 ml Documented by: Tramadol HCl (Tramadol 50 Mg Tab) 50 mg PO ONETIME ONE Stop: 03/01/21 10:04 Last Admin: 03/01/21 10:40 Dose: 50 mg Documented by: - Exam General: Alert Neck: Supple Lungs: Rhonchi Cardiovascular: Regular Rate, Regular Rhythm GI/Abdominal Exam: Normal Bowel Sounds, Soft, Non-Tender Extremities: No Pedal Edema Skin: Warm, Dry Psy/Mental Status: Alert, Normal Affect, Normal Mood - Patient Data Lab Results Last 24 hrs: Laboratory Results - last 24 hr 03/07/21 Range/Units 09:22 Sodium 144 (136-145) mmol/L Potassium 3.6 (3.5-5.1) mmol/L Chloride 99 (98-107) mmol/L Carbon Dioxide 39 H (21-32) mmol/L Anion Gap 9.6 (7-13) mEq/L BUN 22 H (7-18) mg/dL Creatinine 0.87 (0.55-1.02) mg/dL Est Cr Clr Drug Dosing 35.19 mL/min Estimated GFR (MDRD) > 60 BUN/Creatinine Ratio 25.3 (No establ ref range) Glucose 154 H (70-99) mg/dL Calcium 8.6 (8.5-10.1) mg/dL Total Bilirubin 0.3 (0.2-1.0) mg/dL AST 19 (15-37) U/L ALT 21 (14-59) U/L Alkaline Phosphatase 107 (46-116) U/L Total Protein 5.6 L (6.4-8.2) g/dL Albumin 2.9 L (3.4-5.0) g/dL Globulin 2.7 Albumin/Globulin Ratio 1.07 Result Diagrams: 03/01/21 12:09 03/07/21 09:22 Sepsis Event Note - Evaluation Sepsis Screening Result: No Definite Risk - Focused Exam Vital Signs: Vital Signs Temp Pulse Pulse Resp BP BP Pulse Ox 03/07/21 12:00 97.7 F 80 18 116/62 100 03/07/21 08:13 74 140/72 03/07/21 07:43 97.9 F 74 20 122/73 99 - Problem List Review Problem List Initiated/Reviewed/Updated: Yes - Plan Plan:: Patient is an 85-year-old female with a history of COPD on chronic home O2, osteoporosis with multiple compression fractures, CHF who presented with fall and new onset compression fractures. Request was made for admission due to pain control, PT/OT and possible placement. # L4 compression fracture -Multiple compression fractures due to history of osteoporosis. Continue vitamin D, Fosamax, calcium supplementation. -Pain control with scheduled Tylenol, PRN tylenol, lidocaine patches, PT/OT/social work -No further opioid medications if able given patient's slight confusion after 1 dose of oxycodone on admission, patient is alert orientated and at baseline mental status since 03/03/21 -Continue gabapentin # COVID-19 positive test/acute on chronic hypoxic respiratory failure -Patient states to me that she had Covid 19 infection a year ago and is vacc inated against COVID-19. Initially on admission patient stated that her respiratory status was no different than baseline. However on hospital day 1 patient indicates significant worsening of her baseline respiratory disease. -CT lumbar spine did show some ground glass opacities in the pulmonary exam however these were also seen in stable from April 2020 -Chest x-ray obtained 03-03-21, official read indicated viral/atypical pneumonia pattern -Given patient's worsening of her respiratory symptoms and slight increase in her oxygen requirements we began treatment for symptomatic COVID-19 infection on 03-03-21 with remdesivir per protocol (03/07/21), dexamethasone p.o. per protocol (end date 03/12/21), laboratory monitoring per protocol -respiratory status is improved # COPD on home oxygen -continue with Scheduled dulera inhaler, PRN albuterol inhaler -Continue on home O2 - goal oxygen saturation >88% # CHF -Continue home 60 mg PO lasix daily, continue spironolactone, metoprolol -Patient did receive IV Lasix 40 mg x 1 on admission 03/02/21 -appears closer to euvolemia on exam today-looking at prior notes patient has chronic crackles -Sodium restricted diet # Hyperlipidemia -continue statin # Hypothyroidismlevothyroxine # Chronic metabolic alkalosis - secondary to chronic respiratory acidosis 2/2 multiple pulmonary etiologies - continue goal oxygen 88% on home O2 - patient is on chronic acetazolamide Fluidsnone Electrolytesnormal limits Dietsodium restricted DVT prophylaxis Lovenox Dispositionfurther inpatient monitoring given worsening acute on chronic hypoxic respiratory failure, PT/OT/social work for placement - COVID 19 positive 03/02/21 - plan for discharge on 03/11
[2021-03-07] MEDS: atorvaSTATin 10 MG Tab PO SCH (21:39)
[2021-03-07] MEDS: Aspirin 81 MG Tab.Chew PO SCH (21:39)
[2021-03-07] MEDS: guaiFENesin 100 MG/5 ML Soln 5 ML UD Cup PO PRN (21:42)
[2021-03-08] MEDS: Albuterol 6.7 GM Inhaler INH SCH ×6 (01:10→21:25)
[2021-03-08] MEDS: Omeprazole 20 MG Cap.CR PO SCH (05:49)
[2021-03-08] MEDS: Levothyroxine 75 MCG Tab PO SCH (05:49)
[2021-03-08] MEDS: Formoterol/Mometasone 200-5 MCG 8.8 GM Inhaler IH SCH ×3 (05:56→17:09)
[2021-03-08] MEDS: Calcium Carbonate 500 MG Tab.Chew PO PRN (08:00)
[2021-03-08] MEDS: acetaZOLAMIDE 250 MG Tab PO SCH (08:01)
[2021-03-08] MEDS: Metoprolol Tartrate 50 MG Tab PO SCH ×2 (08:01→21:27)
[2021-03-08] MEDS: Nystatin Susp 100,000 Unit/ML 5 ML UD Cup PO SCH ×4 (08:01→21:26)
[2021-03-08] MEDS: Potassium Chloride 10 MEQ Tab.ER PO SCH (08:02)
[2021-03-08] MEDS: Furosemide 40 MG Tab PO SCH (08:02)
[2021-03-08] MEDS: Gabapentin 100 MG Cap PO SCH ×3 (08:02→21:26)
[2021-03-08] MEDS: Dexamethasone 6 MG TABLET PO SCH (08:02)
[2021-03-08] MEDS: Spironolactone 25 MG Tab PO SCH ×2 (08:02→17:07)
[2021-03-08] MEDS: Lidocaine 5% 700 MG Patch TRDERM SCH (08:07)
--- NOTE | 2021-03-08 13:46 | PCM.PN ---
- General Info Date of Service: 03/08/21 Admission Dx/Problem (Free Text): Admission Diagnosis/Problem Admission Diagnosis/Problem Compression fracture Subjective Update: Patient is alert, orientated, pleasant no c/o sob, feeling well, improved no cp duration of illness is days Functional Status: Reports: Tolerating Diet - Review of Systems General: Reports: Weakness Pulmonary: Denies: Shortness of Breath Cardiovascular: Denies: Chest Pain, Edema Gastrointestinal: Denies: Abdominal Pain Genitourinary: Denies: Dysuria - Patient Data Vitals - Most Recent: Last Vital Signs Temp 98.9 F 03/08/21 12:00 Pulse 77 03/08/21 12:00 Resp 18 03/08/21 12:00 BP 110/68 03/08/21 12:00 Pulse Ox 97 03/08/21 12:00 Weight - Most Recent: 141 lb 12.8 oz I&O - Last 24 Hours: Intake & Output 03/07/21 03/08/21 03/08/21 22:59 06:59 14:59 Intake Total 550 200 425 Balance 550 200 425 Med Orders - Current: Current Medications Acetaminophen (Acetaminophen 325 Mg Tab) 650 mg PO Q4H PRN PRN Reason: Pain (moderate 4-6) Last Admin: 03/07/21 06:14 Dose: 650 mg Documented by: Acetazolamide (Acetazolamide 250 Mg Tab) 250 mg PO TuThSa@0900 [facility] Last Admin: 03/08/21 08:01 Dose: 250 mg Documented by: Albuterol (Albuterol 6.7 Gm Inhaler) 0 gm INH Q4H [facility] Last Admin: 03/08/21 13:27 Dose: 2 puff Documented by: Aspirin (Aspirin 81 Mg Tab.Chew) 81 mg PO BEDTIME [facility] Last Admin: 03/07/21 21:39 Dose: 81 mg Documented by: Atorvastatin Calcium (Atorvastatin 10 Mg Tab) 10 mg PO BEDTIME [facility] Last Admin: 03/07/21 21:39 Dose: 10 mg Documented by: Calcium Carbonate/Glycine (Calcium Carbonate 500 Mg Tab.Chew) 500 mg PO Q2H PRN PRN Reason: Nausea/upset stomach Last Admin: 03/08/21 08:00 Dose: 500 mg Documented by: Dexamethasone (Dexamethasone 6 Mg Tablet) 6 mg PO DAILY [facility] Stop: 03/12/21 09:01 Last Admin: 03/08/21 08:02 Dose: 6 mg Documented by: Docusate Sodium (Docusate Sodium 100 Mg Cap) 100 mg PO Q12H PRN PRN Reason: Constipation Furosemide (Furosemide 40 Mg Tab) 60 mg PO DAILY [facility] Last Admin: 03/08/21 08:02 Dose: 60 mg Documented by: Gabapentin (Gabapentin 100 Mg Cap) 100 mg PO TID [facility] Last Admin: 03/08/21 13:26 Dose: 100 mg Documented by: Guaifenesin (Guaifenesin 100 Mg/5 Ml Soln 5 Ml Ud Cup) 100 mg PO Q6H PRN PRN Reason: Cough Last Admin: 03/07/21 21:42 Dose: 100 mg Documented by: Levothyroxine Sodium (Levothyroxine 75 Mcg Tab) 75 mcg PO ACBREAKFAST [facility] Last Admin: 03/08/21 05:49 Dose: 75 mcg Documented by: Lidocaine (Lidocaine 5% 700 Mg Patch) 1,400 mg TRDERM DAILY [facility] Last Admin: 03/08/21 08:07 Dose: 1,400 mg Documented by: Methyl Salicylate (Menthol/Methyl Salicylate 85 Gm Tube) 0 gm TOP BID PRN PRN Reason: Pain (mild 1-3) Metoprolol Tartrate (Metoprolol Tartrate 50 Mg Tab) 25 mg PO BID [facility] Last Admin: 03/08/21 08:01 Dose: 25 mg Documented by: Miscellaneous Information (Remove Patch) 1 ea TRDERM BEDTIME [facility] Last Admin: 03/07/21 21:43 Dose: 1 ea Documented by: Mometasone Furoate/Formoterol Fumar (Formoterol/Mometasone 200-5 Mcg 8.8 Gm Inhaler) 0 puff IH BIDRT [facility] Last Admin: 03/08/21 06:02 Dose: Not Given Documented by: Nystatin (Nystatin Susp 100,000 Unit/Ml 5 Ml Ud Cup) 5 ml PO QID@0900,1300,1800,2100 [facility] Last Admin: 03/08/21 13:26 Dose: 5 ml Documented by: Omeprazole (Omeprazole 20 Mg Cap.Cr) 20 mg PO ACBREAKFAST [facility] Last Admin: 03/08/21 05:49 Dose: 20 mg Documented by: Ondansetron HCl (Ondansetron 4 Mg/2 Ml Sdv) 4 mg IVPUSH Q8H PRN PRN Reason: Nausea/Vomiting Potassium Chloride (Potassium Chloride 10 Meq Tab.Er) 20 meq PO DAILY [facility] Last Admin: 03/08/21 08:02 Dose: 20 meq Documented by: Sodium Chloride (Sodium Chloride 0.9% 10 Ml Syringe) 10 ml FLUSH ASDIRECTED PRN PRN Reason: Keep Vein Open Last Admin: 03/07/21 21:50 Dose: 10 ml Documented by: Spironolactone (Spironolactone 25 Mg Tab) 25 mg PO BID@0900,1700 [facility] Last Admin: 03/08/21 08:02 Dose: 25 mg Documented by: Discontinued Medications Acetaminophen (Acetaminophen 325 Mg Tab) 650 mg PO Q4H PRN PRN Reason: Pain (Mild 1-3)/fever Albuterol/Ipratropium (Albuterol/Ipratropium 3.0-0.5 Mg/3 Ml Neb Soln) 3 ml NEB ONETIME ONE Stop: 03/01/21 12:31 Last Admin: 03/01/21 12:59 Dose: 3 ml Documented by: Albuterol/Ipratropium (Albuterol/Ipratropium 3.0-0.5 Mg/3 Ml Neb Soln) 3 ml NEB Q8HRRT [facility] Last Admin: 03/03/21 07:00 Dose: 3 ml Documented by: Budesonide (Budesonide 0.5 Mg/2 Ml Neb Susp) 0.5 mg INH BIDRT [facility] Last Admin: 03/03/21 07:00 Dose: 0.5 mg Documented by: Enoxaparin Sodium (Enoxaparin 40 Mg/0.4 Ml Syringe) 40 mg SUBCUT DAILY [facility] Last Admin: 03/02/21 09:18 Dose: 40 mg Documented by: Furosemide (Furosemide 40 Mg/4 Ml Vial) 40 mg IVPUSH ONETIME ONE Stop: 03/01/21 14:31 Last Admin: 03/01/21 16:22 Dose: 40 mg Documented by: Hydromorphone HCl (Hydromorphone 0.5 Mg/0.5 Ml Syringe) 0.5 mg IVPUSH ONETIME ONE Stop: 03/01/21 11:57 Last Admin: 03/01/21 12:59 Dose: 0.5 mg Documented by: Remdesivir 200 mg/ Sodium (Chloride) 250 mls @ 250 mls/hr IV ONETIME ONE Stop: 03/03/21 10:18 Last Infusion: 03/03/21 11:50 Dose: Infused Documented by: Remdesivir 100 mg/ Sodium (Chloride) 100 mls @ 100 mls/hr IV Q24H [facility] Stop: 03/07/21 09:59 Last Infusion: 03/07/21 09:33 Dose: Infused Documented by: Sterile Water (Sterile Water For Injection) Confirm Administered Dose 40 mls @ as directed .ROUTE .STK-MED ONE Stop: 03/03/21 10:30 Last Admin: 03/03/21 11:58 Dose: Not Given Documented by: Mometasone Furoate/Formoterol Fumar (Formoterol/Mometasone 100-5 Mcg 8.8 Gm Inhaler) 2 puff IH BIDRT [facility] Nystatin (Nystatin Susp 100,000 Unit/Ml 5 Ml Ud Cup) 5 ml PO QID [facility] Last Admin: 03/04/21 18:25 Dose: Not Given Documented by: Ondansetron HCl (Ondansetron 4 Mg Tab.Dis) 4 mg PO ONETIME ONE Stop: 03/01/21 10:04 Last Admin: 03/01/21 10:40 Dose: 4 mg Documented by: Ondansetron HCl (Ondansetron 4 Mg/2 Ml Sdv) 4 mg IVPUSH Q8HR [facility] Last Admin: 03/05/21 15:00 Dose: Not Given Documented by: Oxycodone HCl (Oxycodone 5 Mg Tab) 5 mg PO Q8H PRN PRN Reason: Pain (moderate 4-6) Last Admin: 03/01/21 23:47 Dose: 5 mg Documented by: Sodium Chloride (Sodium Chloride 0.9% 10 Ml Syringe) 10 ml FLUSH ASDIRECTED PRN PRN Reason: Keep Vein Open Last Admin: 03/01/21 12:59 Dose: 10 ml Documented by: Spironolactone (Spironolactone 25 Mg Tab) 25 mg PO BID [facility] Last Admin: 03/07/21 21:39 Dose: 25 mg Documented by: Tramadol HCl (Tramadol 50 Mg Tab) 50 mg PO ONETIME ONE Stop: 03/01/21 10:04 Last Admin: 03/01/21 10:40 Dose: 50 mg Documented by: - Exam General: Alert, Oriented Neck: Supple Lungs: Normal Respiratory Effort, Decreased Breath Sounds Cardiovascular: Regular Rate, Regular Rhythm GI/Abdominal Exam: Normal Bowel Sounds, Soft, Non-Tender Extremities: No Pedal Edema Skin: Warm, Dry Neurological: No New Focal Deficit Psy/Mental Status: Alert, Normal Affect, Normal Mood - Patient Data Result Diagrams: 03/01/21 12:09 03/07/21 09:22 Sepsis Event Note - Evaluation Sepsis Screening Result: No Definite Risk - Focused Exam Vital Signs: Vital Signs Temp Pulse Pulse Resp BP BP Pulse Ox 03/08/21 12:00 98.9 F 77 18 110/68 97 03/08/21 08:01 77 121/60 03/08/21 07:54 97.8 F 77 18 121/60 98 03/08/21 05:48 97.1 F 72 24 H 151/78 H 96 - Problem List Review Problem List Initiated/Reviewed/Updated: Yes - Plan Plan:: Patient is an 85-year-old female with a history of COPD on chronic home O2, osteoporosis with multiple compression fractures, CHF who presented with fall and new onset compression fractures. Request was made for admission due to pain control, PT/OT and possible placement. # L4 compression fracture -Multiple compression fractures due to history of osteoporosis. Continue vitamin D, Fosamax, calcium supplementation. -Pain control with scheduled Tylenol, PRN tylenol, lidocaine patches, PT/OT/social work - had confusion following oxycodone administration -Continue gabapentin # COVID-19 positive test/acute on chronic hypoxic respiratory failure -Patient states to me that she had Covid 19 infection a year ago and is vaccinated against COVID-19. Initially on admission patient stated that her respiratory status was no different than baseline. However on hospital day 1 patient indicates significant worsening of her baseline respiratory disease. -CT lumbar spine did show some ground glass opacities in the pulmonary exam however these were also seen in stable from April 2020 -Chest x-ray obtained 03-03-21, official read indicated viral/atypical pneumonia pattern -Given patient's worsening of her respiratory symptoms and slight increase in her oxygen requirements we began treatment for symptomatic COVID-19 infection on 03-03-21 with remdesivir per protocol (03/07/21), dexamethasone p.o. per protocol (end date 03/12/21), laboratory monitoring per protocol -respiratory status is improved # COPD on home oxygen -continue with Scheduled dulera inhaler, PRN albuterol inhaler -Continue on home O2 - goal oxygen saturation >88% # CHF -Continue home 60 mg PO lasix daily, continue spironolactone, metoprolol -Patient did receive IV Lasix 40 mg x 1 on admission 03/02/21 -appears closer to euvolemia on exam today-looking at prior notes patient has chronic crackles -Sodium restricted diet # Hyperlipidemia -continue statin # Hypothyroidismlevothyroxine # Chronic metabolic alkalosis - secondary to chronic respiratory acidosis 2/2 multiple pulmonary etiologies - continue goal oxygen 88% on home O2 - patient is on chronic acetazolamide Fluidsnone Electrolytesnormal limits Dietsodium restricted DVT prophylaxis Lovenox DispositionPT/OT/social work for placement - COVID 19 positive 03/02/21 - plan for discharge on 03/11 - no NH bed is currently available
[2021-03-08] MEDS: Aspirin 81 MG Tab.Chew PO SCH (21:26)
[2021-03-08] MEDS: atorvaSTATin 10 MG Tab PO SCH (21:26)
[2021-03-08] MEDS: Sodium Chloride 0.9% 10 ML Syringe FLUSH PRN (21:37)
[2021-03-08] MEDS: guaiFENesin 100 MG/5 ML Soln 5 ML UD Cup PO PRN (22:12)
[2021-03-09] MEDS: Albuterol 6.7 GM Inhaler INH SCH ×6 (02:00→22:15)
[2021-03-09] MEDS: Levothyroxine 75 MCG Tab PO SCH (06:03)
[2021-03-09] MEDS: Formoterol/Mometasone 200-5 MCG 8.8 GM Inhaler IH SCH ×2 (06:03→17:43)
[2021-03-09] MEDS: Omeprazole 20 MG Cap.CR PO SCH (06:03)
[2021-03-09] MEDS: guaiFENesin 100 MG/5 ML Soln 5 ML UD Cup PO PRN ×2 (07:54→22:11)
[2021-03-09] MEDS: Spironolactone 25 MG Tab PO SCH ×2 (09:29→17:41)
[2021-03-09] MEDS: Dexamethasone 6 MG TABLET PO SCH (09:30)
[2021-03-09] MEDS: Furosemide 40 MG Tab PO SCH (09:30)
[2021-03-09] MEDS: Gabapentin 100 MG Cap PO SCH ×3 (09:32→22:11)
[2021-03-09] MEDS: Potassium Chloride 10 MEQ Tab.ER PO SCH (09:33)
[2021-03-09] MEDS: Metoprolol Tartrate 50 MG Tab PO SCH ×2 (09:35→22:11)
[2021-03-09] MEDS: Lidocaine 5% 700 MG Patch TRDERM SCH (09:37)
[2021-03-09] MEDS: Nystatin Susp 100,000 Unit/ML 5 ML UD Cup PO SCH ×4 (09:38→22:11)
--- NOTE | 2021-03-09 11:25 | PCM.PN ---
- General Info Date of Service: 03/09/21 Admission Dx/Problem (Free Text): Admission Diagnosis/Problem Admission Diagnosis/Problem Compression fracture Subjective Update: Patient is alert, orientated, pleasant no c/o sob, feeling well, improved remained on nc oxygen back pain is moderate, worse with activity had nausea this morning but was able to have breakfast no cp duration of illness is days Functional Status: Reports: Tolerating Diet - Review of Systems General: Reports: Weakness Pulmonary: Denies: Shortness of Breath Cardiovascular: Denies: Chest Pain, Edema Gastrointestinal: Reports: Nausea. Denies: Vomiting Genitourinary: Denies: Dysuria Neurological: Denies: Confusion - Patient Data Vitals - Most Recent: Last Vital Signs Temp 98.4 F 03/09/21 08:00 Pulse 64 03/09/21 09:35 Resp 20 03/09/21 08:00 BP 121/70 03/09/21 09:35 Pulse Ox 97 03/09/21 08:00 Weight - Most Recent: 141 lb 8 oz I&O - Last 24 Hours: Intake & Output 03/08/21 03/09/21 03/09/21 22:59 06:59 14:59 Intake Total 850 200 440 Balance 850 200 440 Med Orders - Current: Current Medications Acetaminophen (Acetaminophen 325 Mg Tab) 650 mg PO Q4H PRN PRN Reason: Pain (moderate 4-6) Last Admin: 03/07/21 06:14 Dose: 650 mg Documented by: Acetazolamide (Acetazolamide 250 Mg Tab) 250 mg PO TuThSa@0900 [facility] Last Admin: 03/08/21 08:01 Dose: 250 mg Documented by: Albuterol (Albuterol 6.7 Gm Inhaler) 0 gm INH Q4H [facility] Last Admin: 03/09/21 09:49 Dose: 2 puff Documented by: Aspirin (Aspirin 81 Mg Tab.Chew) 81 mg PO BEDTIME [facility] Last Admin: 03/08/21 21:26 Dose: 81 mg Documented by: Atorvastatin Calcium (Atorvastatin 10 Mg Tab) 10 mg PO BEDTIME [facility] Last Admin: 03/08/21 21:26 Dose: 10 mg Documented by: Calcium Carbonate/Glycine (Calcium Carbonate 500 Mg Tab.Chew) 500 mg PO Q2H PRN PRN Reason: Nausea/upset stomach Last Admin: 03/08/21 08:00 Dose: 500 mg Documented by: Dexamethasone (Dexamethasone 6 Mg Tablet) 6 mg PO DAILY [facility] Stop: 03/12/21 09:01 Last Admin: 03/09/21 09:30 Dose: 6 mg Documented by: Docusate Sodium (Docusate Sodium 100 Mg Cap) 100 mg PO Q12H PRN PRN Reason: Constipation Furosemide (Furosemide 40 Mg Tab) 60 mg PO DAILY [facility] Last Admin: 03/09/21 09:30 Dose: 60 mg Documented by: Gabapentin (Gabapentin 100 Mg Cap) 100 mg PO TID [facility] Last Admin: 03/09/21 09:32 Dose: 100 mg Documented by: Guaifenesin (Guaifenesin 100 Mg/5 Ml Soln 5 Ml Ud Cup) 100 mg PO Q6H PRN PRN Reason: Cough Last Admin: 03/09/21 07:54 Dose: 100 mg Documented by: Levothyroxine Sodium (Levothyroxine 75 Mcg Tab) 75 mcg PO ACBREAKFAST [facility] Last Admin: 03/09/21 06:03 Dose: 75 mcg Documented by: Lidocaine (Lidocaine 5% 700 Mg Patch) 1,400 mg TRDERM DAILY [facility] Last Admin: 03/09/21 09:37 Dose: 1,400 mg Documented by: Methyl Salicylate (Menthol/Methyl Salicylate 85 Gm Tube) 0 gm TOP BID PRN PRN Reason: Pain (mild 1-3) Metoprolol Tartrate (Metoprolol Tartrate 50 Mg Tab) 25 mg PO BID [facility] Last Admin: 03/09/21 09:35 Dose: 25 mg Documented by: Miscellaneous Information (Remove Patch) 1 ea TRDERM BEDTIME [facility] Last Admin: 03/08/21 21:27 Dose: 1 ea Documented by: Mometasone Furoate/Formoterol Fumar (Formoterol/Mometasone 200-5 Mcg 8.8 Gm Inhaler) 0 puff IH BIDRT [facility] Last Admin: 03/09/21 06:03 Dose: 2 puff Documented by: Nystatin (Nystatin Susp 100,000 Unit/Ml 5 Ml Ud Cup) 5 ml PO QID@0900,1300,1800,2100 [facility] Last Admin: 03/09/21 09:38 Dose: 5 ml Documented by: Omeprazole (Omeprazole 20 Mg Cap.Cr) 20 mg PO ACBREAKFAST [facility] Last Admin: 03/09/21 06:03 Dose: 20 mg Documented by: Ondansetron HCl (Ondansetron 4 Mg/2 Ml Sdv) 4 mg IVPUSH Q8H PRN PRN Reason: Nausea/Vomiting Potassium Chloride (Potassium Chloride 10 Meq Tab.Er) 20 meq PO DAILY [facility] Last Admin: 03/09/21 09:33 Dose: 20 meq Documented by: Sodium Chloride (Sodium Chloride 0.9% 10 Ml Syringe) 10 ml FLUSH ASDIRECTED PRN PRN Reason: Keep Vein Open Last Admin: 03/08/21 21:37 Dose: 10 ml Documented by: Spironolactone (Spironolactone 25 Mg Tab) 25 mg PO BID@0900,1700 [facility] Last Admin: 03/09/21 09:29 Dose: 25 mg Documented by: Discontinued Medications Acetaminophen (Acetaminophen 325 Mg Tab) 650 mg PO Q4H PRN PRN Reason: Pain (Mild 1-3)/fever Albuterol/Ipratropium (Albuterol/Ipratropium 3.0-0.5 Mg/3 Ml Neb Soln) 3 ml NEB ONETIME ONE Stop: 03/01/21 12:31 Last Admin: 03/01/21 12:59 Dose: 3 ml Documented by: Albuterol/Ipratropium (Albuterol/Ipratropium 3.0-0.5 Mg/3 Ml Neb Soln) 3 ml NEB Q8HRRT [facility] Last Admin: 03/03/21 07:00 Dose: 3 ml Documented by: Budesonide (Budesonide 0.5 Mg/2 Ml Neb Susp) 0.5 mg INH BIDRT [facility] Last Admin: 03/03/21 07:00 Dose: 0.5 mg Documented by: Enoxaparin Sodium (Enoxaparin 40 Mg/0.4 Ml Syringe) 40 mg SUBCUT DAILY [facility] Last Admin: 03/02/21 09:18 Dose: 40 mg Documented by: Furosemide (Furosemide 40 Mg/4 Ml Vial) 40 mg IVPUSH ONETIME ONE Stop: 03/01/21 14:31 Last Admin: 03/01/21 16:22 Dose: 40 mg Documented by: Hydromorphone HCl (Hydromorphone 0.5 Mg/0.5 Ml Syringe) 0.5 mg IVPUSH ONETIME ONE Stop: 03/01/21 11:57 Last Admin: 03/01/21 12:59 Dose: 0.5 mg Documented by: Remdesivir 200 mg/ Sodium (Chloride) 250 mls @ 250 mls/hr IV ONETIME ONE Stop: 03/03/21 10:18 Last Infusion: 03/03/21 11:50 Dose: Infused Documented by: Remdesivir 100 mg/ Sodium (Chloride) 100 mls @ 100 mls/hr IV Q24H [facility] Stop: 03/07/21 09:59 Last Infusion: 03/07/21 09:33 Dose: Infused Documented by: Sterile Water (Sterile Water For Injection) Confirm Administered Dose 40 mls @ as directed .ROUTE .STK-MED ONE Stop: 03/03/21 10:30 Last Admin: 03/03/21 11:58 Dose: Not Given Documented by: Mometasone Furoate/Formoterol Fumar (Formoterol/Mometasone 100-5 Mcg 8.8 Gm Inhaler) 2 puff IH BIDRT [facility] Nystatin (Nystatin Susp 100,000 Unit/Ml 5 Ml Ud Cup) 5 ml PO QID [facility] Last Admin: 03/04/21 18:25 Dose: Not Given Documented by: Ondansetron HCl (Ondansetron 4 Mg Tab.Dis) 4 mg PO ONETIME ONE Stop: 03/01/21 10:04 Last Admin: 03/01/21 10:40 Dose: 4 mg Documented by: Ondansetron HCl (Ondansetron 4 Mg/2 Ml Sdv) 4 mg IVPUSH Q8HR [facility] Last Admin: 03/05/21 15:00 Dose: Not Given Documented by: Oxycodone HCl (Oxycodone 5 Mg Tab) 5 mg PO Q8H PRN PRN Reason: Pain (moderate 4-6) Last Admin: 03/01/21 23:47 Dose: 5 mg Documented by: Sodium Chloride (Sodium Chloride 0.9% 10 Ml Syringe) 10 ml FLUSH ASDIRECTED PRN PRN Reason: Keep Vein Open Last Admin: 03/01/21 12:59 Dose: 10 ml Documented by: Spironolactone (Spironolactone 25 Mg Tab) 25 mg PO BID [facility] Last Admin: 03/07/21 21:39 Dose: 25 mg Documented by: Tramadol HCl (Tramadol 50 Mg Tab) 50 mg PO ONETIME ONE Stop: 03/01/21 10:04 Last Admin: 03/01/21 10:40 Dose: 50 mg Documented by: - Exam Quality Assessment: Supplemental Oxygen General: Alert, Oriented Neck: Supple Lungs: Normal Respiratory Effort, Rhonchi Cardiovascular: Regular Rate, Regular Rhythm GI/Abdominal Exam: Normal Bowel Sounds, Soft, Non-Tender Extremities: No Pedal Edema - Patient Data Result Diagrams: 03/01/21 12:09 03/07/21 09:22 Sepsis Event Note - Evaluation Sepsis Screening Result: No Definite Risk - Focused Exam Vital Signs: Vital Signs Temp Pulse Pulse Resp BP BP Pulse Ox 03/09/21 09:35 64 121/70 03/09/21 08:00 98.4 F 74 20 121/70 97 03/09/21 03:56 97.3 F 73 24 H 142/66 H 95 03/09/21 00:00 98 F 71 20 142/78 H 99 - Problem List Review Problem List Initiated/Reviewed/Updated: Yes - Plan Plan:: Patient is an 85-year-old female with a history of COPD on chronic home O2, osteoporosis with multiple compression fractures, CHF who presented with fall and new onset compression fractures. Request was made for admission due to pain control, PT/OT and possible placement. # L4 compression fracture -Multiple compression fractures due to history of osteoporosis. Continue vitamin D, Fosamax, calcium supplementation. -Pain control with scheduled Tylenol, PRN tylenol, lidocaine patches, PT/OT/social work - had confusion following oxycodone administration -Continue gabapentin # COVID-19 positive test/acute on chronic hypoxic respiratory failure -Patient states to me that she had Covid 19 infection a year ago and is vaccinated against COVID-19. Initially on admission patient stated that her respiratory status was no different than baseline. However on hospital day 1 patient indicates significant worsening of her baseline respiratory disease. -CT lumbar spine did show some ground glass opacities in the pulmonary exam however these were also seen in stable from April 2020 -Chest x-ray obtained 03-03-21, official read indicated viral/atypical pneumonia pattern -Given patient's worsening of her respiratory symptoms and slight increase in her oxygen requirements we began treatment for symptomatic COVID-19 infection on 03-03-21 with remdesivir per protocol (03/07/21), dexamethasone p.o. 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
[2021-03-09] MEDS: Enoxaparin 40 MG/0.4 ML Syringe SUBCUT SCH (13:40)
[2021-03-09] MEDS ORDERED: Heparin Sodium 5,000 Units/ML Vial SUBCUT SCH (14:00)
[2021-03-09] MEDS: atorvaSTATin 10 MG Tab PO SCH (22:11)
[2021-03-09] MEDS: Aspirin 81 MG Tab.Chew PO SCH (22:11)
[2021-03-09] MEDS: Sodium Chloride 0.9% 10 ML Syringe FLUSH PRN (22:23)
[2021-03-10] MEDS: Albuterol 6.7 GM Inhaler INH SCH ×5 (03:44→17:17)
[2021-03-10] MEDS: Levothyroxine 75 MCG Tab PO SCH (06:09)
[2021-03-10] MEDS: Omeprazole 20 MG Cap.CR PO SCH (06:09)
[2021-03-10] MEDS: Formoterol/Mometasone 200-5 MCG 8.8 GM Inhaler IH SCH ×2 (06:10→17:17)
[2021-03-10] MEDS: Spironolactone 25 MG Tab PO SCH ×2 (08:40→17:18)
[2021-03-10] MEDS: acetaZOLAMIDE 250 MG Tab PO SCH (08:40)
[2021-03-10] MEDS: Dexamethasone 6 MG TABLET PO SCH (08:40)
[2021-03-10] MEDS: Potassium Chloride 10 MEQ Tab.ER PO SCH (08:40)
[2021-03-10] MEDS: Furosemide 40 MG Tab PO SCH (08:41)
[2021-03-10] MEDS: Metoprolol Tartrate 50 MG Tab PO SCH ×2 (08:42→20:10)
[2021-03-10] MEDS: Nystatin Susp 100,000 Unit/ML 5 ML UD Cup PO SCH ×4 (08:43→20:11)
[2021-03-10] MEDS: Gabapentin 100 MG Cap PO SCH ×3 (08:43→20:11)
[2021-03-10] MEDS: Lidocaine 5% 700 MG Patch TRDERM SCH (08:51)
[2021-03-10] MEDS: Sodium Chloride 0.9% 10 ML Syringe FLUSH PRN ×2 (08:51→20:12)
[2021-03-10] MEDS: Enoxaparin 40 MG/0.4 ML Syringe SUBCUT SCH (08:52)
--- NOTE | 2021-03-10 13:57 | PCM.PN ---
- General Info Date of Service: 03/10/21 Admission Dx/Problem (Free Text): Admission Diagnosis/Problem Admission Diagnosis/Problem Compression fracture Subjective Update: Patient is alert, orientated, pleasant no c/o sob at rest but has mod sob with activity, feeling well, improved remained on [place] oxygen back pain is moderate, worse with activity had nausea this morning but was able to have breakfast no cp duration of illness is days has LE edema, using compression stocking Functional Status: Reports: Pain Controlled, Tolerating Diet, Ambulating - Review of Systems General: Reports: Weakness. Denies: Fever Pulmonary: Reports: Shortness of Breath (with acitvity only). Denies: Hemoptysis Cardiovascular: Reports: Edema. Denies: Chest Pain Gastrointestinal: Denies: Abdominal Pain Neurological: Denies: Confusion - Patient Data Vitals - Most Recent: Last Vital Signs Temp 98.0 F 03/10/21 12:00 Pulse 83 03/10/21 12:00 Resp 20 03/10/21 12:00 BP 121/74 03/10/21 12:00 Pulse Ox 100 03/10/21 12:00 Weight - Most Recent: 140 lb 4.8 oz I&O - Last 24 Hours: Intake & Output 03/09/21 03/10/21 03/10/21 22:59 06:59 14:59 Intake Total 940 100 Balance 940 100 Lab Results Last 24 Hours: Laboratory Results - last 24 hr 03/10/21 Range/Units 06:30 D-Dimer, Quantitative 658 H (0-400) ng/mL Med Orders - Current: Current Medications Acetaminophen (Acetaminophen 325 Mg Tab) 650 mg PO Q4H PRN PRN Reason: Pain (moderate 4-6) Last Admin: 03/07/21 06:14 Dose: 650 mg Documented by: Acetazolamide (Acetazolamide 250 Mg Tab) 250 mg PO TuThSa@0900 [facility] Last Admin: 03/10/21 08:40 Dose: 250 mg Documented by: Albuterol (Albuterol 6.7 Gm Inhaler) 0 gm INH Q4H [facility] Last Admin: 03/10/21 10:40 Dose: 2 puff Documented by: Aspirin (Aspirin 81 Mg Tab.Chew) 81 mg PO BEDTIME [facility] Last Admin: 03/09/21 22:11 Dose: 81 mg Documented by: Atorvastatin Calcium (Atorvastatin 10 Mg Tab) 10 mg PO BEDTIME [facility] Last Admin: 03/09/21 22:11 Dose: 10 mg Documented by: Calcium Carbonate/Glycine (Calcium Carbonate 500 Mg Tab.Chew) 500 mg PO Q2H PRN PRN Reason: Nausea/upset stomach Last Admin: 03/08/21 08:00 Dose: 500 mg Documented by: Dexamethasone (Dexamethasone 6 Mg Tablet) 6 mg PO DAILY [facility] Stop: 03/12/21 09:01 Last Admin: 03/10/21 08:40 Dose: 6 mg Documented by: Docusate Sodium (Docusate Sodium 100 Mg Cap) 100 mg PO Q12H PRN PRN Reason: Constipation Enoxaparin Sodium (Enoxaparin 40 Mg/0.4 Ml Syringe) 40 mg SUBCUT DAILY [facility] Last Admin: 03/10/21 08:52 Dose: 40 mg Documented by: Furosemide (Furosemide 40 Mg Tab) 60 mg PO DAILY [facility] Last Admin: 03/10/21 08:41 Dose: 60 mg Documented by: Furosemide (Furosemide 40 Mg Tab) 40 mg PO ONETIME ONE Stop: 03/10/21 16:01 Gabapentin (Gabapentin 100 Mg Cap) 100 mg PO TID [facility] Last Admin: 03/10/21 08:43 Dose: 100 mg Documented by: Guaifenesin (Guaifenesin 100 Mg/5 Ml Soln 5 Ml Ud Cup) 100 mg PO Q6H PRN PRN Reason: Cough Last Admin: 03/09/21 22:11 Dose: 100 mg Documented by: Levothyroxine Sodium (Levothyroxine 75 Mcg Tab) 75 mcg PO ACBREAKFAST [facility] Last Admin: 03/10/21 06:09 Dose: 75 mcg Documented by: Lidocaine (Lidocaine 5% 700 Mg Patch) 1,400 mg TRDERM DAILY [facility] Last Admin: 03/10/21 08:51 Dose: 1,400 mg Documented by: Methyl Salicylate (Menthol/Methyl Salicylate 85 Gm Tube) 0 gm TOP BID PRN PRN Reason: Pain (mild 1-3) Metoprolol Tartrate (Metoprolol Tartrate 50 Mg Tab) 25 mg PO BID [facility] Last Admin: 03/10/21 08:42 Dose: 25 mg Documented by: Miscellaneous Information (Remove Patch) 1 ea TRDERM BEDTIME [facility] Last Admin: 03/09/21 22:12 Dose: 1 ea Documented by: Mometasone Furoate/Formoterol Fumar (Formoterol/Mometasone 200-5 Mcg 8.8 Gm Inhaler) 0 puff IH BIDRT [facility] Last Admin: 03/10/21 06:10 Dose: 2 puff Documented by: Nystatin (Nystatin Susp 100,000 Unit/Ml 5 Ml Ud Cup) 5 ml PO QID@0900,1300,1800,2100 [facility] Last Admin: 03/10/21 08:43 Dose: 5 ml Documented by: Omeprazole (Omeprazole 20 Mg Cap.Cr) 20 mg PO ACBREAKFAST [facility] Last Admin: 03/10/21 06:09 Dose: 20 mg Documented by: Ondansetron HCl (Ondansetron 4 Mg/2 Ml Sdv) 4 mg IVPUSH Q8H PRN PRN Reason: Nausea/Vomiting Potassium Chloride (Potassium Chloride 10 Meq Tab.Er) 20 meq PO DAILY [facility] Last Admin: 03/10/21 08:40 Dose: 20 meq Documented by: Sodium Chloride (Sodium Chloride 0.9% 10 Ml Syringe) 10 ml FLUSH ASDIRECTED PRN PRN Reason: Keep Vein Open Last Admin: 03/10/21 08:51 Dose: 10 ml Documented by: Spironolactone (Spironolactone 25 Mg Tab) 25 mg PO BID@0900,1700 [facility] Last Admin: 03/10/21 08:40 Dose: 25 mg Documented by: Discontinued Medications Acetaminophen (Acetaminophen 325 Mg Tab) 650 mg PO Q4H PRN PRN Reason: Pain (Mild 1-3)/fever Albuterol/Ipratropium (Albuterol/Ipratropium 3.0-0.5 Mg/3 Ml Neb Soln) 3 ml NEB ONETIME ONE Stop: 03/01/21 12:31 Last Admin: 03/01/21 12:59 Dose: 3 ml Documented by: Albuterol/Ipratropium (Albuterol/Ipratropium 3.0-0.5 Mg/3 Ml Neb Soln) 3 ml NEB Q8HRRT [facility] Last Admin: 03/03/21 07:00 Dose: 3 ml Documented by: Budesonide (Budesonide 0.5 Mg/2 Ml Neb Susp) 0.5 mg INH BIDRT [facility] Last Admin: 03/03/21 07:00 Dose: 0.5 mg Documented by: Enoxaparin Sodium (Enoxaparin 40 Mg/0.4 Ml Syringe) 40 mg SUBCUT DAILY [facility] Last Admin: 03/02/21 09:18 Dose: 40 mg Documented by: Furosemide (Furosemide 40 Mg/4 Ml Vial) 40 mg IVPUSH ONETIME ONE Stop: 03/01/21 14:31 Last Admin: 03/01/21 16:22 Dose: 40 mg Documented by: Heparin Sodium (Porcine) (Heparin Sodium 5,000 Units/Ml Vial) 5,000 units SUBCUT Q8HR [facility] Hydromorphone HCl (Hydromorphone 0.5 Mg/0.5 Ml Syringe) 0.5 mg IVPUSH ONETIME ONE Stop: 03/01/21 11:57 Last Admin: 03/01/21 12:59 Dose: 0.5 mg Documented by: Remdesivir 200 mg/ Sodium (Chloride) 250 mls @ 250 mls/hr IV ONETIME ONE Stop: 03/03/21 10:18 Last Infusion: 03/03/21 11:50 Dose: Infused Documented by: Remdesivir 100 mg/ Sodium (Chloride) 100 mls @ 100 mls/hr IV Q24H [facility] Stop: 03/07/21 09:59 Last Infusion: 03/07/21 09:33 Dose: Infused Documented by: Sterile Water (Sterile Water For Injection) Confirm Administered Dose 40 mls @ as directed .ROUTE .STK-MED ONE Stop: 03/03/21 10:30 Last Admin: 03/03/21 11:58 Dose: Not Given Documented by: Mometasone Furoate/Formoterol Fumar (Formoterol/Mometasone 100-5 Mcg 8.8 Gm Inhaler) 2 puff IH BIDRT [facility] Nystatin (Nystatin Susp 100,000 Unit/Ml 5 Ml Ud Cup) 5 ml PO QID [facility] Last Admin: 03/04/21 18:25 Dose: Not Given Documented by: Ondansetron HCl (Ondansetron 4 Mg Tab.Dis) 4 mg PO ONETIME ONE Stop: 03/01/21 10:04 Last Admin: 03/01/21 10:40 Dose: 4 mg Documented by: Ondansetron HCl (Ondansetron 4 Mg/2 Ml Sdv) 4 mg IVPUSH Q8HR [facility] Last Admin: 03/05/21 15:00 Dose: Not Given Documented by: Oxycodone HCl (Oxycodone 5 Mg Tab) 5 mg PO Q8H PRN PRN Reason: Pain (moderate 4-6) Last Admin: 03/01/21 23:47 Dose: 5 mg Documented by: Sodium Chloride (Sodium Chloride 0.9% 10 Ml Syringe) 10 ml FLUSH ASDIRECTED PRN PRN Reason: Keep Vein Open Last Admin: 03/01/21 12:59 Dose: 10 ml Documented by: Spironolactone (Spironolactone 25 Mg Tab) 25 mg PO BID [facility] Last Admin: 03/07/21 21:39 Dose: 25 mg Documented by: Tramadol HCl (Tramadol 50 Mg Tab) 50 mg PO ONETIME ONE Stop: 03/01/21 10:04 Last Admin: 03/01/21 10:40 Dose: 50 mg Documented by: - Exam General: Alert, Oriented Neck: Supple Lungs: Normal Respiratory Effort, Rales Cardiovascular: Regular Rate, Regular Rhythm GI/Abdominal Exam: Normal Bowel Sounds, Soft, Non-Tender Extremities: Pedal Edema Psy/Mental Status: Alert, Normal Affect, Normal Mood - Patient Data Lab Results Last 24 hrs: Laboratory Results - last 24 hr 03/10/21 Range/Units 06:30 D-Dimer, Quantitative 658 H (0-400) ng/mL Result Diagrams: 03/01/21 12:09 03/07/21 09:22 Sepsis Event Note - Evaluation Sepsis Screening Result: No Definite Risk - Focused Exam Vital Signs: Vital Signs Temp Pulse Pulse Resp BP BP Pulse Ox 03/10/21 12:00 98.0 F 83 20 121/74 100 03/10/21 08:42 84 123/75 03/10/21 08:00 97.8 F 84 20 123/75 100 03/10/21 05:30 97.2 F 80 24 H 99 - Problem List Review Problem List Initiated/Reviewed/Updated: Yes - My Orders Last 24 Hours: My Active Orders 03/10/21 16:00 Furosemide [Lasix] 40 mg PO ONETIME ONE 03/11/21 05:11 DD [D-DIMER QUANTITATIVE] [COAG] AM 03/11/21 05:15 BASIC METABOLIC PANEL,BMP [CHEM] AM 03/12/21 05:11 DD [D-DIMER QUANTITATIVE] [COAG] AM 03/13/21 05:11 DD [D-DIMER QUANTITATIVE] [COAG] AM - Plan Plan:: Patient is an 85-year-old female with a history of COPD on chronic home O2, o steoporosis with multiple compression fractures, CHF who presented with fall and new onset compression fractures. Request was made for admission due to pain control, PT/OT and possible placement. # L4 compression fracture -Multiple compression fractures due to history of osteoporosis. Continue vitamin D, Fosamax, calcium supplementation. -Pain control with scheduled Tylenol, PRN tylenol, lidocaine patches, PT/OT/social work - had confusion following oxycodone administration -Continue gabapentin # COVID-19 positive test/acute on chronic hypoxic respiratory failure -Patient states to me that she had Covid 19 infection a year ago and is vacc inated against COVID-19. Initially on admission patient stated that her respiratory status was no different than baseline. However on hospital day 1 patient indicates significant worsening of her baseline respiratory disease. -CT lumbar spine did show some ground glass opacities in the pulmonary exam however these were also seen in stable from April 2020 -Chest x-ray obtained 03-03-21, official read indicated viral/atypical pneumonia pattern -Given patient's worsening of her respiratory symptoms and slight increase in her oxygen requirements we began treatment for symptomatic COVID-19 infection on 03-03-21 with remdesivir per protocol (03/07/21), dexamethasone p.o. per protocol (end date 03/12/21) -respiratory status is improved ddimer is mildly elevated - cont - dvt prophylaxis sq lovenox # COPD on home oxygen -continue with Scheduled dulera inhaler, PRN albuterol inhaler -Continue on home O2 - goal oxygen saturation >88% # CHF -Continue home 60 mg PO lasix daily, continue spironolactone, metoprolol -will add extra lasix dose this afternoon -resolved - the patient has chronic crackles -Sodium restricted diet check bmp in am # Hyperlipidemia -continue statin # Hypothyroidismlevothyroxine # Chronic metabolic alkalosis - secondary to chronic respiratory acidosis 2/2 multiple pulmonary etiologies - continue goal oxygen 88% on home O2 - patient is on chronic acetazolamide Fluidsnone Electrolytesnormal limits Dietsodium restricted DVT prophylaxis Lovenox DispositionPT/OT/social work for placement - COVID 19 positive 12/10/21 - plan for discharge on 03/11 - no [place] bed is currently available
[2021-03-10] MEDS ORDERED: Furosemide 40 MG Tab PO ONE (16:00)
[2021-03-10] MEDS: atorvaSTATin 10 MG Tab PO SCH (20:10)
[2021-03-10] MEDS: Aspirin 81 MG Tab.Chew PO SCH (20:10)
[2021-03-11 06:33] LABS: CHLORIDE,CL 98 mmol/L (98-107); SODIUM,NA 141 mmol/L (136-145)
[2021-03-11] MEDS: Albuterol 6.7 GM Inhaler INH SCH ×3 (06:40→10:05)
[2021-03-11] MEDS: Levothyroxine 75 MCG Tab PO SCH (06:41)
[2021-03-11] MEDS: Omeprazole 20 MG Cap.CR PO SCH (06:41)
[2021-03-11] MEDS: Formoterol/Mometasone 200-5 MCG 8.8 GM Inhaler IH SCH (06:41)
[2021-03-11] MEDS: Spironolactone 25 MG Tab PO SCH (09:56)
[2021-03-11] MEDS: Potassium Chloride 10 MEQ Tab.ER PO SCH (09:57)
[2021-03-11] MEDS: Dexamethasone 6 MG TABLET PO SCH (09:57)
[2021-03-11] MEDS: Furosemide 40 MG Tab PO SCH (09:57)
[2021-03-11] MEDS: Metoprolol Tartrate 50 MG Tab PO SCH (09:58)
[2021-03-11] MEDS: Nystatin Susp 100,000 Unit/ML 5 ML UD Cup PO SCH (09:59)
[2021-03-11] MEDS: Gabapentin 100 MG Cap PO SCH (10:00)
[2021-03-11] MEDS: Lidocaine 5% 700 MG Patch TRDERM SCH (10:04)
[2021-03-11] MEDS: Enoxaparin 40 MG/0.4 ML Syringe SUBCUT SCH (10:05)
--- NOTE | 2021-03-11 12:59 | PCM.DCSUM1 ---
Discharge Summary - Hospital Course Free Text/Narrative:: Patient is an 85-year-old female with a history of COPD on chronic home O2, osteoporosis with multiple compression fractures, CHF who presented with fall and new onset compression fractures. Request was made for admission due to pain control, PT/OT and possible placement. # L4 compression fracture -Multiple compression fractures due to history of osteoporosis. Continue vitamin D, Fosamax, calcium supplementation. -Pain control with scheduled Tylenol, PRN tylenol, lidocaine patches, PT/OT - had confusion following oxycodone administration # COVID-19 positive test/acute on chronic hypoxic respiratory failure -Patient states to me that she had Covid 19 infection a year ago and is vaccinated against COVID-19. Initially on admission patient stated that her respiratory status was no different than baseline. However on hospital day 1 patient indicates significant worsening of her baseline respiratory disease. -CT lumbar spine did show some ground glass opacities in the pulmonary exam however these were also seen in stable from April 2020 -Chest x-ray obtained 03-03-21, official read indicated viral/atypical pneumonia pattern -Given patient's worsening of her respiratory symptoms and slight increase in her oxygen requirements we began treatment for symptomatic COVID-19 infection on 03-03-21 with remdesivir, dexamethasone -respiratory status is improved # COPD on home oxygen -continue with Scheduled dulera inhaler, PRN albuterol inhaler -Continue on home O2 - goal oxygen saturation >88% # CHF -Continue 60 mg PO lasix daily, continue spironolactone, metoprolol -resolved - the patient has chronic crackles -Sodium restricted diet # Hyperlipidemia -continue statin # Hypothyroidismlevothyroxine # Chronic metabolic alkalosis - secondary to chronic respiratory acidosis 2/2 multiple pulmonary etiologies - continue goal oxygen 88% on home O2 - patient is on chronic acetazolamide Diagnosis: Stroke: No - Discharge Data Discharge Date: 03/11/21 Discharge Disposition: DC/Tfer to [facility] Condition: Good - Referral to Home Health Primary Care Physician: PCP None - Patient Summary/Data Consults: Consultations 03/01/21 15:08 Consult to Occupational Therapy [OT Evaluation and Treatment] [CONS] Routine PT Evaluation and Treatment [CONS] Routine - Patient Instructions Diet: Heart Healthy Diet Activity: As Tolerated - Discharge Plan *PRESCRIPTION DRUG MONITORING PROGRAM REVIEWED*: Not Applicable *COPY OF PRESCRIPTION DRUG MONITORING REPORT IN PATIENT YVETTE: Not Applicable Prescriptions/Med Rec: Menthol/Methyl Salicylate [Icy Hot] 1 gm TOP BID PRN #1 tube PRN Reason: Pain (Mild 1-3) Lidocaine 5% [Lidoderm 5%] 1,400 mg TRDERM DAILY #12 patch Home Medications: Home Meds Alendronate [Fosamax] 70 mg PO Q7D@0600 10/21/16 [History] Aspirin 81 mg PO BEDTIME 10/21/16 [History] Budesonide [Pulmicort] 0.5 mg IH BID 10/21/16 [History] Calcitriol [Rocaltrol] 0.25 mcg PO .SUNMONWEDFRI 10/21/16 [History] Calcium Carbonate/Vitamin D3 [Calcium 500 mg Chewable Tablet] 1 tab PO DAILY 10/21/16 [History] Formoterol Fumarate [Perforomist] 2 ml PO BID 10/21/16 [History] Levothyroxine [Synthroid] 75 mcg PO ACBREAKFAST 10/21/16 [History] Loratadine [Claritin] 10 mg PO DAILY 10/21/16 [History] Magnesium 400 mg PO DAILY 10/21/16 [History] Omeprazole Magnesium [Prilosec Otc] 20 mg PO DAILY 10/21/16 [History] Polyethylene Glycol 3350 [MiraLAX] 17 gm PO DAILY PRN 10/21/16 [History] atorvaSTATin [Lipitor] 10 mg PO BEDTIME 10/21/16 [History] guaiFENesin [Tussin] 5 ml PO Q6H PRN 10/21/16 [History] Metoprolol Tartrate 25 mg PO BID 11/12/17 [History] Gabapentin [Neurontin] 100 mg PO TID 07/04/20 [History] Acetaminophen [Tylenol Extra Strength] 500 mg PO Q6HR PRN 01/12/21 [History] Spironolactone [Aldactone] 25 mg PO BID 01/12/21 [History] Potassium Chloride 20 meq PO DAILY 01/22/21 [History] Albuterol Sulfate 2.5 mg NEB Q4H PRN 03/01/21 [History] Furosemide [Lasix] 60 mg PO DAILY 03/01/21 [History] acetaZOLAMIDE [Diamox] 250 mg PO TUTHSA 03/01/21 [History] Lidocaine 5% [Lidoderm 5%] 1,400 mg TRDERM DAILY #12 patch 03/11/21 [Rx] Menthol/Methyl Salicylate [Icy Hot] 1 gm TOP BID PRN #1 tube 03/11/21 [Rx] Patient Handouts: COVID-19 Frequently Asked Questions, Symptoms of COVID-19 - [facility] (05/15/2020), Spinal Compression Fracture Referrals: PCP,None [Primary Care Provider] - - Discharge Summary/Plan Comment DC Time >30 min.: Yes (arrangements to nh) Total # of Minutes for Discharge Time: 35 min - General Info Date of Service: 03/11/21 Admission Dx/Problem (Free Text: Admission Diagnosis/Problem Admission Diagnosis/Problem Compression fracture Subjective Update: Patient is alert, orientated, pleasant no c/o sob at rest but has mod sob with activity, feeling well, improved remained on nc oxygen back pain is moderate, worse with activity - Review of Systems General: Reports: Weakness. Denies: Fever Pulmonary: Denies: Shortness of Breath Cardiovascular: Denies: Chest Pain Gastrointestinal: Denies: Abdominal Pain Genitourinary: Denies: Dysuria Neurological: Denies: Confusion - Patient Data Vitals - Most Recent: Last Vital Signs Temp 98.7 F 03/11/21 08:24 Pulse 89 03/11/21 09:58 Resp 18 03/11/21 08:24 BP 121/64 03/11/21 09:58 Pulse Ox 95 03/11/21 08:24 Weight - Most Recent: 138 lb 6.4 oz I&O - Last 24 hours: Intake & Output 03/10/21 03/11/21 03/11/21 22:59 06:59 14:59 Intake Total 500 50 565 Balance 500 50 565 Lab Results - Last 24 hrs: Laboratory Results - last 24 hr 03/11/21 03/11/21 Range/Units 06:00 06:00 D-Dimer, Quantitative 482 H (0-400) ng/mL Sodium 141 (136-145) mmol/L Potassium 4.0 (3.5-5.1) mmol/L Chloride 98 (98-107) mmol/L Carbon Dioxide 43 H* (21-32) mmol/L Anion Gap 4.0 L (7-13) mEq/L BUN 27 H (7-18) mg/dL Creatinine 0.79 (0.55-1.02) mg/dL Est Cr Clr Drug Dosing 38.76 mL/min Estimated GFR (MDRD) > 60 Glucose 100 H (70-99) mg/dL Calcium 8.9 (8.5-10.1) mg/dL Med Orders - Current: Current Medications Acetaminophen (Acetaminophen 325 Mg Tab) 650 mg PO Q4H PRN PRN Reason: Pain (moderate 4-6) Last Admin: 03/07/21 06:14 Dose: 650 mg Documented by: Acetazolamide (Acetazolamide 250 Mg Tab) 250 mg PO TuThSa@0900 [facility] Last Admin: 03/10/21 08:40 Dose: 250 mg Documented by: Albuterol (Albuterol 6.7 Gm Inhaler) 0 gm INH Q4H [facility] Last Admin: 03/11/21 10:05 Dose: 2 puff Documented by: Aspirin (Aspirin 81 Mg Tab.Chew) 81 mg PO BEDTIME [facility] Last Admin: 03/10/21 20:10 Dose: 81 mg Documented by: Atorvastatin Calcium (Atorvastatin 10 Mg Tab) 10 mg PO BEDTIME [facility] Last Admin: 03/10/21 20:10 Dose: 10 mg Documented by: Calcium Carbonate/Glycine (Calcium Carbonate 500 Mg Tab.Chew) 500 mg PO Q2H PRN PRN Reason: Nausea/upset stomach Last Admin: 03/08/21 08:00 Dose: 500 mg Documented by: Dexamethasone (Dexamethasone 6 Mg Tablet) 6 mg PO DAILY [facility] Stop: 03/12/21 09:01 Last Admin: 03/11/21 09:57 Dose: 6 mg Documented by: Docusate Sodium (Docusate Sodium 100 Mg Cap) 100 mg PO Q12H PRN PRN Reason: Constipation Enoxaparin Sodium (Enoxaparin 40 Mg/0.4 Ml Syringe) 40 mg SUBCUT DAILY [facility] Last Admin: 03/11/21 10:05 Dose: 40 mg Documented by: Furosemide (Furosemide 40 Mg Tab) 60 mg PO DAILY [facility] Last Admin: 03/11/21 09:57 Dose: 60 mg Documented by: Gabapentin (Gabapentin 100 Mg Cap) 100 mg PO TID [facility] Last Admin: 03/11/21 10:00 Dose: 100 mg Documented by: Guaifenesin (Guaifenesin 100 Mg/5 Ml Soln 5 Ml Ud Cup) 100 mg PO Q6H PRN PRN Reason: Cough Last Admin: 03/09/21 22:11 Dose: 100 mg Documented by: Levothyroxine Sodium (Levothyroxine 75 Mcg Tab) 75 mcg PO ACBREAKFAST [facility] Last Admin: 03/11/21 06:41 Dose: 75 mcg Documented by: Lidocaine (Lidocaine 5% 700 Mg Patch) 1,400 mg TRDERM DAILY [facility] Last Admin: 03/11/21 10:04 Dose: 1,400 mg Documented by: Methyl Salicylate (Menthol/Methyl Salicylate 85 Gm Tube) 0 gm TOP BID PRN PRN Reason: Pain (mild 1-3) Metoprolol Tartrate (Metoprolol Tartrate 50 Mg Tab) 25 mg PO BID [facility] Last Admin: 03/11/21 09:58 Dose: 25 mg Documented by: Miscellaneous Information (Remove Patch) 1 ea TRDERM BEDTIME [facility] Last Admin: 03/10/21 20:11 Dose: 1 ea Documented by: Mometasone Furoate/Formoterol Fumar (Formoterol/Mometasone 200-5 Mcg 8.8 Gm Inhaler) 0 puff IH BIDRT [facility] Last Admin: 03/11/21 06:41 Dose: 2 puff Documented by: Nystatin (Nystatin Susp 100,000 Unit/Ml 5 Ml Ud Cup) 5 ml PO QID@0900,1300,1800,2100 [facility] Last Admin: 03/11/21 09:59 Dose: 5 ml Documented by: Omeprazole (Omeprazole 20 Mg Cap.Cr) 20 mg PO ACBREAKFAST [facility] Last Admin: 03/11/21 06:41 Dose: 20 mg Documented by: Ondansetron HCl (Ondansetron 4 Mg/2 Ml Sdv) 4 mg IVPUSH Q8H PRN PRN Reason: Nausea/Vomiting Potassium Chloride (Potassium Chloride 10 Meq Tab.Er) 20 meq PO DAILY [facility] Last Admin: 03/11/21 09:57 Dose: 20 meq Documented by: Sodium Chloride (Sodium Chloride 0.9% 10 Ml Syringe) 10 ml FLUSH ASDIRECTED PRN PRN Reason: Keep Vein Open Last Admin: 03/10/21 20:12 Dose: 10 ml Documented by: Spironolactone (Spironolactone 25 Mg Tab) 25 mg PO BID@0900,1700 [facility] Last Admin: 03/11/21 09:56 Dose: 25 mg Documented by: Discontinued Medications Acetaminophen (Acetaminophen 325 Mg Tab) 650 mg PO Q4H PRN PRN Reason: Pain (Mild 1-3)/fever Albuterol/Ipratropium (Albuterol/Ipratropium 3.0-0.5 Mg/3 Ml Neb Soln) 3 ml NEB ONETIME ONE Stop: 03/01/21 12:31 Last Admin: 03/01/21 12:59 Dose: 3 ml Documented by: Albuterol/Ipratropium (Albuterol/Ipratropium 3.0-0.5 Mg/3 Ml Neb Soln) 3 ml NEB Q8HRRT [facility] Last Admin: 03/03/21 07:00 Dose: 3 ml Documented by: Budesonide (Budesonide 0.5 Mg/2 Ml Neb Susp) 0.5 mg INH BIDRT [facility] Last Admin: 03/03/21 07:00 Dose: 0.5 mg Documented by: Enoxaparin Sodium (Enoxaparin 40 Mg/0.4 Ml Syringe) 40 mg SUBCUT DAILY [facility] Last Admin: 03/02/21 09:18 Dose: 40 mg Documented by: Furosemide (Furosemide 40 Mg/4 Ml Vial) 40 mg IVPUSH ONETIME ONE Stop: 03/01/21 14:31 Last Admin: 03/01/21 16:22 Dose: 40 mg Documented by: Furosemide (Furosemide 40 Mg Tab) 40 mg PO ONETIME ONE Stop: 03/10/21 16:01 Last Admin: 03/10/21 15:00 Dose: 40 mg Documented by: Heparin Sodium (Porcine) (Heparin Sodium 5,000 Units/Ml Vial) 5,000 units SUBCUT Q8HR [facility] Hydromorphone HCl (Hydromorphone 0.5 Mg/0.5 Ml Syringe) 0.5 mg IVPUSH ONETIME ONE Stop: 03/01/21 11:57 Last Admin: 03/01/21 12:59 Dose: 0.5 mg Documented by: Remdesivir 200 mg/ Sodium (Chloride) 250 mls @ 250 mls/hr IV ONETIME ONE Stop: 03/03/21 10:18 Last Infusion: 03/03/21 11:50 Dose: Infused Documented by: Remdesivir 100 mg/ Sodium (Chloride) 100 mls @ 100 mls/hr IV Q24H [facility] Stop: 03/07/21 09:59 Last Infusion: 03/07/21 09:33 Dose: Infused Documented by: Sterile Water (Sterile Water For Injection) Confirm Administered Dose 40 mls @ as directed .ROUTE .STK-MED ONE Stop: 03/03/21 10:30 Last Admin: 03/03/21 11:58 Dose: Not Given Documented by: Mometasone Furoate/Formoterol Fumar (Formoterol/Mometasone 100-5 Mcg 8.8 Gm Inhaler) 2 puff IH BIDRT [facility] Nystatin (Nystatin Susp 100,000 Unit/Ml 5 Ml Ud Cup) 5 ml PO QID [facility] Last Admin: 03/04/21 18:25 Dose: Not Given Documented by: Ondansetron HCl (Ondansetron 4 Mg Tab.Dis) 4 mg PO ONETIME ONE Stop: 03/01/21 10:04 Last Admin: 03/01/21 10:40 Dose: 4 mg Documented by: Ondansetron HCl (Ondansetron 4 Mg/2 Ml Sdv) 4 mg IVPUSH Q8HR [facility] Last Admin: 03/05/21 15:00 Dose: Not Given Documented by: Oxycodone HCl (Oxycodone 5 Mg Tab) 5 mg PO Q8H PRN PRN Reason: Pain (moderate 4-6) Last Admin: 03/01/21 23:47 Dose: 5 mg Documented by: Sodium Chloride (Sodium Chloride 0.9% 10 Ml Syringe) 10 ml FLUSH ASDIRECTED PRN PRN Reason: Keep Vein Open Last Admin: 03/01/21 12:59 Dose: 10 ml Documented by: Spironolactone (Spironolactone 25 Mg Tab) 25 mg PO BID [facility] Last Admin: 03/07/21 21:39 Dose: 25 mg Documented by: Tramadol HCl (Tramadol 50 Mg Tab) 50 mg PO ONETIME ONE Stop: 03/01/21 10:04 Last Admin: 03/01/21 10:40 Dose: 50 mg Documented by: - Exam Quality Assessment: Reports: Supplemental Oxygen General: Reports: Alert, Oriented Neck: Reports: Supple Lungs: Reports: Normal Respiratory Effort, Decreased Breath Sounds Cardiovascular: Reports: Regular Rate, Regular Rhythm GI/Abdominal Exam: Normal Bowel Sounds, Soft, Non-Tender Extremities: No Pedal Edema Skin: Reports: Warm, Dry Neurological: Reports: No New Focal Deficit Psy/Mental Status: Reports: Alert, Normal Affect, Normal Mood
[2021-03-11 14:19] VITALS: BP 132/67; PULSE 87
== END 2021-03-11 13:50 | DRG 551 ==
LOC: DL.ED 09:41 → DL.MS 13:43
PROVIDERS: ADMIT Internal Medicine; ATTEND Internal Medicine
PROC: 8E0ZXY6 Isolation (ICD-10-PCS; principal; 2021-03-03)
PROC: XW033E5 Introduction of Remdesivir Anti-infective into Peripheral Vein, Percutaneous Approach, New Technology Group 5 (ICD-10-PCS; principal; 2021-03-03)
PROC: 3E0DX3Z Introduction of Anti-inflammatory into Mouth and Pharynx, External Approach (ICD-10-PCS; 2021-03-09)
DX: S32.030A Wedge compression fracture of third lumbar vertebra, initial encounter for closed fracture (principal); U07.1 COVID-19; J96.21 Acute and chronic respiratory failure with hypoxia; I50.33 Acute on chronic diastolic (congestive) heart failure; I13.0 Hypertensive heart and chronic kidney disease with heart failure and stage 1 through stage 4 chronic kidney disease, or unspecified chronic kidney disease; E87.3 Alkalosis; E87.2 Acidosis; S32.020A Wedge compression fracture of second lumbar vertebra, initial encounter for closed fracture; S32.040A Wedge compression fracture of fourth lumbar vertebra, initial encounter for closed fracture; W19.XXXA Unspecified fall, initial encounter; H54.7 Unspecified visual loss; N18.9 Chronic kidney disease, unspecified; E78.00 Pure hypercholesterolemia, unspecified; J43.9 Emphysema, unspecified; K44.9 Diaphragmatic hernia without obstruction or gangrene; J84.10 Pulmonary fibrosis, unspecified; M19.90 Unspecified osteoarthritis, unspecified site; G89.29 Other chronic pain; M54.9 Dorsalgia, unspecified; M81.0 Age-related osteoporosis without current pathological fracture; F32.A Depression, unspecified; F41.9 Anxiety disorder, unspecified; E05.90 Thyrotoxicosis, unspecified without thyrotoxic crisis or storm; D64.9 Anemia, unspecified; E78.5 Hyperlipidemia, unspecified; E03.9 Hypothyroidism, unspecified; Z79.890 Hormone replacement therapy; Z88.1 Allergy status to other antibiotic agents; Z91.040 Latex allergy status; Z79.51 Long term (current) use of inhaled steroids; Z79.52 Long term (current) use of systemic steroids; Z79.82 Long term (current) use of aspirin; Z79.899 Other long term (current) drug therapy
CPT/HCPCS: 36415; 72131; 72192; 80053; 81001; 83880; 85025; 94640; 96374; 99285; A9270 ×2; J1170; U0002; 71045; 80048; 82947; 85379; 97110-GO; 97110-GP; 97116-GP; 97162-GP; 97166-GO; 97530-GO; 97530-GP; 97535-GO; 99222; 99232; 99233; 99284; J1650; J1940; J7050; J7620-GY; J8540

== ENCOUNTER 2021-03-23 15:09 | Emergency (ER) | payer MEDICARE, BC ==
[2021-03-23 15:35] VITALS: BP 124/88; PULSE 109
[2021-03-23 15:50] LABS: ANION GAP 5.2 mEq/L (7-13); CHLORIDE,CL 98 mmol/L (98-107); SODIUM,NA 144 mmol/L (136-145)
--- NOTE | 2021-03-23 16:24 | CR ---
PROCEDURE INFORMATION: Exam: XR Chest Exam date and time: 03/23/2021 3:53 PM Age: 85 years old Clinical indication: Other: Chest pain TECHNIQUE: Imaging protocol: XR of the chest. Views: 1 view. COMPARISON: CR Chest 1V Frontal 03/03/2021 9:44 AM FINDINGS: Lungs: Patchy bilateral airspace disease again seen. Hypoventilatory study. Elevated left hemidiaphragm. Pleural spaces: Unremarkable. No pleural effusion. No pneumothorax. Heart/Mediastinum: Unchanged. Bones/joints: Unremarkable. IMPRESSION: No substantial change
--- NOTE | 2021-03-23 16:28 | EDM.PDOC ---
ED HPI GENERAL MEDICAL PROBLEM - General Stated Complaint: AMBULANCE Time Seen by Provider: 03/23/21 15:25 Source of Information: Reports: Patient History Limitations: Reports: No Limitations - History of Present Illness INITIAL COMMENTS - FREE TEXT/NARRATIVE: This 85 yo female patient was brought to the ED due to intermittent chest pain. The patient reports her symptoms started about 1 hour prior to her arrival in the ED. The patient reports she is asymptomatic at the time of arrival in the ED. Onset: Today Duration: Hour(s):, Resolved Prior to Arrival Location: Reports: Chest Quality: Reports: Ache Severity: Moderate Improves with: Reports: None Worsens with: Reports: None Context: Reports: Other Associated Symptoms: Reports: Chest Pain - Related Data Allergies Allergy/AdvReac Type Severity Reaction Status Date / Time amoxicillin [Amoxicillin] AdvReac Nausea Verified 03/23/21 15:18 cefazolin sodium [From Ancef] AdvReac Vomiting Verified 03/23/21 15:18 doxycycline AdvReac Nausea Verified 03/23/21 15:18 latex AdvReac Nausea Verified 03/23/21 15:18 Home Meds: Home Meds Alendronate [Fosamax] 70 mg PO Q7D@0600 10/21/16 [History] Aspirin 81 mg PO BEDTIME 10/21/16 [History] Budesonide [Pulmicort] 0.5 mg IH BID 10/21/16 [History] Calcitriol [Rocaltrol] 0.25 mcg PO .SUNMONWEDFRI 10/21/16 [History] Calcium Carbonate/Vitamin D3 [Calcium 500 mg Chewable Tablet] 1 tab PO DAILY 10/21/16 [History] Formoterol Fumarate [Perforomist] 2 ml PO BID 10/21/16 [History] Levothyroxine [Synthroid] 75 mcg PO ACBREAKFAST 10/21/16 [History] Loratadine [Claritin] 10 mg PO DAILY 10/21/16 [History] Magnesium 400 mg PO DAILY 10/21/16 [History] Omeprazole Magnesium [Prilosec Otc] 20 mg PO DAILY 10/21/16 [History] Polyethylene Glycol 3350 [MiraLAX] 17 gm PO DAILY PRN 10/21/16 [History] atorvaSTATin [Lipitor] 10 mg PO BEDTIME 10/21/16 [History] guaiFENesin [Tussin] 5 ml PO Q6H PRN 10/21/16 [History] Metoprolol Tartrate 25 mg PO BID 11/12/17 [History] Gabapentin [Neurontin] 100 mg PO TID 07/04/20 [History] Acetaminophen [Tylenol Extra Strength] 500 mg PO Q6HR PRN 01/12/21 [History] Spironolactone [Aldactone] 25 mg PO BID 01/12/21 [History] Potassium Chloride 20 meq PO DAILY 01/22/21 [History] Albuterol Sulfate 2.5 mg NEB Q4H PRN 03/01/21 [History] Furosemide [Lasix] 60 mg PO DAILY 03/01/21 [History] acetaZOLAMIDE [Diamox] 250 mg PO TUTHSA 03/01/21 [History] Lidocaine 5% [Lidoderm 5%] 1,400 mg TRDERM DAILY #12 patch 03/11/21 [Rx] Menthol/Methyl Salicylate [Icy Hot] 1 gm TOP BID PRN #1 tube 03/11/21 [Rx] Past Medical History - Past Health History Medical/Surgical History: Denies Medical/Surgical History HEENT History: Reports: Impaired Vision, Other (See Below) Other HEENT History: Trouble swallowing, wears glasses Cardiovascular History: Reports: Heart Failure, High Cholesterol, Hypertension, SOB on Exertion Respiratory History: Reports: Asthma, COPD, Interstitial Lung Disease, Pneumonia, Recurrent, Pulmonary Fibrosis, SOB, Other (See Below) Other Respiratory History: chronic cough, lung surgery, emphysema Gastrointestinal History: Reports: Hiatal Hernia Genitourinary History: Reports: Chronic Renal Insuffiency Other Genitourinary History: bladder repair, bowel repair [employer] CONSULTANT History: Reports: None Musculoskeletal History: Reports: Arthritis, Back Pain, Chronic, Fracture, Osteoporosis Neurological History: Reports: None Psychiatric History: Reports: Anxiety, Depression Endocrine/Metabolic History: Reports: Hyperthyroidism, Osteopenia Hematologic History: Reports: Anemia Immunologic History: Reports: None Oncologic (Cancer) History: Reports: None Other Oncologic History: face Dermatologic History: Reports: None Other Dermatologic History: has bandage to left chin, , biopsy done, no results yet. blisters noted to bilateral feet, dressing in place - Infectious Disease History Infectious Disease History: Reports: Influenza, Measles, Novel Coronavirus - Past Surgical History Head Surgeries/Procedures: Reports: None HEENT Surgical History: Reports: Cataract Surgery Cardiovascular Surgical History: Reports: Other (See Below) Other Cardiovascular Surgeries/Procedures: cardiac cath Respiratory Surgical History: Reports: Lung Biopsies GI Surgical History: Reports: Colonoscopy Other GI Surgeries/Procedures: bowel repair Female Surgical History: Reports: Breast Biopsy, Hysterectomy, Other (See Below) Other Female Surgeries/Procedures: bladder repair Oncologic Surgical History: Reports: Mastectomy Social & Family History - Family History Family Medical History: No Pertinent Family History HEENT: Reports: None Cardiac: Reports: None Respiratory: Reports: None GI: Reports: None : Reports: None - Tobacco Use Tobacco Use Status *Q: Never Tobacco User - Caffeine Use Caffeine Use: Reports: None Caffeine Use Comment: Tea daily, soda occasionally - Recreational Drug Use Recreational Drug Use: No - Living Situation & Occupation Living situation: Reports: , Assisted Living ([facility] [place]) Occupation: Retired ED ROS GENERAL - Review of Systems Review Of Systems: Comprehensive ROS is negative, except as noted in HPI. ED EXAM, GENERAL - Physical Exam Exam: See Below Exam Limited By: No Limitations General Appearance: Alert, WD/WN, Anxious, Mild Distress Eye Exam: Bilateral Eye: EOMI, Normal Inspection, PERRL Ears: Normal External Exam, Normal Canal, Hearing Grossly Normal, Normal TMs Nose: Normal Inspection, Normal Mucosa, No Blood Throat/Mouth: Normal Inspection, Normal Lips, Normal Teeth, Normal Gums, Normal Oropharynx, Normal Voice, No Airway Compromise Head: Atraumatic, Normocephalic Neck: Normal Inspection, Supple, Non-Tender, Full Range of Motion Respiratory/Chest: No Respiratory Distress, Lungs Clear, Normal Breath Sounds, No Accessory Muscle Use, Chest Non-Tender Cardiovascular: Normal Peripheral Pulses, Regular Rate, Rhythm, No Edema, No Gallop, No JVD, No Murmur, No Rub GI/Abdominal: Normal Bowel Sounds, Soft, Non-Tender, No Organomegaly, No Distention, No Abnormal Bruit, No Mass (Female) Exam: Deferred Rectal (Female) Exam: Deferred Back Exam: Normal Inspection, Full Range of Motion, NT Extremities: Normal Inspection, Normal Range of Motion, Non-Tender, Normal C apillary Refill, No Pedal Edema Neurological: Alert, Oriented, CN II-XII Intact, Normal Cognition, Normal Gait, Normal Reflexes, No Motor/Sensory Deficits Psychiatric: Normal Affect Skin Exam: Warm, Dry, Intact, Normal Color, No Rash Lymphatic: No Adenopathy #1 Interpretation EKG Date: 03/23/21 Time: 15:37 Rhythm: Other (Sinus tach) Rate (Beats/Min): 105 [place]: Normal P-Wave: Present QRS: Normal ST-T: Normal QT: Normal Comparison: No Change Course - Vital Signs Last Recorded V/S: Last Vital Signs Temp 97.2 F 03/23/21 15:18 Pulse 109 H 03/23/21 15:18 Resp 18 03/23/21 15:18 BP 124/88 03/23/21 15:18 Pulse Ox 99 03/23/21 15:18 - Orders/Labs/Meds Orders: Active Orders 24 hr Category Date Time Status EKG Documentation Completion [RC] STAT Care 03/23/21 15:07 Ordered CULTURE BLOOD [BC] Stat Lab 03/23/21 15:08 Ordered UA RFX KIA[facility] AND CULT IF INDIC [URIN] Urgent Lab 03/23/21 15:08 Ordered Labs: Laboratory Tests 03/23/21 03/23/21 03/23/21 Range/Units 15:20 15:20 15:20 WBC 11.5 H (5.0-10.0) 10^3/uL RBC 3.66 L (4.2-5.4) 10^6/uL Hgb 11.4 L (12.0-16.0) g/dL Hct 37.4 (37.0-47.0) % MCV 102.2 H (80-100) fL MCH 31.1 (27.0-34.0) pg MCHC 30.5 L (33.0-35.0) g/dL Plt Count 174 (150-450) 10^3/uL Neut % (Auto) 77.2 H (42.2-75.2) % Lymph % (Auto) 13.1 L (20.5-50.1) % Davis % (Auto) 7.0 (2-8) % Eos % (Auto) 2.5 (1.0-3.0) % Baso % (Auto) 0.2 (0.0-1.0) % Sodium 144 (136-145) mmol/L Potassium 4.2 (3.5-5.1) mmol/L Chloride 98 (98-107) mmol/L Carbon Dioxide 45 H* (21-32) mmol/L Anion Gap 5.2 L (7-13) mEq/L BUN 16 (7-18) mg/dL Creatinine 0.86 (0.55-1.02) mg/dL Est Cr Clr Drug Dosing 35.60 mL/min Estimated GFR (MDRD) > 60 BUN/Creatinine Ratio 18.6 (No establ ref range) Glucose 90 (70-99) mg/dL Lactic Acid 0.9 (0.4-2.0) mmol/L Calcium 9.1 (8.5-10.1) mg/dL Total Bilirubin 0.4 (0.2-1.0) mg/dL AST 22 (15-37) U/L ALT 23 (14-59) U/L Alkaline Phosphatase 135 H (46-116) U/L Troponin I High Sens 19 (<=51) pg/mL B-Natriuretic Peptide 98 (0-100) pg/ml Total Protein 6.3 L (6.4-8.2) g/dL Albumin 3.1 L (3.4-5.0) g/dL Globulin 3.2 Albumin/Globulin Ratio 0.97 Departure - Departure Time of Disposition: 17:02 Disposition: Home, Self-Care 01 Condition: Fair Clinical Impression: Nonspecific chest pain Instructions: Nonspecific Chest Pain, Adult, [id number] Forms: ED Department Discharge Care Plan Goals: The patient was advised of the examination, lab, EKG and x-ray results during the visit. The patient was encouraged to continue to monitor for any additional episodes. The patient should follow-up with her primary care facility next week for continued evaluation and management. If the patient has any additional symptoms or further concerns, the patient should either return to the emergency department or visit her primary care facility. Sepsis Event Note (ED) - Evaluation Sepsis Screening Result: No Definite Risk - Focused Exam Vital Signs: Vital Signs Temp Pulse Resp BP Pulse Ox 03/23/21 15:18 97.2 F 109 H 18 124/88 99 - My Orders Last 24 Hours: My Active Orders 03/23/21 15:07 EKG Documentation Completion [RC] STAT 03/23/21 15:08 CULTURE BLOOD [BC] Stat UA RFX KIANA AND CULT IF INDIC [URIN] Urgent - Assessment/Plan Last 24 Hours: My Active Orders 03/23/21 15:07 EKG Documentation Completion [RC] STAT 03/23/21 15:08 CULTURE BLOOD [BC] Stat UA RFX KIANA AND CULT IF INDIC [URIN] Urgent
== END 2021-03-23 17:23 | disposition home or self-care (01) ==
LOC: DL.ED 15:09
DX: R07.9 Chest pain, unspecified (principal); E78.00 Pure hypercholesterolemia, unspecified; J44.9 Chronic obstructive pulmonary disease, unspecified; I11.0 Hypertensive heart disease with heart failure; I50.9 Heart failure, unspecified; Z88.0 Allergy status to penicillin; Z88.1 Allergy status to other antibiotic agents; Z91.040 Latex allergy status; Z79.82 Long term (current) use of aspirin; Z79.899 Other long term (current) drug therapy
CPT/HCPCS: 36415; 71045; 80053; 83605; 83880; 84484; 85025; 87040; 99285-25

== ENCOUNTER 2021-04-01 06:58 | Emergency (ER) | payer BC, MEDICARE ==
--- NOTE | 2021-04-01 07:19 | EDM.PDOC ---
ED HPI GENERAL MEDICAL PROBLEM - General Chief Complaint: Trauma Stated Complaint: AMBULANCE Time Seen by Provider: 04/01/21 07:23 Source of Information: Reports: Patient, EMS, Old Records, RN, RN Notes Reviewed History Limitations: Reports: No Limitations - History of Present Illness INITIAL COMMENTS - FREE TEXT/NARRATIVE: Pt arrives to ER from [place] with report that she fell to the floor when she got out of bed this morning. Pt states that when she gets up in the mornings her legs are wobbly, and she has to stand for a minute before she can walk. This morning she urgently needed to get to the bathroom and fell. She says she bumped her head, or "more accurately, scraped it" on the floor. She has a small skin tear on the right elbow, and pain to the left foot, but claims that these injuries are not from the fall, but are from the staff moving her and trying to help her get up. She denies LOC, neck pain, or any other areas of injury. Denies use of blood thinners. She does take Aspirin 81mg once daily at bedtime. TRAUMA: C-Collar: no c-collar Long Spine Board: no long spine board GCS on arrival: 15 Onset: Today, Sudden Location: Reports: Head, Upper Extremity, Right, Lower Extremity, Left Quality: Reports: Ache Severity: Mild Improves with: Reports: None Worsens with: Reports: None Context: Reports: Other (Ground level fall.) Associated Symptoms: Reports: No Other Symptoms - Related Data Allergies Allergy/AdvReac Type Severity Reaction Status Date / Time amoxicillin [Amoxicillin] AdvReac Nausea Verified 04/01/21 07:22 cefazolin sodium [From Ancef] AdvReac Vomiting Verified 04/01/21 07:22 doxycycline AdvReac Nausea Verified 04/01/21 07:22 latex AdvReac Nausea Verified 04/01/21 07:22 Home Meds: Home Meds Alendronate [Fosamax] 70 mg PO Q7D@0600 10/21/16 [History] Aspirin 81 mg PO BEDTIME 10/21/16 [History] Budesonide [Pulmicort] 0.5 mg IH BID 10/21/16 [History] Calcitriol [Rocaltrol] 0.25 mcg PO .SUNMONWEDFRI 10/21/16 [History] Calcium Carbonate/Vitamin D3 [Calcium 500 mg Chewable Tablet] 1 tab PO DAILY 10/21/16 [History] Formoterol Fumarate [Perforomist] 2 ml PO BID 10/21/16 [History] Levothyroxine [Synthroid] 75 mcg PO ACBREAKFAST 10/21/16 [History] Loratadine [Claritin] 10 mg PO DAILY 10/21/16 [History] Magnesium 400 mg PO DAILY 10/21/16 [History] Omeprazole Magnesium [Prilosec Otc] 20 mg PO DAILY 10/21/16 [History] Polyethylene Glycol 3350 [MiraLAX] 17 gm PO DAILY PRN 10/21/16 [History] atorvaSTATin [Lipitor] 10 mg PO BEDTIME 10/21/16 [History] guaiFENesin [Tussin] 5 ml PO Q6H PRN 10/21/16 [History] Metoprolol Tartrate 25 mg PO BID 11/12/17 [History] Gabapentin [Neurontin] 100 mg PO TID 07/04/20 [History] Acetaminophen [Tylenol Extra Strength] 500 mg PO Q6HR PRN 01/12/21 [History] Spironolactone [Aldactone] 25 mg PO BID 01/12/21 [History] Potassium Chloride 20 meq PO DAILY 01/22/21 [History] Albuterol Sulfate 2.5 mg NEB QID 03/01/21 [History] Furosemide [Lasix] 60 mg PO DAILY 03/01/21 [History] Lidocaine 5% [Lidoderm 5%] 1,400 mg TRDERM DAILY #12 patch 03/11/21 [Rx] Menthol/Methyl Salicylate [Icy Hot] 1 gm TOP BID PRN #1 tube 03/11/21 [Rx] Albuterol [Proventil] 1 vial INH Q4H PRN 04/01/21 [History] Past Medical History - Past Health History Medical/Surgical History: Denies Medical/Surgical History HEENT History: Reports: Impaired Vision, Other (See Below) Other HEENT History: Trouble swallowing, wears glasses Cardiovascular History: Reports: Heart Failure, High Cholesterol, Hypertension, SOB on Exertion Respiratory History: Reports: Asthma, COPD, Interstitial Lung Disease, Pneumonia, Recurrent, Pulmonary Fibrosis, SOB, Other (See Below) Other Respiratory History: chronic cough, lung surgery, emphysema Gastrointestinal History: Reports: Hiatal Hernia Genitourinary History: Reports: Chronic Renal Insuffiency Other Genitourinary History: bladder repair, bowel repair [employer] TECH[employer]ICIAN History: Reports: None Musculoskeletal History: Reports: Arthritis, Back Pain, Chronic, Fracture, Osteoporosis Neurological History: Reports: None Psychiatric History: Reports: Anxiety, Depression Endocrine/Metabolic History: Reports: Hyperthyroidism, Osteopenia Hematologic History: Reports: Anemia Immunologic History: Reports: None Oncologic (Cancer) History: Reports: None Other Oncologic History: face Dermatologic History: Reports: None Other Dermatologic History: has bandage to left chin, , biopsy done, no results yet - Infectious Disease History Infectious Disease History: Reports: Influenza, Measles, Novel Coronavirus - Past Surgical History Head Surgeries/Procedures: Reports: None HEENT Surgical History: Reports: Cataract Surgery Cardiovascular Surgical History: Reports: Other (See Below) Other Cardiovascular Surgeries/Procedures: cardiac cath Respiratory Surgical History: Reports: Lung Biopsies GI Surgical History: Reports: Colonoscopy Other GI Surgeries/Procedures: bowel repair Female Surgical History: Reports: Breast Biopsy, Hysterectomy, Other (See Below) Other Female Surgeries/Procedures: bladder repair Oncologic Surgical History: Reports: Mastectomy Social & Family History - Family History Family Medical History: No Pertinent Family History HEENT: Reports: None Cardiac: Reports: None Respiratory: Reports: None GI: Reports: None : Reports: None - Caffeine Use Caffeine Use: Reports: Coffee Caffeine Use Comment: Tea daily, soda occasionally - Living Situation & Occupation Living situation: Reports: , Assisted Living ([facility]) Occupation: Retired Review of Systems - Review of Systems Review Of Systems: Comprehensive ROS is negative, except as noted in HPI. ED EXAM, GENERAL - Physical Exam Exam: See Below Free Text/Narrative:: PRIMARY TRAUMA SURVEY 0725HRS: Airway: Patent nasal and oral airways. Clear speech. Breathing: Spontaneous respiration, symmetric chest rise/fall, B/L lungs with clear breath sounds Circulation: No cyanosis or pallor. Heart sounds RRR not muffled. Intact distal pulses and capillary refill x all 4 distal extremities. Disability/Deformity: Head NC, right forehead has a 3cm josue. superficial abrasion with mild soft tissue swelling, no facial or dental/oral trauma. Neck: c-collar not applied, c-spine cleared by Hx, exam and NEXUS criteria. Chest: non-tender, no flail chest. Abdomen: soft, non-tender, benign abdomen exam. Pelvis: stable. Back: no vertebral bony point tenderness. Extremities: Small superficial skin tear to Rt elbow, mild left knee tenderness with no bruising, redness, or swelling and full ROM, left reagent tender with chronic dorsal foot open ulcer, no long bone deformities. Neuro: no focal motor or sensory deficits. GCS 15. Exposure: clothing removed. Skin warm and dry. No active bleeding. SECONDARY TRAUMA SURVEY 0805HRS: Exam Limited By: No Limitations General Appearance: Alert, Other (Frail elderly appearing female) Eye Exam: Bilateral Eye: EOMI, Normal Inspection, PERRL Ears: Normal External Exam, Hearing Grossly Normal Nose: Normal Inspection, No Blood Throat/Mouth: Normal Inspection, Normal Lips, Normal Voice, No Airway Compromise Head: Normocephalic Neck: Normal Inspection, Supple, Non-Tender, Full Range of Motion Respiratory/Chest: No Respiratory Distress, Lungs Clear, No Accessory Muscle Use, Chest Non-Tender, Decreased Breath Sounds Cardiovascular: Regular Rate, Rhythm GI/Abdominal: Normal Bowel Sounds, Soft, Non-Tender, Pelvis Stable Back Exam: Normal Inspection Extremities: Normal Range of Motion, Arm Pain (Small superficial skin tear to right elbow.), Leg Pain (Mild left knee tenderness with full ROM, no visible injury.), Other (Chronic superficial open ulcers/ruptured bulla at B/L dorsal feet.). No: Joint Swelling Neurological: Alert, Oriented, CN II-XII Intact, Normal Cognition, No Motor/Sensory Deficits, Other (GCS at 1 hour: 15. GCS at discharge: 15) Psychiatric: Normal Affect, Normal Mood Skin Exam: Warm, Dry Course - Vital Signs Last Recorded V/S: Last Vital Signs Temp 97.8 F 04/01/21 07:23 Pulse 96 04/01/21 07:23 Resp 16 04/01/21 07:23 BP 128/79 04/01/21 07:23 Pulse Ox 100 04/01/21 07:23 - Orders/Labs/Meds Orders: Active Orders 24 hr Category Date Time Status Vaccine to be Administered/Admin Charge [RC] ASDIRECTED Care 04/01/21 07:33 Active Steri Strips Application [OM.PC] Routine Oth 04/01/21 07:29 Ordered Labs: Pt decline lab draw and IV start. Meds: Medications Discontinued Medications Generic Name Dose Route Start Last Admin Trade Name Freq PRN Reason Stop Dose Admin Diphtheria/Tetanus/Acell Pertussis 0.5 ml 04/01/21 07:33 Diphtheria,Pertussis(Acell),Tetanus Vaccine 0.5 Ml Syringe IM 04/01/21 07:34 .ONCE ONE - Radiology Interpretation Free Text/Narrative:: [facility] Call: [phone] assistance Online chat: [email or web address] Name: DARYL MCLEOD Age: 85Years F Date: 04/01/2021 SSN: -- : [id number] Study: CT HEAD WO CONT Requesting Physician: NICOLE VALDOVINOS Images: 148 Addl Studies: Provided Clinical History: Fall, head injury Contrast: Without Contrast Medium: Contrast Amount: Contrast Method: Page 1 of 2 PROCEDURE INFORMATION: Exam: CT Head Without Contrast Exam date and time: 04/01/2021 7:46 AM Age: 85 years old Clinical indication: Injury or trauma; Fall; Blunt trauma (contusions or hematomas); Additional info: Fall, head injury TECHNIQUE: Imaging protocol: Computed tomography of the head without contrast. Radiation optimization: All CT scans at this facility use at least one of these dose optimization techniques: automated exposure control; mA and/or kV adjustment per patient size (includes targeted exams where dose is matched to clinical indication); or iterative reconstruction. COMPARISON: No relevant prior studies available. FINDINGS: Brain: There is no acute intracranial hemorrhage. There are no extra-axial fluid collections. There is lucency in the cerebral white matter, likely microvascular disease although non- specific. Le[place] white differentiation is intact. There is no mass effect or midline shift. Cerebral ventricles: There is opacification of right maxillary sinus which shows central densities which may be calcification. There is thickening of bony margin indicate. Remaining paranasal sinuses are clear. The ventricles and sulci are enlarged, consistent with age-related volume loss / atrophy. No hydrocephalus. Paranasal sinuses: See "Cerebral ventricles" finding. Mastoid air cells: No significant mastoid effusion. Vasculature: There is vascular calcification. Bones/joints: See "Cerebral ventricles" finding. Soft tissues: Unremarkable as visualized. Other findings: No evidence of mass. DARYL MCLEOD | Final Radiology Report CONFIDENTIALITY STATEMENT This report is intended only for use by the referring physician, and only in accordance with law. If you received this in error, call [phone]. Page 2 of 2 IMPRESSION: 1. No evidence of acute intracranial abnormality. No evidence of acute infarction, hemorrhage, or mass. 2. Senescent changes. 3. Chronically opacified right maxillary sinus Thank you for allowing us to participate in the care of your patient. Dictated and Authenticated by: Kailey Zaman MD 04/01/2021 8:05 AM Central Time ([place] & [place]) - Re-Assessments/Exams Free Text/Narrative Re-Assessment/Exam: 04/01/21 08:28 Rt elbow skin tear had steri-strip repair by RN. Departure - Departure Time of Disposition: 08:28 Disposition: Home, Self-Care 01 Condition: Good Clinical Impression: Left foot pain Forehead abrasion Qualifiers: Encounter type: initial encounter Qualified Code(s): S00.81XA - Abrasion of other part of head, initial encounter Forehead contusion Qualifiers: Encounter type: initial encounter Qualified Code(s): S00.83XA - Contusion of other part of head, initial encounter Skin tear of right elbow without complication Qualifiers: Encounter type: initial encounter Qualified Code(s): S51.011A - Laceration without foreign body of right elbow, initial encounter Fall at long-term Qualifiers: Encounter type: initial encounter Qualified Code(s): W19.XXXA - Unspecified fall, initial encounter; Y92.129 - Unspecified place in long-term as the place of occurrence of the external cause - Discharge Information *PRESCRIPTION DRUG MONITORING PROGRAM REVIEWED*: Not Applicable *COPY OF PRESCRIPTION DRUG MONITORING REPORT IN PATIENT YVETTE: Not Applicable Instructions: Abrasion, [id number], Contusion Forms: ED Department Discharge Additional Instructions: Increase falls precautions. Follow up in clinic if any further concerns. Sepsis Event Note (ED) - Focused Exam Vital Signs: Vital Signs Temp Pulse Resp BP Pulse Ox 04/01/21 07:23 97.8 F 96 16 128/79 100 - My Orders Last 24 Hours: My Active Orders 04/01/21 07:29 Steri Strips Application [OM.PC] Routine 04/01/21 07:33 Vaccine to be Administered/Admin Charge [RC] ASDIRECTED - Assessment/Plan Last 24 Hours: My Active Orders 04/01/21 07:29 Steri Strips Application [OM.PC] Routine 04/01/21 07:33 Vaccine to be Administered/Admin Charge [RC] ASDIRECTED
[2021-04-01 07:43] VITALS: BP 128/79; PULSE 96
--- NOTE | 2021-04-01 08:06 | CT ---
PROCEDURE INFORMATION: Exam: CT Head Without Contrast Exam date and time: 04/01/2021 7:46 AM Age: 85 years old Clinical indication: Injury or trauma; Fall; Blunt trauma (contusions or hematomas); Additional info: Fall, head injury TECHNIQUE: Imaging protocol: Computed tomography of the head without contrast. Radiation optimization: All CT scans at this facility use at least one of these dose optimization techniques: automated exposure control; mA and/or kV adjustment per patient size (includes targeted exams where dose is matched to clinical indication); or iterative reconstruction. COMPARISON: No relevant prior studies available. FINDINGS: Brain: There is no acute intracranial hemorrhage. There are no extra-axial fluid collections. There is lucency in the cerebral white matter, likely microvascular disease although non-specific. Le[place] white differentiation is intact. There is no mass effect or midline shift. Cerebral ventricles: There is opacification of right maxillary sinus which shows central densities which may be calcification. There is thickening of bony margin indicate. Remaining paranasal sinuses are clear. The ventricles and sulci are enlarged, consistent with age-related volume loss / atrophy. No hydrocephalus. Paranasal sinuses: See "Cerebral ventricles" finding. Mastoid air cells: No significant mastoid effusion. Vasculature: There is vascular calcification. Bones/joints: See "Cerebral ventricles" finding. Soft tissues: Unremarkable as visualized. Other findings: No evidence of mass. IMPRESSION: 1. No evidence of acute intracranial abnormality. No evidence of acute infarction, hemorrhage, or mass. 2. Senescent changes. 3. Chronically opacified right maxillary sinus
[2021-04-01] MEDS: Diphtheria,Pertussis(Acell),Tetanus Vaccine 0.5 ML Syringe IM ONE (09:00)
== END 2021-04-01 09:21 | disposition home or self-care (01) ==
LOC: DL.ED 06:58
DX: S51.011A Laceration without foreign body of right elbow, initial encounter (principal); S00.83XA Contusion of other part of head, initial encounter; M79.672 Pain in left foot; I13.0 Hypertensive heart and chronic kidney disease with heart failure and stage 1 through stage 4 chronic kidney disease, or unspecified chronic kidney disease; N18.9 Chronic kidney disease, unspecified; I50.9 Heart failure, unspecified; E78.00 Pure hypercholesterolemia, unspecified; E05.90 Thyrotoxicosis, unspecified without thyrotoxic crisis or storm; J44.9 Chronic obstructive pulmonary disease, unspecified; Z88.0 Allergy status to penicillin; Z91.040 Latex allergy status; Z88.1 Allergy status to other antibiotic agents; Z79.82 Long term (current) use of aspirin; Z23 Encounter for immunization; Z79.899 Other long term (current) drug therapy; W06.XXXA Fall from bed, initial encounter; Y92.129 Unspecified place in nursing home as the place of occurrence of the external cause
CPT/HCPCS: 70450; 90471; 90715; 99284-25

== ENCOUNTER 2021-04-10 07:58 | Inpatient (IN) | payer MEDICARE, BC ==
[2021-04-10] MEDS ORDERED: Albuterol 0.083% 2.5 MG/3 ML Neb Soln NEB PRN (16:26)
[2021-04-10] MEDS ORDERED: Polyethylene Glycol 3350 Powder 17 GM Packet PO PRN ×2 (16:26→17:36)
[2021-04-10] MEDS ORDERED: Bisacodyl 5 MG Tab PO PRN (16:26)
[2021-04-10] MEDS ORDERED: Docusate Sodium 100 MG Cap PO PRN (16:26)
[2021-04-10 17:29] LABS: CHLORIDE,CL 94 mmol/L (98-107); SODIUM,NA 144 mmol/L (136-145)
[2021-04-10] MEDS ORDERED: Menthol/Methyl Salicylate 85 GM Tube TOP PRN (17:36)
[2021-04-10] MEDS ORDERED: guaiFENesin 100 MG/5 ML Soln 5 ML UD Cup PO PRN (17:36)
[2021-04-10] MEDS ORDERED: Acetaminophen 500 MG Tab PO PRN (17:36)
[2021-04-10 17:42] LABS: ANION GAP 9.49999 mEq/L (7-13)
[2021-04-10] MEDS: Albuterol/Ipratropium 3.0-0.5 MG/3 ML Neb Soln NEB PRN (18:22)
[2021-04-10] MEDS: Budesonide 0.5 MG/2 ML Neb Susp NEB SCH (18:22)
[2021-04-10] MEDS ORDERED: Water For Injection, Sterile 20 ML ONE (18:39)
[2021-04-10] MEDS: Furosemide 40 MG/4 ML VIAL IVPUSH SCH (19:25)
[2021-04-10] MEDS: methylPREDNISolone Sodium Succinate 40 MG/1 ML SDV IVPUSH SCH (19:25)
[2021-04-10] MEDS: cefTRIAXone 1 GM Vial IV SCH (19:25)
[2021-04-10] MEDS: Azithromycin 500 MG in Sodium Chloride 0.9% 250 ML IV SCH (19:26)
[2021-04-10] MEDS: Sodium Chloride 0.9% 10 ML Syringe FLUSH SCH ×2 (19:28→21:08)
[2021-04-10] MEDS: atorvaSTATin 10 MG Tab PO SCH (20:42)
[2021-04-10] MEDS: Metoprolol Tartrate 25 MG Tab PO SCH (20:42)
[2021-04-10] MEDS: Spironolactone 25 MG Tab PO SCH (20:42)
[2021-04-10] MEDS: Aspirin 81 MG Tab.Chew PO SCH (20:42)
[2021-04-10] MEDS: Gabapentin 100 MG Cap PO SCH (20:43)
[2021-04-11] MEDS: methylPREDNISolone Sodium Succinate 40 MG/1 ML SDV IVPUSH SCH ×3 (02:10→17:28)
[2021-04-11] MEDS: Levothyroxine 75 MCG Tab PO SCH (05:10)
[2021-04-11 06:32] LABS: CHLORIDE,CL 96 mmol/L (98-107); SODIUM,NA 143 mmol/L (136-145)
[2021-04-11 06:42] LABS: ANION GAP 6.59999 mEq/L (7-13)
[2021-04-11] MEDS: Calcitriol 0.25 MCG Cap PO SCH (08:45)
[2021-04-11] MEDS: Potassium Chloride 10 MEQ Tab.ER PO SCH (08:45)
[2021-04-11] MEDS: Metoprolol Tartrate 25 MG Tab PO SCH ×2 (08:46→21:18)
[2021-04-11] MEDS: Furosemide 40 MG/4 ML VIAL IVPUSH SCH ×2 (08:54→14:56)
[2021-04-11] MEDS ORDERED: Enoxaparin 30 MG/0.3 ML Syringe SUBCUT SCH (09:00)
[2021-04-11] MEDS: Budesonide 0.5 MG/2 ML Neb Susp NEB SCH ×2 (09:03→17:42)
[2021-04-11] MEDS: Sodium Chloride 0.9% 10 ML Syringe FLUSH SCH (09:13)
[2021-04-11] MEDS: Albuterol/Ipratropium 3.0-0.5 MG/3 ML Neb Soln NEB PRN ×3 (09:17→17:42)
[2021-04-11] MEDS: Loratadine 10 MG Tab PO SCH (09:23)
[2021-04-11] MEDS: Sertraline 50 MG Tab PO SCH (09:26)
[2021-04-11] MEDS: Calcium Carbonate/Vitamin D3 1250 MG-5 MCG Tab PO SCH (09:27)
[2021-04-11] MEDS: Spironolactone 25 MG Tab PO SCH ×2 (09:30→21:19)
[2021-04-11] MEDS: Enoxaparin 40 MG/0.4 ML Syringe SUBCUT SCH (09:31)
[2021-04-11] MEDS: Gabapentin 100 MG Cap PO SCH ×3 (09:35→21:19)
[2021-04-11] MEDS: Omeprazole 20 MG Cap.CR PO SCH (09:35)
[2021-04-11] MEDS: Lidocaine 5% 700 MG Patch TRDERM SCH (09:36)
[2021-04-11] MEDS: cefTRIAXone 1 GM Vial IV SCH (17:30)
[2021-04-11] MEDS: Azithromycin 500 MG in Sodium Chloride 0.9% 250 ML IV SCH (17:35)
[2021-04-11] MEDS: Aspirin 81 MG Tab.Chew PO SCH (21:19)
[2021-04-11] MEDS: atorvaSTATin 10 MG Tab PO SCH (21:19)
[2021-04-12] MEDS: Acetaminophen 325 MG Tab PO PRN ×2 (01:28→15:16)
[2021-04-12] MEDS: methylPREDNISolone Sodium Succinate 40 MG/1 ML SDV IVPUSH SCH ×4 (01:33→22:45)
[2021-04-12] MEDS: Sodium Chloride 0.9% 10 ML Syringe FLUSH SCH ×3 (01:33→22:45)
[2021-04-12] MEDS: Levothyroxine 75 MCG Tab PO SCH (05:43)
[2021-04-12] MEDS ORDERED: ALENDRONATE 70 MG PO SCH (06:00)
[2021-04-12 07:22] LABS: CHLORIDE,CL 95 mmol/L (98-107); SODIUM,NA 143 mmol/L (136-145)
[2021-04-12] MEDS: Budesonide 0.5 MG/2 ML Neb Susp NEB SCH ×2 (07:27→18:44)
[2021-04-12 07:35] LABS: ANION GAP 7.29999 mEq/L (7-13)
[2021-04-12] MEDS: Ondansetron 4 MG/2 ML SDV IVPUSH PRN (08:29)
[2021-04-12] MEDS: Furosemide 40 MG/4 ML VIAL IVPUSH SCH ×3 (08:57→15:23)
[2021-04-12] MEDS: Lidocaine 5% 700 MG Patch TRDERM SCH (09:33)
[2021-04-12] MEDS: Enoxaparin 40 MG/0.4 ML Syringe SUBCUT SCH (09:35)
[2021-04-12] MEDS: Calcium Carbonate/Vitamin D3 1250 MG-5 MCG Tab PO SCH (09:35)
[2021-04-12] MEDS: Potassium Chloride 10 MEQ Tab.ER PO SCH (09:35)
[2021-04-12] MEDS: Omeprazole 20 MG Cap.CR PO SCH (09:36)
[2021-04-12] MEDS: Loratadine 10 MG Tab PO SCH (09:36)
[2021-04-12] MEDS: Spironolactone 25 MG Tab PO SCH ×2 (09:36→23:04)
[2021-04-12] MEDS: Metoprolol Tartrate 25 MG Tab PO SCH ×2 (09:36→23:13)
[2021-04-12] MEDS: Gabapentin 100 MG Cap PO SCH ×2 (09:37→15:16)
[2021-04-12] MEDS: Sertraline 50 MG Tab PO SCH (09:37)
[2021-04-12] MEDS: cefTRIAXone 1 GM in Sodium Chloride 0.9% 50 ML IV SCH (17:14)
[2021-04-12 18:09] LABS: CHLORIDE,CL 97 mmol/L (98-107); SODIUM,NA 145 mmol/L (136-145)
[2021-04-12] MEDS: Azithromycin 250 MG Tab PO SCH (18:11)
[2021-04-12 18:16] LABS: ANION GAP 7.59999 mEq/L (7-13)
[2021-04-12 20:45] LABS: O2 DELIVERY DEVICE NASAL CANNULA
[2021-04-12 20:46] LABS: BASE EXCESS ARTERIAL 19 mmol/L ((-2)-(+3)); BICARBONATE,ARTERIAL 49.2 mmol/L (22-26); O2 SATURATION ARTERIAL 98 % (95-100); PCO2 ARTERIAL 110 mmHg (35-45); PO2 ARTERIAL 109 mmHg (70-100)
[2021-04-12 21:41] LABS: BASE EXCESS ARTERIAL 22 mmol/L ((-2)-(+3)); BICARBONATE,ARTERIAL 50.9 mmol/L (22-26); O2 DELIVERY DEVICE BIPAP; O2 SATURATION ARTERIAL 94 % (95-100); PO2 ARTERIAL 71 mmHg (70-100)
[2021-04-12 21:42] LABS: O2 FLOW RATE 40; PCO2 ARTERIAL 93 mmHg (35-45)
[2021-04-12] MEDS: Aspirin 81 MG Tab.Chew PO SCH (23:04)
[2021-04-12] MEDS: atorvaSTATin 10 MG Tab PO SCH (23:04)
[2021-04-13] MEDS: Levothyroxine 75 MCG Tab PO SCH (05:39)
[2021-04-13] MEDS: methylPREDNISolone Sodium Succinate 40 MG/1 ML SDV IVPUSH SCH ×3 (05:44→22:54)
[2021-04-13] MEDS: Sodium Chloride 0.9% 10 ML Syringe FLUSH SCH ×3 (05:45→22:58)
[2021-04-13 07:05] LABS: CHLORIDE,CL 98 mmol/L (98-107); SODIUM,NA 144 mmol/L (136-145)
[2021-04-13 07:10] LABS: ANION GAP 5.79999 mEq/L (7-13)
[2021-04-13] MEDS: Budesonide 0.5 MG/2 ML Neb Susp NEB SCH ×2 (07:16→17:32)
[2021-04-13 08:06] LABS: BASE EXCESS ARTERIAL 23 mmol/L ((-2)-(+3)); BICARBONATE,ARTERIAL 51.9 mmol/L (22-26); O2 DELIVERY DEVICE BIPAP; O2 SATURATION ARTERIAL 87 % (95-100); PO2 ARTERIAL 57 mmHg (70-100)
[2021-04-13 08:11] LABS: O2 FLOW RATE 2; PCO2 ARTERIAL 86 mmHg (35-45)
[2021-04-13] MEDS: Furosemide 40 MG/4 ML VIAL IVPUSH SCH ×2 (08:51→14:16)
[2021-04-13] MEDS: Omeprazole 20 MG Cap.CR PO SCH (08:56)
[2021-04-13] MEDS: Metoprolol Tartrate 25 MG Tab PO SCH ×2 (08:56→20:55)
[2021-04-13] MEDS: Loratadine 10 MG Tab PO SCH (08:56)
[2021-04-13] MEDS: Spironolactone 25 MG Tab PO SCH ×2 (08:56→20:55)
[2021-04-13] MEDS: Calcitriol 0.25 MCG Cap PO SCH (08:56)
[2021-04-13] MEDS: Azithromycin 250 MG Tab PO SCH (08:56)
[2021-04-13] MEDS: Calcium Carbonate/Vitamin D3 1250 MG-5 MCG Tab PO SCH (08:56)
[2021-04-13] MEDS: Potassium Chloride 10 MEQ Tab.ER PO SCH (08:56)
[2021-04-13] MEDS: Enoxaparin 40 MG/0.4 ML Syringe SUBCUT SCH (09:04)
[2021-04-13] MEDS: Lidocaine 5% 700 MG Patch TRDERM SCH (09:04)
[2021-04-13 11:04] LABS: BASE EXCESS ARTERIAL 22 mmol/L ((-2)-(+3)); BICARBONATE,ARTERIAL 51.6 mmol/L (22-26); O2 DELIVERY DEVICE NASAL CANNULA; O2 SATURATION ARTERIAL 98 % (95-100); PO2 ARTERIAL 99 mmHg (70-100)
[2021-04-13 11:07] LABS: ALLEN TEST POSITIVE; O2 FLOW RATE 3; PCO2 ARTERIAL 94 mmHg (35-45)
[2021-04-13] MEDS: cefTRIAXone 1 GM in Sodium Chloride 0.9% 50 ML IV SCH (17:33)
[2021-04-13] MEDS: Formoterol 20 MCG/2 ML Neb *OWN MED INH SCH ×3 (17:38→18:43)
[2021-04-13] MEDS: atorvaSTATin 10 MG Tab PO SCH (20:51)
[2021-04-13] MEDS: Aspirin 81 MG Tab.Chew PO SCH (20:51)
[2021-04-13] MEDS: Gabapentin 100 MG Cap PO SCH (20:51)
[2021-04-14] MEDS: Levothyroxine 75 MCG Tab PO SCH ×2 (04:53→05:04)
[2021-04-14] MEDS: methylPREDNISolone Sodium Succinate 40 MG/1 ML SDV IVPUSH SCH ×3 (06:05→21:07)
[2021-04-14 07:07] LABS: CHLORIDE,CL 96 mmol/L (98-107); SODIUM,NA 143 mmol/L (136-145)
[2021-04-14 07:11] LABS: ANION GAP 6.29999 mEq/L (7-13)
[2021-04-14] MEDS: Budesonide 0.5 MG/2 ML Neb Susp NEB SCH ×2 (07:48→18:20)
[2021-04-14] MEDS: Formoterol 20 MCG/2 ML Neb *OWN MED INH SCH ×2 (07:54→18:20)
[2021-04-14] MEDS: Potassium Chloride 10 MEQ Tab.ER PO SCH (08:54)
[2021-04-14] MEDS: Gabapentin 100 MG Cap PO SCH ×3 (08:54→21:07)
[2021-04-14] MEDS: Metoprolol Tartrate 25 MG Tab PO SCH ×2 (08:55→21:07)
[2021-04-14] MEDS: Lidocaine 5% 700 MG Patch TRDERM SCH (08:55)
[2021-04-14] MEDS: Spironolactone 25 MG Tab PO SCH ×2 (08:55→21:07)
[2021-04-14] MEDS: Calcium Carbonate/Vitamin D3 1250 MG-5 MCG Tab PO SCH (08:55)
[2021-04-14] MEDS: Azithromycin 250 MG Tab PO SCH (08:55)
[2021-04-14] MEDS: Omeprazole 20 MG Cap.CR PO SCH (08:55)
[2021-04-14] MEDS: Loratadine 10 MG Tab PO SCH (08:55)
[2021-04-14] MEDS: Furosemide 40 MG/4 ML VIAL IVPUSH SCH ×2 (08:56→14:24)
[2021-04-14] MEDS: Sodium Chloride 0.9% 10 ML Syringe FLUSH SCH ×2 (09:00→21:10)
[2021-04-14] MEDS: Enoxaparin 40 MG/0.4 ML Syringe SUBCUT SCH (09:04)
[2021-04-14] MEDS ORDERED: Bacitracin Oint 28.35 GM Tube TOP PRN (09:29)
[2021-04-14 12:37] LABS: O2 DELIVERY DEVICE NASAL CANNULA
[2021-04-14] MEDS: cefTRIAXone 1 GM in Sodium Chloride 0.9% 50 ML IV SCH (16:52)
[2021-04-14] MEDS: Aspirin 81 MG Tab.Chew PO SCH (21:07)
[2021-04-14] MEDS: atorvaSTATin 10 MG Tab PO SCH (21:07)
[2021-04-15] MEDS: Levothyroxine 75 MCG Tab PO SCH (06:07)
[2021-04-15] MEDS: methylPREDNISolone Sodium Succinate 40 MG/1 ML SDV IVPUSH SCH (06:07)
[2021-04-15] MEDS: Budesonide 0.5 MG/2 ML Neb Susp NEB SCH ×2 (06:12→17:44)
[2021-04-15] MEDS: Formoterol 20 MCG/2 ML Neb *OWN MED INH SCH ×2 (06:46→17:44)
[2021-04-15 06:57] LABS: CHLORIDE,CL 97 mmol/L (98-107); SODIUM,NA 144 mmol/L (136-145)
[2021-04-15] MEDS: Gabapentin 100 MG Cap PO SCH ×3 (08:35→21:32)
[2021-04-15] MEDS: Metoprolol Tartrate 25 MG Tab PO SCH ×2 (08:35→21:32)
[2021-04-15] MEDS: Azithromycin 250 MG Tab PO SCH (08:36)
[2021-04-15] MEDS: Calcium Carbonate/Vitamin D3 1250 MG-5 MCG Tab PO SCH (08:36)
[2021-04-15] MEDS: Calcitriol 0.25 MCG Cap PO SCH (08:36)
[2021-04-15] MEDS: Potassium Chloride 10 MEQ Tab.ER PO SCH (08:36)
[2021-04-15] MEDS: Spironolactone 25 MG Tab PO SCH ×2 (08:36→21:31)
[2021-04-15] MEDS: Loratadine 10 MG Tab PO SCH (08:36)
[2021-04-15] MEDS: Enoxaparin 40 MG/0.4 ML Syringe SUBCUT SCH (08:37)
[2021-04-15] MEDS: Omeprazole 20 MG Cap.CR PO SCH (08:37)
[2021-04-15] MEDS: Furosemide 40 MG/4 ML VIAL IVPUSH SCH ×2 (08:44→14:10)
[2021-04-15] MEDS: Lidocaine 5% 700 MG Patch TRDERM SCH (08:49)
[2021-04-15] MEDS: Sodium Chloride 0.9% 10 ML Syringe FLUSH SCH ×2 (08:49→21:35)
[2021-04-15 11:31] LABS: BASE EXCESS ARTERIAL 25 mmol/L ((-2)-(+3)); BICARBONATE,ARTERIAL 54.4 mmol/L (22-26); O2 DELIVERY DEVICE NASAL CANNULA; O2 SATURATION ARTERIAL 98 % (95-100); PO2 ARTERIAL 103 mmHg (70-100)
[2021-04-15 11:40] LABS: PCO2 ARTERIAL 89 mmHg (35-45)
[2021-04-15 15:34] LABS: BICARBONATE,VENOUS 53 mmol/l (19-25); O2 SATURATION VENOUS 48.8 % (60-80); PO2 VENOUS 34 mmHg (35-42)
[2021-04-15 15:41] LABS: O2 FLOW RATE 3; PCO2 VENOUS 87 mmHg (41-51)
[2021-04-15] MEDS: cefTRIAXone 1 GM in Sodium Chloride 0.9% 50 ML IV SCH (17:09)
[2021-04-15] MEDS: atorvaSTATin 10 MG Tab PO SCH (21:32)
[2021-04-15] MEDS: Aspirin 81 MG Tab.Chew PO SCH (21:32)
[2021-04-16] MEDS: Levothyroxine 75 MCG Tab PO SCH (06:00)
[2021-04-16] MEDS: Formoterol 20 MCG/2 ML Neb *OWN MED INH SCH ×2 (07:33→18:15)
[2021-04-16] MEDS: Budesonide 0.5 MG/2 ML Neb Susp NEB SCH ×2 (07:33→18:15)
[2021-04-16] MEDS: Azithromycin 250 MG Tab PO SCH (09:14)
[2021-04-16] MEDS: Potassium Chloride 10 MEQ Tab.ER PO SCH (09:15)
[2021-04-16] MEDS: Spironolactone 25 MG Tab PO SCH ×2 (09:15→21:31)
[2021-04-16] MEDS: Omeprazole 20 MG Cap.CR PO SCH (09:15)
[2021-04-16] MEDS: predniSONE 20 MG Tab PO SCH (09:15)
[2021-04-16] MEDS: Gabapentin 100 MG Cap PO SCH ×3 (09:15→21:30)
[2021-04-16] MEDS: Loratadine 10 MG Tab PO SCH (09:16)
[2021-04-16] MEDS: Metoprolol Tartrate 25 MG Tab PO SCH ×2 (09:16→21:29)
[2021-04-16] MEDS: Calcium Carbonate/Vitamin D3 1250 MG-5 MCG Tab PO SCH (09:16)
[2021-04-16] MEDS: Lidocaine 5% 700 MG Patch TRDERM SCH (09:18)
[2021-04-16] MEDS: Sodium Chloride 0.9% 10 ML Syringe FLUSH SCH ×2 (09:19→21:37)
[2021-04-16] MEDS: Enoxaparin 40 MG/0.4 ML Syringe SUBCUT SCH (09:25)
[2021-04-16] MEDS: Furosemide 40 MG/4 ML VIAL IVPUSH SCH ×2 (09:25→15:46)
[2021-04-16] MEDS: Calcitriol 0.25 MCG Cap PO SCH (09:34)
[2021-04-16] MEDS: cefTRIAXone 1 GM in Sodium Chloride 0.9% 50 ML IV SCH (17:16)
[2021-04-16] MEDS: Aspirin 81 MG Tab.Chew PO SCH (21:30)
[2021-04-16] MEDS: atorvaSTATin 10 MG Tab PO SCH (21:30)
[2021-04-16] MEDS: Ondansetron 4 MG/2 ML SDV IVPUSH PRN (21:45)
[2021-04-17] MEDS: Levothyroxine 75 MCG Tab PO SCH (05:30)
[2021-04-17 07:52] VITALS: BP 124/71; PULSE 101
[2021-04-17] MEDS: Formoterol 20 MCG/2 ML Neb *OWN MED INH SCH ×2 (09:15→18:20)
[2021-04-17] MEDS: Budesonide 0.5 MG/2 ML Neb Susp NEB SCH ×2 (09:15→18:20)
[2021-04-17] MEDS: Potassium Chloride 10 MEQ Tab.ER PO SCH (10:46)
[2021-04-17] MEDS: Loratadine 10 MG Tab PO SCH (10:46)
[2021-04-17] MEDS: Furosemide 40 MG/4 ML VIAL IVPUSH SCH ×2 (10:46→15:33)
[2021-04-17] MEDS: Metoprolol Tartrate 25 MG Tab PO SCH (10:46)
[2021-04-17] MEDS: Lidocaine 5% 700 MG Patch TRDERM SCH (10:46)
[2021-04-17] MEDS: Enoxaparin 40 MG/0.4 ML Syringe SUBCUT SCH (10:46)
[2021-04-17] MEDS: Spironolactone 25 MG Tab PO SCH (10:46)
[2021-04-17] MEDS: predniSONE 20 MG Tab PO SCH (10:46)
[2021-04-17] MEDS: Sodium Chloride 0.9% 10 ML Syringe FLUSH SCH ×2 (10:47→20:38)
[2021-04-17] MEDS: Omeprazole 20 MG Cap.CR PO SCH (10:47)
[2021-04-17] MEDS: Gabapentin 100 MG Cap PO SCH ×3 (10:47→20:38)
[2021-04-17] MEDS: Morphine 2 MG/ML SYRINGE IVPUSH PRN (20:01)
[2021-04-17] MEDS: LORazepam 2 MG/ML SDV IVPUSH PRN (21:13)
[2021-04-17] MEDS ORDERED: Carboxymethylcellulose Sodium 1% Ophth Gel 0.4 ML UD EYEBOTH PRN (21:21)
[2021-04-18] MEDS: Morphine 2 MG/ML SYRINGE IVPUSH PRN ×4 (00:12→12:00)
[2021-04-18] MEDS: LORazepam 2 MG/ML SDV IVPUSH PRN (05:51)
[2021-04-18] MEDS: Formoterol 20 MCG/2 ML Neb *OWN MED INH SCH (07:23)
[2021-04-18] MEDS: Budesonide 0.5 MG/2 ML Neb Susp NEB SCH (07:23)
[2021-04-18] MEDS: Sodium Chloride 0.9% 10 ML Syringe FLUSH SCH (09:00)
[2021-04-18] MEDS: Potassium Chloride 10 MEQ Tab.ER PO SCH (09:00)
[2021-04-18] MEDS: Lidocaine 5% 700 MG Patch TRDERM SCH (09:00)
[2021-04-18] MEDS: Gabapentin 100 MG Cap PO SCH ×2 (09:00→14:00)
== END 2021-04-18 15:29 | disposition swing bed (61) | DRG 189 ==
LOC: DL.MS 07:58 → UNDOADMOB 15:26 → DL.MS 16:26 → OBSVTOIN 04-11 07:58
PROVIDERS: ADMIT Internal Medicine; ATTEND Internal Medicine
PROC: 5A09357 Assistance with Respiratory Ventilation, Less than 24 Consecutive Hours, Continuous Positive Airway Pressure (ICD-10-PCS; principal; 2021-04-12)
DX: J96.21 Acute and chronic respiratory failure with hypoxia (principal); G93.41 Metabolic encephalopathy; L03.115 Cellulitis of right lower limb; L03.116 Cellulitis of left lower limb; E87.4 Mixed disorder of acid-base balance; G93.49 Other encephalopathy; I13.0 Hypertensive heart and chronic kidney disease with heart failure and stage 1 through stage 4 chronic kidney disease, or unspecified chronic kidney disease; M80.08XA Age-related osteoporosis with current pathological fracture, vertebra(e), initial encounter for fracture; J43.9 Emphysema, unspecified; E78.5 Hyperlipidemia, unspecified; Z20.822 Contact with and (suspected) exposure to COVID-19; E03.9 Hypothyroidism, unspecified; Z66 Do not resuscitate; E78.00 Pure hypercholesterolemia, unspecified; I50.9 Heart failure, unspecified; F41.9 Anxiety disorder, unspecified; F32.A Depression, unspecified; M85.80 Other specified disorders of bone density and structure, unspecified site; N18.9 Chronic kidney disease, unspecified; M54.9 Dorsalgia, unspecified; G89.29 Other chronic pain; D64.9 Anemia, unspecified; E05.90 Thyrotoxicosis, unspecified without thyrotoxic crisis or storm; Z90.710 Acquired absence of both cervix and uterus; Z88.0 Allergy status to penicillin; Z91.040 Latex allergy status; Z88.1 Allergy status to other antibiotic agents; Z79.82 Long term (current) use of aspirin; Z79.890 Hormone replacement therapy; Z79.899 Other long term (current) drug therapy; Z87.01 Personal history of pneumonia (recurrent); Z98.49 Cataract extraction status, unspecified eye
CPT/HCPCS: 36415; 36600; 51702; 71045; 80048; 81001; 82607; 82803; 82947; 83735; 84484; 85025; 85610; 87040; 87086; 93005; 93970; 94640; 94660; 94762; A9270-GY; J0456; J0696; J1650; J1940; J2060; J2270; J2405; J2920; J7050; J7512; J7606; J7620-GY; U0002

== ENCOUNTER 2021-04-18 10:32 | Inpatient (IN) | payer MEDICARE, BC ==
[2021-04-18] MEDS ORDERED: Carboxymethylcellulose Sodium 1% Ophth Gel 0.4 ML UD EYEBOTH PRN (14:08)
[2021-04-18] MEDS ORDERED: Acetaminophen 325 MG Tab PO PRN (14:08)
[2021-04-18] MEDS ORDERED: Albuterol 0.083% 2.5 MG/3 ML Neb Soln NEB PRN (14:08)
[2021-04-18] MEDS ORDERED: Albuterol/Ipratropium 3.0-0.5 MG/3 ML Neb Soln NEB PRN (14:08)
[2021-04-18] MEDS ORDERED: Acetaminophen 120 MG Supp RECTAL PRN (14:13)
[2021-04-18] MEDS: Ondansetron 4 MG/2 ML SDV IVPUSH PRN ×2 (15:55→20:19)
[2021-04-18] MEDS: Morphine 2 MG/ML SYRINGE IVPUSH PRN ×3 (17:21→22:35)
[2021-04-18] MEDS ORDERED: Budesonide 0.5 MG/2 ML Neb Susp NEB SCH (18:00)
[2021-04-18] MEDS: Sodium Chloride 0.9% 10 ML Syringe FLUSH SCH (20:21)
[2021-04-18] MEDS ORDERED: Sodium Chloride 0.9% 10 ML Syringe FLUSH SCH (21:00)
[2021-04-18] MEDS: LORazepam 2 MG/ML SDV IVPUSH PRN (23:28)
[2021-04-19] MEDS: Morphine 2 MG/ML SYRINGE IVPUSH PRN ×4 (06:11→19:49)
[2021-04-19] MEDS: Ondansetron 4 MG/2 ML SDV IVPUSH PRN (06:20)
[2021-04-19] MEDS: Lidocaine 5% 700 MG Patch TRDERM SCH (09:09)
[2021-04-19] MEDS: LORazepam 2 MG/ML SDV IVPUSH PRN ×2 (09:12→19:48)
[2021-04-19] MEDS: Sodium Chloride 0.9% 10 ML Syringe FLUSH SCH ×2 (09:12→22:06)
[2021-04-20] MEDS: Morphine 2 MG/ML SYRINGE IVPUSH PRN ×6 (00:02→17:50)
[2021-04-20] MEDS: LORazepam 2 MG/ML SDV IVPUSH PRN (04:32)
[2021-04-20] MEDS: Sodium Chloride 0.9% 10 ML Syringe FLUSH SCH (09:38)
[2021-04-20] MEDS: Lidocaine 5% 700 MG Patch TRDERM SCH (09:43)
[2021-04-20] MEDS ORDERED: Atropine 1% Ophth Soln 5 ML BOTTLE SL PRN (16:35)
== END 2021-04-20 21:20 | disposition expired | DRG 951 ==
LOC: DL.MS 15:29 → UNDOADMIN 15:29
PROVIDERS: ADMIT Internal Medicine; ATTEND Internal Medicine
DX: Z51.5 Encounter for palliative care (principal); J96.20 Acute and chronic respiratory failure, unspecified whether with hypoxia or hypercapnia; G93.49 Other encephalopathy; L03.115 Cellulitis of right lower limb; L03.116 Cellulitis of left lower limb; I50.9 Heart failure, unspecified; H54.7 Unspecified visual loss; I11.0 Hypertensive heart disease with heart failure; E78.00 Pure hypercholesterolemia, unspecified; J84.10 Pulmonary fibrosis, unspecified; M19.90 Unspecified osteoarthritis, unspecified site; M81.0 Age-related osteoporosis without current pathological fracture; M54.9 Dorsalgia, unspecified; K44.9 Diaphragmatic hernia without obstruction or gangrene; J43.9 Emphysema, unspecified; G89.29 Other chronic pain; F41.9 Anxiety disorder, unspecified; F32.A Depression, unspecified; E05.90 Thyrotoxicosis, unspecified without thyrotoxic crisis or storm; D64.9 Anemia, unspecified; R13.10 Dysphagia, unspecified; Z99.81 Dependence on supplemental oxygen; Z88.0 Allergy status to penicillin; Z86.16 Personal history of COVID-19; Z88.1 Allergy status to other antibiotic agents; Z91.040 Latex allergy status; Z87.01 Personal history of pneumonia (recurrent); Z90.710 Acquired absence of both cervix and uterus; Z90.10 Acquired absence of unspecified breast and nipple; Z98.890 Other specified postprocedural states; Z98.49 Cataract extraction status, unspecified eye
CPT/HCPCS: A9270-GY; J2060; J2270; J2405